=== PATIENT | female | born 1960 | race Caucasian/White ===

== ENCOUNTER → 2019-07-23 09:03 | Outpatient (BNVA) | payer MEDICARE, MEDICAID, SELFPAY | PROVIDERS: Family Provider Nurse Practitioner; PCP Nurse Practitioner; Visit Provider Nurse Practitioner | DX: I10 Essential (primary) hypertension (principal); E11.9 Type 2 diabetes mellitus without complications; J43.9 Emphysema, unspecified; Z86.718 Personal history of other venous thrombosis and embolism | CPT/HCPCS: 80053; 83036 ==

== ENCOUNTER 2019-08-20 07:18 | Observation (INO) | payer MEDICARE, MEDICAID, SELFPAY ==
[2019-08-20] VITALS (9 sets, daily range): BP systolic 83–142; BP diastolic 47–82; PULSE 67–85; RESP 15–22; TEMP 36.5–36.9; O2SAT 71–98; BMI 35.0
--- NOTE | 2019-08-20 07:22 | ED_ITS ---
Entered by Tamia Leon, acting as scribe for Toni Almonte DO HPI - Chest Pain General: Chief Complaint: Chest Pain Stated Complaint: chest pain Time Seen by Provider: 08/20/19 07:21 Source: patient, family and EMS Mode of arrival: EMS Limitations: no limitations History of Present Illness: HPI narrative: 58 yo female presents with chest and abdomen pain. pt states this started yesterday. pt has had shortness of breath. pt got 3 Nitro by EMS that relieved the pain. pt has had high blood pressure. pt denies any other symptoms at this time. MD complaint: other (nausea) Onset (ago): day(s) (yesterday) Timing of current episode: constant and now resolved (after Nitro) Prior episodes: Yes Onset: during rest Pain location: substernal and epigastric Pain radiation: none Severity: moderate Quality: tightness Relieving factors: nitroglycerin (by EMS) Exacerbating factors: nothing Associated symptoms: Reports abdominal pain, dyspnea and other (sweats) Treatment prior to arrival: none Review of Systems General: Reports: 10 or more systems reviewed and unremarkable except in HPI and below Resp: Reports: shortness of breath GI: Reports: abdominal pain PFSH ED PFSH: Statuses (acute, chronic, etc) shown below reflect problem list status as previously entered and may not be historically accurate Medical History (Updated 08/20/19 @ 11:32 by Angelique Smith DO) Diabetes (Acute) Diastolic congestive heart failure (Acute) GERD (gastroesophageal reflux disease) (Acute) History of DVT of lower extremity (Acute) Left leg HTN (hypertension) (Acute) Hx of breast lump (Acute) left 09/2015 negitive Hx of melanoma of skin (Acute) 2003 Insomnia, unspecified (Acute) Tremor, unspecified (Acute) Unspecified urinary incontinence (Acute) Vitamin B12 deficiency (Acute) Surgical History (Updated 08/20/19 @ 11:32 by Angelique Smith DO) H/O left breast biopsy (Acute) History of thoracentesis (Acute) Hx of colonoscopy (Acute) Hx of tubal ligation (Acute) 1980 Social History Smoking and tobacco status: former smoker Quit status (tobacco): has quit using tobacco Alcohol intake: never Marital status: History of recent travel: No Physical Exam Const: COMMON NORMALS: no apparent distress, average body habitus, oriented x3, no limitations, healthy appearing, alert and well nourished HENMT: COMMON NORMALS: normocephalic, head/scalp atraumatic, hearing grossly normal bilaterally, external ears normal, EAC's normal, TM's normal bilaterally, external nose normal, nasal mucous membranes and turbinates normal, moist oral mucous membranes, oropharynx normal, dentition normal and gingiva normal HEAD & SCALP: normocephalic and atraumatic NOSE: external nose normal and nasal mucous membranes and turbinates normal EXTERNAL EAR: Yes external ears normal EXTERNAL AUDITORY CANAL: EAC's normal TYMPANIC MEMBRANE: TM's normal bilaterally Eye: COMMON NORMALS: PERRL, EOMs intact bilaterally, conjunctivae normal, no scleral icterus, no papilledema, normal visual gilman by confrontation and fundi normal bilaterally CONJUNCTIVA: Yes conjunctivae normal PUPIL: Yes PERRL DIRECT OPHTHALMOSCOPY: Yes no papilledema and Yes fundi normal bilaterally Neck/C-Spine: COMMON NORMALS: full ROM, no lymphadenopathy, supple, no meningeal signs, no JVD, thyroid normal and no carotid bruits THYROID: thyroid normal Chest: COMMONS NORMALS: inspection of chest normal and palpation of chest normal Resp: COMMON NORMALS: normal respiratory effort, no retractions, no use of accessory muscles, clear to auscultation bilaterally and percussion normal AUSCULTATION: clear to auscultation bilaterally PERCUSSION: percussion normal Cardio: COMMON NORMALS: no JVD, regular rate, regular rhythm, S1 normal heart sound, S2 normal heart sound, no gallops, no clicks, no murmurs, no rub and peripheral pulses 2+ throughout RATE: regular rate RHYTHM: regular rhythm HEART SOUNDS: S1 normal and S2 normal PERIPHERAL PULSES: pulses 2+ throughout GI: COMMON NORMALS: normal to inspection, nondistended, normoactive bowel sounds, soft to palpation, non-tender, no hepatosplenomegaly, no masses and no bruits PALPATION: Yes soft and Yes no hepatosplenomegaly : COMMON NORMALS: Yes no CVA tenderness and Yes external appearance normal BLADDER/KIDNEY EXAM: Yes no CVA tenderness Back/Pelvis: COMMON NORMALS: no CVA tenderness, thoracic and lumbar spine normal to inspection, no thoracic nor lumbar tenderness, thoraco-lumbar ROM normal and straight leg raise negative bilaterally Extremity: COMMON NORMALS: normal to inspection, full ROM, normal capillary refill, no joint enlargement, no clubbing, cyanosis or edema, no calf tenderness and no pedal edema Neuro: COMMON NORMALS: oriented x3 SENSORIUM/ORIENTATION: Yes alert MENINGEAL SIGNS: Yes no meningeal signs Skin: COMMON NORMALS: no rashes or lesions noted, no wounds, skin turgor normal, no jaundice, no petechiae and no mottling GENERAL SKIN EXAM: no rashes or lesions noted and turgor normal Course Vital Signs: Vital signs: Vital Signs Temperature 97.7 F 08/20/19 07:19 Pulse Rate 85 08/20/19 07:19 Respiratory Rate 20 H 08/20/19 10:20 Blood Pressure 95/56 08/20/19 10:20 Pulse Oximetry 98 08/20/19 10:20 MDM - Chest Pain Lab Data: Labs: Lab Results 08/20/19 08/20/19 08/20/19 Range/Units 07:40 07:40 07:40 WBC 6.7 (4.0-10.0) 10^3/ uL RBC 4.41 (4.1-5.3) 10^6/u L Hgb 13.0 (11.5-15.3) g/dL Hct 40.9 (37.0-47.0) % MCV 92.7 (81-99) fL MCH 29.5 (28.0-34.0) pg MCHC 31.8 (30.0-36.0) g/dL RDW 12.4 (12.1-15.1) % Plt Count 165 (130-400) 10^3/c mm MPV 11.0 H (7.4-10.4) fL Neut % (Auto) 81.2 % Lymph % (Auto) 12.6 % [place] % (Auto) 3.6 % Eos % (Auto) 1.3 % Baso % (Auto) 0.4 % Neut # (Auto) 5.5 (1.8-7.7) 10^3/u L Lymph # (Auto) 0.9 (0.8-4.8) 10^3/u L [place] # (Auto) 0.2 (0.2-0.9) 10^3/u L Eos # (Auto) 0.1 (0.0-0.8) 10^3/u L Baso # (Auto) 0.0 (0.0-0.1) 10^3/u L Nucleated RBC % (a uto) 0 % Nucleated RBCs # 0.0 /100WBC D-Dimer 0.94 H (0-0.59) ug/mIFE U Sodium 135 L (136-145) mmol/L Potassium 5.0 (3.5-5.1) mmol/L Chloride 96 L (98-107) mmol/L Carbon Dioxide 28 (22-29) mmol/L Anion Gap 16.0 (5-19) BUN 17 (8-23) mg/dL Creatinine 0.4 L (0.5-0.9) mg/dL GFR Calculation 162.8 H (90-130) mL/min Glucose 393 H (74-106) mg/dL Calcium 9.2 (8.5-10.5) mg/dL Total Bilirubin 0.7 (0.15-1.2) mg/dL AST 12 (0-32) U/L ALT 12 (0-33) U/L Alkaline Phosphata se 81 (35-105) IU/L Troponin T Baselin e (0-10) ng/mL Troponin T 120 Min [place] (0-10) ng/mL Delta Troponin T (0-10) ABS# NT-Pro-B Natriuret Pep 293 H (0-125) pg/mL Total Protein 7.6 (6.6-8.7) g/dL Albumin 3.5 (3.5-5.2) g/dL Globulin 4.1 (1.3-4.6) g/dL Lipase 7 L (13-60) U/L 08/20/19 08/20/19 Range/Units 07:40 09:40 WBC (4.0-10.0) 10^3/ uL RBC (4.1-5.3) 10^6/u L Hgb (11.5-15.3) g/dL Hct (37.0-47.0) % MCV (81-99) fL MCH (28.0-34.0) pg MCHC (30.0-36.0) g/dL RDW (12.1-15.1) % Plt Count (130-400) 10^3/c mm MPV (7.4-10.4) fL Neut % (Auto) % Lymph % (Auto) % [place] % (Auto) % Eos % (Auto) % Baso % (Auto) % Neut # (Auto) (1.8-7.7) 10^3/u L Lymph # (Auto) (0.8-4.8) 10^3/u L [place] # (Auto) (0.2-0.9) 10^3/u L Eos # (Auto) (0.0-0.8) 10^3/u L Baso # (Auto) (0.0-0.1) 10^3/u L Nucleated RBC % (a uto) % Nucleated RBCs # /100WBC D-Dimer (0-0.59) ug/mIFE U Sodium (136-145) mmol/L Potassium (3.5-5.1) mmol/L Chloride (98-107) mmol/L Carbon Dioxide (22-29) mmol/L Anion Gap (5-19) BUN (8-23) mg/dL Creatinine (0.5-0.9) mg/dL GFR Calculation (90-130) mL/min Glucose (74-106) mg/dL Calcium (8.5-10.5) mg/dL Total Bilirubin (0.15-1.2) mg/dL AST (0-32) U/L ALT (0-33) U/L Alkaline Phosphata se (35-105) IU/L Troponin T Baselin e 13 H (0-10) ng/mL Troponin T 120 Min [place] 16.21 H (0-10) ng/mL Delta Troponin T 3.21 (0-10) ABS# NT-Pro-B Natriuret Pep (0-125) pg/mL Total Protein (6.6-8.7) g/dL Albumin (3.5-5.2) g/dL Globulin (1.3-4.6) g/dL Lipase (13-60) U/L Discharge Plan Discharge Patient Disposition: Admitted As Inpatient Clinical Impression: Non-ST elevation OR (NSTEMI) Chest pain Qualifiers: Chest pain type: chest pain due to myocardial ischemia Ischemic chest pain type: unstable angina pectoris Qualified Code(s): I20.0 - Unstable angina Condition: Fair Referrals: Alondra Ham, [employer] MAKER-C [Primary Care Provider] - Coding Level of Care Code ED Quantitative Developer for Chg Fwd Exam Problem Focused The documentation recorded by the Edward mayer Bridget Annette, accurately reflects the service I personally performed and the decisions made by , Toni Almonte, Aug 20, 2019 07:18
--- NOTE | 2019-08-20 07:30 | XR_ITS ---
WS: [id number] CHEST XRAY TECHNIQUE: Portable chest. CLINICAL INFORMATION: chest pain COMPARISON: April 01, 2019 FINDINGS: Heart: Cardiomegaly. Lungs: Small left pleural effusion with left basilar infiltrate. Pleural effusion has improved from p revious. Right lung is well aerated. Chronic emphysematous changes. Calcified granulomas. Bones: Normal visualized bony structures. XR/XR chest 1V portable [id number] IMPRESSION: Small pleural effusion with left basilar infiltrate. Recommend correlation for pneumonia.
[2019-08-20 07:51] LABS: Basophils % 0.4 %; Eosinophils # 0.1 10^3/uL (0.0-0.8); Eosinophils % 1.3 %; Hematocrit 40.9 % (37.0-47.0); Lymphocytes # 0.9 10^3/uL (0.8-4.8); Lymphocytes % 12.6 %; Mean Corpuscular HGB Conc 31.8 g/dL (30.0-36.0); Mean Corpuscular Hemoglobin 29.5 pg (28.0-34.0); Mean Corpuscular Volume 92.7 fL (81-99); Monocytes # 0.2 10^3/uL (0.2-0.9); Monocytes % 3.6 %; Neutrophils # 5.5 10^3/uL (1.8-7.7); Neutrophils % 81.2 %; Nucleated Red Blood Cells % 0 %; Platelet Count 165 10^3/cmm (130-400); Red Blood Count 4.41 10^6/uL (4.1-5.3); Red Cell Distribution Width 12.4 % (12.1-15.1); White Blood Count 6.7 10^3/uL (4.0-10.0)
[2019-08-20 08:06] LABS: D Dimer 0.94 ug/mIFEU (0-0.59)
[2019-08-20 08:22] LABS: Alanine Aminotransferase 12 U/L (0-33); Albumin Level 3.5 g/dL (3.5-5.2); Alkaline Phosphatase 81 IU/L (35-105); Blood Urea Nitrogen 17 mg/dL (8-23); Calcium 9.2 mg/dL (8.5-10.5); Carbon Dioxide 28 mmol/L (22-29); Chloride 96 mmol/L (98-107); Globulin 4.1 g/dL (1.3-4.6); Glomerular Filtration Rate 162.8 mL/min (90-130); Glucose 393 mg/dL (74-106); Lipase 7 U/L (13-60); NT Pro B Type Natriuretic Pept 293 pg/mL (0-125); Sodium 135 mmol/L (136-145); Total Bilirubin 0.7 mg/dL (0.15-1.2); Total Protein 7.6 g/dL (6.6-8.7)
[2019-08-20 08:26] LABS: Aspartate Amino Transferase 12 U/L (0-32)
[2019-08-20] MEDS: sodium chloride 0.9% 500 ML 999 ML IV (08:31)
[2019-08-20 08:39] LABS: Troponin(5th) Baseline 13 ng/mL (0-10)
--- NOTE | 2019-08-20 09:30 | ECG_ITS ---
Measurements Intervals [place] Rate: 81 P: 41 IA: 161 QRS: 59 QRSD: 94 T: 64 QT: 411 QTc: 477 SINUS RHYTHM LEFT ATRIAL ENLARGEMENT [-0.15mV P WAVE IN V1/V2] Compared to ECG 03/19/2019 23:44:49 Atrial abnormality now present Myocardial infarct finding no longer present Electronically Signed On 08-20-2019 20:17:03 ENTERPRISE MANAGER by Sabra Askew M.D. [email or web address]
[2019-08-20 10:00] LABS: Troponin 5 2HR 16.21 ng/mL (0-10); Troponin 5 2HR Delta 3.21 ABS# (0-10)
--- NOTE | 2019-08-20 11:26 | P.HP_ITS ---
Providers/Chief Complaint Admitting Physician: Angelique Smith DO Primary Care Provider: PATRICIA Myers-C Chief Complaint: chest pain History of Present Illness Shea Simon is a 58 year old female with a past medical history of diabetes and COPD that presented to the emergency department today for chest pain. She stated that she woke up at about 1:00 this morning and was having heaviness in the center of her chest. She stated that she had associated nausea and vomiting as well as dry heaves. She stated that she checked her blood sugar and it was 300, this is around where she typically is. She stated that it felt like she had a weight on her chest. She stated that she was given nitroglycerin by EMS which had no improvement but now her pain has resolved. Patient stated that she has had an increased weight gain since she was discharged from the hospital in [facility], has been diagnosed with congestive heart failure and continues to take Lasix twice daily at home, last dose was last night. She stated that she has not had any change in diet. Patient reports history of left lower extremity DVT and is on Xarelto 2.5 mg twice daily. She reports no recent increase in cough, no sputum production, no fevers or chills. Has a granddaughter that has had upp er respiratory infection. Patient denies any recent surgeries or procedures. She reports that she is on oxygen at home, 4 L by nasal cannula at baseline. She follows with a freezing machine operator in [place]. Patient was seen and evaluated in the emergency department and admitted for further evaluation due to chest pain. Review of Systems Const: Denies: fever or chills Eyes: Denies: change in vision ENMT: Denies: nasal congestion Card: Reports: chest pain and edema; Denies: palpitations Resp: Denies: shortness of breath, productive cough or coughing up blood GI: Reports: nausea; Denies: abdominal pain, vomiting, diarrhea, constipation, blood in stool or black tarry stool : Denies: painful urination or blood in urine Musc: Denies: extremity pain or muscle cramps Skin/Breast: Denies: rash or new lesion Neuro: Denies: headache or dizziness Psych: Denies: anxiety or depression Endo: Denies: excessive urination or hot flashes Bhavin/Lymph: Denies: easy bruising or easy bleeding Medications/Allergies Home Medications Medication Instructions Recorded Confirmed Last Taken Type albuterol sulfate [Ventolin HFA] 2 puff INHALATION Q4H PRN 08/20/19 08/20/19 Unknown History aspirin [Aspir-81] 81 mg PO BID 08/20/19 08/20/19 08/19/19 History atorvastatin 10 mg PO DAILY 08/20/19 08/20/19 08/19/19 History insulin aspart U-100 [Novolog See Rx Instructions .ROUTE .COMPLEX 08/20/19 08/20/19 08/19/19 History Flexpen U-100 Insulin] lisinopril 10 mg PO DAILY 08/20/19 08/20/19 Unknown History metformin 2,000 mg PO DAILY 08/20/19 08/20/19 08/19/19 History semaglutide [Ozempic] 1 mg SUBCUT Q7D 08/20/19 08/20/19 08/19/19 History Allergies Allergy/AdvReac Type Severity Reaction Status Date / Time No Known Allergies Allergy Verified 08/20/19 07:30 PFSH Acute PFSH: Statuses (acute, chronic, etc) shown below reflect problem list status as previously entered and may not be historically accurate Medical History (Updated 08/20/19 @ 11:32 by Angelique Smith DO) Diabetes (Acute) Diastolic congestive heart failure (Acute) GERD (gastroesophageal reflux disease) (Acute) History of DVT of lower extremity (Acute) Left leg HTN (hypertension) (Acute) Hx of breast lump (Acute) left 09/2015 negitive Hx of melanoma of skin (Acute) 2003 Insomnia, unspecified (Acute) Tremor, unspecified (Acute) Unspecified urinary incontinence (Acute) Vitamin B12 deficiency (Acute) Surgical History (Updated 08/20/19 @ 11:32 by Angelique Smith DO) H/O left breast biopsy (Acute) History of thoracentesis (Acute) Hx of colonoscopy (Acute) Hx of tubal ligation (Acute) 1980 Family History (Updated 08/20/19 @ 11:35 by Angelique Smith DO) Mother Cancer Unknown type Father Cancer Lung CA Other Hypertension Denies family history of Clotting disorder Social History (Updated 08/20/19 @ 11:35 by Angelique Smith DO) Smoking and tobacco status: former smoker Quit status (tobacco): has quit using tobacco Alcohol intake: never Substance/Drug Use: never Marital status: History of recent travel: No Vitals/I&O/Wt Last Vital Signs Temp 97.7 F 08/20/19 07:19 Pulse 85 08/20/19 07:19 Resp 20 H 08/20/19 10:20 BP 95/56 08/20/19 10:20 Pulse Ox 98 08/20/19 10:20 Weight last 48 hrs Weight 101.605 kg Physical Exam Const: COMMON NORMALS: oriented x3 and alert GENERAL APPEARANCE: cooperative ORIENTATION/CONSCIOUSNESS: Yes awake, Yes oriented to person, Yes oriented to place and Yes oriented to time HENMT: COMMON NORMALS: normocephalic and head/scalp atraumatic HEAD & SCALP: normocephalic and atraumatic Eye: COMMON NORMALS: PERRL PUPIL: Yes PERRL Neck/C-Spine: COMMON NORMALS: supple GENERAL: Yes normal visual inspection Resp: COMMON NORMALS: normal respiratory effort and clear to auscultation bilaterally EFFORT & INSPECTION: Yes able to speak in complete sentences AUSCULTATION: clear to auscultation bilaterally and crackles (L base, faint) Cardio: COMMON NORMALS: regular rate, regular rhythm and no murmurs RATE: regular rate RHYTHM: regular rhythm GI: COMMON NORMALS: soft to palpation and non-tender INSPECTION: No abdominal distension AUSCULTATION: Yes normoactive bowel sounds PALPATION: Yes soft Extremity: COMMON NORMALS: no calf tenderness NARRATIVE EXTREMITY EXAM: 2+ pitting edema in the LE bilaterally Neuro: COMMON NORMALS: oriented x3, CN's II-XII intact bilaterally, moves all extremities and no focal motor deficits SENSORIUM/ORIENTATION: Yes alert, Yes oriented to person, Yes oriented to place and Yes oriented to time SPEECH: speech normal Psych: COMMON NORMALS: mental status grossly normal and cooperative Skin: COMMON NORMALS: no rashes or lesions noted GENERAL SKIN EXAM: no rashes or lesions noted Data : 08/20/19 07:40 08/20/19 07:40 CXR: My impression: Reviewed, report as read by radiologist Radiologist's impression: IMPRESSION: Small pleural effusion with left basilar infiltrate. Recommend correlation for pneumonia. A&P Assessment and plan (1) Chest pain: Multifactorial Concern for mild CHF exacerbation we will give IV Lasix and continue to monitor closely, checking BNP and CTA Repeat echocardiogram Telemetry Serial EKG and troponin Very minimal increase in troponin from initial, delta not significant at this time Patient does have risk factors for coronary artery disease therefore will further evaluate with stress test Status: Acute Qualifiers: Chest pain type: chest pain due to myocardial ischemia Ischemic chest pain type: unstable angina pectoris Qualified Code(s): I20.0 - Unstable angina Code(s): R07.9 - Chest pain, unspecified (2) Diastolic congestive heart failure: With mild fluid overload, repeat echocardiogram ordered for further evaluation and order for IV Lasix Strict I's and O's and daily weights Respiratory therapy to assess and treat Status: Acute Code(s): I50.30 - Unspecified diastolic (congestive) heart failure Additional A&P Information Patient with left-sided pleural effusion appears to be improved from previous imaging and question of pneumonia based on radiology read: Patient denies any increased cough or sputum production, no fevers or chills, white blood cell count without any elevation, no clinical concern for pneumonia at this time, likely secondary to fluid overload, will diurese and continue to monitor closely Patient with elevated d-dimer and prior history of left lower extremity DVT: She is on low-dose of Xarelto, uncertain why she is on this dosing, due to her chest pain will further evaluate with CT scan of the chest to evaluate for possibility of pulmonary embolism. Diabetes mellitus type 2: Last A1c of 8.9, previously taken off of her Levemir by her primary care provider and is only on NovoLog sliding scale insulin. Would recommend her be on long-acting insulin rather than NovoLog, however will advise primary care provider. Family and patient reports that it caused hypoglycemia. She is on Ozempic as well as metformin. Holding metformin at this time due to her receiving contrast Previously diagnosed hypertension: Blood pressure soft at this time and patient reports that she is no longer taking home lisinopril COPD: Without acute exacerbation: Respiratory therapy to assess and treat, oxygen per protocol, patient is on 4 L of oxygen by nasal cannula at baseline Depression: Continue home Lexapro Hyperlipidemia: Continue home statin DVT prophylaxis: Continue home Xarelto, would recommend increased dosing Diet: Carbohydrate consistent, n.p.o. at midnight CODE STATUS: DNR/DNI, discussed with patient and her at bedside Attestations 2 Medical Necessity Statement*: Observation due to chest pain, expected stay less than 2 midnights Coding Level of Care Code Acute Corporate Planning Manager for Chg Fwd Diagnoses Chest pain I20.0 Chest pain type: chest pain due to myocardial ischemia Ischemic chest pain type: unstable angina pectoris Diastolic congestive heart failure I50.30
--- NOTE | 2019-08-20 11:38 | USCV_ITS ---
Shea Simon Age: 58 Gender: F : 1960 Exam Date: 08/20/2019 12:27 Ordering Phys: Angelique Smith DO Technologist: Radha Ricardo Exam Location: [facility] Indication: CP, CHF BP: 84 / 45 HR: 69 Rhythm: Sinus Technical Quality: Fair MEASUREMENTS (Male / Female) Normal Values 2D ECHO LVOT Diameter 2.0 cm LV Ejection Fraction MOD 2C 74.4 % LV Ejection Fraction 2C AL 76.8 % LA Diameter 4.0 cm LA Width 2.9 cm LA Height 5.7 cm RA Width 5.3 cm RA Height 7.1 cm M-MODE LV Diastolic Diameter MM 6.1 cm 4.2 - 5.9 / 3.9 - 5.3 cm LV Systolic Diameter MM 2.8 cm LV Ejection Fraction MM Teich 83.9 % IVS Diastolic Thickness MM 0.7 cm 0.6 - 1.0 / 0.6 - 0.9 cm IVS Systolic Thickness MM 1.1 cm LVPW Diastolic Thickness MM 0.8 cm 0.6 - 1.0 / 0.6 - 0.9 cm LVPW Systolic Thickness MM 1.7 cm Aortic Annulus Diameter 3.1 cm LA Ao Ratio MM 1.3 MV E Point Septal Separation 0.2 cm DOPPLER AV Peak Velocity 218.0 cm/s LVOT Peak Velocity 125.0 cm/s AV Area Cont Eq vti 2.0 cm squared AV Area Cont Eq pk 1.9 cm squared MV Area PHT 2.8 cm squared Mitral E to A Ratio 0.9 MV E' Velocity 10.0 cm/s Mitral E to MV E' Ratio 9.1 Mitral E to LV E' Lateral Ratio 7.7 Mitral E to LV E' Septal Ratio 11.3 TR Peak Velocity 67.0 cm/s TR Peak Gradient 1.8 mmHg TR Mean Velocity 136.1 cm/s TR Mean Gradient 7.8 mmHg TR Velocity Time Integral 44.8 cm Right Atrial Pressure 3.0 mmHg Pulmonary Artery Systolic Pressu 4.8 mmHg PV Peak Velocity 62.0 cm/s FINDINGS Left Ventricle Normal left ventricular cavity size. Mild left ventricular hypertrophy. Normal left ventricular systolic function. No regional wall motion abnormalities. Grade I/IV diastolic dysfunction (abnormal relaxation filling pattern), normal to mildly elevated filling pressures. Left ventricular ejection fraction is estimated at 65 %. Right Ventricle Normal right ventricular size and systolic function. Normal right ventricular systolic pressure. Right Atrium Mildly increased right atrial size. Left Atrium Mildly increased left atrial size. Mitral Valve Structurally normal mitral valve without significant stenosis or prolapse. There is no mitral regurgitation. Aortic Valve Structurally normal aortic valve without significant sclerosis or stenosis. There is no aortic regurgitation. Tricuspid Valve Structurally normal tricuspid valve. Trace tricuspid valve regurgitation. Pulmonic Valve Pulmonic valve not well visualized. Trace pulmonary valve regurgitation. Pericardium Normal pericardium without effusion. Aorta Normal ascending aorta dimension. CONCLUSIONS Normal left ventricular cavity size. Mild left ventricular hypertrophy. Normal left ventricular systolic function. No regional wall motion abnormalities. Grade I/IV diastolic dysfunction (abnormal relaxation filling pattern), normal to mildly elevated filling pressures. Left ventricular ejection fraction is estimated at 65 %. Mildly increased right atrial size. Mildly increased left atrial size. No change from March of last year aside from the pulmonary pressure now measured normal. Previously it was [address] Roe Sanders MD (Electronically Signed) Final Date: 20 August 2019 16:20 S
--- NOTE | 2019-08-20 11:40 | CT_ITS ---
WS: [id number] CTA OF THE CHEST WITH PULMONARY EMBOLISM PROTOCOL TECHNIQUE: High-resolution contrast enhanced CTA of the chest with coronal and sagittal reformatted i mages with pulmonary embolism protocol. MIP images are also reviewed. CLINICAL INFORMATION: chest pain, elevated d-dimer, recent history of DVT COMPARISON: None. DLP: 519.[address] scans at [facility] use at least one of these dose optimization techniques: automat ed exposure control; mA and/or kV adjustment per patient size (includes targeted exams where dose is matched to clinical indication); or iterative reconstruction. FINDINGS: Proximal main pulmonary arteries are normal. Segmental and subsegmental pulmonary arteries appear nor mal. No evidence of pulmonary embolus. Normal caliber thoracic aorta. Aortic calcification. Small left pleural effusion. Bibasilar atelectasis. Trace right pleural fluid. Mild chronic emphysema tous changes. A few calcified granulomas. No mediastinal or hilar lymphadenopathy. Calcified right hi lar nodes. Normal endobronchial tree. Small esophageal hiatal hernia. Left adrenal adenoma measuring 2.5 Cm. Attempted notification Toni Awad D.O. at 08/20/2019 12:[address] angio chest PE protcl [id number] IMPRESSION: 1. No evidence for pulmonary embolus. 2. Small left pleural effusion with bibasilar atelectasis. Trace right pleural fluid. 3. Chronic emphysematous changes.
[2019-08-20] MEDS: iohexol 350 mg/mL 100 mL Btl IV (12:10)
--- NOTE | 2019-08-20 13:30 | ECG_ITS ---
Measurements Intervals [place] Rate: 79 P: 45 MS: 152 QRS: 58 QRSD: 93 T: 40 QT: 405 QTc: 467 SINUS RHYTHM LEFT ATRIAL ENLARGEMENT [-0.15mV P WAVE IN V1/V2] Compared to ECG 03/19/2019 23:44:49 Atrial abnormality now present Myocardial infarct finding no longer present Electronically Signed On 08-20-2019 20:16:56 CRIMINALIST TECHNICIAN by Sabra Askew M.D. [email or web address]
[2019-08-20 13:58] LABS: Glucose Point of Care 295 mg/dL (70-110)
[2019-08-20 14:16] LABS: Troponin 5 6HR 17.06 ng/L (0-10); Troponin 5 6HR Delta 4.06 ng/L (0-12)
[2019-08-20 15:17] LABS: NT Pro B Type Natriuretic Pept 363 pg/mL (0-125)
[2019-08-20 15:18] LABS: Procalcitonin 0.04 ng/mL (0-0.5)
[2019-08-20 15:19] LABS: Glucose Point of Care 254 mg/dL (70-110)
[2019-08-20] MEDS: FUROsemide 10 mg/mL SDV 4mL 40 MG IVP (15:20)
[2019-08-20] MEDS: escitalopram 10 mg Tablet PO (15:21)
[2019-08-20] MEDS: atorvastatin 40 mg Tablet 20 MG PO (15:21)
[2019-08-20 15:35] LABS: Influenza A by IFA Negative (Negative)
[2019-08-20 15:36] LABS: Influenza B by IFA Negative (Negative)
[2019-08-20 16:52] LABS: Glucose Point of Care 303 mg/dL (70-110)
[2019-08-20] MEDS: aspirin 81 mg EC Tablet PO (18:03)
[2019-08-20 20:10] LABS: Glucose Point of Care 135 mg/dL (70-110)
[2019-08-21 03:55] VITALS: BP 129/75; PULSE 75; RESP 17; TEMP 36.8; O2SAT 96
[2019-08-21 05:01] LABS: Anion Gap 13.3 (5-19); Blood Urea Nitrogen 24 mg/dL (8-23); Calcium 9.1 mg/dL (8.5-10.5); Carbon Dioxide 32 mmol/L (22-29); Chloride 98 mmol/L (98-107); Glomerular Filtration Rate 162.8 mL/min (90-130); Glucose 248 mg/dL (65-115); Osmolality Calculated 293 mOsm/kg (285-295); Potassium 4.3 mmol/L (3.5-5.1); Sodium 139 mmol/L (136-145)
[2019-08-21 06:39] VITALS: BP 129/75; PULSE 75
[2019-08-21 06:41] LABS: Glucose Point of Care 222 mg/dL (70-110)
--- NOTE | 2019-08-21 07:33 | PC.NURSE ---
Patient taken for stress test at this time.
[2019-08-21 08:00] VITALS: BP 140/78; PULSE 69; RESP 18; TEMP 36.7; O2SAT 97
[2019-08-21] MEDS: escitalopram 10 mg Tablet PO (09:17)
[2019-08-21] MEDS: aspirin 81 mg EC Tablet PO (09:17)
[2019-08-21] MEDS: FUROsemide 40 mg Tablet PO (09:17)
[2019-08-21] MEDS: atorvastatin 40 mg Tablet 20 MG PO (09:17)
[2019-08-21 10:49] VITALS: PULSE 78; RESP 18; O2SAT 98
--- NOTE | 2019-08-21 11:06 | PC.CHAP ---
Pastoral Care Encounter/Spiritual Assessment Type of Contact [] Declined green plumber visit [] Patient/Family/Request visit [] Outpatient visit [] Follow-up visit [] Physician referral [] Code/Alert [x] Routine visit [] Staff referral [] Actively dying [] Patient sleeping [] Family support [] [] Out of room [] Palliative care [] [] Receiving care in room [] Pre-surgical visit [] Trauma [] Long length of stay [] ICU visit [] Other: Relational/Emotional Strength [x] Patient feels connected with others/family/visitors/staff [] Distress [] Loneliness/isolation [] Abandonment Spirituality of Patient [x] Person of Anushka [] Attends Congregational of their [place] [x] Believes in Prayer [] Reads Bible or Bahai materials [] There are Spiritual issues to be addressed Compressor Operator Adjuster Interventions [x] Prayer [] Active listening [] Non-anxious presence [] Spiritual/emotional support [] Crisis/trauma care [] Spiritual counseling [] Bereavement support [] Provided bereavement packet [] Provided Bible/devotional materials [] Provided toy/stuffed animal, coloring book to patient or family member [] Provided Communion [] Anointing/Lyle [] Salvation [x] Completed spiritual assessment [] Other: Impact on Illness or Injury [] Angry [] Fearful [] Anxious [] Often cries [] Exhaustion [] Unable to work [] Unable to attend zoroastrianism [] Unable to walk/stand [] Unable to read [] Unable to drive [] Unable to eat/drink [] Unable to sleep [] Unable to be with family [] Patient intubated [] Other: Summary Patient awaiting stress test. Patient spouse present. Patient feel much stronger and ready to go home. Time spent with patient 15 min
[2019-08-21 11:28] LABS: Glucose Point of Care 213 mg/dL (70-110)
--- NOTE | 2019-08-21 13:05 | SUR.PREOP ---
Stress test postponed today due to low b/p by Dr Sanders. Floor notified. Dr Smith notified. Patient updated and okay with postponing today. Pre op b/p is 84/54 with a retake of 81/54.
--- NOTE | 2019-08-21 14:20 | PM.DCS ---
Discharge Providers Date of Admission: 08/20/19 11:26 Date of Discharge: Date of Discharge: August 21, 2019 Attending Provider at Admission: Angelique Smith DO Attending Provider at Discharge: Angelique Smith DO Primary Care Provider: [facility] Diagnoses at Discharge Discharge Diagnosis (1) Chest pain: Status: Acute Problem details: Now resolved Recommend outpatient stress testing for further evaluation, initial portion of stress testing performed, now set up for stress test on 08/23/2019 at 1300 Nitroglycerin prescribed as needed for chest pain. If patient begins having any continued chest pain or shortness of breath she is to return to the ED. Qualifiers: Chest pain type: chest pain due to myocardial ischemia Ischemic chest pain type: unstable angina pectoris Qualified Code(s): I20.0 - Unstable angina (2) Diastolic congestive heart failure: Status: Acute Problem details: With mild fluid overload on initial exam, given IV Lasix and now improved. Will transition back to oral Lasix at this time Reason for Visit Reason for Visit: Reason For Visit: chest pain Hospital Course Hospital Course: Patient was seen and evaluated in the emergency department noted to have concern for chest pain and admitted for further evaluation and treatment. Patient was given IV Lasix due to concern for some mild diastolic congestive heart failure and repeat imaging was performed. Patient had echocardiogram to reevaluate wall motion, echocardiogram showed no new wall motion abnormalities. She had serial EKG and troponin which did not show any significant delta there was negative for any acute changes. Patient was kept n.p.o. for stress test and had initial portion of stress test but then had lower blood pressures and was unable to perform the rest of her stress test. She reported that she was chest pain-free and discussed the possibility of having this followed up as an outpatient setting. On date of discharge patient denied any chest pain, no shortness of breath, she was on her home oxygen by nasal cannula. She denied any abdominal pain or nausea. CT scan of the chest was performed due to her history of DVT to evaluate and it was negative for pulmonary embolism Discharge Summary: Discharge to home Follow-up with primary care provider in 3 to 5 days Return on 08/23/2019 1 PM for the remainder of your stress test Physical Exam Const: COMMON NORMALS: oriented x3 and alert GENERAL APPEARANCE: cooperative ORIENTATION/CONSCIOUSNESS: Yes awake, Yes oriented to person, Yes oriented to place and Yes oriented to time HENMT: COMMON NORMALS: normocephalic and head/scalp atraumatic HEAD & SCALP: normocephalic and atraumatic Eye: COMMON NORMALS: PERRL PUPIL: Yes PERRL Neck/C-Spine: COMMON NORMALS: supple GENERAL: Yes normal visual inspection Resp: COMMON NORMALS: normal respiratory effort and clear to auscultation bilaterally EFFORT & INSPECTION: Yes able to speak in complete sentences AUSCULTATION: clear to auscultation bilaterally Cardio: COMMON NORMALS: regular rate, regular rhythm and no murmurs RATE: regular rate RHYTHM: regular rhythm GI: COMMON NORMALS: soft to palpation and non-tender INSPECTION: No abdominal distension AUSCULTATION: Yes normoactive bowel sounds PALPATION: Yes soft Extremity: COMMON NORMALS: no calf tenderness NARRATIVE EXTREMITY EXAM: Trace edema in the LE bilaterally Neuro: COMMON NORMALS: oriented x3, CN's II-XII intact bilaterally, moves all extremities and no focal motor deficits SENSORIUM/ORIENTATION: Yes alert, Yes oriented to person, Yes oriented to place and Yes oriented to time SPEECH: speech normal Psych: COMMON NORMALS: mental status grossly normal and cooperative Skin: COMMON NORMALS: no rashes or lesions noted GENERAL SKIN EXAM: no rashes or lesions noted Discharge Data Data Completed and Pending: Completed Studies During Hospitalization Category Date Time Status CT angio chest PE protcl [id number] Urge nt Cat Scan 08/20/19 11:40 Completed XR chest 1V marie ble [id number] Stat Exams 08/20/19 07:30 Completed CV echo complete* [id number] Routine Ultrasound 08/20/19 11:38 Completed Pending at discharge Category Date Time Status Sestamibi Stress Test Request Routi ne Exams 08/20/19 14:30 Ordered NM elie perf SPECT r/s* [id number] Routin e Nuc Med 08/21/19 Ordered Labs from last 24 hours 08/21/19 08/21/19 08/21/19 11:25 06:21 03:15 Sodium 139 Potassium 4.3 Chloride 98 Carbon Dioxide 32 H Anion Gap 13.3 BUN 24 H Creatinine 0.4 L GFR Calculation 162.8 H Glucose 248 H POC Glucose 213 222 Calculated Osmolal ity 293 Calcium 9.1 Troponin I Hi Sens Del NT-Pro-B Natriuret Pep Procalcitonin Influenza Type A A g POC Influenza B Ag 08/20/19 08/20/19 08/20/19 20:07 16:36 15:15 Sodium Potassium Chloride Carbon Dioxide Anion Gap BUN Creatinine GFR Calculation Glucose POC Glucose 135 303 254 Calculated Osmolal ity Calcium Troponin I Hi Sens Del NT-Pro-B Natriuret Pep Procalcitonin Influenza Type A A g POC Influenza B Ag 08/20/19 08/20/19 08/20/19 14:50 13:40 13:40 Sodium Potassium Chloride Carbon Dioxide Anion Gap BUN Creatinine GFR Calculation Glucose POC Glucose Calculated Osmolal ity Calcium Troponin I Hi Sens Del NT-Pro-B Natriuret Pep 363 H Procalcitonin 0.04 Influenza Type A A g Negative POC Influenza B Ag Negative 08/20/19 13:40 Sodium Potassium Chloride Carbon Dioxide Anion Gap BUN Creatinine GFR Calculation Glucose POC Glucose Calculated Osmolal ity Calcium Troponin I Hi Sens Del 4.06 NT-Pro-B Natriuret Pep Procalcitonin Influenza Type A A g POC Influenza B Ag Vitals: Last Vital Signs Temp 98.0 F 08/21/19 08:00 Pulse 78 08/21/19 10:49 Resp 18 08/21/19 10:49 BP 140/78 08/21/19 08:00 Pulse Ox 98 08/21/19 10:49 Discharge Plan Discharge Patient Disposition: Home, Self-Care Condition: Stable Prescriptions: New Nitrostat 0.4 mg Tablet, Sublingual 0.4 mg sublingual Q5M PRN (Reason: Chest Pain) 30 Days Qty: 20 RF: 0 Continued escitalopram oxalate 10 mg tablet 10 mg PO DAILY RF: 0 fluticasone propion-salmeterol [Advair Diskus] 500-50 mcg/dose blister with device 1 inh INHALATION BID Qty: 60 RF: 2 furosemide 20 mg tablet 20 mg PO BID Qty: 60 RF: 2 Xarelto 2.5 mg tablet 2.5 mg PO BID Qty: 60 RF: 2 Ventolin HFA 90 mcg/actuation Hfa Aerosol Inhaler 2 puff INHALATION Q4H PRN (Reason: Shortness Of Breath) RF: 0 Novolog Flexpen U-100 Insulin 100 unit/mL (3 mL) insulin pen See Rx Instructions .ROUTE .COMPLEX RF: 0 atorvastatin 10 mg tablet 10 mg PO DAILY RF: 0 metformin 500 mg tablet extended release 24 hr 2,000 mg PO DAILY RF: 0 Ozempic 1 mg/dose (2 mg/1.5 mL) pen injector 1 mg SUBCUT Q7D RF: 0 Aspir-81 81 mg Tablet,Delayed Release (Dr/Ec) 81 mg PO BID RF: 0 Discontinued lisinopril 10 mg tablet 10 mg PO DAILY RF: 0 Discharge Orders: Discharge Order (Routine); Ordered 08/21/19 Ordered By: Angelique Smith Other Ambulatory Orders: Sestamibi Stress Test Request (Routine) Timeframe: 2 Days Facility: [facility] - Location: Card[facility] Diagnostic Laboratory Ordered By: Angelique Smith Referrals: Alondra Ham FNP-C [Primary Care Provider] - 1-3 days Discharge Diet: Advance as tolerated and Diabetic Discharge Activity: Resume usual activity Activity Restrictions/Additional Instructions: Discharge to home Follow-up with primary care provider in 3 to 5 days Return to the hospital on 08/23/2019 at 1300 for the remainder of your stress test. Discharge to home with nitroglycerin, sublingual to use as needed for chest pain. If you continue to have chest pain require more than 2 doses of nitroglycerin please present to the ER Discharge Attestations Time Spent in Discharge Care*: greater than 30 min Quality Metrics Clinical Quality Measures During this hospital stay, did patient experience: None Coding Level of Care Code Acute Administrative Appeals Tribunal Member for Kristian Marquis Diagnoses Chest pain I20.0 Chest pain type: chest pain due to myocardial ischemia Ischemic chest pain type: unstable angina pectoris Diastolic congestive heart failure I50.30
[2019-08-21 15:00] VITALS: BP 111/63; PULSE 76; RESP 18; O2SAT 94
[2019-08-21 15:02] VITALS: BP 111/63; PULSE 78; RESP 18; TEMP 36.7; O2SAT 94
== END 2019-08-21 15:07 | disposition home or self-care (01) ==
LOC: ER 10:21 → CSU 14:04
PROVIDERS: Admitting Provider Family Medicine; Emergency Provider Family Medicine; Family Provider Nurse Practitioner; PCP Nurse Practitioner; Visit Provider Family Medicine
DX: I20.0 Unstable angina (principal); I50.30 Unspecified diastolic (congestive) heart failure; E11.9 Type 2 diabetes mellitus without complications; J44.9 Chronic obstructive pulmonary disease, unspecified; Z86.718 Personal history of other venous thrombosis and embolism; Z79.82 Long term (current) use of aspirin; Z79.4 Long term (current) use of insulin; K21.9 Gastro-esophageal reflux disease without esophagitis; G47.00 Insomnia, unspecified; Z82.49 Family history of ischemic heart disease and other diseases of the circulatory system; Z87.891 Personal history of nicotine dependence; Z79.01 Long term (current) use of anticoagulants
CPT/HCPCS: 12345; 36415; 36416; 71045; 71275; 80048; 80053; 82962; 83690; 83880; 84145; 84484; 85025; 85378; 87804; 93005; 93306; 94640; 96372; 96375; 99283; 99285; G0378; J1815; J1940; J7040; Q9967

== ENCOUNTER 2019-08-23 05:57 | Inpatient (IN) | payer MEDICARE, MEDICAID, SELFPAY ==
[2019-08-23] VITALS (56 sets, daily range): BP systolic 76–228; BP diastolic 49–107; PULSE 63–89; RESP 9–25; TEMP 36.4–36.7; O2SAT 93–100; BMI 31.3
--- NOTE | 2019-08-23 06:00 | ED_ITS ---
HPI - General Adult General: Chief complaint: Chest Pain Stated complaint: Chest pains Time Seen by Provider: 08/23/19 06:00 History of Present Illness: HPI narrative: 58-year-old female presents the emergency room with complaint of chest pain radiating into her back. She was recently hospitalized for an end STEMI per her report. She was supposed to have a stress test today. She tells me that her recent IA was treated conservatively. She has not had any diaphoresis or dyspnea associated with this. Her pain is persistent she is taken some nitro which caused headache but no significant relief of her pain. She was at rest with onset of pain. She has not noticed any exacerbating or relieving factors. Location: chest Radiation: back Severity: moderate Severity scale (1-10): 4 Quality: sharp Pain Consistency: constant Relieving factors: none Exacerbating factors: none Associated symptoms: Deny diaphoresis, dyspnea, fevers/chills, nausea, rash, palpitations, short of breath or vomiting Treatments prior to arrival: other (Nitro no relief) Review of Systems Const: Denies: diaphoresis ENMT: Denies: throat pain, ear pain, nasal discharge or nasal congestion Card: Denies: palpitations Resp: Denies: shortness of breath GI: Denies: nausea or vomiting : Denies: flank pain, difficulty urinating, painful urination, urinary frequency or urinary urgency Skin/Breast: Denies: rash or itching PFSH ED PFSH: Statuses (acute, chronic, etc) shown below reflect problem list status as previously entered and may not be historically accurate Medical History Diabetes (Acute) Diastolic congestive heart failure (Acute) With mild fluid overload on initial exam, given IV Lasix and now improved. Will transition back to oral Lasix at this time GERD (gastroesophageal reflux disease) (Acute) History of DVT of lower extremity (Acute) Left leg HTN (hypertension) (Acute) Hx of breast lump (Acute) left 09/2015 negitive Hx of melanoma of skin (Acute) 2003 Insomnia, unspecified (Acute) Tremor, unspecified (Acute) Unspecified urinary incontinence (Acute) Vitamin B12 deficiency (Acute) Surgical History H/O left breast biopsy (Acute) History of thoracentesis (Acute) Hx of colonoscopy (Acute) Hx of tubal ligation (Acute) 1980 Family History Mother Cancer Unknown type Father Cancer Lung CA Other Hypertension Denies family history of Clotting disorder Social History (Updated 08/23/19 @ 09:57 by Flakito Plata MD) Smoking and tobacco status: former smoker Quit status (tobacco): has quit using tobacco Alcohol intake: never Substance/Drug Use: never Marital status: History of recent travel: No Physical Exam Const: COMMON NORMALS: no apparent distress GENERAL APPEARANCE: cooperative and comfortable ORIENTATION/CONSCIOUSNESS: Yes awake, Yes oriented to person, Yes oriented to place and Yes oriented to time HENMT: COMMON NORMALS: normocephalic, head/scalp atraumatic, hearing grossly normal bilaterally, external ears normal, EAC's normal, TM's normal bilaterally, nasal mucous membranes and turbinates normal, moist oral mucous membranes and oropharynx normal HEAD & SCALP: normocephalic and atraumatic NOSE: nasal mucous membranes and turbinates normal EXTERNAL EAR: Yes external ears normal EXTERNAL AUDITORY CANAL: EAC's normal TYMPANIC MEMBRANE: TM's normal bilaterally Eye: COMMON NORMALS: PERRL, EOMs intact bilaterally, conjunctivae normal and no scleral icterus CONJUNCTIVA: Yes conjunctivae normal PUPIL: Yes PERRL Neck/C-Spine: COMMON NORMALS: full ROM, no lymphadenopathy, supple and no JVD Lymph: LYMPHATIC: no lymphadenopathy noted and no lymphedema noted Resp: COMMON NORMALS: normal respiratory effort, no retractions, no use of accessory muscles and clear to auscultation bilaterally AUSCULTATION: clear to auscultation bilaterally Cardio: COMMON NORMALS: no JVD, regular rate, regular rhythm and no murmurs RATE: regular rate RHYTHM: regular rhythm GI: COMMON NORMALS: soft to palpation and no hepatosplenomegaly AUSCULTATION: Yes normoactive bowel sounds PALPATION: Yes soft, No tender, No guarding and Yes no hepatosplenomegaly Extremity: COMMON NORMALS: normal to inspection, normal capillary refill, no clubbing, cyanosis or edema, no calf tenderness and no pedal edema Neuro: SENSORIUM/ORIENTATION: Yes oriented to person, Yes oriented to place and Yes oriented to time Skin: COMMON NORMALS: no rashes or lesions noted GENERAL SKIN EXAM: no rashes or lesions noted Course ED course: Pain improved with topical nitro. Discussed with cardiology we will go ahead and put her on observation complete rule out and evaluate for stress testing versus cardiac catheterization. Vital Signs: Vital signs: Vital Signs Temperature 98.1 F 08/23/19 16:30 Pulse Rate 73 08/23/19 16:30 Respiratory Rate 14 08/23/19 16:30 Blood Pressure 110/60 08/23/19 16:30 Pulse Oximetry 98 08/23/19 16:30 [facility] - General Adult Lab Data: Labs: Lab Results 08/23/19 08/23/19 08/23/19 Range/Units 06:26 06:26 06:26 WBC 8.4 (4.0-10.0) 10^3/ uL RBC 4.64 (4.1-5.3) 10^6/u L Hgb 13.9 (11.5-15.3) g/dL Hct 41.9 (37.0-47.0) % MCV 90.3 (81-99) fL MCH 30.0 (28.0-34.0) pg MCHC 33.2 (30.0-36.0) g/dL RDW 12.2 (12.1-15.1) % Plt Count 182 (130-400) 10^3/c mm MPV 9.9 (7.4-10.4) fL Neut % (Auto) 75.6 % Lymph % (Auto) 15.0 % Davison % (Auto) 6.0 % Eos % (Auto) 2.8 % Baso % (Auto) 0.4 % Neut # (Auto) 6.3 (1.8-7.7) 10^3/u L Lymph # (Auto) 1.3 (0.8-4.8) 10^3/u L Davison # (Auto) 0.5 (0.2-0.9) 10^3/u L Eos # (Auto) 0.2 (0.0-0.8) 10^3/u L Baso # (Auto) 0.0 (0.0-0.1) 10^3/u L Nucleated RBC % (a uto) 0 % Nucleated RBCs # 0.0 /100WBC Sodium 134 L (136-145) mmol/L Potassium 4.9 (3.5-5.1) mmol/L Chloride 93 L (98-107) mmol/L Carbon Dioxide 29 (22-29) mmol/L Anion Gap 16.9 (5-19) BUN 21 (8-23) mg/dL Creatinine 0.4 L (0.5-0.9) mg/dL GFR Calculation 162.8 H (90-130) mL/min Glucose 254 H (65-115) mg/dL Calcium 9.8 (8.5-10.5) mg/dL Total Bilirubin 0.5 (0.15-1.2) mg/dL AST 12 (0-32) U/L ALT 13 (0-33) U/L Alkaline Phosphata se 80 (35-105) IU/L Creatine Kinase 80 (26-192) U/L Troponin T Baselin e 15 H (0-10) ng/mL NT-Pro-B Natriuret Pep 141 H (0-125) pg/mL Total Protein 7.4 (6.6-8.7) g/dL Albumin 3.8 (3.5-5.2) g/dL Globulin 3.6 (1.3-4.6) g/dL Lipase 9 L (13-60) U/L Discharge Plan Discharge Patient Disposition: Admitted As Inpatient Admit Provider: Flakito Plata Clinical Impression: Unstable angina pectoris, COPD (chronic obstructive pulmonary disease) with emphysema, Diastolic congestive heart failure Condition: Stable Interventions: ED Discharge Assessment Last Done: 08/23/19 16:06 Discharge Date/Time: 08/23/19 16:07 Coding Level of Care Code ED Continuing Education Instructor for Chg Fwd Exam Problem Focused
--- NOTE | 2019-08-23 06:13 | ECG_ITS ---
Measurements Intervals [place] Rate: 77 P: 63 RI: 159 QRS: 66 QRSD: 89 T: 49 QT: 369 QTc: 420 SINUS RHYTHM LEFT ATRIAL ENLARGEMENT [-0.15mV P WAVE IN V1/V2] Compared to ECG 08/20/2019 10:39:26 No significant changes Electronically Signed On 08-23-2019 22:16:01 GUNCOTTON PACKER by Sabra Askew M.D. [id number] f
--- NOTE | 2019-08-23 06:14 | XR_ITS ---
WS: [id number] Portable AP upright chest, 08/23/2019 Clinical Data: chest pain Comparison: Portable chest, 08/20/2019 Findings: No nodules or masses are seen. The heart is normal. The pulmonary vascularity is not incre ased. The left basilar opacity and small left effusion remain unchanged. Monitor leads on the chest w all. XR/XR chest 1V portable [id number] Impression: 1. Small left pleural effusion and minimal basilar opacity which may represent minimal pneumonia. 2. Recommend repeat chest x-ray in 2-3 days.
[2019-08-23] MEDS: nitroglycerin 1 gm/inch oint Pkt 1 INCH TOPICAL (06:32)
[2019-08-23] MEDS: ondansetron 2 mg/ML SDV 2 mL 4 MG IVP (06:32)
[2019-08-23 06:36] LABS: Basophils % 0.4 %; Eosinophils # 0.2 10^3/uL (0.0-0.8); Eosinophils % 2.8 %; Hematocrit 41.9 % (37.0-47.0); Hemoglobin 13.9 g/dL (11.5-15.3); Lymphocytes # 1.3 10^3/uL (0.8-4.8); Mean Corpuscular HGB Conc 33.2 g/dL (30.0-36.0); Mean Corpuscular Volume 90.3 fL (81-99); Mean Platelet Volume 9.9 fL (7.4-10.4); Monocytes # 0.5 10^3/uL (0.2-0.9); Neutrophils # 6.3 10^3/uL (1.8-7.7); Neutrophils % 75.6 %; Nucleated Red Blood Cells % 0 %; Platelet Count 182 10^3/cmm (130-400); Red Blood Count 4.64 10^6/uL (4.1-5.3); Red Cell Distribution Width 12.2 % (12.1-15.1); White Blood Count 8.4 10^3/uL (4.0-10.0)
[2019-08-23] MEDS: morphine 4 mg/mL SDV 1 mL IVP ×3 (06:46→11:15)
[2019-08-23 06:54] LABS: Troponin(5th) Baseline 15 ng/mL (0-10)
[2019-08-23 07:01] LABS: Alanine Aminotransferase 13 U/L (0-33); Albumin Level 3.8 g/dL (3.5-5.2); Alkaline Phosphatase 80 IU/L (35-105); Anion Gap 16.9 (5-19); Aspartate Amino Transferase 12 U/L (0-32); Blood Urea Nitrogen 21 mg/dL (8-23); Calcium 9.8 mg/dL (8.5-10.5); Carbon Dioxide 29 mmol/L (22-29); Chloride 93 mmol/L (98-107); Creatine Phosphokinase 80 U/L (26-192); Creatinine Clr Calc Pharmacy 172.9448; Globulin 3.6 g/dL (1.3-4.6); Glomerular Filtration Rate 162.8 mL/min (90-130); Glucose 254 mg/dL (65-115); Lipase 9 U/L (13-60); NT Pro B Type Natriuretic Pept 141 pg/mL (0-125); Potassium 4.9 mmol/L (3.5-5.1); Sodium 134 mmol/L (136-145); Total Bilirubin 0.5 mg/dL (0.15-1.2); Total Protein 7.4 g/dL (6.6-8.7)
--- NOTE | 2019-08-23 07:42 | PC.NURSE ---
Spouse present at bedside. Patient states she continues to have central and epigastric chest pain that radiates into her back. Patient rates pain an 8/10 at this time. Spouse expresses worry about gall bladder.
[2019-08-23] MEDS: nitroglycerin 1 gm/inch oint Pkt 2 INCH TOPICAL (07:49)
--- NOTE | 2019-08-23 07:50 | PC.NURSE ---
1 inch nitro paste removed and replaced with 2 inch nitro paste that has been ordered.
--- NOTE | 2019-08-23 08:13 | ECG_ITS ---
Measurements Intervals [place] Rate: 77 P: 57 PA: 164 QRS: 64 QRSD: 89 T: 64 QT: 380 QTc: 431 SINUS RHYTHM POSSIBLE LEFT ATRIAL ENLARGEMENT [-0.1mV P WAVE IN V1/V2] Compared to ECG 08/20/2019 10:39:26 No significant changes Electronically Signed On 08-23-2019 22:18:50 TOLL COLLECTOR SUPERVISOR by Sabra Askew M.D. [id number] f
[2019-08-23 09:14] LABS: Troponin 5 2HR 15.62 ng/mL (0-10); Troponin 5 2HR Delta 0.62 ABS# (0-10)
--- NOTE | 2019-08-23 09:30 | XR_ITS ---
WS: [id number] Thoracic spine, 2 views, 08/23/2019 Clinical Data: upper back pain Comparison: None. Findings: No compression fractures are seen. The disc heights are normal. The paravertebral areas are unremarkable. There is a patchy opacity in the left lower lobe. Monitor l kyler are on the chest wall. XR/XR thoracic spine 2V [id number] Impression: Negative thoracic spine.
--- NOTE | 2019-08-23 09:48 | P.HP_ITS ---
Providers/Chief Complaint Primary Care Provider: Alondra Ham, POWDER CARRIER-C Chief Complaint: Chest pains History of Present Illness Shea Simon is a 58 year old female with past medical history of oxygen dependent COPD, on 4 L of oxygen at home, diabetes, congestive heart failure, chronic diastolic, GERD, history of DVT, on chronic anticoagulation, HTN, although states blood pressure at home usually running within recommended goals, history of melanoma in remission returns to the hospital after recent stay for evaluation due to chest pain at which time was assessed by CTA with incidental finding of emphysema, no finding of PE, assessed by TTE without finding of regional wall motion normality, with attempted assessment by stress test, although could not tolerate the second portion due to hypotension. At the time her chest pain had improved, and she was discharged to follow-up on outpatient side. She returns today due to again recurrence of chest pain around 4 AM this morning after waking up, chest pain is in the middle, constant, currently 8/10, dull ache, radiating to her back. She denies symptoms related to heartburn. She is having some dry heaving. She denies vomiting. Denies cough or shortness of breath. She denies any change in her symptoms with moving or taking deep breaths. Symptoms are not reproduced on palpation of chest wall. In ER blood pressure initially noted elevated 194/92, with improvement to 158/87. Troponin is minimally elevated at 15 initial, without significant delta, 15.62 at 2 hours. EKG with T wave inversions in V2. Chest x-ray with small left pleural effusion, unchanged from recent CTA. Minimal basilar opacity, possibly minimal pneumonia. She is afebrile, without leukocytosis, without tachycardia and denies any respiratory symptoms. Lipase is low. Review of Systems General: Reports: other (In discomfort to chest pain.) Const: Denies: fever, chills, body aches or malaise Eyes: Denies: change in vision or eye redness ENMT: Denies: throat pain, oral sores/lesions or ear pain Card: Denies: chest pain, edema, pre-syncope or shortness of breath on exertion Resp: Denies: shortness of breath, productive cough, change in phlegm color or coughing up blood GI: Reports: nausea and other (Dry heaving.); Denies: abdominal pain, vomiting, diarrhea, constipation, blood in stool or black tarry stool : Denies: flank pain, urinary frequency or blood in urine Musc: Denies: back pain, joint swelling or redness Skin/Breast: Denies: rash, sores or new lesion Neuro: Denies: headache, numbness in extremities, weakness in extremities, dizziness, confusion or seizure-like activity Endo: Denies: excessive urination or excessive thirst Bhavin/Lymph: Denies: easy bleeding or purpura All/Imm: Denies: hives, throat swelling or tongue swelling Medications/Allergies Allergies Allergy/AdvReac Type Severity Reaction Status Date / Time No Known Allergies Allergy Verified 08/20/19 07:30 PFSH Acute PFSH: Statuses (acute, chronic, etc) shown below reflect problem list status as previously entered and may not be historically accurate Medical History Diabetes (Acute) Diastolic congestive heart failure (Acute) With mild fluid overload on initial exam, given IV Lasix and now improved. Will transition back to oral Lasix at this time GERD (gastroesophageal reflux disease) (Acute) History of DVT of lower extremity (Acute) Left leg HTN (hypertension) (Acute) Hx of breast lump (Acute) left 09/2015 negitive Hx of melanoma of skin (Acute) 2003 Insomnia, unspecified (Acute) Tremor, unspecified (Acute) Unspecified urinary incontinence (Acute) Vitamin B12 deficiency (Acute) Surgical History H/O left breast biopsy (Acute) History of thoracentesis (Acute) Hx of colonoscopy (Acute) Hx of tubal ligation (Acute) 1980 Family History Mother Cancer Unknown type Father Cancer Lung CA Other Hypertension Denies family history of Clotting disorder Social History (Updated 08/23/19 @ 09:57 by Flakito Plata MD) Smoking and tobacco status: former smoker Quit status (tobacco): has quit using tobacco Alcohol intake: never Substance/Drug Use: never Marital status: History of recent travel: No Vitals/I&O/Wt Last Vital Signs Temp 97.6 F 08/23/19 06:08 Pulse 78 08/23/19 06:45 Resp 19 H 08/23/19 07:22 BP 194/92 08/23/19 06:45 Pulse Ox 100 08/23/19 06:45 Weight last 48 hrs Weight 90.718 kg Physical Exam Const: COMMON NORMALS: oriented x3 GENERAL APPEARANCE: cooperative NUTRITIONAL APPEARANCE: overweight ORIENTATION/CONSCIOUSNESS: Yes other OTHER: In moderate discomfort secondary to chest pain. is at bedside. HENMT: COMMON NORMALS: oropharynx normal Neck/C-Spine: COMMON NORMALS: no JVD Resp: COMMON NORMALS: normal respiratory effort and clear to auscultation bilaterally AUSCULTATION: clear to auscultation bilaterally Cardio: COMMON NORMALS: no JVD, regular rhythm, S1 normal heart sound, S2 normal heart sound and no murmurs RHYTHM: regular rhythm HEART SOUNDS: S1 normal and S2 normal GI: COMMON NORMALS: normal to inspection, nondistended, normoactive bowel s ounds, soft to palpation and non-tender (2 deep palpation including epigastrium and right upper quadrant.) PALPATION: Yes soft Extremity: COMMON NORMALS: no joint enlargement and no pedal edema Neuro: COMMON NORMALS: oriented x3 and moves all extremities Skin: COMMON NORMALS: no rashes or lesions noted GENERAL SKIN EXAM: no rashes or lesions noted Data : 08/23/19 06:26 08/23/19 06:26 A&P Assessment and plan (1) Chest pain: Recurrent chest pain, currently persistent, substernal, dull ache, which she describes as severe, currently 8/10. Some response to nitroglycerin. Has had extensive work-up recently, although was unable to complete stress testing due to drop in blood pressure. Discussed with her and her concern for possible cardiac etiology, although troponin so far only minimally elevated, with T wave emergency in V2, but otherwise unremarkable EKG. Risk factors for coronary disease include diabetes, hypertension, history of smoking, although she says she has stopped smoking in March 2019. No PE was noted on recent CTA. Her is concerned regarding possible gallbladder disease as the cause, although she has no symptoms on the palpation right upper quadrant, liver parameters are normal. CT abdomen pelvis back in March showed decompressed gallbladder without any stones. Lipase is low, although pancreas noted atrophic on the same CT. She denies drinking any alcohol. She is only on 10 mg of atorvastatin. CK is not elevated. For now we will increase her dose of aspirin. Start beta-julian. Continue statin. Continue Xarelto. Appreciate cardiology input regarding her persistent and severe symptoms. We will start on PPI. We will assess with right upper quadrant ultrasound. Status: Resolved Qualifiers: Chest pain type: chest pain due to myocardial ischemia Ischemic chest pain type: unstable angina pectoris Qualified Code(s): I20.0 - Unstable angina Code(s): R07.9 - Chest pain, unspecified Additional A&P Information Poorly controlled hypertension: Monitor blood pressures. Blood pressures improved after initial high value, possibly related to her pain. reports at home blood pressure runs soft. Adrenal adenoma: Incidentally noted on CT back in March 2019. Monitor for episodic hypertension. Attestations Medical Necessity Statement*: Place in observation. Coding Level of Care Code Acute Package Delivery Room Service Runner for Kristian Marquis Diagnoses Chest pain I20.0 Chest pain type: chest pain due to myocardial ischemia Ischemic chest pain type: unstable angina pectoris
--- NOTE | 2019-08-23 11:27 | PC.NURSE ---
Patient states that she continues to have the same intensity of pain. She states nothing is helping much at this time.
[2019-08-23] MEDS: sodium chlor 0.9% + KCl 20 mEq 20 MEQ/1,000 ML BAG 125 MEQ IV ×2 (15:42→23:32)
[2019-08-23 17:45] LABS: Glucose Point of Care 232 mg/dL (70-110)
--- NOTE | 2019-08-23 18:09 | US_ITS ---
WS: [id number] ABDOMINAL ULTRASOUND LIMITED HISTORY: 58 years old Female with Hepatobiliary COMPARISON: CT abdomen 03/20/2019 TECHNIQUE: Grayscale and Doppler ultrasound examination of the abdomen. FINDINGS: Pancreas: Head and body unremarkable, and tail not seen. No main ductal dilatation identified. Abdominal aorta and IVC: Included portions not dilated. Liver: Liver measures 19.7 cm in length. Hepatomegaly. Liver parenchyma echogenicity unremarkable. Po rtal venous flow antegrade. Gallbladder: Gallbladder wall thickness measures 4.6 mm. Apparent gallbladder adherent stone or polyp measuring 1.2 cm. Gallbladder wall thickening. No hydrops or mobile gallstone. No pericholecystic fl uid or extra hepatic bile duct dilatation. Right kidney: Right kidney measures 13.6 cm x 5.7 cm x 5.6 cm. No solid or cystic mass, shadowing heather culus, or hydronephrosis. No right upper quadrant free fluid or fluid collection seen. US/US abdomen limited [id number] IMPRESSION: 1. Hepatomegaly. 2. Apparent gallbladder polyp or adherent stone. Suggest surgical consultation. 3. Gallbladder wall thickening without pericholecystic; may be due to thickenin g versus chronic or acute cholecystitis.
[2019-08-23] MEDS: aspirin 325 mg Tablet PO (18:40)
[2019-08-23] MEDS: FUROsemide 20 mg Tablet PO (18:40)
[2019-08-23] MEDS: metoprolol tartrate 25 mg Tablet 12.5 MG PO (18:40)
[2019-08-23] MEDS: escitalopram 10 mg Tablet PO (18:41)
[2019-08-23] MEDS: pantoprazole DR 40 mg Tablet PO (18:41)
[2019-08-23] MEDS: atorvastatin 40 mg Tablet 20 MG PO (18:52)
--- NOTE | 2019-08-23 18:57 | P.CONIM_ITS ---
Providers/Reason For Consult Attending Physician: Flakito Plata Primary Care Provider: [facility] History of Present Illness History of Present Illness Shea Simon is a 58 year old female Review of Systems General: Reports: other (In discomfort to chest pain.) Const: Denies: fever, chills, body aches, malaise or diaphoresis Eyes: Denies: change in vision or eye redness ENMT: Denies: throat pain, oral sores/lesions, ear pain, nasal discharge or nasal congestion Card: Denies: chest pain, palpitations, edema, pre-syncope or shortness of breath on exertion Resp: Denies: shortness of breath, productive cough, change in phlegm color or coughing up blood GI: Reports: nausea and other (Dry heaving.); Denies: abdominal pain, vomiting, diarrhea, constipation, blood in stool or black tarry stool : Denies: flank pain, difficulty urinating, painful urination, urinary frequency, urinary urgency or blood in urine Musc: Denies: back pain, joint swelling or redness Skin/Breast: Denies: rash, itching, sores or new lesion Neuro: Denies: headache, numbness in extremities, weakness in extremities, dizziness, confusion or seizure-like activity Endo: Denies: excessive urination or excessive thirst Bhavin/Lymph: Denies: easy bleeding or purpura All/Imm: Denies: hives, throat swelling or tongue swelling Meds/Allergies Home Medications and Allergies Home Medications Medication Instructions Recorded Confirmed Type escitalopram oxalate 10 mg tablet 10 mg PO DAILY 07/18/19 08/20/19 History Aspir-81 81 mg PO BID 08/20/19 08/20/19 History Novolog Flexpen U-100 Insulin See Rx Instructions .ROUTE .COMPLEX 08/20/19 08/20/19 History Ozempic 1 mg SUBCUT Q7D 08/20/19 08/20/19 History Ventolin HFA 2 puff INHALATION Q4H PRN 08/20/19 08/20/19 History atorvastatin 10 mg PO DAILY 08/20/19 08/20/19 History metformin 2,000 mg PO DAILY 08/20/19 08/20/19 History Allergies Allergy/AdvReac Type Severity Reaction Status Date / Time No Known Allergies Allergy Verified 08/20/19 07:30 Current Medications Current Medications Generic Name Dose Route Start Last Admin Trade Name Marino PRN Reason Stop Dose Admin Aspirin 325 mg 08/23/19 18:09 08/23/19 18:40 Aspirin PO 325 mg DAILY MACARENA Administration Atorvastatin Calcium 20 mg 08/23/19 18:09 08/23/19 18:52 Lipitor PO 20 mg DAILY MACARENA Administration Escitalopram Oxalate 10 mg 08/23/19 18:09 08/23/19 18:41 Lexapro PO 10 mg DAILY MACARENA Administration Furosemide 20 mg 08/23/19 18:09 08/23/19 18:40 Lasix PO 20 mg BID MACARENA Administration Potassium Chloride/Sodium Chloride 20 meq in 1,000 mls @ 125 mls/hr 08/23/19 15:15 08/23/19 15:42 Sodium Chlor 0.9% + Kcl 20 Meq IV 125 mls/hr .Q8H MACARENA Administration Insulin Aspart 0 unit 08/23/19 18:09 08/23/19 18:44 Novolog SUBCUT 6 unit WM&BEDTIME MACARENA Administration Protocol Metoprolol Tartrate 12.5 mg 08/23/19 18:09 08/23/19 18:40 Lopressor PO 12.5 mg BID MACARENA Administration Pantoprazole Sodium 40 mg 08/23/19 18:09 08/23/19 18:41 Protonix PO 40 mg DAILY MACARENA Administration PFSH Acute PFSH: Statuses (acute, chronic, etc) shown below reflect problem list status as previously entered and may not be historically accurate Medical History Diabetes (Acute) Diastolic congestive heart failure (Acute) With mild fluid overload on initial exam, given IV Lasix and now improved. Will transition back to oral Lasix at this time GERD (gastroesophageal reflux disease) (Acute) History of DVT of lower extremity (Acute) Left leg HTN (hypertension) (Acute) Hx of breast lump (Acute) left 09/2015 negitive Hx of melanoma of skin (Acute) 2003 Insomnia, unspecified (Acute) Tremor, unspecified (Acute) Unspecified urinary incontinence (Acute) Vitamin B12 deficiency (Acute) Surgical History H/O left breast biopsy (Acute) History of thoracentesis (Acute) Hx of colonoscopy (Acute) Hx of tubal ligation (Acute) 1980 Family History Mother Cancer Unknown type Father Cancer Lung CA Other Hypertension Denies family history of Clotting disorder Social History Smoking and tobacco status: former smoker Quit status (tobacco): has quit using tobacco Alcohol intake: never Substance/Drug Use: never Marital status: History of recent travel: No Dietary Habits: Current diet type/program: regular Vitals/I&O/Wt Last Vital Signs Temp 98.1 F 08/23/19 16:30 Pulse 82 08/23/19 18:30 Resp 24 H 08/23/19 18:30 BP 204/107 08/23/19 18:30 Pulse Ox 97 08/23/19 18:30 Weight last 48 hrs Weight 200 lb A&P Assessment and plan (1) Unstable angina pectoris: Status: Acute Code(s): I20.0 - Unstable angina (2) Diastolic congestive heart failure: Status: Acute Code(s): I50.30 - Unspecified diastolic (congestive) heart failure (3) COPD (chronic obstructive pulmonary disease) with emphysema: Status: Acute Code(s): J43.9 - Emphysema, unspecified Coding Level of Care Code Acute Medical Insurance Verifier for [facility] Fwd Diagnoses Unstable angina pectoris I20.0 Diastolic congestive heart failure I50.30 COPD (chronic obstructive pulmonary disease) with emphysema J43.9
--- NOTE | 2019-08-23 19:18 | PC.NURSE ---
Dr. Askew gave verbal order to not give Xarelto tonight due to pending angiogram and he will order lovenox.
--- NOTE | 2019-08-23 20:12 | PM.CONSULT ---
Providers/Reason For Consult Consulting Physican/Specialty*: Cardiology Reason for Consult*: Chest pain Attending Physician: Flakito Plata Primary Care Provider: [facility] History of Present Illness History of Present Illness Shea Simon is a 58 year old female Admitted today with worsening of chest pain. She was scheduled to undergo stress test for possible angina suggested by her primary care physician. Yesterday during the stress test she became hypotensive and did not feel valve therefore did not complete the stress test and went home. Last night patient was awakened from sleep with some chest pressure like symptoms. According to patient this is going on for the last couple of weeks this is her third episode of chest pain however her chest pain only happens at rest she denies any exertional component to it. She also admits to feeling of relief when she sits up. She has history of 100 pack year smoking quit few months ago. She has advanced COPD and on oxygen at home. She has history of DVT on Xarelto. Review of Systems General: Reports: other (In discomfort to chest pain.) Const: Denies: fever, chills, body aches, malaise or diaphoresis Eyes: Denies: change in vision or eye redness ENMT: Denies: throat pain, oral sores/lesions, ear pain, nasal discharge or nasal congestion Card: Denies: chest pain, palpitations, edema, pre-syncope or shortness of breath on exertion Resp: Denies: shortness of breath, productive cough, change in phlegm color or coughing up blood GI: Reports: nausea and other (Dry heaving.); Denies: abdominal pain, vomiting, diarrhea, constipation, blood in stool or black tarry stool : Denies: flank pain, difficulty urinating, painful urination, urinary frequency, urinary urgency or blood in urine Musc: Denies: back pain, joint swelling or redness Skin/Breast: Denies: rash, itching, sores or new lesion Neuro: Denies: headache, numbness in extremities, weakness in extremities, dizziness, confusion or seizure-like activity Endo: Denies: excessive urination or excessive thirst Bhavin/Lymph: Denies: easy bleeding or purpura All/Imm: Denies: hives, throat swelling or tongue swelling Meds/Allergies Home Medications and Allergies Home Medications Medication Instructions Recorded Confirmed Type escitalopram oxalate 10 mg tablet 10 mg PO DAILY 07/18/19 09/02/19 History Aspir-81 81 mg PO BID 08/20/19 09/02/19 History Novolog Flexpen U-100 Insulin See Rx Instructions .ROUTE .COMPLEX 08/20/19 09/02/19 History Ozempic 1 mg SUBCUT Q7D 08/20/19 09/02/19 History Ventolin HFA 2 puff INHALATION Q4H PRN 08/20/19 09/02/19 History atorvastatin 10 mg PO DAILY 08/20/19 09/02/19 History metformin 2,000 mg PO DAILY 08/20/19 09/02/19 History Allergies Allergy/AdvReac Type Severity Reaction Status Date / Time No Known Allergies Allergy Verified 08/20/19 07:30 Current Medications Current Medications Generic Name Dose Route Start Last Admin Trade Name Freq PRN Reason Stop Dose Admin Aspirin 325 mg 08/23/19 18:09 08/23/19 18:40 Aspirin PO 325 mg DAILY MACARENA Administration Atorvastatin Calcium 20 mg 08/23/19 18:09 08/23/19 18:52 Lipitor PO 20 mg DAILY MACARENA Administration Escitalopram Oxalate 10 mg 08/23/19 18:09 08/23/19 18:41 Lexapro PO 10 mg DAILY MACARENA Administration Furosemide 20 mg 08/23/19 18:08/23/19 18:40 Lasix PO 20 mg BID MACARENA Administration Potassium Chloride/Sodium Chloride 20 meq in 1,000 mls @ 125 mls/hr 08/23/19 15:15 08/23/19 15:42 Sodium Chlor 0.9% + Kcl 20 Meq IV 125 mls/hr .Q8H MACARENA Administration Insulin Aspart 0 unit 08/23/19 18:08/23/19 18:44 Novolog SUBCUT 6 unit WM&BEDTIME MACARENA Administration Protocol Metoprolol Tartrate 12.5 mg 08/23/19 18:08/23/19 18:40 Lopressor PO 12.5 mg BID MACARENA Administration Non-Formulary Medication 2.5 mg 08/23/19 18:08/23/19 19:18 Rivaroxaban [Xarelto] PO Not Given BID MACARENA Pantoprazole Sodium 40 mg 08/23/19 18:09 08/23/19 18:41 Protonix PO 40 mg DAILY MACARENA Administration PFSH Acute PFSH: Statuses (acute, chronic, etc) shown below reflect problem list status as previously entered and may not be historically accurate Medical History (Updated 09/08/19 @ 13:43 by [facility]) Chest pain Diabetes Diastolic congestive heart failure Gallbladder anomaly GERD (gastroesophageal reflux disease) History of DVT of lower extremity Left leg 06/2019 History of skin cancer Basal cell carcinoma on back 2007 HTN (hypertension) Insomnia, unspecified Tremor, unspecified Unspecified urinary incontinence Vitamin B12 deficiency Surgical History H/O left breast biopsy Benign 2016 History of thoracentesis X 2 for traumatic effusion History of tonsillectomy Hx of colonoscopy Hx of tubal ligation / incidental appendectomy 1981 Status post surgical removal of malignant neoplasm of skin Basal cell carcinoma on back 2007 Social History Smoking and tobacco status: former smoker Quit status (tobacco): has quit using tobacco Former quit date comment: Patient smoked 2 packs of cigarettes a day for 25 years Alcohol intake: never Desire information about alcohol rehabilitation?: No Counseling given: No Substance/Drug Use: never Desire information about substance/drug rehabilitation?: No Counseling given: No Adopted: No Caregiver/support person: No Lives independently: Yes Household members: spouse and children Marital status: Current occupational status: unemployed History of recent travel: No Current gender identity: Female Dietary Habits: Current diet type/program: regular Vitals/I&O/Wt Last Vital Signs Temp 98.1 F 08/23/19 16:30 Pulse 82 08/23/19 18:30 Resp 24 H 08/23/19 18:30 BP 204/107 08/23/19 18:30 Pulse Ox 97 08/23/19 18:30 Weight last 48 hrs Weight 200 lb Physical Exam Narrative: EXAM NARRATIVE: GENERAL: Patient is alert, awake and oriented x3. NECK: No jugular vein distension. HEENT: No cyanosis. No icterus. No pallor. HEART: Regular S1 and S2. No murmur, rub or gallop. LUNGS: Clear to auscultate bilaterally. ABDOMEN: Soft, nontender and nondistended. Positive bowel sounds. No guarding, rebound or tenderness. CENTRAL NERVOUS SYSTEM: Grossly nonfocal. EXTREMITIES: Lower extremities without edema bilaterally. A&P Assessment and plan (1) Diastolic congestive heart failure: Well compensated. Continue medicine Status: Resolved Code(s): I50.30 - Unspecified diastolic (congestive) heart failure (2) COPD (chronic obstructive pulmonary disease) with emphysema: As per medicine Status: Chronic Code(s): J43.9 - Emphysema, unspecified (3) Chest pain: Patient is Moderate to high risk for Coronary artery disease, however chest pain is not very typical . We will rule her out for acute coronary syndrome. If ruled Output and she does not have any more chest pain we will proceed with stress test. Now I will hold Xarelto. Continue aspirin statin beta julian and nitroglycerin. we will substitute anticoagulation with Lovenox. Status: Inactive Code(s): R07.9 - Chest pain, unspecified Consult Attestations Medical Necessity Statement: Requires continuation of hospitalization for above defined care. Coding Level of Care Code New Pt Acute Aircraft Electronics Technical Officer for g Fwd Patient Type New History Expanded Problem Focused Exam Expanded Problem Focused Medical Decision Making Moderate Complexity Diagnoses Diastolic congestive heart failure I50.30 COPD (chronic obstructive pulmonary disease) with emphysema J43.9 Chest pain R07.9
[2019-08-23 21:27] LABS: Glucose Point of Care 164 mg/dL (70-110)
[2019-08-24] VITALS (8 sets, daily range): BP systolic 108–150; BP diastolic 53–81; PULSE 62–74; RESP 13–23; TEMP 36.6–36.9; O2SAT 90–99
[2019-08-24 05:18] LABS: Basophils % 0.7 %; Eosinophils # 0.2 10^3/uL (0.0-0.8); Eosinophils % 3.7 %; Hematocrit 41.1 % (37.0-47.0); Hemoglobin 13.2 g/dL (11.5-15.3); Lymphocytes # 1.6 10^3/uL (0.8-4.8); Lymphocytes % 27.5 %; Mean Corpuscular HGB Conc 32.1 g/dL (30.0-36.0); Mean Corpuscular Hemoglobin 30.5 pg (28.0-34.0); Mean Corpuscular Volume 94.9 fL (81-99); Mean Platelet Volume 9.9 fL (7.4-10.4); Monocytes # 0.5 10^3/uL (0.2-0.9); Monocytes % 8.5 %; Neutrophils # 3.4 10^3/uL (1.8-7.7); Neutrophils % 59.4 %; Nucleated Red Blood Cells % 0 %; Platelet Count 176 10^3/cmm (130-400); Red Blood Count 4.33 10^6/uL (4.1-5.3); Red Cell Distribution Width 12.3 % (12.1-15.1); White Blood Count 5.7 10^3/uL (4.0-10.0)
[2019-08-24 05:35] LABS: Alanine Aminotransferase 11 U/L (0-33); Albumin Level 3.7 g/dL (3.5-5.2); Alkaline Phosphatase 74 IU/L (35-105); Anion Gap 11.7 (5-19); Aspartate Amino Transferase 14 U/L (0-32); Blood Urea Nitrogen 18 mg/dL (8-23); Carbon Dioxide 33 mmol/L (22-29); Chloride 99 mmol/L (98-107); Globulin 3.3 g/dL (1.3-4.6); Glomerular Filtration Rate 125.9 mL/min (90-130); Glucose 233 mg/dL (65-115); Potassium 4.7 mmol/L (3.5-5.1); Sodium 139 mmol/L (136-145); Total Bilirubin 0.5 mg/dL (0.15-1.2)
[2019-08-24 07:13] LABS: Glucose Point of Care 251 mg/dL (70-110)
[2019-08-24] MEDS: sodium chlor 0.9% + KCl 20 mEq 20 MEQ/1,000 ML BAG 125 MEQ IV ×3 (08:18→22:40)
[2019-08-24] MEDS: enoxaparin 100 mg/mL Syringe 90 MG SUBCUT (08:22)
[2019-08-24] MEDS: FUROsemide 20 mg Tablet PO ×2 (09:08→17:51)
[2019-08-24] MEDS: escitalopram 10 mg Tablet PO (09:08)
[2019-08-24] MEDS: pantoprazole DR 40 mg Tablet PO (09:08)
[2019-08-24] MEDS: aspirin 325 mg Tablet PO (09:09)
[2019-08-24] MEDS: metoprolol tartrate 25 mg Tablet 12.5 MG PO ×2 (09:09→17:51)
[2019-08-24] MEDS: atorvastatin 40 mg Tablet 20 MG PO (09:09)
--- NOTE | 2019-08-24 09:20 | P.PN_ITS ---
Subjective Subjective: Interval history: She is feeling much better this morning. No further chest pain. No abdominal pain. Vitals/I&O/Wt Last Vital Signs Temp 98.4 F 08/24/19 04:00 Pulse 71 08/24/19 08:56 Resp 16 08/24/19 08:52 BP 124/64 08/24/19 07:13 Pulse Ox 93 08/24/19 08:52 08/23/19 08/24/19 08/24/19 22:59 06:59 14:59 Intake Total 240 / 240 1179.167 / 0050.732 6770 / 1040 Balance 240 / 240 1179.167 / 4497.810 7585 / 1040 Weight last 48 hrs Weight 90.718 kg Physical Exam Const: COMMON NORMALS: oriented x3 GENERAL APPEARANCE: cooperative NUTRITIONAL APPEARANCE: overweight ORIENTATION/CONSCIOUSNESS: Yes other OTHER: In moderate discomfort secondary to chest pain. is at bedside. HENMT: COMMON NORMALS: oropharynx normal Neck/C-Spine: COMMON NORMALS: no JVD Resp: COMMON NORMALS: normal respiratory effort and clear to auscultation bilaterally AUSCULTATION: clear to auscultation bilaterally Cardio: COMMON NORMALS: no JVD, regular rhythm, S1 normal heart sound, S2 normal heart sound and no murmurs RHYTHM: regular rhythm HEART SOUNDS: S1 normal and S2 normal GI: COMMON NORMALS: normal to inspection, nondistended, normoactive bowel sounds, soft to palpation and non-tender (2 deep palpation including epigastrium and right upper quadrant.) PALPATION: Yes soft Extremity: COMMON NORMALS: no joint enlargement and no pedal edema Neuro: COMMON NORMALS: oriented x3 and moves all extremities Skin: COMMON NORMALS: no rashes or lesions noted GENERAL SKIN EXAM: no rashes or lesions noted Data : 08/24/19 04:05 08/24/19 04:05 A&P Assessment and plan (1) Chest pain: Resolved. Difficult to say what helped her symptoms. Her blood pressure did improve. She also was started on PPI. Troponin is minimally elevated. EKG unremarkable. Appreciate cardiology recommendations regarding additional steps in diagnosis of this atypical chest pain, as well as hypotension during prior stress test. Recurrent chest pain, currently persistent, substernal, dull ache, which she describes as severe, currently 8/10. Some response to nitroglycerin. Has had extensive work-up recently, although was unable to complete stress testing due to drop in blood pressure. CT abdomen pelvis back in March showed decompressed gallbladder without any stones. Lipase is low, although pancreas noted atrophic on the same CT. She denies drinking any alcohol. She is only on 10 mg of atorvastatin. CK is not elevated. At this time continue aspirin, beta-julian, statin. Continue Xarelto. Continue PPI. 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 Gallbladder wall thickening without pericholecystic fluid, cannot exclude chronic or acute cholecystitis based on imaging. Recurrent episodes of chest pain radiating to the back without finding of PE, large vessel dissection or abnormality, with atypical pain without suggestion acute CT. Her liver parameters are normal. She has no abdominal tenderness. Appreciate surgical evaluation regarding gallbladder findings, recurrent episode s of her chest discomfort. 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 Blood pressures improved after initial high value, possibly related to her pain. reports at home blood pressure runs soft. Adrenal adenoma: Incidentally noted on CT back in March 2019. Monitor for episodic hypertension. Attestations Medical Necessity Statement*: For now she is under observation, however, admission of over 2 midnights may be necessary depending on recommendations from cardiology and surgery regarding further assessment and management. 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
--- NOTE | 2019-08-24 09:45 | PC.CHAP ---
Pastoral Care Encounter/Spiritual Assessment Type of Contact [] Declined hair mixer visit [] Patient/Family/Request visit [] Outpatient visit [] Follow-up visit [] Physician referral [] Code/Alert [X] Routine visit [] Staff referral [] Actively dying [] Patient sleeping [] Family support [] [] Out of room [] Palliative care [] [] Receiving care in room [] Pre-surgical visit [] Trauma [] Long length of stay [] ICU visit [] Other: Relational/Emotional Strength [X] Patient feels connected with others/family/visitors/staff [] Distress [] Loneliness/isolation [] Abandonment Spirituality of Patient [X] Person of Anushka [X] Attends Orthodox of their [place] [X] Believes in Prayer [] Reads Bible or Evangelical materials [] There are Spiritual issues to be addressed Corporate Securities Research Analyst Interventions [X] Prayer [X] Active listening [X] Non-anxious presence [] Spiritual/emotional support [] Crisis/trauma care [] Spiritual counseling [] Bereavement support [] Provided bereavement packet [] Provided Bible/devotional materials [] Provided toy/stuffed animal, coloring book to patient or family member [] Provided Communion [] Anointing/[place] [] Salvation [] Completed spiritual assessment [] Other: Impact on Illness or Injury [] Angry [] Fearful [] Anxious [] Often cries [] Exhaustion [] Unable to work [] Unable to attend christianity [] Unable to walk/stand [] Unable to read [] Unable to drive [] Unable to eat/drink [] Unable to sleep [] Unable to be with family [] Patient intubated [] Other: Summary Had prayer with PT, requested Time spent with patient
--- NOTE | 2019-08-24 09:50 | PC.CHAP ---
Pastoral Care Encounter/Spiritual Assessment Type of Contact [] Declined lab support service tech visit [] Patient/Family/Request visit [] Outpatient visit [] Follow-up visit [] Physician referral [] Code/Alert [X] Routine visit [] Staff referral [] Actively dying [] Patient sleeping [] Family support [] [] Out of room [] Palliative care [] [] Receiving care in room [] Pre-surgical visit [] Trauma [] Long length of stay [] ICU visit [] Other: Relational/Emotional Strength [] Patient feels connected with others/family/visitors/staff [] Distress [] Loneliness/isolation [] Abandonment Spirituality of Patient [X] Person of Anushka [X] Attends Evangelical of their Anushka [X] Believes in Prayer [] Reads Bible or Sabianist materials [] There are Spiritual issues to be addressed Billposter Interventions [] Prayer [] Active listening [] Non-anxious presence [] Spiritual/emotional support [] Crisis/trauma care [] Spiritual counseling [] Bereavement support [] Provided bereavement packet [] Provided Bible/devotional materials [] Provided toy/stuffed animal, coloring book to patient or family member [] Provided Communion [] Anointing/[place] [] Salvation [] Completed spiritual assessment [] Other: Impact on Illness or Injury [] Angry [] Fearful [] Anxious [] Often cries [] Exhaustion [] Unable to work [] Unable to attend uatsdin [] Unable to walk/stand [] Unable to read [] Unable to drive [] Unable to eat/drink [] Unable to sleep [] Unable to be with family [] Patient intubated [] Other: Summary Patient in good spirits Time spent with patient
--- NOTE | 2019-08-24 10:14 | PM.CONSULT ---
Providers/Reason For Consult Consulting Physican/Specialty*: General Surgery José Antonio Pfeiffer MD Reason for Consult*: Chest pain with abnormal gallbladder ultrasound. Attending Physician: Flakito Plata Primary Care Provider: [facility] History of Present Illness History of Present Illness Shea Simon is a 58 year old female who says this past Monday (4 days ago) she awoke around 3:30 AM with pain in the mid aspect of her upper chest. She said she felt some dull pain on the right mid aspect of her abdomen at that time, as well. She sat up and the pain went away for a while but then ended up coming back. She got up and checked her blood sugar to make sure it was okay and it was around 200 which is normal for me. She went back to bed but was having some nausea and retching in association with this. She denies feeling gassy or bloated or belchy. She did not have any changes in bowel habits and denies melena, hematochezia, diarrhea, etc. After the pain persisted into the morning hours she came to the emergency room. She said she was given morphine and nitroglycerin and it did not result in any immediate relief but eventually while she was in the emergency room her pain got better. She was scheduled for an outpatient stress test and was apparently coming in yesterday for that, but then developed recurrence of her pain. She came to the emergency go room again and was admitted. She says the pain is gone again this morning. She did have an ultrasound which revealed a 1.2 cm gallbladder wall polyp versus stone, with some gallbladder wall thickening at 4.6 mm. The patient says she has never had this pain before this last week. She denies any history of or current food intolerances. She does have a son who had to have his gallbladder removed. Review of Systems General: Reports: 10 or more systems reviewed and unremarkable except in HPI and below Const: Denies: fever or chills Card: Reports: chest pain and swelling of feet/ankles ( Occasionally ); Denies: shortness of breath on exertion or shortness of breath when lying down Resp: Denies: shortness of breath GI: Reports: abdominal pain (Now resolved), nausea and vomiting (Retching); Denies: diarrhea, bloating, change in bowel habits, change in stool character, blood in stool, black tarry stool or white/light colored stool Meds/Allergies Home Medications and Allergies Home Medications Medication Instructions Recorded Confirmed Type escitalopram oxalate 10 mg tablet 10 mg PO DAILY 07/18/19 08/20/19 History Aspir-81 81 mg PO BID 08/20/19 08/20/19 History Novolog Flexpen U-100 Insulin See Rx Instructions .ROUTE .COMPLEX 08/20/19 08/20/19 History Ozempic 1 mg SUBCUT Q7D 08/20/19 08/20/19 History Ventolin HFA 2 puff INHALATION Q4H PRN 08/20/19 08/20/19 History atorvastatin 10 mg PO DAILY 08/20/19 08/20/19 History metformin 2,000 mg PO DAILY 08/20/19 08/20/19 History Allergies Allergy/AdvReac Type Severity Reaction Status Date / Time No Known Allergies Allergy Verified 08/20/19 07:30 Current Medications Current Medications Generic Name Dose Route Start Last Admin Trade Name Freq PRN Reason Stop Dose Admin Aspirin 325 mg 08/23/19 18:09 08/24/19 09:09 Aspirin PO 325 mg DAILY MACARENA Administration Atorvastatin Calcium 20 mg 08/23/19 18:09 08/24/19 09:09 Lipitor PO 20 mg DAILY MACARENA Administration Enoxaparin Sodium 90 mg 08/24/19 08:30 08/24/19 08:22 Lovenox 1 mg/kg (90 mg) 90 mg SUBCUT Administration Q12H [facility] Escitalopram Oxalate 10 mg 08/23/19 18:09 08/24/19 09:08 Lexapro PO 10 mg DAILY MACARENA Administration Furosemide 20 mg 08/23/19 18:09 08/24/19 09:08 Lasix PO 20 mg BID MACARENA Administration Potassium Chloride/Sodium Chloride 20 meq in 1,000 mls @ 125 mls/hr 08/23/19 15:15 08/24/19 08:18 Sodium Chlor 0.9% + Kcl 20 Meq IV 125 mls/hr .Q8H MACARENA Administration Insulin Aspart 0 unit 08/23/19 18:09 08/24/19 08:23 Novolog SUBCUT 6 unit WM&BEDTIME MACARENA Administration Protocol Metoprolol Tartrate 12.5 mg 08/23/19 18:09 08/24/19 09:09 Lopressor PO 12.5 mg BID MACARENA Administration Pantoprazole Sodium 40 mg 08/23/19 18:09 08/24/19 09:08 Protonix PO 40 mg DAILY MACARENA Administration Fluticasone/Salmeterol 1 puff 08/23/19 18:09 08/24/19 08:51 Advair Diskus 500-50 INHALATION 1 puff BID MACARENA Administration PFSH Acute PFSH: Statuses (acute, chronic, etc) shown below reflect problem list status as previously entered and may not be historically accurate Medical History (Updated 08/24/19 @ 10:30 by José Antonio Pfeiffer MD) Diabetes (Acute) Diastolic congestive heart failure (Acute) With mild fluid overload on initial exam, given IV Lasix and now improved. Will transition back to oral Lasix at this time GERD (gastroesophageal reflux disease) (Acute) History of DVT of lower extremity (Acute) Left leg 06/2019 History of skin cancer (Acute) Basal cell carcinoma on 2007 HTN (hypertension) (Acute) Insomnia, unspecified (Acute) Tremor, unspecified (Acute) Unspecified urinary incontinence (Acute) Vitamin B12 deficiency (Acute) Surgical History (Updated 08/24/19 @ 10:24 by José Antonio Pfeiffer MD) H/O left breast biopsy (Acute) Benign 2016 History of thoracentesis (Acute) X 2 for traumatic effusion History of tonsillectomy (Acute) Hx of colonoscopy (Acute) Hx of tubal ligation (Acute) / incidental appendectomy 1981 Status post surgical removal of malignant neoplasm of skin (Acute) Basal cell carcinoma on 2007 Family History (Updated 08/24/19 @ 10:26 by José Antonio Pfeiffer MD) Mother Cancer Unknown type Father Cancer Lung CA Son Gallbladder disease Other Hypertension Denies family history of Clotting disorder Social History (Updated 08/24/19 @ 10:37 by José Antonio Pfeiffer MD) Smoking and tobacco status: former smoker Quit status (tobacco): has quit using tobacco Former quit date comment: Patient smoked 2 packs of cigarettes a day for 25 years Alcohol intake: never Substance/Drug Use: never Marital status: History of recent travel: No Vitals/I&O/Wt Last Vital Signs Temp 98.4 F 08/24/19 04:00 Pulse 71 08/24/19 08:56 Resp 16 08/24/19 08:52 BP 124/64 08/24/19 07:13 Pulse Ox 93 02/08/20 08:52 08/23/19 08/24/19 08/24/19 22:59 06:59 14:59 Intake Total 240 / 240 1179.167 / 9157.418 0839 / 1040 Balance 240 / 240 1179.167 / 3912.836 5998 / 1040 Weight last 48 hrs Weight 200 lb Physical Exam Narrative: EXAM NARRATIVE: The patient was encountered in her hospital room. She does not appear to be in any distress. The pupils are equal. No carotid bruits are heard. The lungs are clear anteriorly. The heart seems regular. The abdomen is moderately obese but is soft. Bowel sounds are somewhat hypoactive. The patient does not have any tenderness to my exam. Orellana's sign is clearly negative. No obvious masses are palpated. The extremities reveal no edema. Neurologically the patient appears to be grossly intact. Data Labs: Other Labs: Laboratory Tests 08/24/19 04:05 Total Bilirubin 0.5 AST 14 ALT 11 Alkaline Phosphata se 74 Imaging^: US: Radiologist's impression: Limited abdominal ultrasound 08/23/2019 iMPRESSION: 1. Hepatomegaly. 2. Apparent gallbladder polyp or adherent stone. Suggest surgical consultation. 3. Gallbladder wall thickening without pericholecystic; may be due to thickening versus chronic or acute cholecystitis. A&P Assessment and plan (1) Abnormal gallbladder ultrasound: I had a long discussion with the patient today regarding gallbladder disease and symptoms, the findings on her ultrasound, labs, etc. In short, I do not think the patient is having any symptoms of biliary colic and I have a hard time believing her current symptoms have anything to do with gallbladder disease, but it is very early in her symptomatology and remains possible. The patient's gallbladder wall thickening does not appear to be the result of inflammation, and could be easily explained by the history of congestive heart failure. The bigger issue is the differential of the gallbladder stone versus gallbladder polyp. If I knew the patient had a stone I would not recommend doing anything. If I knew it was some type of a tissue mass, it is over a centimeter which leads to a recommendation of a cholecystectomy given its size alone. I will be happy to follow the patient while she is hospitalized. If she gets cardiac clearance then a cholecystectomy is an option based on the possible finding of a gallbladder polyp, but I doubt it is going to improve her current symptomatology. Status: Acute Code(s): R93.2 - Abnormal findings on diagnostic imaging of liver and biliary tract Consult Attestations Medical Necessity Statement: See admitting service's notation. Coding Level of Care Code Acute Clinical Biostatistician for Chg Fwd Diagnoses Abnormal gallbladder ultrasound R93.2
[2019-08-24 11:34] LABS: Glucose Point of Care 330 mg/dL (70-110)
[2019-08-24 16:00] LABS: Glucose Point of Care 198 mg/dL (70-110)
--- NOTE | 2019-08-24 20:28 | P.PN_ITS ---
Subjective Subjective: Interval history: Denies any more chest pain or pressure. Vitals/I&O/Wt Last Vital Signs Temp 98 F 08/24/19 20:00 Pulse 62 08/24/19 20:00 Resp 15 08/24/19 20:00 BP 150/81 08/24/19 20:00 Pulse Ox 99 08/24/19 20:00 08/24/19 08/24/19 08/24/19 06:59 14:59 22:59 Intake Total 1179.167 / 5454.335 9735 / 1520 2500 / 4020 Balance 1179.167 / 1014.826 5421 / 1520 2500 / 4020 Weight last 48 hrs Weight 200 lb Physical Exam Narrative: EXAM NARRATIVE: GENERAL: Patient is alert, awake and oriented x3. NECK: No jugular vein distension. HEENT: No cyanosis. No icterus. No pallor. HEART: Regular S1 and S2. No murmur, rub or gallop. LUNGS: Clear to auscultate bilaterally. ABDOMEN: Soft, nontender and nondistended. Positive bowel sounds. No guarding, rebound or tenderness. CENTRAL NERVOUS SYSTEM: Grossly nonfocal. EXTREMITIES: Lower extremities without edema bilaterally. Data : 08/24/19 04:05 08/24/19 04:05 A&P Assessment and plan (1) Diastolic congestive heart failure: Well compensated. Continue medicine Status: Acute Code(s): I50.30 - Unspecified diastolic (congestive) heart failure (2) COPD (chronic obstructive pulmonary disease) with emphysema: As per medicine Status: Acute Code(s): J43.9 - Emphysema, unspecified (3) Chest pain: Denies any more chest pressure. We will proceed with stress test on Monday. Continue medical management. Continue Lovenox and holding Xarelto. Patient had abnormal abdominal ultrasound of the gallbladder requiring surgical consultation. Surgery would like us to evaluate from cardiac vascular perspective and clear her. After stress test we will further advise. Status: Acute Code(s): R07.9 - Chest pain, unspecified Attestations Medical Necessity Statement*: Required continuation of hospitalization for above defined care Coding Level of Care Code Acute White Sugar Syrup Operator for Chg Fwd History Expanded Problem Focused Exam Expanded Problem Focused Medical Decision Making Moderate Complexity Diagnoses Diastolic congestive heart failure I50.30 COPD (chronic obstructive pulmonary disease) with emphysema J43.9 Chest pain R07.9
[2019-08-24 21:30] LABS: Glucose Point of Care 313 mg/dL (70-110)
--- NOTE | 2019-08-24 22:43 | PC.NURSE ---
Patient refused lovenox injection even after was patient educated on benefits of medication and reason behind the medication. Patient is aware that her xarelto is on hold and the lovenox is being given in place of it. Patient stated she would discuss the lovenox with the doctor and if it really is necessary she will take it then.
[2019-08-25] VITALS (100 sets, daily range): BP systolic 79–189; BP diastolic 48–142; PULSE 56–83; RESP 9–27; TEMP 36.6–36.7; O2SAT 85–97
[2019-08-25] MEDS: ondansetron 2 mg/ML SDV 2 mL 4 MG IVP (04:46)
--- NOTE | 2019-08-25 04:52 | PC.NURSE ---
Patient complaint of Abdomen pain and Nausea. Patient was given zofran 4mg IVP. Patient stated her abdominal pain was a 3/10 and denied the need for Morphine at this time. I told the patient to let me know if her pain increases. Will continue to monitor.
[2019-08-25 05:11] LABS: Basophils % 0.4 %; Eosinophils # 0.2 10^3/uL (0.0-0.8); Eosinophils % 4.1 %; Hematocrit 42.4 % (37.0-47.0); Hemoglobin 13.9 g/dL (11.5-15.3); Lymphocytes # 1.3 10^3/uL (0.8-4.8); Lymphocytes % 23.4 %; Mean Corpuscular HGB Conc 32.8 g/dL (30.0-36.0); Mean Corpuscular Volume 91.4 fL (81-99); Mean Platelet Volume 10.1 fL (7.4-10.4); Monocytes # 0.5 10^3/uL (0.2-0.9); Monocytes % 8.5 %; Neutrophils # 3.5 10^3/uL (1.8-7.7); Neutrophils % 63.2 %; Nucleated Red Blood Cells % 0 %; Platelet Count 188 10^3/cmm (130-400); Red Blood Count 4.64 10^6/uL (4.1-5.3); Red Cell Distribution Width 12.1 % (12.1-15.1); White Blood Count 5.6 10^3/uL (4.0-10.0)
[2019-08-25] MEDS: morphine 4 mg/mL SDV 1 mL IVP ×2 (05:16→07:47)
--- NOTE | 2019-08-25 05:30 | PC.NURSE ---
Called to patient room requesting her pain medication. Patient complaint of abdominal pain rated an 8/10 after using the bathroom. patient was given morphine as requested and education was provided on side effects. patient verbalized understanding.
[2019-08-25 05:43] LABS: Alanine Aminotransferase 12 U/L (0-33); Albumin Level 3.6 g/dL (3.5-5.2); Alkaline Phosphatase 73 IU/L (35-105); Anion Gap 16.6 (5-19); Aspartate Amino Transferase 11 U/L (0-32); Blood Urea Nitrogen 10 mg/dL (8-23); Calcium 9.1 mg/dL (8.5-10.5); Carbon Dioxide 29 mmol/L (22-29); Chloride 96 mmol/L (98-107); Globulin 3.3 g/dL (1.3-4.6); Glomerular Filtration Rate 226.9 mL/min (90-130); Glucose 262 mg/dL (65-115); Potassium 4.6 mmol/L (3.5-5.1); Sodium 137 mmol/L (136-145); Total Bilirubin 0.5 mg/dL (0.15-1.2); Total Protein 6.9 g/dL (6.6-8.7)
[2019-08-25] MEDS: labetalol 5 mg/mL SDV 20mL 20 MG IVP (06:02)
[2019-08-25] MEDS: metoclopramide 5 mg/mL SDV 2 mL IVP (06:03)
[2019-08-25] MEDS: sodium chlor 0.9% + KCl 20 mEq 20 MEQ/1,000 ML BAG 125 MEQ IV (06:03)
--- NOTE | 2019-08-25 06:23 | PC.NURSE ---
Administered Labetalol 20mg IVP over 6 minutes for patients blood pressure. Blood pressure before administration was 151/82 and after it was 106/64. Patient educated on side effects and to call staff before getting out of bed. Reglan 5mg was administered IVP and patient was educated as well over side effects. Will continue to monitor blood pressure.
[2019-08-25 06:25] LABS: Glucose Point of Care 266 mg/dL (70-110)
--- NOTE | 2019-08-25 07:30 | PC.NURSE ---
called to patient room due to chest pain that radiated from the abd rated 9/10 patient was given all PRN medications available to by cnc machinist 2nd shift nurse at [address] braga new orders obtained to get stat EKG 1 time troponin give morning protonix PO now Give MOrohine IVP 4 MG now Give sublingal nitro now rocky NPO
--- NOTE | 2019-08-25 07:39 | ECG_ITS ---
Measurements Intervals Blanket Rate: 69 P: 47 PA: 163 QRS: 50 QRSD: 87 T: 43 QT: 393 QTc: 424 SINUS RHYTHM LEFT ATRIAL ENLARGEMENT [-0.15mV P WAVE IN V1/V2] Compared to ECG 08/23/2019 09:15:02 No significant changes Electronically Signed On 08-25-2019 22:23:07 AUTO WHEEL ALIGNMENT SPECIALIST by Sabra Askew M.D. [email or web address]
[2019-08-25] MEDS: nitroglycerin 0.4 mg sublingual Tablet SUBLINGUAL (07:47)
[2019-08-25] MEDS: pantoprazole DR 40 mg Tablet PO (07:54)
--- NOTE | 2019-08-25 08:20 | PC.NURSE ---
patient continues have chest pain with no relief DR garcia notified no new orders obtained he is to come see her
[2019-08-25] MEDS: metoprolol tartrate 25 mg Tablet 12.5 MG PO (08:21)
[2019-08-25] MEDS: FUROsemide 20 mg Tablet PO ×2 (08:21→17:21)
[2019-08-25] MEDS: atorvastatin 40 mg Tablet 20 MG PO (08:21)
[2019-08-25] MEDS: aspirin 325 mg Tablet PO (08:22)
[2019-08-25] MEDS: escitalopram 10 mg Tablet PO (08:22)
--- NOTE | 2019-08-25 09:30 | PC.NURSE ---
DR garcia at bedside POC discussed with patient will perform cardiac cath today plan for 1100 AM New orders given at bedside give 25MCG of fentenyl now IVP x1
--- NOTE | 2019-08-25 09:44 | PC.NURSE ---
patient contniues to complain of pain 8/10 in chest and upper abd . DR braga notified he will order some thing for pain awaiting orders
[2019-08-25 10:00] LABS: Lactic Acid level (Lactate) 1.5 mmol/L (0.5-2.2)
[2019-08-25 10:06] LABS: Troponin T (5th) Once 13 ng/mL (0-10)
--- NOTE | 2019-08-25 10:24 | P.PN_ITS ---
Subjective Subjective: Interval history: This morning again having chest pain, rates it as 8-10/10. Mid chest, substernal, continuous ache, radiating to the back. Not changing with breathing or position. Not reproducible on palpation. Vitals/I&O/Wt Last Vital Signs Temp 98.1 F 08/25/19 04:00 Pulse 75 08/25/19 07:53 Resp 16 08/25/19 07:47 BP 144/82 08/25/19 04:00 Pulse Ox 97 08/25/19 07:45 08/24/19 08/25/19 08/25/19 22:59 06:59 14:59 Intake Total 2500 / 4020 1042.917 / 5062.917 Balance 2500 / 4020 1042.917 / 5062.917 Weight last 48 hrs Weight 93.803 kg Physical Exam Const: COMMON NORMALS: oriented x3 GENERAL APPEARANCE: cooperative NUTRITIONAL APPEARANCE: overweight ORIENTATION/CONSCIOUSNESS: Yes other OTHER: In moderate discomfort secondary to chest pain. HENMT: COMMON NORMALS: oropharynx normal Neck/C-Spine: COMMON NORMALS: no JVD Resp: COMMON NORMALS: normal respiratory effort and clear to auscultation bilaterally AUSCULTATION: clear to auscultation bilaterally Cardio: COMMON NORMALS: no JVD, regular rhythm, S1 normal heart sound, S2 normal heart sound and no murmurs RHYTHM: regular rhythm HEART SOUNDS: S1 normal and S2 normal GI: COMMON NORMALS: normal to inspection, nondistended, normoactive bowel sounds, soft to palpation and non-tender (2 deep palpation including epigastrium and right upper quadrant.) PALPATION: Yes soft Extremity: COMMON NORMALS: no joint enlargement and no pedal edema Neuro: COMMON NORMALS: oriented x3 and moves all extremities Skin: COMMON NORMALS: no rashes or lesions noted GENERAL SKIN EXAM: no rashes or lesions noted Data : 08/25/19 04:51 08/25/19 04:51 A&P Assessment and plan (1) Chest pain: Chest pain returned this morning. Despite receiving morphine, Zofran, nitroglycerin. Suspected unstable angina. Repeat EKG and troponin. Started on nitroglycerin drip. Started on sucralfate. She does not have pain on epigastric palpation. Reports some mild ache on palpation of right upper quadrant. Pain does not change with inspiration, movement. Not triggered by pushing on the chest. Recurrent chest pain, currently persistent, substernal, dull ache, which she describes as severe. Has had extensive work-up recently, although was unable to complete stress testing due to drop in blood pressure. CTA on 08/20 without PE, dissection or other large vessel abnormality. With emphysema. Small hiatal hernia. CT abdomen pelvis back in March showed decompressed gallbladder without any stones. Lipase is low, although pancreas noted atrophic on the same CT. She denies drinking any alcohol. She is only on 10 mg of atorvastatin. CK is not elevated. At this time continue aspirin, beta-julian, statin. Anticoagulation. 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 Gallbladder wall thickening without pericholecystic fluid, cannot exclude chronic or acute cholecystitis based on imaging. Appreciate surgical assessment. 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 Blood pressures improved after initial high value, possibly related to her pain. reports at home blood pressure runs soft. Adrenal adenoma: Incidentally noted on CT back in March 2019. Monitor for episodic hypertension. Attestations 2 Medical Necessity Statement*: Continue admission for assessment of management of unstable angina. Coding Level of Care Code Acute Helper Steel Fabrication for [facility] Diagnoses Chest pain I20.0 Chest pain type: chest pain due to myocardial ischemia Ischemic chest pain type: unstable angina pectoris Gallbladder anomaly Q44.1
--- NOTE | 2019-08-25 10:29 | XR_ITS ---
WS: [id number] ONE VIEW CHEST HISTORY: 58 years old Female with chest pain AP upright chest comparison at August 23, 2019 FINDINGS: Continued small left pleural effusion. Interval mild right lower lung zone airspace opacity. Unimprov ed left lower lung zone parenchymal opacity. No pneumothorax or right pleural effusion. Heart size an d pulmonary vascular markings are unremarkable. No subdiaphragmatic free air. XR/XR chest 1V portable [id number] IMPRESSION: 1. Suspicious for developing right basilar subsegmental pneumonia or atelectasi s. 2. Unimproved small left pleural effusion and left lower lung zone atelectasis, pneumonia, and/or edema.
[2019-08-25] MEDS: fentaNYL 50 mcg/mL INJ 2mL 25 MCG IVP (10:35)
--- NOTE | 2019-08-25 11:12 | XACV_ITS ---
Exam Room: [facility] Ht: 170 cm Wt: 93 kg BSA: 2.13 m2 Gender: Female : 1960 Exam Priority: Routine Procedure(s): Procedure Description: Diagnostic procedure Procedure Description: Left Heart Catheterization Diagnostic Cath Status: Elective Diagnostic Findings LM has 0% stenosis. CX has 0% stenosis. RCA has 0% stenosis. pLAD to mLAD: Mild 20% stenosis, FREDERICK: 3 flow. Coronary angiography shows right dominance. Conclusions There is mild coronary artery disease with one vessel disease. Past medical history significant for tobacco abuse was admitted with worsening of chest pain or shortness of breath. In the near past patient was not able to complete the stress test due to hypotension during the stress test, she was also found to have questionable gallbladder however surgery would like to clear her from a cardiovascular perspective first to decide regarding it or not. She was scheduled to undergo stress test on Monday again however this morning started complaining of worsening of chest pain tightness and shortness of breath along with some diaphoresis. It is the reason she was taken to the Sharples Machine Operator. Recommendations Continue current medical management and risk factor modification. Clinical Evaluation EBL: 5mL-10mL Procedural Details Procedure Consent Obtained. Admit Source: In Patient. Pre-Procedure Time Out. Identified patient by full name and date of as verbalized by the patient/guarantor. Does the consent match the physician's order: Yes. Accurate & Complete Informed Consent: Yes. Inpatient/Outpatient History & Physical on Chart: N/A. If H&P is completed, is and addenduem needed: N/A; If yes, is the addendum complete: N/A. Visualize and Verify Site with Patient/Guarantor: N/A. Relevant Radiology Images available: N/A. Pre-op teaching completed and patient verbalized understanding. The risks, benefits, and alternatives of sedation and/or procedure were discussed by physician. The patient agrees to continue. Procedure started. Correct patient, site and procedure confirmed by cath team. PERRLA. Strong, equal hand pump erector helper bilaterally. Lungs clear x 5 lobes. IV Site on Arrival: 18 gauge in the left anticubital. Pre Procedural Pulses: bilateral dorsalis pedis was 1+. Pre Procedural Pulses: bilateral posterior tibial was 1+. Pre Procedural Pulses: bilateral radial was 2+. Oxygen started at 2liters/min via nasal canula. bilateral groins was prepped with chloroprep then draped in the usual sterile fashion. right radial was prepped with chloroprep then draped in the usual sterile fashion. Baseline sample Acquired. HR: 71 BPM. Physician notified. Physician arrived. Physician scrubbed in. Immediate Pre-Procedure Time Out. Correct Patient: Yes; Correct Procedure: Yes; Correct Site: Yes; Correct Patient Position: Yes; Correct Supplies: Yes; Dried Flammable Prep: Yes; Blood Products Available: N/A;. Lidocaine 1% infiltrated to the right radial. Arterial access obtained. A 5 hungarian TIG catheter in over wire. wire out. Multiple views taken of left coronary artery. Catheter redirected to the RCA. Catheter removed over the exchange wire. A 5 hungarian JR4 catheter in over wire. Multiple views taken of right coronary artery. Catheter out. TR band placed. Hemostasis obtained. Post Procedure: Pulses reassessed and unchanged. PERRLA. Strong, equal hand pump erector helper bilaterally. No VTE prophylaxis required. Contrast type used: Omnipaque 300 mgI/mL, 500 mL bottle. Contrast Material : Omnipaque 90 ml. Medication's Wasted: Lidocaine 1% = 15 mL. Medication's Wasted: Nitro = 49.8 mg. Medication's Wasted: Heparin = 1000 units. Total IV fluids: 100 mL. [facility] Clinical Fraility Score: 4: Vulnerable. Sharples Machine Operator Indications: New Onset Angina. Chest Pain Symptom Assessment: Atypical Angina. Cardiovascular Instability: No. Post-op diagnosis: Normal. Complications: none. Estimated blood loss: 5mL-10mL. Procedure completed. Patient transferred by bed to 1st floor. A TR Band was successful obtaining hemostatsis at the Right Radial artery insertion site. Vital chart was stopped. Site: Right Radial artery Sheath Size: 6 Fr Hemostasis Method: TR Band Hemostasis Success: Successful Procedure Medications Start: 11:33 AM Stop: 11:33 AM Medication: Zofran (ondansetron) Amount: 4 mg Route: I.V. Start: 11:34 AM Stop: :34 AM Medication: Benadryl Amount: 50 mg Route: I.V. Start: 11:49 AM Stop: :49 AM Medication: Nitrogylcerin Amount: 200 mcg Route: I.A. Start: 11:51 AM Stop: 11:51 AM Medication: Heparin Amount: 5000 units Route: I.V. I, the attending physician, have reviewed and verified all procedure medications. Yes, all medications given per verbal order History/Risk Factors Hypertension: No Dyslipidemia: No Peripheral Arterial Disease (PAD): No Myocardial Infarction (TN): No Obesity: Yes Renal Disease: No Tobacco Use: Former Prior Interventions PCI: No CABG: No Valve Surgery: No Report Signatures Finalized by:Sabra Askew MD on 08/25/2019 12:27:34 PM
[2019-08-25 11:14] LABS: Glucose Point of Care 218 mg/dL (70-110)
--- NOTE | 2019-08-25 12:28 | PM.PN ---
Subjective Subjective: Interval history: Patient was complaining of chest pain since this morning. She had EKG performed which did not show any significant ST changes. Since she continues to clench her chest her stress test was canceled for tomorrow and she was taken to the Hazardous Materials Waste Technician. Coronary angiogram showed no significant coronary artery disease. Vitals/I&O/Wt Last Vital Signs Temp 98.1 F 08/25/19 04:00 Pulse 75 08/25/19 07:53 Resp 20 H 08/25/19 10:35 BP 144/82 08/25/19 04:00 Pulse Ox 97 08/25/19 07:45 08/24/19 08/25/19 08/25/19 22:59 06:59 14:59 Intake Total 2500 / 4020 1042.917 / 5062.917 Balance 2500 / 4020 1042.917 / 5062.917 Weight last 48 hrs Weight 206 lb 12.8 oz Physical Exam Narrative: EXAM NARRATIVE: GENERAL: Patient is alert, awake and oriented x3. NECK: No jugular vein distension. HEENT: No cyanosis. No icterus. No pallor. HEART: Regular S1 and S2. No murmur, rub or gallop. LUNGS: Clear to auscultate bilaterally. ABDOMEN: Soft, nontender and nondistended. Positive bowel sounds. No guarding, rebound or tenderness. CENTRAL NERVOUS SYSTEM: Grossly nonfocal. EXTREMITIES: Lower extremities without edema bilaterally. Data : 08/25/19 04:51 08/25/19 04:51 A&P Assessment and plan (1) Diastolic congestive heart failure: Well compensated. Continue medicine Status: Acute Code(s): I50.30 - Unspecified diastolic (congestive) heart failure (2) COPD (chronic obstructive pulmonary disease) with emphysema: As per medicine Status: Acute Code(s): J43.9 - Emphysema, unspecified (3) Chest pain: Patient had coronary angiogram this morning. It only showed mild nonobstructive coronary artery disease expected at this age otherwise no significant lesion. She has normal left main circumflex and RCA. Proximal LAD has only 20% mild stenosis. Risk factor modification advised. She already had quit smoking. If needed she can proceed with surgery under acceptable risk for anesthesia and surgery from a cardiovascular perspective. She can resume her Xarlto once wrist band will be off today if OK with Dr Pfeiffer. Status: Acute Code(s): R07.9 - Chest pain, unspecified Attestations Medical Necessity Statement*: As per medicine and surgery Coding Level of Care Code Acute Concessionist for Chg Fwd History Expanded Problem Focused Exam Expanded Problem Focused Medical Decision Making Moderate Complexity Diagnoses Diastolic congestive heart failure I50.30 COPD (chronic obstructive pulmonary disease) with emphysema J43.9 Chest pain R07.9
--- NOTE | 2019-08-25 14:15 | PC.CHAP ---
Pastoral Care Encounter/Spiritual Assessment Type of Contact [] Declined testing engineer visit [] Patient/Family/Request visit [] Outpatient visit [] Follow-up visit [] Physician referral [] Code/Alert [x] Routine visit [] Staff referral [] Actively dying [] Patient sleeping [] Family support [] [] Out of room [] Palliative care [] [] Receiving care in room [] Pre-surgical visit [] Trauma [] Long length of stay [] ICU visit [] Other: Relational/Emotional Strength [] Patient feels connected with others/family/visitors/staff [] Distress [] Loneliness/isolation [] Abandonment Spirituality of Patient [x] Person of Anushka [] Attends Buddhism of their Anushka [x] Believes in Prayer [] Reads Bible or Buddhism materials [] There are Spiritual issues to be addressed Car Dryer Interventions [] Prayer [] Active listening [] Non-anxious presence [] Spiritual/emotional support [] Crisis/trauma care [] Spiritual counseling [] Bereavement support [] Provided bereavement packet [] Provided Bible/devotional materials [] Provided toy/stuffed animal, coloring book to patient or family member [] Provided Communion [] Anointing/Wendel [] Salvation [] Completed spiritual assessment [] Other: Impact on Illness or Injury [] Angry [] Fearful [] Anxious [] Often cries [] Exhaustion [] Unable to work [] Unable to attend bahai [] Unable to walk/stand [] Unable to read [] Unable to drive [] Unable to eat/drink [] Unable to sleep [] Unable to be with family [] Patient intubated [] Other: Summary Patient just completed testing and trying to get comfortable. Time spent with patient 5min
[2019-08-25] MEDS: HYDROmorphone 1 mg/mL INJ 1 mL 0.5 MG IVP (14:40)
--- NOTE | 2019-08-25 16:40 | PC.NURSE ---
EKG obtained Morphine 4 MG IVP given 0745 B/P 143/84 Nitro given 0749 b/p 163/97 patient reports pain has eased to 7/10
--- NOTE | 2019-08-25 16:45 | PC.NURSE ---
patient blood pressure now 80/74 then with reposition of cuff remains to read low 99/62 DR braga notified and albumin 12.5G 25% in 50 ml IV x1 now
[2019-08-25 16:51] LABS: Glucose Point of Care 275 mg/dL (70-110)
[2019-08-25] MEDS: albumin 12.5 GM/50 ML VIAL IV (17:22)
[2019-08-25] MEDS: sucralfate 1 gm/10 mL Oral Liq UDC PO ×2 (18:16→21:22)
[2019-08-25 20:31] LABS: Glucose Point of Care 258 mg/dL (70-110)
[2019-08-25] MEDS: enoxaparin 100 mg/mL Syringe 90 MG SUBCUT (21:22)
--- NOTE | 2019-08-25 21:32 | PC.NURSE ---
Patient stated she had not been taking lovenox. I explained to the patient I had spoken to Dr. Askew about the Lovenox and the xarelto. The reason she isn't on the xarelto is because of the potential for surgery and xarelto stays in your system for 48 hrs verses lovenox stays in for 12 hours. Patient verbalized understanding and agreed.
[2019-08-26 03:07] VITALS: BP 115/57; PULSE 69; RESP 16; TEMP 36.6; O2SAT 94
[2019-08-26 05:19] LABS: Basophils % 0.5 %; Eosinophils # 0.2 10^3/uL (0.0-0.8); Eosinophils % 3.3 %; Hemoglobin 13.8 g/dL (11.5-15.3); Lymphocytes # 1.3 10^3/uL (0.8-4.8); Lymphocytes % 20.7 %; Mean Corpuscular HGB Conc 32.9 g/dL (30.0-36.0); Mean Corpuscular Hemoglobin 30.6 pg (28.0-34.0); Mean Corpuscular Volume 93.1 fL (81-99); Mean Platelet Volume 10.2 fL (7.4-10.4); Monocytes # 0.6 10^3/uL (0.2-0.9); Monocytes % 9.1 %; Neutrophils # 4.2 10^3/uL (1.8-7.7); Neutrophils % 66.1 %; Nucleated Red Blood Cells % 0 %; Platelet Count 177 10^3/cmm (130-400); Red Blood Count 4.51 10^6/uL (4.1-5.3); Red Cell Distribution Width 12.1 % (12.1-15.1); White Blood Count 6.4 10^3/uL (4.0-10.0)
[2019-08-26 05:43] LABS: Alanine Aminotransferase 10 U/L (0-33); Albumin Level 3.6 g/dL (3.5-5.2); Alkaline Phosphatase 66 IU/L (35-105); Anion Gap 15.1 (5-19); Aspartate Amino Transferase 11 U/L (0-32); Blood Urea Nitrogen 15 mg/dL (8-23); Carbon Dioxide 31 mmol/L (22-29); Chloride 93 mmol/L (98-107); Globulin 3.2 g/dL (1.3-4.6); Glomerular Filtration Rate 125.9 mL/min (90-130); Glucose 225 mg/dL (65-115); Potassium 4.1 mmol/L (3.5-5.1); Sodium 135 mmol/L (136-145); Total Bilirubin 0.7 mg/dL (0.15-1.2); Total Protein 6.8 g/dL (6.6-8.7)
[2019-08-26] MEDS: sucralfate 1 gm/10 mL Oral Liq UDC PO ×2 (06:09→11:43)
[2019-08-26 06:20] LABS: Glucose Point of Care 216 mg/dL (70-110)
[2019-08-26 07:19] VITALS: BP 136/77; PULSE 72; RESP 12; TEMP 36.7; O2SAT 93
--- NOTE | 2019-08-26 08:00 | FL_ITS ---
WS: [id number] ESOPHAGRAM TECHNIQUE: Double contrast examination was performed with thin and thick barium. Upright and DUTTA imag es were obtained. CLINICAL INFORMATION: chest pain, suspected esophageal spasm, poss PUD COMPARISON: None. FINDINGS: Swallowing: Spasticity noted in the soft palate. This can be further evaluated with modified barium s wallow and speech therapy. No evidence of aspiration penetration. Esophagus: Moderate esophageal dysmotility with tertiary contractions in the mid and distal esophagus . This results in delayed emptying in the upright and supine position. Gastroesophageal reflux: Mild reflux with a small hiatal hernia. Fluoroscopy time: 3.4 minutes. FL/FL barium swallow [id number] IMPRESSION: 1. Moderate central dysmotility with tertiary contractions and delayed emptyin g in the upright and supine position. Retained contrast in the midesophagus in the supine position. 2. Soft palate spasticity noted. This can be further evaluated with modified b arium swallow with speech therapy. 3. No aspiration or penetration. 4. Very small hiatal hernia with mild reflux of barium only in the supine posi tion.
[2019-08-26] MEDS: aspirin 325 mg Tablet PO (08:56)
[2019-08-26] MEDS: pantoprazole DR 40 mg Tablet PO (08:56)
[2019-08-26] MEDS: metoprolol tartrate 25 mg Tablet 12.5 MG PO (08:56)
[2019-08-26] MEDS: escitalopram 10 mg Tablet PO (08:56)
[2019-08-26] MEDS: atorvastatin 40 mg Tablet 20 MG PO (08:56)
[2019-08-26] MEDS: enoxaparin 100 mg/mL Syringe 90 MG SUBCUT (08:56)
[2019-08-26] MEDS: FUROsemide 20 mg Tablet PO (08:56)
[2019-08-26 10:44] VITALS: BP 133/75; PULSE 59; RESP 19; TEMP 36.6; O2SAT 94
--- NOTE | 2019-08-26 10:54 | P.DS_ITS ---
Discharge Providers Date of Admission: 08/25/19 08:30 Date of Discharge: August 26, 2019 Attending Provider at Admission: Flakito Plata Attending Provider at Discharge: Flakito Plata Primary Care Provider: [facility] Diagnoses at Discharge Discharge Diagnosis (1) Esophageal dysmotility: Status: Acute (2) Diastolic congestive heart failure: Status: Acute (3) COPD (chronic obstructive pulmonary disease) with emphysema: Status: Acute (4) Chest pain: Status: Acute Reason for Visit Reason for Visit: Reason For Visit: Chest pains Hospital Course Hospital Course: She was subsequently assessed by barium swallow evaluationA pleasant 58 year old lady with history of O2 dependent COPD, normally on 4 L by nasal cannula, DM 2, chronic diastolic CHF, GERD, history of DVT on chronic anticoagulation, HTN was admitted due to severe persistent central chest pain with concern for unstable angina. She was recently hospitalized, and at that time had an extensive work-up including CTA which was negative for PE. The pain was not reproducible on palpation, her CK was normal, and lipase was not elevated. With concern for possible gallbladder disease expressed by patient family she was assessed by color ultrasound with incidental finding of adherent stone or polyp with mild thickening of gallbladder wall. Her liver parameters remained normal, and she has had no right upper quadrant pain on palpation patient was assessed by surgery and her gallbladder findings were not thought to be contributing to her presentation. She was unable to complete stress testing during a prior hospitalization due to low blood pressure. She was assessed by cardiology this hospitalization and due to recurrence of severe persistent chest pain was taken for coronary angiogram without finding of acute obstruction and mild coronary artery disease. She was subsequently assessed by barium swallow evaluation, with finding of moderate central esophageal dysmotility with tertiary contractions and delayed emptying in upright and supine position, with retained contrast in mid esophagus in supine position. Also noted soft palate spasticity with recommendation for further evaluation by modified barium swallow with speech therapy. Incidentally noted very small hiatal hernia. Findings were discussed with patient and surgery. She is instructed to follow-up with surgery in office regarding additional decision on possible endoscopic evaluation, as well as discussion regarding anomalous findings in gallbladder. Please refer her for additional assessment with modified barium swallow study. Consider referral for esophageal manometry. Consider referral to gastroenterology. Continue to optimize risk factors for coronary disease. Physical Exam Const: COMMON NORMALS: oriented x3 GENERAL APPEARANCE: cooperative NUTRITIONAL APPEARANCE: overweight ORIENTATION/CONSCIOUSNESS: Yes other OTHER: In moderate discomfort secondary to chest pain. HENMT: COMMON NORMALS: oropharynx normal Neck/C-Spine: COMMON NORMALS: no JVD Resp: COMMON NORMALS: normal respiratory effort and clear to auscultation bilaterally AUSCULTATION: clear to auscultation bilaterally Cardio: COMMON NORMALS: no JVD, regular rhythm, S1 normal heart sound, S2 normal heart sound and no murmurs RHYTHM: regular rhythm HEART SOUNDS: S1 normal and S2 normal GI: COMMON NORMALS: normal to inspection, nondistended, normoactive bowel sounds, soft to palpation and non-tender (2 deep palpation including epigastrium and right upper quadrant.) PALPATION: Yes soft Extremity: COMMON NORMALS: no joint enlargement and no pedal edema Neuro: COMMON NORMALS: oriented x3 and moves all extremities Skin: COMMON NORMALS: no rashes or lesions noted GENERAL SKIN EXAM: no rashes or lesions noted Discharge Data Data Completed and Pending: Completed Studies During Hospitalization Category Date Time Status TENT FINISHER request for service Routin e Exams 08/25/19 11:12 Completed [place] barium swallow [id number] Routine Exams 08/26/19 08:00 Completed XR chest 1V marie ble [id number] Routine Exams 08/25/19 10:29 Completed XR chest 1V marie ble [id number] Stat Exams 08/23/19 06:14 Completed XR thoracic spine 2V [id number] Stat Exams 08/23/19 09:30 Completed US abdomen limite d [id number] Urgent Ultrasound 08/23/19 18:09 Completed Labs from last 24 hours 08/26/19 08/26/19 08/26/19 06:01 04:15 04:15 WBC 6.4 RBC 4.51 Hgb 13.8 Hct 42.0 MCV 93.1 MCH 30.6 MCHC 32.9 RDW 12.1 Plt Count 177 MPV 10.2 Neut % (Auto) 66.1 Lymph % (Auto) 20.7 [place] % (Auto) 9.1 Eos % (Auto) 3.3 Baso % (Auto) 0.5 Neut # (Auto) 4.2 Lymph # (Auto) 1.3 [place] # (Auto) 0.6 Eos # (Auto) 0.2 Baso # (Auto) 0.0 Nucleated RBC % (a uto) 0 Nucleated RBCs # 0.0 Sodium 135 L Potassium 4.1 Chloride 93 L Carbon Dioxide 31 H Anion Gap 15.1 BUN 15 Creatinine 0.5 GFR Calculation 125.9 Glucose 225 H POC Glucose 216 Calcium 9.0 Total Bilirubin 0.7 AST 11 ALT 10 Alkaline Phosphata se 66 Total Protein 6.8 Albumin 3.6 Globulin 3.2 08/25/19 08/25/19 08/25/19 20:21 16:46 11:01 WBC RBC Hgb Hct MCV MCH MCHC RDW Plt Count MPV Neut % (Auto) Lymph % (Auto) [place] % (Auto) Eos % (Auto) Baso % (Auto) Neut # (Auto) Lymph # (Auto) [place] # (Auto) Eos # (Auto) Baso # (Auto) Nucleated RBC % (a uto) Nucleated RBCs # Sodium Potassium Chloride Carbon Dioxide Anion Gap BUN Creatinine GFR Calculation Glucose POC Glucose 258 275 218 Calcium Total Bilirubin AST ALT Alkaline Phosphata se Total Protein Albumin Globulin Vitals: Last Vital Signs Temp 97.9 F 08/26/19 10:44 Pulse 59 L 08/26/19 10:44 Resp 19 H 08/26/19 10:44 BP 133/75 08/26/19 10:44 Pulse Ox 94 08/26/19 10:44 Discharge Plan Discharge Patient Disposition: Home, Self-Care Condition: Stable Prescriptions: New metoprolol tartrate 25 mg Tablet 12.5 mg PO BID Qty: 30 RF: 0 pantoprazole 40 mg Tablet,Delayed Release (Dr/Ec) 40 mg PO BID Qty: 60 RF: 0 Continued escitalopram oxalate 10 mg tablet 10 mg PO DAILY RF: 0 fluticasone propion-salmeterol [Advair Diskus] 500-50 mcg/dose blister with device 1 inh INHALATION BID Qty: 60 RF: 2 furosemide 20 mg tablet 20 mg PO BID Qty: 60 RF: 2 Xarelto 2.5 mg tablet 2.5 mg PO BID Qty: 60 RF: 2 Ventolin HFA 90 mcg/actuation Hfa Aerosol Inhaler 2 puff INHALATION Q4H PRN (Reason: Shortness Of Breath) RF: 0 Novolog Flexpen U-100 Insulin 100 unit/mL (3 mL) insulin pen See Rx Instructions .ROUTE .COMPLEX RF: 0 atorvastatin 10 mg tablet 10 mg PO DAILY RF: 0 metformin 500 mg tablet extended release 24 hr 2,000 mg PO DAILY RF: 0 Ozempic 1 mg/dose (2 mg/1.5 mL) pen injector 1 mg SUBCUT Q7D RF: 0 Aspir-81 81 mg Tablet,Delayed Release (Dr/Ec) 81 mg PO BID RF: 0 Nitrostat 0.4 mg Tablet, Sublingual 0.4 mg sublingual Q5M PRN (Reason: Chest Pain) 30 Days Qty: 20 RF: 0 Discharge Orders: Discharge Order (Routine); Ordered 08/26/19 Ordered By: Flakito Plata Referrals: José Antonio Pfeiffer MD [Physician] - 2 weeks (Consideration of upper endoscopy. Follow up on gall bladder findings.) Alondra Ham, TOOL MACHINIST-C [Primary Care Provider] - 4-7 days (Consider referral to GI) Discharge Diet: Cardiac and GI Soft Discharge Activity: Increase activity as tolerated Activity Restrictions/Additional Instructions: Maintain soft diet. Take Altoid mints under your tongue before each meal. Monitor blood pressure 3 times daily and record values to bring to your appointment. Discuss with your doctor regarding additional assessment by modified barium swallow study. Discuss possible referral to gastroenterology. Discharge Attestations Time Spent in Discharge Care*: greater than 30 min Quality Metrics Clinical Quality Measures During this hospital stay, did patient experience: None Coding Level of Care Code Acute Patcher Helper for [facility] Diagnoses Esophageal dysmotility K22.4 Diastolic congestive heart failure I50.30 COPD (chronic obstructive pulmonary disease) with emphysema J43.9 Chest pain R07.9
[2019-08-26 11:32] LABS: Glucose Point of Care 226 mg/dL (70-110)
[2019-08-26 12:37] VITALS: BP 103/75; PULSE 71; RESP 18; TEMP 36.6; O2SAT 92
== END 2019-08-26 13:38 | disposition home or self-care (01) | DRG 287 ==
LOC: ER 06:16 → CSU 15:15
PROVIDERS: Internal Medicine Cardiovascular Disease; Admitting Provider Internal Medicine; Emergency Provider Family Medicine; Family Provider Nurse Practitioner; PCP Nurse Practitioner; Visit Provider Internal Medicine
PROC: 4A023N7 Measurement of Cardiac Sampling and Pressure, Left Heart, Percutaneous Approach (ICD-10-PCS; principal; 2019-08-25 11:00)
DX: R07.9 Chest pain, unspecified (principal); I50.32 Chronic diastolic (congestive) heart failure; Q44.1 Other congenital malformations of gallbladder; Z99.81 Dependence on supplemental oxygen; E11.9 Type 2 diabetes mellitus without complications; I11.0 Hypertensive heart disease with heart failure; K21.9 Gastro-esophageal reflux disease without esophagitis; Z86.718 Personal history of other venous thrombosis and embolism; Z79.01 Long term (current) use of anticoagulants; Z85.820 Personal history of malignant melanoma of skin; J43.9 Emphysema, unspecified; G47.00 Insomnia, unspecified; R25.1 Tremor, unspecified; R32 Unspecified urinary incontinence; E53.8 Deficiency of other specified B group vitamins; Z87.891 Personal history of nicotine dependence; D35.00 Benign neoplasm of unspecified adrenal gland; R93.2 Abnormal findings on diagnostic imaging of liver and biliary tract; Z79.84 Long term (current) use of oral hypoglycemic drugs; K44.9 Diaphragmatic hernia without obstruction or gangrene; K22.4 Dyskinesia of esophagus; I25.10 Atherosclerotic heart disease of native coronary artery without angina pectoris
CPT/HCPCS: 12345; 36415; 36416; 71045; 72070; 74220; 76705; 80053; 82550; 82962; 83605; 83690; 83880; 84484; 85025; 93005; 93454; 94640; 96360; 96361; 96365; 96366; 96372; 96375; 99284; C1769; C1887; C1894; G0378; J1170; J1200; J1644; J1650; J1815; J2001; J2250; J2270; J2405; J2765; J3010; J3490; J7030; P9047; Q9967

== ENCOUNTER 2019-09-25 10:08 | Emergency (ER) | payer MEDICARE, MEDICAID, SELFPAY ==
[2019-09-25 10:10] VITALS: BP 170/88; PULSE 74; RESP 18; TEMP 36.7; O2SAT 96; BMI 31.3
--- NOTE | 2019-09-25 10:32 | ED_ITS ---
Entered by Tamia Leon, acting as scribe for Romel Glynn DO Sep 25, 2019 10:08 HPI - Chest Pain General: Chief Complaint: Chest Pain Stated Complaint: CHEST PAIN AND SOB Time Seen by Provider: 09/25/19 10:37 Source: patient, family and EMS Mode of arrival: EMS Limitations: no limitations History of Present Illness: HPI narrative: 58 yo female presents with chest pain and upper abdomen pain. pt states this started several weeks ago but worsened this morning. pt has had nausea. pt had a recent angiogram. pt denies any other symptoms at this time. Patient was recently hospitalized with similar symptoms had a thorough work-up was thought to be related to esophageal dysmotility there is also some question about gallbladder she has been was re ferred to Dr. Pfeiffer. She had some slight elevation of liver enzymes but no convincing imaging findings. She denies any medication ounces hematemesis or coffee-ground emesis. MD complaint: chest pain and other (nausea,abdomen pain) Onset (ago): day(s) (today) Timing of current episode: constant and still present Prior episodes: Yes Onset: during rest Pain location: substernal and epigastric Pain radiation: none Severity: similar to previous episodes Quality: sharp Relieving factors: nothing Exacerbating factors: nothing Context: other (recent angiogram 3 weeks ago) Associated symptoms: Reports abdominal pain and nausea; Deny dyspnea or fever(s) Treatment prior to arrival: none Review of Systems Const: Denies: fever, chills, body aches, change in appetite, fatigue or malaise ENMT: Denies: throat pain, ear pain, nasal discharge or nasal congestion Card: Denies: edema, shortness of breath on exertion or shortness of breath when lying down Resp: Denies: shortness of breath, productive cough or non-productive cough GI: Reports: abdominal pain and nausea Skin/Breast: Denies: rash or itching PFSH ED PFSH: Medical History (Updated 09/25/19 @ 13:49 by Romel Glynn DO) Chest pain Diabetes Diastolic congestive heart failure Gallbladder anomaly GERD (gastroesophageal reflux disease) History of DVT of lower extremity Left leg 06/2019 History of skin cancer Basal cell carcinoma on back 2007 HTN (hypertension) Insomnia, unspecified Tremor, unspecified Unspecified urinary incontinence Vitamin B12 deficiency Surgical History H/O left breast biopsy Benign 2016 History of thoracentesis X 2 for traumatic effusion History of tonsillectomy Hx of colonoscopy Hx of tubal ligation / incidental appendectomy 1981 Status post surgical removal of malignant neoplasm of skin Basal cell carcinoma on back 2007 Social History Smoking and tobacco status: former smoker Quit status (tobacco): has quit using tobacco Former quit date comment: Patient smoked 2 packs of cigarettes a day for 25 years Alcohol intake: never Desire information about alcohol rehabilitation?: No Counseling given: No Desire information about substance/drug rehabilitation?: No Counseling given: No Adopted: No Caregiver/support person: No Lives independently: Yes Household members: spouse and children Marital status: Current occupational status: unemployed History of recent travel: No Current gender identity: Female Physical Exam Const: COMMON NORMALS: no apparent distress GENERAL APPEARANCE: cooperative and comfortable ORIENTATION/CONSCIOUSNESS: Yes awake, Yes oriented to person, Yes oriented to place and Yes oriented to time HENMT: COMMON NORMALS: normocephalic, head/scalp atraumatic, hearing grossly normal bilaterally, external ears normal, EAC's normal, TM's normal bilaterally, nasal mucous membranes and turbinates normal, moist oral mucous membranes and oropharynx normal HEAD & SCALP: normocephalic and atraumatic NOSE: nasal mucous membranes and turbinates normal EXTERNAL EAR: Yes external ears normal EXTERNAL AUDITORY CANAL: EAC's normal TYMPANIC MEMBRANE: TM's normal bilaterally Eye: COMMON NORMALS: PERRL, EOMs intact bilaterally, conjunctivae normal and no scleral icterus CONJUNCTIVA: Yes conjunctivae normal PUPIL: Yes PERRL Neck/C-Spine: COMMON NORMALS: full ROM, no lymphadenopathy, supple and no JVD Lymph: LYMPHATIC: no lymphadenopathy noted and no lymphedema noted Resp: COMMON NORMALS: normal respiratory effort, no retractions, no use of accessory muscles and clear to auscultation bilaterally AUSCULTATION: clear to auscultation bilaterally Cardio: COMMON NORMALS: no JVD GI: COMMON NORMALS: no hepatosplenomegaly AUSCULTATION: Yes normoactive bowel sounds PALPATION: Yes tender (Mild epigastric discomfort), No guarding and Yes no hepatosplenomegaly Extremity: COMMON NORMALS: normal to inspection, normal capillary refill, no clubbing, cyanosis or edema, no calf tenderness and no pedal edema Neuro: SENSORIUM/ORIENTATION: Yes oriented to person, Yes oriented to place and Yes oriented to time Skin: COMMON NORMALS: no rashes or lesions noted GENERAL SKIN EXAM: no rashes or lesions noted Course ED course: Reviewed previous hospitalization. Suspect patient does have some does esophageal dysmotility. Her blood pressure elevated as well and started on Cardizem 30 mg 4 times daily to see if that can help with the dysmotility symptoms she also is having stable hypertension tension that should lower blood pressure bit as well. Encouraged her to follow-up with Dr. Pfeiffer as planned. During her last hospitalization she had an angiogram which is essentially normal troponins are negative x2 here as well. Liver enzymes and bilirubin today are normal Vital Signs: Vital signs: Vital Signs Temperature 98.1 F 09/25/19 10:10 Pulse Rate 84 09/25/19 14:24 Respiratory Rate 20 H 09/25/19 14:24 Blood Pressure 169/85 09/25/19 14:24 Pulse Oximetry 98 09/25/19 14:24 MDM - Chest Pain Lab Data: Attestation: I reviewed the patient's lab results. Labs: Lab Results 09/25/19 09/25/19 09/25/19 Range/Units 10:57 10:57 10:57 WBC 8.0 (4.0-10.0) 10^3/ uL RBC 4.67 (4.1-5.3) 10^6/u L Hgb 13.7 (11.5-15.3) g/dL Hct 42.4 (37.0-47.0) % MCV 90.8 (81-99) fL MCH 29.3 (28.0-34.0) pg MCHC 32.3 (30.0-36.0) g/dL RDW 12.4 (12.1-15.1) % Plt Count 191 (130-400) 10^3/c mm MPV 9.8 (7.4-10.4) fL Neut % (Auto) 80.4 % Lymph % (Auto) 12.3 % [place] % (Auto) 4.9 % Eos % (Auto) 1.6 % Baso % (Auto) 0.4 % Neut # (Auto) 6.5 (1.8-7.7) 10^3/u L Lymph # (Auto) 1.0 (0.8-4.8) 10^3/u L [place] # (Auto) 0.4 (0.2-0.9) 10^3/u L Eos # (Auto) 0.1 (0.0-0.8) 10^3/u L Baso # (Auto) 0.0 (0.0-0.1) 10^3/u L Nucleated RBC % (a uto) 0 % Nucleated RBCs # 0.0 /100WBC Sodium 138 (136-145) mmol/L Potassium 4.4 (3.5-5.1) mmol/L Chloride 95 L (98-107) mmol/L Carbon Dioxide 32 H (22-29) mmol/L Anion Gap 15.4 (5-19) BUN 20 (8-23) mg/dL Creatinine 0.5 (0.5-0.9) mg/dL GFR Calculation 125.9 (90-130) mL/min Glucose 169 H (65-115) mg/dL Calculated Osmolal ity 286 (285-295) mOsm/k g Calcium 9.4 (8.5-10.5) mg/dL Total Bilirubin 0.6 (0.15-1.2) mg/dL AST 21 (0-32) U/L ALT 29 (0-33) U/L Alkaline Phosphata se 91 (35-105) IU/L Troponin T Baselin e 15 H (0-10) ng/mL Troponin T 120 Min [place] (0-10) ng/mL Delta Troponin T (0-10) ABS# NT-Pro-B Natriuret Pep (0-125) pg/mL Total Protein 8.2 (6.6-8.7) g/dL Albumin 3.8 (3.5-5.2) g/dL Globulin 4.4 (1.3-4.6) g/dL 09/25/19 09/25/19 Range/Units 10:57 13:10 WBC (4.0-10.0) 10^3/ uL RBC (4.1-5.3) 10^6/u L Hgb (11.5-15.3) g/dL Hct (37.0-47.0) % MCV (81-99) fL MCH (28.0-34.0) pg MCHC (30.0-36.0) g/dL RDW (12.1-15.1) % Plt Count (130-400) 10^3/c mm MPV (7.4-10.4) fL Neut % (Auto) % Lymph % (Auto) % [place] % (Auto) % Eos % (Auto) % Baso % (Auto) % Neut # (Auto) (1.8-7.7) 10^3/u L Lymph # (Auto) (0.8-4.8) 10^3/u L [place] # (Auto) (0.2-0.9) 10^3/u L Eos # (Auto) (0.0-0.8) 10^3/u L Baso # (Auto) (0.0-0.1) 10^3/u L Nucleated RBC % (a uto) % Nucleated RBCs # /100WBC Sodium (136-145) mmol/L Potassium (3.5-5.1) mmol/L Chloride (98-107) mmol/L Carbon Dioxide (22-29) mmol/L Anion Gap (5-19) BUN (8-23) mg/dL Creatinine (0.5-0.9) mg/dL GFR Calculation (90-130) mL/min Glucose (65-115) mg/dL Calculated Osmolal ity (285-295) mOsm/k g Calcium (8.5-10.5) mg/dL Total Bilirubin (0.15-1.2) mg/dL AST (0-32) U/L ALT (0-33) U/L Alkaline Phosphata se (35-105) IU/L Troponin T Baselin e (0-10) ng/mL Troponin T 120 Min [place] 11.85 H (0-10) ng/mL Delta Troponin T -3.15 L (0-10) ABS# NT-Pro-B Natriuret Pep 223 H (0-125) pg/mL Total Protein (6.6-8.7) g/dL Albumin (3.5-5.2) g/dL Globulin (1.3-4.6) g/dL Discharge Plan Discharge Patient Disposition: Home, Self-Care Clinical Impression: Esophageal dysmotility, COPD (chronic obstructive pulmonary disease) with emphysema, HTN (hypertension), Diabetes Condition: Stable Prescriptions: New diltiazem HCl 30 mg tablet 30 mg PO QID Qty: 60 RF: 0 No Action escitalopram oxalate 10 mg tablet 10 mg PO DAILY RF: 0 fluticasone propion-salmeterol [Advair Diskus] 500-50 mcg/dose blister with device 1 inh INHALATION BID Qty: 60 RF: 2 furosemide 20 mg tablet 20 mg PO BID Qty: 60 RF: 2 Xarelto 2.5 mg tablet 2.5 mg PO BID Qty: 60 RF: 2 albuterol sulfate [Ventolin HFA] 90 mcg/actuation Hfa Aerosol Inhaler 2 puff INHALATION Q4H PRN (Reason: Shortness Of Breath) RF: 0 insulin aspart U-100 [Novolog Flexpen U-100 Insulin] 100 unit/mL (3 mL) insulin pen See Rx Instructions .ROUTE .COMPLEX RF: 0 atorvastatin 10 mg tablet 10 mg PO DAILY RF: 0 metformin 500 mg tablet extended release 24 hr 1,000 mg PO BID RF: 0 Ozempic 1 mg/dose (2 mg/1.5 mL) pen injector 1 mg SUBCUT Q7D RF: 0 aspirin [Aspir-81] 81 mg Tablet,Delayed Release (Dr/Ec) 81 mg PO BID RF: 0 pantoprazole 40 mg Tablet,Delayed Release (Dr/Ec) 40 mg PO BID Qty: 60 RF: 0 metoprolol tartrate 25 mg Tablet 12.5 mg PO BID Qty: 30 RF: 0 lisinopril 10 mg Tablet 10 mg PO DAILY RF: 0 nitroglycerin 0.4 mg Tablet, Sublingual 0.4 mg SUBLINGUAL Q5M PRN (Reason: Chest Pain) RF: 0 Discharge Orders: Discharge Order (Routine); Ordered 09/25/19 Ordered By: Romel Glynn Referrals: Alondra Ham, DISPATCHER CLERK-C [Primary Care Provider] - Discharge Diet: Advance as tolerated Discharge Activity: Resume usual activity Activity Restrictions/Additional Instructions: Follow-up with Dr. Pfeiffer as scheduled Discharge Date/Time: 09/25/19 14:25 Coding Level of Care Code ED [employer] Professional for Chg Fwd Exam Comprehensive The documentation recorded by the scribEdward valencia Bridget Annette, accurately reflects the service I personally performed and the decisions made by , Romel Glynn, Sep 25, 2019 10:08
--- NOTE | 2019-09-25 10:37 | XRR_ITS ---
PROCEDURE INFORMATION: Exam: XR Chest, 1 View Exam date and time: 09/25/2019 10:49 AM Age: 58 years old Clinical indication: Cough and dyspnea; Additional info: Dyspnea/cough TECHNIQUE: Imaging protocol: XR of the chest Views: Frontal portable upright view of the chest. COMPARISON: CR XR chest 1V portable [id number] 08/25/2019 10:41 AM FINDINGS: Tubes, catheters and devices: EKG leads are present overlying the chest. Lungs: Right mid lung zone calcified pulmonary parenchymal granuloma. The pulmonary vasculature remains congested. Mild left lateral basilar subsegmental atelectasis. The lungs are otherwise peripherally clear bilaterally. Pleural space: No pleural effusion. No pneumothorax. Heart/Mediastinum: Stable mild cardiomegaly. Mediastinum: Stable. Diaphragm: The right hemidiaphragm remains moderately elevated. Bones/joints: Stable. XR/XR chest 1V portable [id number] IMPRESSION: 1. Persistent pulmonary vascular congestion. 2. Mild left lateral basilar subsegmental atelectasis.
--- NOTE | 2019-09-25 10:37 | ECG_ITS ---
Measurements Intervals [place] Rate: 71 P: 50 [place]: 164 QRS: 60 QRSD: 87 T: 52 QT: 378 QTc: 412 SINUS RHYTHM POSSIBLE LEFT ATRIAL ENLARGEMENT [-0.1mV P WAVE IN V1/V2] Compared to ECG 08/25/2019 07:45:44 No significant changes Electronically Signed On 09-25-2019 19:33:37 CDT by Roe Sanders M.D. [id number]
[2019-09-25 11:04] LABS: Basophils % 0.4 %; Eosinophils # 0.1 10^3/uL (0.0-0.8); Eosinophils % 1.6 %; Hematocrit 42.4 % (37.0-47.0); Hemoglobin 13.7 g/dL (11.5-15.3); Lymphocytes % 12.3 %; Mean Corpuscular HGB Conc 32.3 g/dL (30.0-36.0); Mean Corpuscular Hemoglobin 29.3 pg (28.0-34.0); Mean Corpuscular Volume 90.8 fL (81-99); Mean Platelet Volume 9.8 fL (7.4-10.4); Monocytes # 0.4 10^3/uL (0.2-0.9); Monocytes % 4.9 %; Neutrophils # 6.5 10^3/uL (1.8-7.7); Neutrophils % 80.4 %; Nucleated Red Blood Cells % 0 %; Platelet Count 191 10^3/cmm (130-400); Red Blood Count 4.67 10^6/uL (4.1-5.3); Red Cell Distribution Width 12.4 % (12.1-15.1)
[2019-09-25] MEDS: sodium chloride 0.9% 1,000 ML 999 ML IV (11:07)
[2019-09-25] MEDS: ondansetron 2 mg/ML SDV 2 mL 4 MG IVP (11:07)
[2019-09-25 11:22] LABS: Alanine Aminotransferase 29 U/L (0-33); Albumin Level 3.8 g/dL (3.5-5.2); Alkaline Phosphatase 91 IU/L (35-105); Anion Gap 15.4 (5-19); Aspartate Amino Transferase 21 U/L (0-32); Blood Urea Nitrogen 20 mg/dL (8-23); Calcium 9.4 mg/dL (8.5-10.5); Carbon Dioxide 32 mmol/L (22-29); Chloride 95 mmol/L (98-107); Globulin 4.4 g/dL (1.3-4.6); Glomerular Filtration Rate 125.9 mL/min (90-130); Glucose 169 mg/dL (65-115); Osmolality Calculated 286 mOsm/kg (285-295); Potassium 4.4 mmol/L (3.5-5.1); Sodium 138 mmol/L (136-145); Total Bilirubin 0.6 mg/dL (0.15-1.2); Total Protein 8.2 g/dL (6.6-8.7)
[2019-09-25 11:24] LABS: Troponin(5th) Baseline 15 ng/mL (0-10)
[2019-09-25 11:46] LABS: NT Pro B Type Natriuretic Pept 223 pg/mL (0-125)
[2019-09-25 13:32] LABS: Troponin 5 2HR 11.85 ng/mL (0-10)
[2019-09-25 14:13] LABS: Troponin 5 2HR Delta -3.15 ABS# (0-10)
[2019-09-25 14:24] VITALS: BP 169/85; PULSE 84; RESP 20; O2SAT 98
--- NOTE | 2019-09-25 16:37 | ECG_ITS ---
Measurements Intervals [place] Rate: 77 P: 47 [place]: 167 QRS: 53 QRSD: 85 T: 51 QT: 379 QTc: 430 SINUS RHYTHM POSSIBLE LEFT ATRIAL ENLARGEMENT [-0.1mV P WAVE IN V1/V2] Compared to ECG 08/25/2019 07:45:44 No significant changes Electronically Signed On 09-25-2019 19:36:19 CDT by Roe Sanders M.D. [email or web address]
== END 2019-09-25 14:25 | disposition home or self-care (01) ==
PROVIDERS: Emergency Provider Family Medicine; Family Provider Nurse Practitioner; PCP Nurse Practitioner
DX: K22.4 Dyskinesia of esophagus (principal); J43.9 Emphysema, unspecified; I11.0 Hypertensive heart disease with heart failure; I50.9 Heart failure, unspecified; E11.9 Type 2 diabetes mellitus without complications; Z87.891 Personal history of nicotine dependence; Z79.51 Long term (current) use of inhaled steroids; Z79.4 Long term (current) use of insulin; Z79.01 Long term (current) use of anticoagulants
CPT/HCPCS: 12345; 36415; 71045; 80053; 83880; 84484; 85025; 93005; 96361; 96374; 96375; 99282; 99284; J2405; J7030

== ENCOUNTER → 2019-10-15 09:52 | Outpatient (BNVA) | payer MEDICARE, MEDICAID, SELFPAY | PROVIDERS: Family Provider Nurse Practitioner; PCP Nurse Practitioner; Visit Provider Nurse Practitioner | DX: E11.9 Type 2 diabetes mellitus without complications (principal); I10 Essential (primary) hypertension; J43.9 Emphysema, unspecified | CPT/HCPCS: 80053; 80061; 81000; 83036 ==

== ENCOUNTER → 2019-12-30 15:02 | Outpatient (BNVA) | payer MEDICARE, MEDICAID, SELFPAY | PROVIDERS: Family Provider Nurse Practitioner; PCP Nurse Practitioner; Visit Provider Nurse Practitioner | DX: E11.9 Type 2 diabetes mellitus without complications (principal); I10 Essential (primary) hypertension | CPT/HCPCS: 80053; 80061; 83036 ==

== ENCOUNTER 2020-01-23 09:51 | Outpatient (CLI) | payer MEDICARE, MEDICAID, SELFPAY ==
--- NOTE | 2020-01-23 10:15 | US_ITS ---
WS: [id number] RIGHT UPPER QUADRANT ULTRASOUND HISTORY: Gallbladder polyp. COMPARISON: 08/23/2019 Liver: 17.1 cm in length. Normal size and echogenicity with no intrahepatic dilatation. No mass. Gallbladder: Gallbladder is slightly contracted. There is a lobulated soft tissue mass projecting int o the gallbladder lumen. Mass measures 12 x 10 mm. Slightly broad based attachment to the wall of the gallbladder. No increased vascularity is identified. No stone. CBD: 0.6 cm Pancreas: Normal size and echogenicity. Right kidney: 11.3 cm in length. Normal echogenicity with no mass or hydronephrosis. Aorta and IVC: Unremarkable. No ascites. US/US gall bladder [id number] IMPRESSION: 1. Lobulated gallbladder mass without increased vascularity. Mass measures 12 x 11 mm and not significantly changed in size. Strongly recommend surgical chana martina. 2. No cholelithiasis evident. 3. No bile duct dilatation.
== END 2020-01-23 09:52 | disposition home or self-care (01) ==
LOC: RAD 09:56
PROVIDERS: PCP Nurse Practitioner; Visit Provider Surgery
DX: K82.4 Cholesterolosis of gallbladder (principal); K82.9 Disease of gallbladder, unspecified
CPT/HCPCS: 76705

== ENCOUNTER → 2020-04-07 09:29 | Outpatient (BNVA) | payer MEDICARE, MEDICAID, SELFPAY | PROVIDERS: PCP Nurse Practitioner; Visit Provider Nurse Practitioner | DX: E11.65 Type 2 diabetes mellitus with hyperglycemia (principal); Z79.4 Long term (current) use of insulin | CPT/HCPCS: 80053; 80061; 83036; 85025 ==

== ENCOUNTER → 2020-07-22 08:25 | Outpatient (BNVA) | payer MEDICARE, MEDICAID, SELFPAY | PROVIDERS: PCP Nurse Practitioner; Visit Provider Nurse Practitioner | DX: J43.9 Emphysema, unspecified (principal); I10 Essential (primary) hypertension; E11.65 Type 2 diabetes mellitus with hyperglycemia; Z79.4 Long term (current) use of insulin | CPT/HCPCS: 80053; 80061; 83036; 85025 ==

== ENCOUNTER 2020-07-27 21:08 | Emergency (ER) | payer MEDICARE, MEDICAID, SELFPAY ==
[2020-07-27 21:09] VITALS: BP 170/91; PULSE 86; RESP 22; TEMP 36.7; O2SAT 98; BMI 31.3
--- NOTE | 2020-07-27 21:13 | XRR_ITS ---
PROCEDURE INFORMATION: Exam: XR Chest, 1 View Exam date and time: 07/27/2020 9:22 PM Age: 59 years old Clinical indication: Other: N/v; Chest pain; Type not specified; Prior surgery; Surgery type: Biopsy; Patient HX: HX of breast cancer; Additional info: Cp TECHNIQUE: Imaging protocol: XR of the chest Views: Frontal portable upright view of the chest. COMPARISON: CR XR chest 1V portable [id number] 09/25/2019 10:39 AM FINDINGS: Tubes, catheters and devices: EKG leads are present overlying the chest. Lungs: Right mid lung zone calcified pulmonary parenchymal granuloma. The lungs are otherwise clear bilaterally. The pulmonary vasculature is normal. Pleural space: No pleural effusion. No pneumothorax. Heart/Mediastinum: The heart is normal in size and contour. Mediastinum: Stable. Vasculature: Moderate aortic arch atherosclerotic calcification without ectasia. Bones/joints: Stable. XR/XR chest 1V portable [id number] IMPRESSION: No acute cardiopulmonary abnormality identified.
--- NOTE | 2020-07-27 21:13 | ECG_ITS ---
[facility] Test Date: 2020-07-27 Pat Name: Shea Simon Department: Room: Gender: Female Machine Bobbin Winder: : 1960 Requested By: Mirian Kumar Order Number: [id number] Susan MD: Rashad Hobbs M.D. Measurements Intervals [place] Rate: 83 P: 48 CT: 157 QRS: 55 QRSD: 87 T: 50 QT: 374 QTc: 442 Interpretive Statements SINUS RHYTHM LEFT ATRIAL ENLARGEMENT [-0.15mV P WAVE IN V1/V2] Compared to ECG 09/25/2019 12:37:38 No significant changes Electronically Signed On 07-28-2020 21:31:49 RADIO ENGINEER by Rashad Hobbs M.D. [id number]
--- NOTE | 2020-07-27 21:15 | ED_ITS ---
HPI - Chest Pain General: Chief Complaint: Chest Pain Stated Complaint: CP/N/V Time Seen by Provider: 07/27/20 21:09 Source: patient Mode of arrival: ambulatory Limitations: no limitations History of Present Illness: HPI narrative: 59-year-old female called EMS tonight she is having chest pain that started this afternoon along with epigastric abdominal pain and nausea and vomiting. States she had multiple episodes of vomiting. Patient was given Zofran and Phenergan in route and has had some slight improvement. States her pain is a sharp pain and rates it a 4 out of 10. She denies any shortness of breath. Denies any worsening improving factors. Associated symptoms: Reports abdominal pain, nausea and vomiting; Deny dyspnea or fever(s) Review of Systems Const: Denies: fever(s), chills, body aches or change in appetite Eyes: Denies: blurry vision or eye discomfort ENMT: Denies: throat pain or dental pain Card: Reports: chest pain Resp: Denies: dyspnea GI: Reports: abdominal pain, nausea and vomiting : Denies: dysuria Musc: Denies: neck pain or back pain Skin/Breast: Denies: rash Neuro: Denies: headache(s) Psych: Denies: depression Bhavin/Lymph: Denies: easy bruising All/Imm: Denies: urticaria PFSH ED PFSH: Medical History Chest pain Diabetes Diastolic congestive heart failure Gallbladder anomaly Generalized anxiety disorder GERD (gastroesophageal reflux disease) H/O deep venous thrombosis History of DVT of lower extremity Left leg 06/2019 History of skin cancer Basal cell carcinoma on back 2007 HTN (hypertension) Insomnia, unspecified Noncompliance with dietary restriction Noncompliance with medication regimen Tremor, unspecified Unspecified urinary incontinence Vitamin B12 deficiency Surgical History H/O left breast biopsy Benign 2016 History of thoracentesis X 2 for traumatic effusion History of tonsillectomy Hx of colonoscopy Hx of tubal ligation / incidental appendectomy 1981 Status post surgical removal of malignant neoplasm of skin Basal cell carcinoma on back 2007 Family History Mother Cancer Unknown type Father Cancer Lung CA Son Gallbladder disease Other Hypertension Denies family history of Clotting disorder Social History Smoking and tobacco status: former smoker Quit status (tobacco): has quit using tobacco Former quit date comment: Patient smoked 2 packs of cigarettes a day for 25 years Second hand smoke exposure: No Smoking risk assessment/counseling performed?: No Alcohol intake: never Desire information about alcohol rehabilitation?: No Counseling given: No Desire information about substance/drug rehabilitation?: No Counseling given: No Adopted: No Caregiver/support person: No Lives independently: Yes Household members: spouse and children Marital status: service: No Current occupational status: unemployed History of recent travel: No Current gender identity: Female Physical Exam Const: COMMON NORMALS: no acute distress, patient oriented x3 and healthy appearing HENMT: COMMON NORMALS: normocephalic and atraumatic HEAD & SCALP: normocephalic and atraumatic Eye: COMMON NORMALS: Equal, round and reactive pupils present and EOMs intact bilaterally PUPIL: Yes Equal, round and reactive pupils present Neck/C-Spine: COMMON NORMALS: full ROM and supple Chest: COMMONS NORMALS: normal inspection of the chest and normal palpation of entire chest wall Resp: COMMON NORMALS: normal respiratory effort, No retractions, No use of accessory muscles and clear to auscultation bilaterally AUSCULTATION: clear to auscultation bilaterally Cardio: COMMON NORMALS: regular rate, regular rhythm and No murmurs present (Cardio) RATE: regular rate RHYTHM: regular rhythm GI: COMMON NORMALS: Normal to inspection, nondistended, normoactive bowel sounds present, Soft to palpation, non-tender and no masses PALPATION: Yes Soft to palpation Extremity: COMMON NORMALS: normal to inspection and full ROM Neuro: COMMON NORMALS: patient oriented x3, moves all extremities and no focal motor deficits Psych: COMMON NORMALS: mental status grossly normal, Normal thought process present and cooperative THOUGHT PROCESS: Normal thought process present Skin: COMMON NORMALS: no rashes or lesions noted and no wounds GENERAL SKIN EXAM: no rashes or lesions noted Course Vital Signs: Vital signs: Vital Signs Temperature 98.1 F 07/27/20 21:09 Pulse Rate 91 07/27/20 22:21 Respiratory Rate 16 07/27/20 22:21 Blood Pressure 147/86 07/27/20 22:21 Pulse Oximetry 99 07/27/20 22:21 MDM - Chest Pain MDM Narrative: Medical decision making narrative: Shea presents here with epigastric bowel pain along chest pain. I believe her pain is mainly abdominal. CT does show gastritis and her symptoms are consistent with a gastritis. Her initial repeat troponins and EKG here are normal. She has no signs of acute coronary syndrome or pulmonary embolism. Patient feels improved I will place her on Protonix along with Zofran. She is to follow-up with her PCP in 2 to 4 days return to the ER if worsening. She understands and agrees to plan. Lab Data: Labs: Lab Results 07/27/20 07/27/20 07/27/20 Range/Units 21:21 21:21 21:21 WBC 8.4 (4.0-10.0) 10^3/ uL RBC 4.78 (4.1-5.3) 10^6/u L Hgb 13.7 (11.5-15.3) g/dL Hct 42.4 (37.0-47.0) % MCV 88.7 (81-99) fL MCH 28.7 (28.0-34.0) pg MCHC 32.3 (30.0-36.0) g/dL RDW 12.8 (12.1-15.1) % Plt Count 179 (130-400) 10^3/c mm MPV 11.4 H (7.4-10.4) fL Neut % (Auto) 80.3 % Lymph % (Auto) 13.0 % Pine % (Auto) 4.7 % Eos % (Auto) 1.3 % Baso % (Auto) 0.5 % Neut # (Auto) 6.77 (1.8-7.7) 10^3/u L Lymph # (Auto) 1.1 (0.8-4.8) 10^3/u L Pine # (Auto) 0.4 (0.2-0.9) 10^3/u L Eos # (Auto) 0.1 (0.0-0.8) 10^3/u L Baso # (Auto) 0.0 (0.0-0.1) 10^3/u L Nucleated RBC % (a uto) 0 % Nucleated RBCs # 0.0 /100WBC Sodium 135 L (136-145) mmol/L Potassium 5.0 (3.5-5.1) mmol/L Chloride 95 L (98-107) mmol/L Carbon Dioxide 27 (22-29) mmol/L Anion Gap 18.0 (5-19) BUN 20 (8-23) mg/dL Creatinine 0.6 (0.5-0.9) mg/dL GFR Calculation 101.6 (90-130) mL/min Glucose 436 H (65-115) mg/dL Calculated Osmolal ity 301 H (285-295) mOsm/k g Calcium 9.1 (8.5-10.5) mg/dL Total Bilirubin 0.6 (0.15-1.2) mg/dL AST 17 (0-32) U/L ALT 15 (0-33) U/L Alkaline Phosphata se 101 (35-105) IU/L Troponin T Baselin e 13 H (0-10) ng/L Troponin T 120 Min samish (0-10) ng/L Delta Troponin T (0-10) ABS# Total Protein 7.2 (6.6-8.7) g/dL Albumin 3.9 (3.5-5.2) g/dL Globulin 3.3 (1.3-4.6) g/dL Lipase 13 (13-60) U/L 07/27/20 Range/Units 23:13 WBC (4.0-10.0) 10^3/ uL RBC (4.1-5.3) 10^6/u L Hgb (11.5-15.3) g/dL Hct (37.0-47.0) % MCV (81-99) fL MCH (28.0-34.0) pg MCHC (30.0-36.0) g/dL RDW (12.1-15.1) % Plt Count (130-400) 10^3/c mm MPV (7.4-10.4) fL Neut % (Auto) % Lymph % (Auto) % Pine % (Auto) % Eos % (Auto) % Baso % (Auto) % Neut # (Auto) (1.8-7.7) 10^3/u L Lymph # (Auto) (0.8-4.8) 10^3/u L Pine # (Auto) (0.2-0.9) 10^3/u L Eos # (Auto) (0.0-0.8) 10^3/u L Baso # (Auto) (0.0-0.1) 10^3/u L Nucleated RBC % (a uto) % Nucleated RBCs # /100WBC Sodium (136-145) mmol/L Potassium (3.5-5.1) mmol/L Chloride (98-107) mmol/L Carbon Dioxide (22-29) mmol/L Anion Gap (5-19) BUN (8-23) mg/dL Creatinine (0.5-0.9) mg/dL GFR Calculation (90-130) mL/min Glucose (65-115) mg/dL Calculated Osmolal ity (285-295) mOsm/k g Calcium (8.5-10.5) mg/dL Total Bilirubin (0.15-1.2) mg/dL AST (0-32) U/L ALT (0-33) U/L Alkaline Phosphata se (35-105) IU/L Troponin T Baselin e (0-10) ng/L Troponin T 120 Min samish 12.47 H (0-10) ng/L Delta Troponin T -0.53 L (0-10) ABS# Total Protein (6.6-8.7) g/dL Albumin (3.5-5.2) g/dL Globulin (1.3-4.6) g/dL Lipase (13-60) U/L Imaging Data^: CXR: Attestation: I personally reviewed and interpreted this imaging study as follows: My impression: no acute abnormality CT Abd/Pel: Radiologist's impression: [address] [address] [address] Scan Report Signed Patient: Shea Simon Unit #: [id number] : 1960 Age/Sex: 59 / F ADM Date: 07/27/20 Loc: ER Room/Bed: Attending Dr: Ordering Provider/Ordering MD: Mirian Kumar MD Date of Service: 07/27/20 Procedure(s): CT abdomen pelvis w con* [id number] Accession Number(s): [id number] Report Number: [id number] PROCEDURE INFORMATION: Exam: CT Abdomen And Pelvis With Contrast Exam date and time: 07/27/2020 10:06 PM Age: 59 years old Clinical indication: Nausea and vomiting; Abdominal pain; Localized; Other: Epigastric; Additional info: Abd pain TECHNIQUE: Imaging protocol: Computed tomography of the abdomen and pelvis with intravenous contrast. Radiation optimization: All CT scans at this facility use at least one of these dose optimization techniques: automated exposure control; mA and/or kV adjustment per patient size (includes targeted exams where dose is matched to clinical indication); or iterative reconstruction. Contrast material: OMNI 300; Contrast volume: 95 ml; Contrast route: INTRAVENOUS (IV); COMPARISON: CT abdomen pelvis wo con [id number] 03/20/2019 2:10 PM RADIATION DOSE METRICS: Total DLP (mGy-cm): 1485.76 FINDINGS: Lungs: There is subsegmental atelectasis in the lung bases. Liver: The liver is normal. Gallbladder and bile ducts: The gallbladder is normal. There is no biliary dilation. Pancreas: The pancreas is unremarkable. Spleen: Splenic size is normal. There are scattered calcifications consistent with healed granulomas. A previously visible splenic cyst on 03/20/2019 is nearly completely decompressed on the current exam. Adrenal glands: There is a 2.7 cm left adrenal nodule, stable since 03/20/2019. On the prior noncontrast exam, the lesion was of low attenuation consistent with a benign lipid rich adenoma. No follow-up is necessary. The right adrenal gland is unremarkable. Kidneys and ureters: The kidneys are unremarkable. No hydronephrosis or stones. No ureteral dilation. Stomach and bowel: There is mild diffuse gastric wall thickening. The small bowel is nondilated. The colon is unremarkable. Appendix: The appendix is not definitively identified, although there are no secondary signs of appendicitis. Intraperitoneal space: There is no free air or significant intraperitoneal free fluid. Vasculature: The portal, splenic and superior mesenteric veins are patent. There is moderate aortic atherosclerotic disease. Lymph nodes: There is no lymphadenopathy in the retroperitoneum, mesentery, pelvis or inguinal regions. Urinary bladder: The urinary bladder is unremarkable. Reproductive: The uterus is unremarkable. There is no adnexal mass or large cyst. Bones/joints: There is moderate degenerative disease in the lumbar spine. The pelvis and hips are intact. Soft tissues: The abdominal wall is intact. CT/CT abdomen pelvis w con* [id number] IMPRESSION: 1. Suggestive findings of gastritis. No visible ulcer. 2. Incidental findings above. EKG Data^: EKG 1: Attestation: I personally reviewed and interpreted this EKG as follows: EKG interpretation date: 07/27/20 EKG interpretation time: 21:20 Interpretation: nsr hr [address] or t wave abnormalities qrs 87 qtc 414 Discharge Plan Discharge Patient Disposition: Home Clinical Impression: Atypical chest pain, Abdominal pain, Vomiting Condition: Stable Prescriptions: New ondansetron 4 mg tablet,disintegrating 4 mg PO Q6H PRN (Reason: nausea and vomiting) Qty: 14 RF: 0 Protonix 40 mg tablet,delayed release (DR/EC) 40 mg PO DAILY Qty: 60 RF: 0 No Action spinosad [Natroba] 0.9 % suspension 30 ml TOPICAL Q7D Qty: 120 RF: 0 Ciprodex 0.3-0.1 % drops,suspension 4 drop EAR-BOTH Q12H 7 Days Qty: 7.5 RF: 0 Levemir FlexTouch U-100 Insuln 100 unit/mL (3 mL) insulin pen 30 unit SUBCUT DAILY Qty: 15 RF: 2 Ozempic 1 mg/dose (2 mg/1.5 mL) pen injector 1 mg SUBCUT .weekly Qty: 3 RF: 2 albuterol sulfate [Ventolin HFA] 90 mcg/actuation HFA aerosol inhaler 2 puff INHALATION Q4H PRN (Reason: Shortness Of Breath) Qty: 18 RF: 2 atorvastatin 10 mg tablet 10 mg PO DAILY Qty: 30 RF: 2 escitalopram oxalate 20 mg tablet 20 mg PO DAILY Qty: 30 RF: 2 fluticasone propion-salmeterol [Advair Diskus] 500-50 mcg/dose blister with device 1 inh INHALATION BID Qty: 60 RF: 2 furosemide 20 mg tablet 20 mg PO BID Qty: 60 RF: 2 insulin aspart U-100 [Novolog Flexpen U-100 Insulin] 100 unit/mL (3 mL) insulin pen 6 - 30 unit SUBCUT TID Qty: 15 RF: 1 metformin 500 mg tablet extended release 24 hr 1,000 mg PO BID Qty: 120 RF: 2 pantoprazole 40 mg tablet,delayed release (DR/EC) 40 mg PO DAILY Qty: 30 RF: 2 Xarelto 2.5 mg tablet 2.5 mg PO BID Qty: 60 RF: 2 aspirin 81 mg tablet,delayed release (DR/EC) 81 mg PO BID Qty: 60 RF: 2 diltiazem HCl 30 mg tablet 30 mg PO .two times day Qty: 60 RF: 2 (DME) lancets [OneTouch Delica Lancets] 33 gauge misc See Rx Instructions .ROUTE .MEDSUPPLY Qty: 100 RF: 0 (DME) pen needle, diabetic 33 gauge x 5/32 needle See Rx Instructions .ROUTE .MEDSUPPLY Qty: 100 RF: 5 (DME) lancing device with lancets [[employer] Lanc Device] Kit See Rx Instructions .ROUTE .MEDSUPPLY Qty: 1 RF: 1 acetaminophen [Tylenol Arthritis Pain] 650 mg tablet extended release 650 mg PO Q12H Qty: 60 RF: 1 (DME) blood-glucose meter Kit See Rx Instructions .ROUTE .MEDSUPPLY Qty: 1 RF: 0 (DME) OneTouch Ultra Blue Test Strip Strip See Rx Instructions .ROUTE .MEDSUPPLY Qty: 100 RF: 5 nitroglycerin 0.4 mg Tablet, Sublingual 0.4 mg SUBLINGUAL Q5M PRN (Reason: Chest Pain) RF: 0 Discharge Orders: Discharge ED (Routine); Ordered 07/28/20 Ordered By: Mirian Kumar Referrals: Alondra Ham, [facility] [Primary Care Provider] - 1-3 days Discharge Diet: Advance as tolerated Discharge Activity: Resume usual activity Patient Instructions: Abdominal Pain (ED) Coding Level of Care Code 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
[2020-07-27 21:26] LABS: Basophils % 0.5 %; Eosinophils # 0.1 10^3/uL (0.0-0.8); Eosinophils % 1.3 %; Hematocrit 42.4 % (37.0-47.0); Hemoglobin 13.7 g/dL (11.5-15.3); Lymphocytes # 1.1 10^3/uL (0.8-4.8); Mean Corpuscular HGB Conc 32.3 g/dL (30.0-36.0); Mean Corpuscular Hemoglobin 28.7 pg (28.0-34.0); Mean Corpuscular Volume 88.7 fL (81-99); Mean Platelet Volume 11.4 fL (7.4-10.4); Monocytes # 0.4 10^3/uL (0.2-0.9); Monocytes % 4.7 %; Neutrophils # 6.77 10^3/uL (1.8-7.7); Neutrophils % 80.3 %; Nucleated Red Blood Cells % 0 %; Platelet Count 179 10^3/cmm (130-400); Red Blood Count 4.78 10^6/uL (4.1-5.3); Red Cell Distribution Width 12.8 % (12.1-15.1); White Blood Count 8.4 10^3/uL (4.0-10.0)
[2020-07-27] MEDS: HYDROmorphone 1 mg/mL INJ 1 mL IVP (21:30)
[2020-07-27] MEDS: sodium chloride 0.9% 1,000 ML 999 ML IV (21:30)
[2020-07-27] MEDS: ondansetron 2 mg/ML SDV 2 mL 4 MG IVP (21:30)
[2020-07-27 21:54] LABS: Troponin(5th) Baseline 13 ng/L (0-10)
[2020-07-27 21:55] LABS: Albumin Level 3.9 g/dL (3.5-5.2); Alkaline Phosphatase 101 IU/L (35-105); Blood Urea Nitrogen 20 mg/dL (8-23); Calcium 9.1 mg/dL (8.5-10.5); Carbon Dioxide 27 mmol/L (22-29); Chloride 95 mmol/L (98-107); Globulin 3.3 g/dL (1.3-4.6); Glomerular Filtration Rate 101.6 mL/min (90-130); Glucose 436 mg/dL (65-115); Lipase 13 U/L (13-60); Osmolality Calculated 301 mOsm/kg (285-295); Sodium 135 mmol/L (136-145); Total Bilirubin 0.6 mg/dL (0.15-1.2); Total Protein 7.2 g/dL (6.6-8.7)
[2020-07-27 21:58] LABS: Alanine Aminotransferase 15 U/L (0-33); Aspartate Amino Transferase 17 U/L (0-32)
[2020-07-27] MEDS: iohexol 300 mg/mL 100 mL Btl IV (22:09)
[2020-07-27 22:21] VITALS: BP 147/86; PULSE 91; RESP 16; O2SAT 99
[2020-07-27] MEDS: lidocaine 2% viscous 15 ML, aluminum-mag hydrox-simethicon 30 ML, sucralfate oral liq 1 GM PO (22:44)
--- NOTE | 2020-07-27 23:13 | ECG_ITS ---
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 Measurements Intervals [place] Rate: 89 P: 42 SD: 159 QRS: 42 QRSD: 92 T: 50 QT: 355 QTc: 432 Interpretive Statements SINUS RHYTHM LEFT ATRIAL ENLARGEMENT [-0.15mV P WAVE IN V1/V2] Compared to ECG 07/27/2020 21:20:48 No significant changes Electronically Signed On 07-28-2020 21:42:19 LIBRARY CIRCULATION CLERK by Rashad Hobbs M.D. [id number]
[2020-07-27 23:47] LABS: Troponin 5 2HR 12.47 ng/L (0-10)
[2020-07-28 00:05] LABS: Troponin 5 2HR Delta -0.53 ABS# (0-10)
[2020-07-28] MEDS: morphine 4 mg/mL SDV 1 mL IVP (00:23)
[2020-07-28 01:08] VITALS: BP 165/91; PULSE 87; RESP 16; O2SAT 98
== END 2020-07-28 06:19 | disposition home or self-care (01) ==
PROVIDERS: Emergency Provider Emergency Medicine; PCP Nurse Practitioner
DX: R07.89 Other chest pain (principal); R10.9 Unspecified abdominal pain; R11.10 Vomiting, unspecified; Z79.82 Long term (current) use of aspirin; Z79.4 Long term (current) use of insulin; I11.0 Hypertensive heart disease with heart failure; I50.30 Unspecified diastolic (congestive) heart failure; E11.9 Type 2 diabetes mellitus without complications; Z87.891 Personal history of nicotine dependence
CPT/HCPCS: 12345; 36415; 71045; 74177; 80053; 83690; 84484; 85025; 93005; 96361; 96374; 96375; 99282; 99284; J1170; J2270; J2405; J7030; Q9967

== ENCOUNTER 2020-09-07 11:16 | Emergency (ER) | payer MEDICARE, MEDICAID, SELFPAY ==
[2020-09-07] VITALS (9 sets, daily range): BP systolic 153–181; BP diastolic 87–126; PULSE 67–97; RESP 16–18; TEMP 36.7; O2SAT 98–100; BMI 40.7
--- NOTE | 2020-09-07 11:29 | XR_ITS ---
WS: [id number] Exam: XR chest 1V portable [id number] Date/Time of Exam: 09/07/2020 11:29 AM Reason For Exam: dyspnea/cough Comparison 07/27/2020. Findings: The lungs are clear and fully expanded. Costophrenic angles are sharp. No infiltrates. Bronchovascula r relief appears normal. Cardiac silhouette is unremarkable. Bony elements are intact. XR/XR chest 1V portable [id number] IMPRESSION: Unremarkable chest radiograph.
--- NOTE | 2020-09-07 11:29 | US_ITS ---
WS: [id number] ULTRASOUND ABDOMEN LIMITED CLINICAL INFORMATION: RUQ abd pain COMPARISON: None. FINDINGS: Liver Size: Normal. Craniocaudal length: 15.8 cm. Echogenicity: Normal. Surface nodularity: None. Mass (size and location): None. Bile ducts Intrahepatic ducts: Normal. Common bile duct diameter: 0.4 cm. Gallbladder Cholelithiasis Gallstones: Present Gallbladder sludge: None. Gallbladder wall thickening: None. Pericholecystic fluid: None. Sonographic [place]rell[place] sign: Absent. Pancreas Normal as visualized. Right kidney: Normal. Hydronephrosis: None. Size: 10.7 cm x 6.2 cm x 4.9 cm. Abdominal aorta and IVC Visualized portions are normal. Ascites: None. US/US gall bladder [id number] IMPRESSION: 1. Liver is normal in appearance. 2. Shadowing calculus in the gallbladder measuring 1.0 CM. No significant gall bladder wall thickening or pericholecystic fluid. Normal common bile duct. 3. No hydronephrosis in right kidney.
[2020-09-07 11:37] LABS: Basophils % 0.6 %; Eosinophils # 0.1 10^3/uL (0.0-0.8); Eosinophils % 1.8 %; Hematocrit 43.6 % (37.0-47.0); Hemoglobin 13.9 g/dL (11.5-15.3); Lymphocytes # 1.3 10^3/uL (0.8-4.8); Mean Corpuscular HGB Conc 31.9 g/dL (30.0-36.0); Mean Corpuscular Hemoglobin 28.7 pg (28.0-34.0); Mean Corpuscular Volume 89.9 fL (81-99); Mean Platelet Volume 10.6 fL (7.4-10.4); Monocytes # 0.5 10^3/uL (0.2-0.9); Monocytes % 6.5 %; Neutrophils # 5.27 10^3/uL (1.8-7.7); Neutrophils % 72.8 %; Nucleated Red Blood Cells % 0 %; Platelet Count 194 10^3/cmm (130-400); Red Blood Count 4.85 10^6/uL (4.1-5.3); White Blood Count 7.2 10^3/uL (4.0-10.0)
[2020-09-07] MEDS: ondansetron 2 mg/ML SDV 2 mL 4 MG IVP (11:45)
[2020-09-07] MEDS: sodium chloride 0.9% 1,000 ML 999 ML IV (11:46)
[2020-09-07] MEDS: morphine 4 mg/mL SDV 1 mL IVP ×2 (11:47→13:24)
[2020-09-07 11:56] LABS: Alanine Aminotransferase 10 U/L (0-33); Albumin Level 3.9 g/dL (3.5-5.2); Alkaline Phosphatase 87 IU/L (35-105); Aspartate Amino Transferase 9 U/L (0-32); Blood Urea Nitrogen 33 mg/dL (8-23); Calcium 9.5 mg/dL (8.5-10.5); Carbon Dioxide 28 mmol/L (22-29); Chloride 99 mmol/L (98-107); Globulin 3.5 g/dL (1.3-4.6); Glomerular Filtration Rate 85.1 mL/min (90-130); Glucose 364 mg/dL (65-115); Lipase 16 U/L (13-60); Osmolality Calculated 304 mOsm/kg (285-295); Sodium 136 mmol/L (136-145); Total Bilirubin 0.6 mg/dL (0.15-1.2); Total Protein 7.4 g/dL (6.6-8.7)
--- NOTE | 2020-09-07 11:56 | W.ED.ABDPA2 ---
HPI - Abdominal Pain General: Chief Complaint: Abdominal Pain Stated Complaint: RUQ ABD PAIN Time Seen by Provider: 09/07/20 11:19 History of Present Illness: HPI narrative: 59-year-old female comes to clinic right upper quadrant abdominal pain she has had this in the past and actually relates she has had previous work-up for gallbladder although she does not recall all the details. It was a year or so back. She has had recurrence just lately has had increasing intensity and frequency of episodes. She ate last night and it began this morning. She cannot recall any particular trigger foods that seem to set it off. She denies any hematochezia melena hematemesis or coffee-ground emesis tried various [id number] medications with no relief. No acholic stools. MD elicited complaint: abdominal pain Pertinent past history: other (Previous work-up for gallbladder disease.) Onset (ago): hour(s) Pain Consistency: constant Location: RUQ Severity: moderate Quality: cramping Radiation: back Exacerbating factors: nothing Relieving factors: nothing Associated Symptoms: Reports anorexia, bloating, GI cramping, nausea, poor appetite and vomiting; Denies belching, change in bowel habits, change in stool character, chills, coffee ground emesis, constipation, diarrhea, dyspepsia, dysuria, excessive flatus, fever(s), heartburn, hematochezia, hematuria, hematemesis, fecal incontinence, loose stools, melena and syncope Review of Systems Const: Denies: fever(s) or chills ENMT: Denies: throat pain, ear or mastoid pain, nasal discharge or nasal congestion Card: Denies: syncope Resp: Denies: dyspnea, productive cough or non-productive cough GI: Reports: nausea, vomiting, bloating and GI cramping; Denies: hematemesis, coffee ground emesis, heartburn, diarrhea, constipation, belching, excessive flatus, fecal incontinence, change in bowel habits, change in stool character, hematochezia or melena : Denies: dysuria or hematuria Skin/Breast: Denies: rash or pruritus PFS ED PFSH: Medical History Chest pain Diabetes Diastolic congestive heart failure Gallbladder anomaly Generalized anxiety disorder GERD (gastroesophageal reflux disease) H/O deep venous thrombosis History of DVT of lower extremity Left leg 06/2019 History of skin cancer Basal cell carcinoma on back 2007 HTN (hypertension) Insomnia, unspecified Noncompliance with dietary restriction Noncompliance with medication regimen Tremor, unspecified Unspecified urinary incontinence Vitamin B12 deficiency Surgical History H/O left breast biopsy Benign 2016 History of thoracentesis X 2 for traumatic effusion History of tonsillectomy Hx of colonoscopy Hx of tubal ligation / incidental appendectomy 1981 Status post surgical removal of malignant neoplasm of skin Basal cell carcinoma on back 2007 Family History Mother Cancer Unknown type Father Cancer Lung CA Son Gallbladder disease Other Hypertension Denies family history of Clotting disorder Social History Smoking and tobacco status: former smoker Quit status (tobacco): has quit using tobacco Former quit date comment: Patient smoked 2 packs of cigarettes a day for 25 years Second hand smoke exposure: No Smoking risk assessment/counseling performed?: No Alcohol intake: never Desire information about alcohol rehabilitation?: No Counseling given: No Desire information about substance/drug rehabilitation?: No Counseling given: No Adopted: No Caregiver/support person: No Lives independently: Yes Household members: spouse and children Marital status: service: No Current occupational status: unemployed History of recent travel: No Current gender identity: Female Physical Exam Const: COMMON NORMALS: no acute distress GENERAL APPEARANCE: cooperative and comfortable ORIENTATION/CONSCIOUSNESS: Yes awake, Yes oriented to person, Yes oriented to place and Yes oriented to time HENMT: COMMON NORMALS: normocephalic, atraumatic and hearing grossly normal bilaterally HEAD & SCALP: normocephalic and atraumatic Neck/C-Spine: COMMON NORMALS: no JVD Resp: COMMON NORMALS: normal respiratory effort, No retractions, No use of accessory muscles and clear to auscultation bilaterally AUSCULTATION: clear to auscultation bilaterally Cardio: COMMON NORMALS: no JVD, regular rate, regular rhythm and No murmurs present (Cardio) RATE: regular rate RHYTHM: regular rhythm GI: COMMON NORMALS: Soft to palpation and No hepatosplenomegaly present AUSCULTATION: Yes normoactive bowel sounds PALPATION: Yes Soft to palpation, No Tenderness to palpation present (GI), No Guarding due to palpation present (GI) and Yes No hepatosplenomegaly present Extremity: COMMON NORMALS: normal to inspection, capillary refill normal, no clubbing, cyanosis or edema, no calf tenderness and no pedal edema Neuro: SENSORIUM/ORIENTATION: Yes oriented to person, Yes oriented to place and Yes oriented to time Skin: COMMON NORMALS: no rashes or lesions noted GENERAL SKIN EXAM: no rashes or lesions noted Course Vital Signs: Vital signs: Vital Signs Temperature 98.0 F 09/07/20 11:19 Pulse Rate 90 09/07/20 15:03 Respiratory Rate 16 09/07/20 15:03 Blood Pressure 153/99 09/07/20 15:03 Pulse Oximetry 98 09/07/20 15:03 MDM - Abdominal Pain MDM Narrative: Medical decision making narrative: Patient improved after pain and nausea medications with fluids. She does have a significant cholelithiasis but there is no evidence of acute cholecystitis white count normal liver functions and T bili normal no thickening of the gallbladder wall no gallbladder hydrops. We will discharge her home with bland diet reviewed this with her additionally gave her pain medications and nausea to use at home have her follow-up with surgery for definitive treatment. Advised to return if is worsening or changes symptoms. Lab Data: Labs: Lab Results 09/07/20 09/07/20 09/07/20 Range/Units 11:30 11:30 12:34 WBC 7.2 (4.0-10.0) 10^3/ uL RBC 4.85 (4.1-5.3) 10^6/u L Hgb 13.9 (11.5-15.3) g/dL Hct 43.6 (37.0-47.0) % MCV 89.9 (81-99) fL MCH 28.7 (28.0-34.0) pg MCHC 31.9 (30.0-36.0) g/dL RDW 13.0 (12.1-15.1) % Plt Count 194 (130-400) 10^3/c mm MPV 10.6 H (7.4-10.4) fL Neut % (Auto) 72.8 % Lymph % (Auto) 18.0 % Campbell % (Auto) 6.5 % Eos % (Auto) 1.8 % Baso % (Auto) 0.6 % Neut # (Auto) 5.27 (1.8-7.7) 10^3/u L Lymph # (Auto) 1.3 (0.8-4.8) 10^3/u L Campbell # (Auto) 0.5 (0.2-0.9) 10^3/u L Eos # (Auto) 0.1 (0.0-0.8) 10^3/u L Baso # (Auto) 0.0 (0.0-0.1) 10^3/u L Nucleated RBC % (a uto) 0 % Nucleated RBCs # 0.0 /100WBC Sodium 136 (136-145) mmol/L Potassium 5.0 (3.5-5.1) mmol/L Chloride 99 (98-107) mmol/L Carbon Dioxide 28 (22-29) mmol/L Anion Gap 14.0 (5-19) BUN 33 H (8-23) mg/dL Creatinine 0.7 (0.5-0.9) mg/dL GFR Calculation 85.1 L (90-130) mL/min Glucose 364 H (65-115) mg/dL Calculated Osmolal ity 304 H (285-295) mOsm/k g Calcium 9.5 (8.5-10.5) mg/dL Total Bilirubin 0.6 (0.15-1.2) mg/dL AST 9 (0-32) U/L ALT 10 (0-33) U/L Alkaline Phosphata se 87 (35-105) IU/L Total Protein 7.4 (6.6-8.7) g/dL Albumin 3.9 (3.5-5.2) g/dL Globulin 3.5 (1.3-4.6) g/dL Lipase 16 (13-60) U/L Urine Color Straw (Yellow) Urine Appearance Clear (CLEAR) Urine pH 5 (5-7) Ur Specific Gravit y 1.015 (1.005-1.030) Urine Protein Neg (Negative) Urine Glucose (UA) 4+ H (Normal) Urine Ketones Negative (Negative) Urine Blood Neg (Negative) Urine Nitrate Negative (Negative) Urine Bilirubin Neg (Negative) Urine Urobilinogen Norm (Negative) mg/dL Ur Leukocyte Colleen ase Negative (Negative) Discharge Plan Discharge Patient Disposition: Home Clinical Impression: Biliary colic, Diabetes, HTN (hypertension), GERD (gastroesophageal reflux disease), COPD (chronic obstructive pulmonary disease) with emphysema Condition: Stable Prescriptions: New hydrocodone-acetaminophen 5-325 mg tablet 1 tab PO Q6H PRN (Reason: pain) Qty: 25 RF: 0 Zofran 4 mg tablet 4 mg PO Q6H PRN (Reason: nausea and vomiting) Qty: 25 RF: 0 No Action spinosad [Natroba] 0.9 % suspension 30 ml TOPICAL Q7D Qty: 120 RF: 0 Ciprodex 0.3-0.1 % drops,suspension 4 drop EAR-BOTH Q12H 7 Days Qty: 7.5 RF: 0 Levemir FlexTouch U-100 Insuln 100 unit/mL (3 mL) insulin pen 30 unit SUBCUT DAILY Qty: 15 RF: 2 Ozempic 1 mg/dose (2 mg/1.5 mL) pen injector 1 mg SUBCUT .weekly Qty: 3 RF: 2 albuterol sulfate [Ventolin HFA] 90 mcg/actuation HFA aerosol inhaler 2 puff INHALATION Q4H PRN (Reason: Shortness Of Breath) Qty: 18 RF: 2 atorvastatin 10 mg tablet 10 mg PO DAILY Qty: 30 RF: 2 escitalopram oxalate 20 mg tablet 20 mg PO DAILY Qty: 30 RF: 2 fluticasone propion-salmeterol [Advair Diskus] 500-50 mcg/dose blister with device 1 inh INHALATION BID Qty: 60 RF: 2 furosemide 20 mg tablet 20 mg PO BID Qty: 60 RF: 2 insulin aspart U-100 [Novolog Flexpen U-100 Insulin] 100 unit/mL (3 mL) insulin pen 6 - 30 unit SUBCUT TID Qty: 15 RF: 1 metformin 500 mg tablet extended release 24 hr 1,000 mg PO BID Qty: 120 RF: 2 pantoprazole 40 mg tablet,delayed release (DR/EC) 40 mg PO DAILY Qty: 30 RF: 2 Xarelto 2.5 mg tablet 2.5 mg PO BID Qty: 60 RF: 2 (DME) lancets [OneTouch [employer] Lancets] 33 gauge misc See Rx Instructions .ROUTE .MEDSUPPLY Qty: 100 RF: 0 (DME) pen needle, diabetic 33 gauge x 5/32 needle See Rx Instructions .ROUTE .MEDSUPPLY Qty: 100 RF: 5 (DME) lancing device with lancets [OneTouch [employer]ica Lanc Device] Kit See Rx Instructions .ROUTE .MEDSUPPLY Qty: 1 RF: 1 acetaminophen [Tylenol Arthritis Pain] 650 mg tablet extended release 650 mg PO Q12H Qty: 60 RF: 1 (DME) blood-glucose meter Kit See Rx Instructions .ROUTE .MEDSUPPLY Qty: 1 RF: 0 (DME) OneTouch Ultra Blue Test Strip Strip See Rx Instructions .ROUTE .MEDSUPPLY Qty: 100 RF: 5 aspirin 81 mg tablet,delayed release (DR/EC) 81 mg PO BID Qty: 60 RF: 2 diltiazem HCl 30 mg tablet 30 mg PO .two times day Qty: 60 RF: 2 nitroglycerin 0.4 mg Tablet, Sublingual 0.4 mg SUBLINGUAL Q5M PRN (Reason: Chest Pain) RF: 0 ondansetron 4 mg tablet,disintegrating 4 mg PO Q6H PRN (Reason: nausea and vomiting) Qty: 14 RF: 0 Protonix 40 mg tablet,delayed release (DR/EC) 40 mg PO DAILY Qty: 60 RF: 0 Discharge Orders: Discharge ED (Routine); Ordered 09/07/20 Ordered By: Romel Glynn Referrals: Alondra Ham, LIAISON PLANNER-C [Primary Care Provider] - Patient Instructions: Abdominal Pain (ED), Opioid Safety Activity Restrictions/Additional Instructions: Case management will make an appointment with general surgery for you. [place] diet until you see the general surgeon return to the ER if pain symptoms worsen Coding Level of Care Code ED Mail Sorting Supervisor for Kristian Marquis
[2020-09-07 12:44] LABS: Add Urine Microscopic? NO
[2020-09-07 13:04] LABS: Bilirubin Urine Neg (Negative); Blood Urine Neg (Negative); Glucose Urine UA 4+ (Normal); Ketones Urine Negative (Negative); Leukocyte Esterase Urine Negative (Negative); Nitrate Urine Negative (Negative); Protein Urine Neg (Negative); Specific Gravity, Urine 1.015 (1.005-1.030); Urine Appearance Clear (CLEAR); Urine Color Straw (Yellow); Urobilinogen Urine Norm (Negative); pH Urine 5 (5-7)
--- NOTE | 2020-09-07 14:37 | PC.NURSE ---
patient resting comfortably. no acute distress noted at this time.
--- NOTE | 2020-09-08 13:55 | DCPLANNER ---
assurance manager insurance had message to schedule a follow up appointment for patient with general surgery. assurance manager insurance emailed patients information to both Margie and Yaima at [facility] General Surgery. Patients information will be printed and reviewed. Clinic will call patient with appointment information.
--- NOTE | 2020-09-11 15:27 | DCPLANNER ---
Patient had a follow up appointment scheduled for 09.09.20 with general surgery with - patient did attend appointment.
== END 2020-09-07 15:08 | disposition home or self-care (01) ==
PROVIDERS: Emergency Provider Family Medicine; PCP Nurse Practitioner
DX: K21.9 Gastro-esophageal reflux disease without esophagitis (principal); K80.50 Calculus of bile duct without cholangitis or cholecystitis without obstruction; J43.9 Emphysema, unspecified; E11.9 Type 2 diabetes mellitus without complications; Z79.4 Long term (current) use of insulin; Z79.82 Long term (current) use of aspirin; I11.0 Hypertensive heart disease with heart failure; I50.30 Unspecified diastolic (congestive) heart failure; Z87.891 Personal history of nicotine dependence
CPT/HCPCS: 71045; 76705; 80053; 81003; 83690; 85025; 96361; 96374; 96375; 96376; 99284; J2270; J2405; J7030

== ENCOUNTER 2020-09-08 12:36 | Emergency (ER) | payer MEDICARE, MEDICAID, SELFPAY ==
[2020-09-08] VITALS (7 sets, daily range): BP systolic 105–162; BP diastolic 55–94; PULSE 73–88; RESP 16–23; TEMP 36.6; O2SAT 94–100; BMI 39.1
--- NOTE | 2020-09-08 13:05 | ED_ITS ---
HPI - Abdominal Pain General: Chief Complaint: Abdominal Pain Stated Complaint: seen last night, gallbladder issues, on Time Seen by Provider: 09/08/20 12:46 History of Present Illness: HPI narrative: 59-year-old female returns emergency room today. She was seen yesterday had cholelithiasis without evidence of acute cholecystitis he did have some biliary colic she was discharged home with hydrocodone and antiemetics bland diet with plan to follow- up with general surgery sutures today with continued complaint of right upper quadrant abdominal pain nausea. She has not had any vomiting no fever. MD elicited complaint: abdominal pain Pertinent past history: other (cholelithiasis) Onset (ago): day(s) Pain Consistency: intermittent Location: RUQ Severity: moderate Quality: cramping Radiation: back Exacerbating factors: eating Relieving factors: nothing Associated Symptoms: Reports anorexia, bloating, GI cramping, dyspepsia, nausea and poor appetite; Denies belching, change in bowel habits, change in stool character, chills, coffee ground emesis, constipation, diarrhea, dysuria, excessive flatus, fever(s), heartburn, hematochezia, hematuria, hematemesis, fecal incontinence, loose stools, melena, syncope and vomiting Review of Systems 2 Const: Denies: fever(s) ENMT: Denies: throat pain, ear or mastoid pain, nasal discharge or nasal congestion Card: Denies: syncope Resp: Denies: dyspnea, productive cough or non-productive cough GI: Reports: nausea, bloating and GI cramping; Denies: vomiting, hematemesis, coffee ground emesis, heartburn, diarrhea, constipation, belching, excessive flatus, fecal incontinence, change in bowel habits, change in stool character, hematochezia or melena : Denies: dysuria or hematuria Skin/Breast: Denies: rash or pruritus PFSH ED PFSH: Medical History Chest pain Diabetes Diastolic congestive heart failure Gallbladder anomaly Generalized anxiety disorder GERD (gastroesophageal reflux disease) H/O deep venous thrombosis History of DVT of lower extremity Left leg 06/2019 History of skin cancer Basal cell carcinoma on back 2007 HTN (hypertension) Insomnia, unspecified Noncompliance with dietary restriction Noncompliance with medication regimen Tremor, unspecified Unspecified urinary incontinence Vitamin B12 deficiency Surgical History H/O left breast biopsy Benign 2016 History of thoracentesis X 2 for traumatic effusion History of tonsillectomy Hx of colonoscopy Hx of tubal ligation / incidental appendectomy 1981 Status post surgical removal of malignant neoplasm of skin Basal cell carcinoma on back 2007 Family History Mother Cancer Unknown type Father Cancer Lung CA Son Gallbladder disease Other Hypertension Denies family history of Clotting disorder Social History Smoking and tobacco status: former smoker Quit status (tobacco): has quit using tobacco Former quit date comment: Patient smoked 2 packs of cigarettes a day for 25 years Second hand smoke exposure: No Smoking risk assessment/counseling performed?: No Alcohol intake: never Desire information about alcohol rehabilitation?: No Counseling given: No Desire information about substance/drug rehabilitation?: No Counseling given: No Adopted: No Caregiver/support person: No Lives independently: Yes Household members: spouse and children Marital status: service: No Current occupational status: unemployed History of recent travel: No Current gender identity: Female Physical Exam Const: COMMON NORMALS: no acute distress GENERAL APPEARANCE: cooperative and comfortable ORIENTATION/CONSCIOUSNESS: Yes awake, Yes oriented to person, Yes oriented to place and Yes oriented to time HENMT: COMMON NORMALS: normocephalic, atraumatic and hearing grossly normal bilaterally HEAD & SCALP: normocephalic and atraumatic Neck/C-Spine: COMMON NORMALS: no JVD Resp: COMMON NORMALS: normal respiratory effort, No retractions, No use of accessory muscles and clear to auscultation bilaterally AUSCULTATION: clear to auscultation bilaterally Cardio: COMMON NORMALS: no JVD, regular rate, regular rhythm and No murmurs present (Cardio) RATE: regular rate RHYTHM: regular rhythm GI: COMMON NORMALS: Soft to palpation and No hepatosplenomegaly present AUSCULTATION: Yes normoactive bowel sounds PALPATION: Yes Soft to palpation, Yes Tenderness to palpation present (GI) (Equivocal Orellana sign) Details: RUQ, No Guarding due to palpation present (GI) and Yes No hepatosplenomegaly present Extremity: COMMON NORMALS: normal to inspection, capillary refill normal, no clubbing, cyanosis or edema, no calf tenderness and no pedal edema Neuro: SENSORIUM/ORIENTATION: Yes oriented to person, Yes oriented to place and Yes oriented to time Skin: COMMON NORMALS: no rashes or lesions noted GENERAL SKIN EXAM: no rashes or lesions noted Course Vital Signs: Vital signs: Vital Signs Temperature 97.9 F 09/08/20 12:49 Pulse Rate 73 09/08/20 17:02 Respiratory Rate 18 09/08/20 17:02 Blood Pressure 105/55 09/08/20 17:02 Pulse Oximetry 95 09/08/20 17:02 MDM - Abdominal Pain MDM Narrative: Medical decision making narrative: Discussed with Dr. Julia Dumont also came down and formally seen the patient. At this point she does not show any signs of acute cholecystitis. Other previous ultrasound there is a question of a vascular stalk tissue mass in the gallbladder and they recommended excision it did not show up on the other ultrasounds discussed Dr. Doe is working to go ahead and get a MRCP to further evaluate prior to surgical intervention. He will see the patient tomorrow in his office. Lab Data: Labs: Lab Results 09/08/20 09/08/20 09/08/20 Range/Units 13:45 13:45 14:08 WBC 8.0 (4.0-10.0) 10^3/ uL RBC 4.92 (4.1-5.3) 10^6/u L Hgb 14.0 (11.5-15.3) g/dL Hct 44.2 (37.0-47.0) % MCV 89.8 (81-99) fL MCH 28.5 (28.0-34.0) pg MCHC 31.7 (30.0-36.0) g/dL RDW 12.9 (12.1-15.1) % Plt Count 208 (130-400) 10^3/c mm MPV 10.5 H (7.4-10.4) fL Neut % (Auto) 82.2 % Lymph % (Auto) 11.4 % Bullitt % (Auto) 5.0 % Eos % (Auto) 0.6 % Baso % (Auto) 0.4 % Neut # (Auto) 6.58 (1.8-7.7) 10^3/u L Lymph # (Auto) 0.9 (0.8-4.8) 10^3/u L Bullitt # (Auto) 0.4 (0.2-0.9) 10^3/u L Eos # (Auto) 0.1 (0.0-0.8) 10^3/u L Baso # (Auto) 0.0 (0.0-0.1) 10^3/u L Nucleated RBC % (a uto) 0 % Nucleated RBCs # 0.0 /100WBC Sodium 136 (136-145) mmol/L Potassium 4.9 (3.5-5.1) mmol/L Chloride 96 L (98-107) mmol/L Carbon Dioxide 26 (22-29) mmol/L Anion Gap 18.9 (5-19) BUN 27 H (8-23) mg/dL Creatinine 0.7 (0.5-0.9) mg/dL GFR Calculation 85.1 L (90-130) mL/min Glucose 300 H (65-115) mg/dL Calculated Osmolal ity 298 H (285-295) mOsm/k g Calcium 9.0 (8.5-10.5) mg/dL Total Bilirubin 0.7 (0.15-1.2) mg/dL AST 11 (0-32) U/L ALT 11 (0-33) U/L Alkaline Phosphata se 87 (35-105) IU/L Total Protein 7.9 (6.6-8.7) g/dL Albumin 4.0 (3.5-5.2) g/dL Globulin 3.9 (1.3-4.6) g/dL Lipase 13 (13-60) U/L Urine Color Yellow (Yellow) Urine Appearance Hazy A (CLEAR) Urine pH 5 (5-7) Ur Specific Gravit y 1.015 (1.005-1.030) Urine Protein Neg (Negative) Urine Glucose (UA) 4+ H (Normal) Urine Ketones 1+ H (Negative) Urine Blood Neg (Negative) Urine Nitrate Positive H (Negative) Urine Bilirubin Neg (Negative) Urine Urobilinogen Norm (Negative) mg/dL Ur Leukocyte Colleen ase Negative (Negative) Urine RBC 0-4 H (0-2) /hpf Urine WBC 15-25 H (0-5) /hpf Ur Squamous Epith Cells 0-4 H (0-5) /hpf Amorphous Sediment Not Reportable Urine Bacteria 4+ H (NONE) /hpf Discharge Plan Discharge Patient Disposition: Home Clinical Impression: Biliary colic, Abnormal gallbladder ultrasound, Cholelithiasis Condition: Stable Prescriptions: New hydrocodone-acetaminophen 5-325 mg tablet 1 tab PO Q6H PRN (Reason: pain) Qty: 10 RF: 0 No Action Ozempic 1 mg/dose (2 mg/1.5 mL) pen injector 1 mg SUBCUT .weekly Qty: 3 RF: 2 insulin aspart U-100 [Novolog Flexpen U-100 Insulin] 100 unit/mL (3 mL) insulin pen 6 - 30 unit SUBCUT TID Qty: 15 RF: 1 (DME) lancets [[employer] Lancets] 33 gauge misc See Rx Instructions .ROUTE .MEDSUPPLY Qty: 100 RF: 0 (DME) pen needle, diabetic 33 gauge x 5/32 needle See Rx Instructions .ROUTE .MEDSUPPLY Qty: 100 RF: 5 (DME) lancing device with lancets [[employer] Lanc Device] Kit See Rx Instructions .ROUTE .MEDSUPPLY Qty: 1 RF: 1 (DME) blood-glucose meter Kit See Rx Instructions .ROUTE .MEDSUPPLY Qty: 1 RF: 0 (DME) OneTouch Ultra Blue Test Strip Strip See Rx Instructions .ROUTE .MEDSUPPLY Qty: 100 RF: 5 hydrocodone-acetaminophen 5-325 mg tablet 1 tab PO Q6H PRN (Reason: pain) Qty: 25 RF: 0 atorvastatin 10 mg tablet 10 mg PO DAILY@0800 RF: 0 aspirin 81 mg tablet,delayed release (DR/EC) 81 mg PO BID@ RF: 0 pantoprazole 40 mg tablet,delayed release (DR/EC) 40 mg PO DAILY@0800 RF: 0 Advair Diskus 500-50 mcg/dose blister with device 1 inh INHALATION BID@ RF: 0 furosemide 20 mg tablet 20 mg PO BID@ RF: 0 diltiazem HCl 30 mg tablet 30 mg PO BID@ RF: 0 metformin 500 mg tablet extended release 24 hr 1,000 mg PO BID@ RF: 0 escitalopram oxalate 20 mg tablet 20 mg PO DAILY@0800 RF: 0 Levemir FlexTouch U-100 Insuln 100 unit/mL (3 mL) insulin pen 30 unit SUBCUT DAILY@0800 RF: 0 Xarelto 2.5 mg tablet 2.5 mg PO BID@0800,2000 RF: 0 nitroglycerin 0.4 mg Tablet, Sublingual 0.4 mg SUBLINGUAL Q5M PRN (Reason: Chest Pain) RF: 0 ondansetron 4 mg tablet,disintegrating 4 mg PO Q6H PRN (Reason: nausea and vomiting) Qty: 14 RF: 0 Discharge Orders: Discharge ED (Routine); Ordered 09/08/20 Ordered By: Romel Glynn Referrals: Alondra Ham, COMMUNICATIONS PLANNER-C [Primary Care Provider] - Patient Instructions: Cholelithiasis, Biliary Colic (ED), Opioid Safety Activity Restrictions/Additional Instructions: Follow-up with Dr. Dumont and general surgery tomorrow. Clear liquid diet overnight. Case management will arrange for a MRCP to further evaluate your gallbladder based on the previous soft tissue mass seen in the gallbladder. Coding Level of Care Code ED Analytical Lead for Chg Fwd Exam Comprehensive
[2020-09-08 14:12] LABS: Basophils % 0.4 %; Eosinophils # 0.1 10^3/uL (0.0-0.8); Eosinophils % 0.6 %; Hematocrit 44.2 % (37.0-47.0); Lymphocytes # 0.9 10^3/uL (0.8-4.8); Lymphocytes % 11.4 %; Mean Corpuscular HGB Conc 31.7 g/dL (30.0-36.0); Mean Corpuscular Hemoglobin 28.5 pg (28.0-34.0); Mean Corpuscular Volume 89.8 fL (81-99); Mean Platelet Volume 10.5 fL (7.4-10.4); Monocytes # 0.4 10^3/uL (0.2-0.9); Neutrophils # 6.58 10^3/uL (1.8-7.7); Neutrophils % 82.2 %; Nucleated Red Blood Cells % 0 %; Platelet Count 208 10^3/cmm (130-400); Red Blood Count 4.92 10^6/uL (4.1-5.3); Red Cell Distribution Width 12.9 % (12.1-15.1)
[2020-09-08 14:28] LABS: Alanine Aminotransferase 11 U/L (0-33); Alkaline Phosphatase 87 IU/L (35-105); Anion Gap 18.9 (5-19); Aspartate Amino Transferase 11 U/L (0-32); Blood Urea Nitrogen 27 mg/dL (8-23); Carbon Dioxide 26 mmol/L (22-29); Chloride 96 mmol/L (98-107); Globulin 3.9 g/dL (1.3-4.6); Glomerular Filtration Rate 85.1 mL/min (90-130); Glucose 300 mg/dL (65-115); Lipase 13 U/L (13-60); Osmolality Calculated 298 mOsm/kg (285-295); Potassium 4.9 mmol/L (3.5-5.1); Sodium 136 mmol/L (136-145); Total Bilirubin 0.7 mg/dL (0.15-1.2); Total Protein 7.9 g/dL (6.6-8.7)
[2020-09-08] MEDS: sodium chloride 0.9% 1,000 ML 999 ML IV (14:50)
[2020-09-08] MEDS: morphine 4 mg/mL SDV 1 mL 6 MG IVP (14:52)
[2020-09-08] MEDS: ondansetron 2 mg/ML SDV 2 mL 4 MG IVP (14:52)
[2020-09-08 14:59] LABS: Add Urine Microscopic? YES; Bilirubin Urine Neg (Negative); Blood Urine Neg (Negative); Glucose Urine UA 4+ (Normal); Ketones Urine 1+ (Negative); Leukocyte Esterase Urine Negative (Negative); Nitrate Urine Positive (Negative); Protein Urine Neg (Negative); Specific Gravity, Urine 1.015 (1.005-1.030); Urine Appearance Hazy (CLEAR); Urine Color Yellow (Yellow); Urobilinogen Urine Norm (Negative); pH Urine 5 (5-7)
[2020-09-08 15:09] LABS: Add Urine Culture? Yes; Bacteria Urine 4+ /hpf; RBC Urine 0-4 /hpf (0-2); Squamous Epithelial Cell Urine 0-4 /hpf (0-5); WBC Urine 15-25 /hpf (0-5)
[2020-09-08] MEDS: cefTRIAXone 1,000 MG in lidocaine 1% 2.1 ML 2.1 MG IM (15:22)
[2020-09-08] MEDS: morphine 4 mg/mL SDV 1 mL IVP (16:01)
--- NOTE | 2020-09-09 13:16 | DCPLANNER ---
diabetes clinical manager had message to schedule an outpatient test for an MRCP. diabetes clinical manager faxed signed order to centralized scheduling. diabetes clinical manager will call for appointment information.
--- NOTE | 2020-09-15 08:26 | DCPLANNER ---
Patient has an out patient MRCP scheduled for Tuesday, September 22, 2020 at 4:00. Centralized scheduling will call patient with appointment information.
--- NOTE | 2020-10-07 07:59 | DCPLANNER ---
Patient had an MRCP scheduled for 09.22.20 - patient did not attend appointment.
== END 2020-09-08 17:13 | disposition home or self-care (01) ==
PROVIDERS: Physician Assistant; Emergency Provider Family Medicine; PCP Nurse Practitioner
DX: K80.20 Calculus of gallbladder without cholecystitis without obstruction (principal); Z79.4 Long term (current) use of insulin; Z79.82 Long term (current) use of aspirin; E11.9 Type 2 diabetes mellitus without complications; I11.0 Hypertensive heart disease with heart failure; I50.30 Unspecified diastolic (congestive) heart failure; Z87.891 Personal history of nicotine dependence
CPT/HCPCS: 80053; 81001; 83690; 85025; 87077; 87086; 87186; 96361; 96372; 96374; 96375; 96376; 99284; J0696; J2270; J2405; J7030

== ENCOUNTER 2020-09-24 19:17 | Emergency (ER) | payer MEDICARE, MEDICAID, SELFPAY ==
[2020-09-24] VITALS (7 sets, daily range): BP systolic 98–175; BP diastolic 60–104; PULSE 68–87; RESP 13–24; TEMP 36.7; O2SAT 93–100; BMI 28.8
--- NOTE | 2020-09-24 19:25 | XR_ITS ---
WS: [id number] Portable AP upright chest, 09/24/2020 Clinical Data: cp Comparison: Portable chest, 09/07/2020. Findings: No nodules, masses or effusions are seen. The heart is normal. The pulmonary vascularity is not increased. No pneumonia or pneumothorax is seen. Monitor leads are on the chest wall. XR/XR chest 1V portable [id number] Impression: Negative chest.
--- NOTE | 2020-09-24 19:25 | ECG_ITS ---
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
--- NOTE | 2020-09-24 19:26 | ED_ITS ---
HPI - Abdominal Pain General: Chief Complaint: Abdominal Pain Stated Complaint: abd pain and chest pain Time Seen by Provider: 09/24/20 19:18 Source: patient and EMS Mode of arrival: EMS Limitations: no limitations History of Present Illness: HPI narrative: 59-year-old female has a history of gallstones and was scheduled to have her gallbladder taken out last week. She states that she canceled surgery due to her grandchildren being sick and she had to take care of them. She states that tonight she started having abdominal pain again that radiated up her chest and is a burning sensation. She states it felt like her gallbladder has in the past. She denies any fever. She did have one episode of vomiting. Denies any worsening improving factors. Associated Symptoms: Denies chills, dysuria and fever(s) Review of Systems Const: Denies: fever(s), chills, body aches or change in appetite Eyes: Denies: blurry vision or eye discomfort ENMT: Denies: throat pain or dental pain Card: Reports: chest pain Resp: Denies: dyspnea GI: Reports: abdominal pain : Denies: dysuria Musc: Denies: neck pain or back pain Skin/Breast: Denies: rash Neuro: Denies: headache(s) Psych: Denies: depression Bhavin/Lymph: Denies: easy bruising All/Imm: Denies: urticaria PFSH ED PFSH: Medical History Chest pain Diabetes Diastolic congestive heart failure Gallbladder anomaly Generalized anxiety disorder GERD (gastroesophageal reflux disease) H/O deep venous thrombosis History of DVT of lower extremity Left leg 06/2019 History of skin cancer Basal cell carcinoma on back 2007 HTN (hypertension) Insomnia, unspecified Noncompliance with dietary restriction Noncompliance with medication regimen Tremor, unspecified Unspecified urinary incontinence Vitamin B12 deficiency Surgical History H/O left breast biopsy Benign 2016 History of thoracentesis X 2 for traumatic effusion History of tonsillectomy Hx of colonoscopy Hx of tubal ligation / incidental appendectomy 1981 Status post surgical removal of malignant neoplasm of skin Basal cell carcinoma on back 2007 Family History Mother Cancer Unknown type Father Cancer Lung CA Son Gallbladder disease Other Hypertension Denies family history of Clotting disorder Social History Smoking and tobacco status: former smoker Quit status (tobacco): has quit using tobacco Former quit date comment: Patient smoked 2 packs of cigarettes a day for 25 years Second hand smoke exposure: No Smoking risk assessment/counseling performed?: No Alcohol intake: never Desire information about alcohol rehabilitation?: No Counseling given: No Desire information about substance/drug rehabilitation?: No Counseling given: No Adopted: No Caregiver/support person: No Lives independently: Yes Household members: spouse and children Marital status: service: No Current occupational status: unemployed History of recent travel: No Current gender identity: Female Physical Exam Const: COMMON NORMALS: no acute distress, patient oriented x3 and healthy appearing HENMT: COMMON NORMALS: normocephalic and atraumatic HEAD & SCALP: normocephalic and atraumatic Eye: COMMON NORMALS: Equal, round and reactive pupils present and EOMs intact bilaterally PUPIL: Yes Equal, round and reactive pupils present Neck/C-Spine: COMMON NORMALS: full ROM and supple Chest: COMMONS NORMALS: normal inspection of the chest and normal palpation of entire chest wall Resp: COMMON NORMALS: normal respiratory effort, No retractions, No use of accessory muscles and clear to auscultation bilaterally AUSCULTATION: clear to auscultation bilaterally Cardio: COMMON NORMALS: regular rate, regular rhythm and No murmurs present (Cardio) RATE: regular rate RHYTHM: regular rhythm GI: COMMON NORMALS: Normal to inspection, nondistended, normoactive bowel sounds present, Soft to palpation, non-tender and no masses PALPATION: Yes Soft to palpation Extremity: COMMON NORMALS: normal to inspection and full ROM Neuro: COMMON NORMALS: patient oriented x3, moves all extremities and no focal motor deficits Psych: COMMON NORMALS: mental status grossly normal, Normal thought process pr esent and cooperative THOUGHT PROCESS: Normal thought process present Skin: COMMON NORMALS: no rashes or lesions noted and no wounds GENERAL SKIN EXAM: no rashes or lesions noted Course Vital Signs: Vital signs: Vital Signs Temperature 98.0 F 09/24/20 20:00 Pulse Rate 82 09/24/20 20:00 Respiratory Rate 14 09/24/20 20:19 Blood Pressure 175/104 09/24/20 20:00 Pulse Oximetry 96 09/24/20 20:19 MDM - Abdominal Pain MDM Narrative: Medical decision making narrative: Shea presents here with abdominal pain likely from her gallbladder and gastritis. She is to continue her medicines at home and is to follow-up with Dr. Daugherty. I believe patient's chest pain is from her reflux as her repeat troponin is normal. She is stable for discharge and return if worsening. Lab Data: Labs: Lab Results 09/24/20 09/24/20 09/24/20 Range/Units 19:56 19:56 19:56 WBC 7.6 (4.0-10.0) 10^3/ uL RBC 4.60 (4.1-5.3) 10^6/u L Hgb 13.2 (11.5-15.3) g/dL Hct 40.7 (37.0-47.0) % MCV 88.5 (81-99) fL MCH 28.7 (28.0-34.0) pg MCHC 32.4 (30.0-36.0) g/dL RDW 13.1 (12.1-15.1) % Plt Count 199 (130-400) 10^3/c mm MPV 10.5 H (7.4-10.4) fL Neut % (Auto) 78.2 % Lymph % (Auto) 13.8 % Rawlins % (Auto) 5.6 % Eos % (Auto) 1.6 % Baso % (Auto) 0.4 % Neut # (Auto) 5.97 (1.8-7.7) 10^3/u L Lymph # (Auto) 1.1 (0.8-4.8) 10^3/u L [place] # (Auto) 0.4 (0.2-0.9) 10^3/u L Eos # (Auto) 0.1 (0.0-0.8) 10^3/u L Baso # (Auto) 0.0 (0.0-0.1) 10^3/u L Nucleated RBC % (a uto) 0 % Nucleated RBCs # 0.0 /100WBC Sodium 135 L (136-145) mmol/L Potassium 4.8 (3.5-5.1) mmol/L Chloride 97 L (98-107) mmol/L Carbon Dioxide 27 (22-29) mmol/L Anion Gap 15.8 (5-19) BUN 27 H (8-23) mg/dL Creatinine 0.9 (0.5-0.9) mg/dL GFR Calculation 63.7 L (90-130) mL/min Glucose 350 H (65-115) mg/dL Calculated Osmolal ity 299 H (285-295) mOsm/k g Calcium 8.5 (8.5-10.5) mg/dL Total Bilirubin 0.6 (0.15-1.2) mg/dL AST 9 (0-32) U/L ALT 10 (0-33) U/L Alkaline Phosphata se 86 (35-105) IU/L Troponin T Baselin e 19 H (0-10) ng/L Troponin T 120 Min ang (0-10) ng/L Delta Troponin T (0-10) ABS# Total Protein 6.8 (6.6-8.7) g/dL Albumin 3.9 (3.5-5.2) g/dL Globulin 2.9 (1.3-4.6) g/dL Lipase 13 (13-60) U/L 09/24/20 Range/Units 21:56 WBC (4.0-10.0) 10^3/ uL RBC (4.1-5.3) 10^6/u L Hgb (11.5-15.3) g/dL Hct (37.0-47.0) % MCV (81-99) fL MCH (28.0-34.0) pg MCHC (30.0-36.0) g/dL RDW (12.1-15.1) % Plt Count (130-400) 10^3/c mm MPV (7.4-10.4) fL Neut % (Auto) % Lymph % (Auto) % [place] % (Auto) % Eos % (Auto) % Baso % (Auto) % Neut # (Auto) (1.8-7.7) 10^3/u L Lymph # (Auto) (0.8-4.8) 10^3/u L [place]ins # (Auto) (0.2-0.9) 10^3/u L Eos # (Auto) (0.0-0.8) 10^3/u L Baso # (Auto) (0.0-0.1) 10^3/u L Nucleated RBC % (a uto) % Nucleated RBCs # /100WBC Sodium (136-145) mmol/L Potassium (3.5-5.1) mmol/L Chloride (98-107) mmol/L Carbon Dioxide (22-29) mmol/L Anion Gap (5-19) BUN (8-23) mg/dL Creatinine (0.5-0.9) mg/dL GFR Calculation (90-130) mL/min Glucose (65-115) mg/dL Calculated Osmolal ity (285-295) mOsm/k g Calcium (8.5-10.5) mg/dL Total Bilirubin (0.15-1.2) mg/dL AST (0-32) U/L ALT (0-33) U/L Alkaline Phosphata se (35-105) IU/L Troponin T Baselin e (0-10) ng/L Troponin T 120 Min ang 19.84 H (0-10) ng/L Delta Troponin T 0.84 (0-10) ABS# Total Protein (6.6-8.7) g/dL Albumin (3.5-5.2) g/dL Globulin (1.3-4.6) g/dL Lipase (13-60) U/L Imaging Data ^: CXR: Attestation: I personally reviewed and interpreted this imaging study as follows: Radiologist's impression: no acute abnormality CT Abd/Pel: Radiologist's impression: [address] [address] [address] Scan Report Signed Patient: Shea Simon Unit #: [id number] : 1960 Age/Sex: 59 / F ADM Date: 09/24/20 Loc: ER Room/Bed: Attending Dr: Ordering Provider/Ordering MD: Mirian Kumar MD Date of Service: 09/24/20 Procedure(s): CT abdomen pelvis w con* [id number] Accession Number(s): [id number] Report Number: [id number] PROCEDURE INFORMATION: Exam: CT Abdomen And Pelvis With Contrast Exam date and time: 09/24/2020 8:24 PM Age: 59 years old Clinical indication: Nausea and vomiting; Abdominal pain; Localized; Right upper quadrant (ruq); Prior surgery; Surgery type: Appy; Patient HX: Ruq pain with n/v; Additional info: Abd pain TECHNIQUE: Imaging protocol: Computed tomography of the abdomen and pelvis with contrast. Radiation optimization: All CT scans at this facility use at least one of these dose optimization techniques: automated exposure control; mA and/or kV adjustment per patient size (includes targeted exams where dose is matched to clinical indication); or iterative reconstruction. Contrast material: OMNI 300; Contrast volume: 95 ml; Contrast route: INTRAVENOUS (IV); COMPARISON: CT abdomen pelvis w con* [id number] 07/27/2020 9:58 PM RADIATION DOSE METRICS: Total DLP (mGy-cm): 1865.51 FINDINGS: Lungs: Bibasilar atelectasis. Liver: Mild hepatic steatosis. Gallbladder and bile ducts: Normal. No calcified stones. No ductal dilation. Pancreas: Normal. No ductal dilation. Spleen: Calcified splenic granulomas with a chronic appearing nonenhancing region along the lateral aspect of the spleen of uncertain etiology. Adrenal glands: Left adrenal 2.8 cm nodule, dedicated nonemergent adrenal imaging advised. Kidneys and ureters: Normal. No hydronephrosis. Stomach and bowel: Gastric wall thickening may be due to nondistention or a gastritis, please correlate clinically Appendix: No evidence of appendicitis. Intraperitoneal space: Unremarkable. No free air. No significant fluid collection. Vasculature: Unremarkable. No abdominal aortic aneurysm. Lymph nodes: Unremarkable. No enlarged lymph nodes. Urinary bladder: Unremarkable as visualized. Reproductive: Unremarkable as visualized. Bones/joints: Unremarkable. No acute fracture. Soft tissues: Unremarkable. CT/CT abdomen pelvis w con* [id number] IMPRESSION: 1. Gastric wall thickening may be due to nondistention or a gastritis, please correlate clinically 2. Bibasilar atelectasis. 3. Mild hepatic steatosis. 4. Calcified splenic granulomas with a chronic appearing nonenhancing region along the lateral aspect of the spleen of uncertain etiology. 5. Left adrenal 2.8 cm nodule, dedicated nonemergent adrenal imaging advised. EKG Data ^: EKG 1: Attestation: I personally reviewed and interpreted this EKG as follows: EKG interpretation date: 09/24/20 EKG interpretation time: 19:32 Interpretation: nsr hr [address] or t wave abnormalities qrs 82 qtc 405 Discharge Plan Discharge Patient Disposition: Home Clinical Impression: Abdominal pain Qualifiers: Abdominal location: epigastric Qualified Code(s): R10.13 - Epigastric pain Condition: Stable Prescriptions: No Action Ozempic 1 mg/dose (2 mg/1.5 mL) pen injector 1 mg SUBCUT .weekly Qty: 3 RF: 2 insulin aspart U-100 [Novolog Flexpen U-100 Insulin] 100 unit/mL (3 mL) insulin pen 6 - 30 unit SUBCUT TID Qty: 15 RF: 1 (DME) lancets [[employer]a [employer] Lancets] 33 gauge misc See Rx Instructions .ROUTE .MEDSUPPLY Qty: 100 RF: 0 (DME) pen needle, diabetic 33 gauge x 5/32 needle See Rx Instructions .ROUTE .MEDSUPPLY Qty: 100 RF: 5 (DME) lancing device with lancets [[employer] Lanc Device] Kit See Rx Instructions .ROUTE .MEDSUPPLY Qty: 1 RF: 1 (DME) blood-glucose meter Kit See Rx Instructions .ROUTE .MEDSUPPLY Qty: 1 RF: 0 (DME) OneTouch Ultra Blue Test Strip Strip See Rx Instructions .ROUTE .MEDSUPPLY Qty: 100 RF: 5 atorvastatin 10 mg tablet 10 mg PO QAM RF: 0 aspirin 81 mg tablet,delayed release (DR/EC) 81 mg PO BID@08,20 RF: 0 pantoprazole 40 mg tablet,delayed release (DR/EC) 40 mg PO DAILY@08 RF: 0 fluticasone propion-salmeterol [Advair Diskus] 500-50 mcg/dose blister with device 1 inh INHALATION BID@08,20 RF: 0 furosemide 20 mg tablet 20 mg PO BID RF: 0 diltiazem HCl 30 mg tablet 30 mg PO BID@08,20 RF: 0 metformin 500 mg tablet extended release 24 hr 1,000 mg PO BID RF: 0 escitalopram oxalate 20 mg tablet 20 mg PO DAILY@08 RF: 0 Levemir FlexTouch U-100 Insuln 100 unit/mL (3 mL) insulin pen 30 unit SUBCUT QAM RF: 0 Xarelto 2.5 mg tablet 2.5 mg PO BID@08,20 RF: 0 hydrocodone-acetaminophen 5-325 mg tablet 1 tab PO Q6H PRN (Reason: pain) Qty: 10 RF: 0 ProAir HFA 90 mcg/actuation Hfa Aerosol Inhaler 2 puff INHALATION Q4H PRN (Reason: Shortness Of Breath) RF: 0 nitroglycerin 0.4 mg Tablet, Sublingual 0.4 mg SUBLINGUAL Q5M PRN (Reason: Chest Pain) RF: 0 ondansetron 4 mg tablet,disintegrating 4 mg PO Q6H PRN (Reason: nausea and vomiting) Qty: 14 RF: 0 Discharge Orders: Discharge ED (Routine); Ordered 09/24/20 Ordered By: Mirian Kumar Referrals: Alondra Ham, [facility] [Primary Care Provider] - 1-3 days Discharge Diet: Advance as tolerated Discharge Activity: Resume usual activity Patient Instructions: Abdominal Pain (ED) Coding Level of Care Code ED Tape Coater for Kristian Fwd Exam Comprehensive
[2020-09-24] MEDS: sodium chloride 0.9% 1,000 ML 999 ML IV (19:37)
--- NOTE | 2020-09-24 19:37 | PC.NURSE ---
Nurse and radiology at bedside.
[2020-09-24] MEDS: ondansetron 2 mg/ML SDV 2 mL 4 MG IVP (19:38)
[2020-09-24] MEDS: morphine 4 mg/mL SDV 1 mL IVP (19:40)
[2020-09-24] MEDS: lidocaine 2% viscous 15 ML, aluminum-mag hydrox-simethicon 30 ML, sucralfate oral liq 1 GM PO (19:44)
[2020-09-24 20:09] LABS: Basophils % 0.4 %; Eosinophils # 0.1 10^3/uL (0.0-0.8); Eosinophils % 1.6 %; Hematocrit 40.7 % (37.0-47.0); Hemoglobin 13.2 g/dL (11.5-15.3); Lymphocytes # 1.1 10^3/uL (0.8-4.8); Lymphocytes % 13.8 %; Mean Corpuscular HGB Conc 32.4 g/dL (30.0-36.0); Mean Corpuscular Hemoglobin 28.7 pg (28.0-34.0); Mean Corpuscular Volume 88.5 fL (81-99); Mean Platelet Volume 10.5 fL (7.4-10.4); Monocytes # 0.4 10^3/uL (0.2-0.9); Monocytes % 5.6 %; Neutrophils # 5.97 10^3/uL (1.8-7.7); Neutrophils % 78.2 %; Nucleated Red Blood Cells % 0 %; Platelet Count 199 10^3/cmm (130-400); Red Cell Distribution Width 13.1 % (12.1-15.1); White Blood Count 7.6 10^3/uL (4.0-10.0)
--- NOTE | 2020-09-24 20:12 | CTR_ITS ---
PROCEDURE INFORMATION: Exam: CT Abdomen And Pelvis With Contrast Exam date and time: 09/24/2020 8:24 PM Age: 59 years old Clinical indication: Nausea and vomiting; Abdominal pain; Localized; Right upper quadrant (ruq); Prior surgery; Surgery type: Appy; Patient HX: Ruq pain with n/v; Additional info: Abd pain TECHNIQUE: Imaging protocol: Computed tomography of the abdomen and pelvis with contrast. Radiation optimization: All CT scans at this facility use at least one of these dose optimization techniques: automated exposure control; mA and/or kV adjustment per patient size (includes targeted exams where dose is matched to clinical indication); or iterative reconstruction. Contrast material: OMNI 300; Contrast volume: 95 ml; Contrast route: INTRAVENOUS (IV); COMPARISON: CT abdomen pelvis w con* [id number] 07/27/2020 9:58 PM RADIATION DOSE METRICS: Total DLP (mGy-cm): 1865.51 FINDINGS: Lungs: Bibasilar atelectasis. Liver: Mild hepatic steatosis. Gallbladder and bile ducts: Normal. No calcified stones. No ductal dilation. Pancreas: Normal. No ductal dilation. Spleen: Calcified splenic granulomas with a chronic appearing nonenhancing region along the lateral aspect of the spleen of uncertain etiology. Adrenal glands: Left adrenal 2.8 cm nodule, dedicated nonemergent adrenal imaging advised. Kidneys and ureters: Normal. No hydronephrosis. Stomach and bowel: Gastric wall thickening may be due to nondistention or a gastritis, please correlate clinically Appendix: No evidence of appendicitis. Intraperitoneal space: Unremarkable. No free air. No significant fluid collection. Vasculature: Unremarkable. No abdominal aortic aneurysm. Lymph nodes: Unremarkable. No enlarged lymph nodes. Urinary bladder: Unremarkable as visualized. Reproductive: Unremarkable as visualized. Bones/joints: Unremarkable. No acute fracture. Soft tissues: Unremarkable. CT/CT abdomen pelvis w con* [id number] IMPRESSION: 1. Gastric wall thickening may be due to nondistention or a gastritis, please correlate clinically 2. Bibasilar atelectasis. 3. Mild hepatic steatosis. 4. Calcified splenic granulomas with a chronic appearing nonenhancing region along the lateral aspect of the spleen of uncertain etiology. 5. Left adrenal 2.8 cm nodule, dedicated nonemergent adrenal imaging advised. Radiation Dose CTDIVOL = (mGy): DLP = 1865.51 (mGy-cm)
[2020-09-24] MEDS: HYDROmorphone 1 mg/mL INJ 1 mL IVP (20:19)
[2020-09-24 20:26] LABS: Alanine Aminotransferase 10 U/L (0-33); Albumin Level 3.9 g/dL (3.5-5.2); Alkaline Phosphatase 86 IU/L (35-105); Anion Gap 15.8 (5-19); Aspartate Amino Transferase 9 U/L (0-32); Blood Urea Nitrogen 27 mg/dL (8-23); Calcium 8.5 mg/dL (8.5-10.5); Carbon Dioxide 27 mmol/L (22-29); Chloride 97 mmol/L (98-107); Globulin 2.9 g/dL (1.3-4.6); Glomerular Filtration Rate 63.7 mL/min (90-130); Glucose 350 mg/dL (65-115); Lipase 13 U/L (13-60); Osmolality Calculated 299 mOsm/kg (285-295); Potassium 4.8 mmol/L (3.5-5.1); Sodium 135 mmol/L (136-145); Total Bilirubin 0.6 mg/dL (0.15-1.2); Total Protein 6.8 g/dL (6.6-8.7)
[2020-09-24 20:29] LABS: Troponin(5th) Baseline 19 ng/L (0-10)
--- NOTE | 2020-09-24 21:25 | ECG_ITS ---
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
[2020-09-24] MEDS: iohexol 300 mg/mL 100 mL Btl IV (21:37)
[2020-09-24 22:19] LABS: Troponin 5 2HR 19.84 ng/L (0-10); Troponin 5 2HR Delta 0.84 ABS# (0-10)
== END 2020-09-24 23:04 | disposition home or self-care (01) ==
PROVIDERS: Emergency Provider Emergency Medicine; PCP Nurse Practitioner
DX: R10.13 Epigastric pain (principal); Z79.82 Long term (current) use of aspirin; Z79.4 Long term (current) use of insulin; E11.9 Type 2 diabetes mellitus without complications; I11.0 Hypertensive heart disease with heart failure; I50.30 Unspecified diastolic (congestive) heart failure; Z87.891 Personal history of nicotine dependence
CPT/HCPCS: 71045; 74177; 80053; 83690; 84484; 85025; 93005; 96361; 96374; 96375; 99284; J1170; J2270; J2405; J7030; Q9967

== ENCOUNTER → 2020-10-19 08:39 | Outpatient (BNVA) | payer MEDICARE, MEDICAID, SELFPAY | PROVIDERS: PCP Nurse Practitioner; Visit Provider Nurse Practitioner | DX: I10 Essential (primary) hypertension (principal); E11.65 Type 2 diabetes mellitus with hyperglycemia; Z79.4 Long term (current) use of insulin; J43.9 Emphysema, unspecified | CPT/HCPCS: 80053; 80061; 83036; 85025 ==

== ENCOUNTER 2020-10-31 15:51 | Emergency (ER) | payer MEDICARE, MEDICAID, SELFPAY ==
[2020-10-31 15:51] VITALS: BP 148/80; PULSE 75; RESP 16; TEMP 36.6; O2SAT 94; BMI 29.3
--- NOTE | 2020-10-31 15:56 | CTR_ITS ---
PROCEDURE INFORMATION: Exam: CT Head Without Contrast Exam date and time: 10/31/2020 4:06 PM Age: 59 years old Clinical indication: Injury or trauma; Fall; Blunt trauma (contusions or hematomas); Without loss of consciousness; Patient HX: Tripped on a rug and fell backwards denies loc C/O CLEMENTE, dizziness and neck pain - PT is on blood thinners TECHNIQUE: Imaging protocol: Computed tomography of the head without contrast. Radiation optimization: All CT scans at this facility use at least one of these dose optimization techniques: automated exposure control; mA and/or kV adjustment per patient size (includes targeted exams where dose is matched to clinical indication); or iterative reconstruction. COMPARISON: MR head wo con* [id number] 10/13/2015 6:38 AM RADIATION DOSE METRICS: Total DLP (mGy-cm): 762.78 FINDINGS: Brain: Normal. No hemorrhage. Unremarkable white matter. No mass effect. Cerebral ventricles: No ventriculomegaly. Bones/joints: Unremarkable. No acute fracture. Paranasal sinuses: Visualized sinuses are unremarkable. No fluid levels. Mastoid air cells: Visualized mastoid air cells are well aerated. Soft tissues: Unremarkable. CT/CT head wo con* [id number] IMPRESSION: No acute intracranial abnormality. Radiation Dose CTDIVOL = (mGy): DLP = 762.78 (mGy-cm)
--- NOTE | 2020-10-31 15:57 | CTR_ITS ---
PROCEDURE INFORMATION: Exam: CT Cervical Spine Without Contrast Exam date and time: 10/31/2020 4:06 PM Age: 59 years old Clinical indication: Injury or trauma; Fall; Blunt trauma; Patient HX: Tripped on a rug and fell backwards denies loc C/O CLEMENTE, dizziness and neck pain - PT is on blood thinners; Additional info: Fall. Neck pain on eliquis. TECHNIQUE: Imaging protocol: Computed tomography images of the cervical spine without contrast. Radiation optimization: All CT scans at this facility use at least one of these dose optimization techniques: automated exposure control; mA and/or kV adjustment per patient size (includes targeted exams where dose is matched to clinical indication); or iterative reconstruction. COMPARISON: XA FL barium swallow [id number] 08/26/2019 8:45 AM RADIATION DOSE METRICS: Total DLP (mGy-cm): 487.11 FINDINGS: Bones/joints: No acute fracture. Normal alignment. Discs/Spinal canal/Neural foramina: No significant disc protrusion. No severe spinal canal stenosis. No significant neural foraminal narrowing. Lungs: Lung apices are normal. Soft tissues: Unremarkable. CT/CT cervical spin wo con* [id number] IMPRESSION: No acute findings. Radiation Dose CTDIVOL = (mGy): DLP = 487.11 (mGy-cm)
--- NOTE | 2020-10-31 15:58 | XRR_ITS ---
PROCEDURE INFORMATION: Exam: XR Sacrum and Coccyx, 2 or More Views Exam date and time: 10/31/2020 4:06 PM Age: 59 years old Clinical indication: Injury or trauma; Fall; Blunt trauma (contusions or hematomas) TECHNIQUE: Imaging protocol: XR of the sacrum and coccyx, 2 or more views. COMPARISON: CT abdomen pelvis w con* [id number] 09/24/2020 9:53 PM FINDINGS: Bones/joints: Normal. No acute fracture. Soft tissues: Morbid obesity which reduces sensitivity of the plain films. XR/XR sacrum coccyx min 2V [id number] IMPRESSION: 1. No acute findings. 2. If pain persists, CT or MRI may be helpful to rule out occult pathology if clinically indicated. 3. Examination is limited secondary to body habitus.
--- NOTE | 2020-10-31 16:00 | XRR_ITS ---
PROCEDURE INFORMATION: Exam: XR Pelvis Exam date and time: 10/31/2020 4:06 PM Age: 59 years old Clinical indication: Injury or trauma; Fall; Blunt trauma (contusions or hematomas); Bilateral; Hip TECHNIQUE: Imaging protocol: XR pelvis. Views: 1 or 2 view. COMPARISON: CT abdomen pelvis w con* [id number] 09/24/2020 9:53 PM FINDINGS: Bones/joints: Unremarkable. No acute fracture. Soft tissues: Unremarkable. XR/XR pelvis 1-2V* [id number] IMPRESSION: 1. No acute findings. 2. If pain persists, CT may be helpful to rule out occult pathology if clinically indicated.
--- NOTE | 2020-10-31 16:01 | W.ED.FALL ---
HPI - Fall General: Chief Complaint: Fall Stated Complaint: HEAD AND NECK PAIN S/P FALL Time Seen by Provider: 10/31/20 15:52 History of Present Illness: HPI Narrative: The patient is a 59-year-old female who comes to the ER complaining of a headache and neck pain after a trip and fall. She also complains of pain to her tailbone. She says she was walking backwards and tripped over a small carpet landing on her behind and hitting the back of her head on the ground. Denies loss of consciousness. She says she went home but started to feel dizzy at home and complain of pain to her head and tailbone. She is a diabetic and did not take her insulin this morning. Glucose over 300 on arrival. She denies chest pain, shortness of breath, back pain, abdominal pain. She does take aspirin and Xarelto for atrial fibrillation chronically. MD complaint: fall Fall from: standing Loss of consciousness: None Prolonged down time: no Symptoms prior to fall: none Context: tripped/slipped Location of injury: head, neck and buttocks Severity: moderate Quality: sharp Associated symptoms-after fall: Reports no associated symptoms and headache(s); Denies abdominal pain, chest pain, confusion, difficulty walking or neck pain Review of Systems General: Reports: 10 or more systems reviewed and unremarkable except in HPI and below Const: Denies: fatigue Eyes: Denies: change in vision, blurry vision or eye redness ENMT: Denies: throat pain, swelling of lips/tongue, ear or mastoid pain or nasal congestion Card: Denies: chest pain, palpitations, irregular heart rhythm, edema, dyspnea on exertion or orthopnea Resp: Denies: dyspnea, productive cough or non-productive cough GI: Denies: abdominal pain, diarrhea or GI cramping : Denies: flank pain, difficulty voiding, urinary frequency or urinary urgency Musc: Denies: neck pain, back pain, extremity pain, joint pain, joint redness, limited range of motion or muscle weakness Skin/Breast: Denies: rash, pruritus, erythema, skin pain or skin tenderness Neuro: Reports: headache(s); Denies: numbness in extremities, weakness in extremities, sensory changes, difficulty walking, dizziness, confusion or Slurred speech present Psych: Denies: anxiety or depression Endo: Denies: polyuria All/Imm: Denies: urticaria, throat swelling or tongue swelling PFSH ED PFSH: Medical History Chest pain Diabetes Diastolic congestive heart failure Gallbladder anomaly Generalized anxiety disorder GERD (gastroesophageal reflux disease) H/O deep venous thrombosis History of DVT of lower extremity Left leg 06/2019 History of skin cancer Basal cell carcinoma on back 2007 HTN (hypertension) Insomnia, unspecified Noncompliance with dietary restriction Noncompliance with medication regimen Tremor, unspecified Unspecified urinary incontinence Vitamin B12 deficiency Surgical History H/O left breast biopsy Benign 2016 History of thoracentesis X 2 for traumatic effusion History of tonsillectomy Hx of colonoscopy Hx of tubal ligation / incidental appendectomy 1981 Status post surgical removal of malignant neoplasm of skin Basal cell carcinoma on back 2007 Family History Mother Cancer Unknown type Father Cancer Lung CA Son Gallbladder disease Other Hypertension Denies family history of Clotting disorder Social History Smoking and tobacco status: former smoker Quit status (tobacco): has quit using tobacco Former quit date comment: Patient smoked 2 packs of cigarettes a day for 25 years Second hand smoke exposure: No Smoking risk assessment/counseling performed?: No Alcohol intake: never Desire information about alcohol rehabilitation?: No Counseling given: No Desire information about substance/drug rehabilitation?: No Counseling given: No Adopted: No Caregiver/support person: No Lives independently: Yes Household members: spouse and children Marital status: service: No Current occupational status: unemployed History of recent travel: No Current gender identity: Female Physical Exam Const: COMMON NORMALS: no acute distress, average body habitus, patient oriented x3, no limitations, healthy appearing, alert and well nourished GENERAL APPEARANCE: cooperative, comfortable, well kempt and well developed ORIENTATION/CONSCIOUSNESS: Yes awake, Yes oriented to person, Yes oriented to place and Yes oriented to time HENMT: COMMON NORMALS: normocephalic, external ears normal and Normal external nose present HEAD & SCALP: normal to inspection and normocephalic NOSE: Normal external nose present EXTERNAL EAR: Yes external ears normal MOUTH: Normal oral and palatal mucosa present THROAT: posterior oropharynx normal Eye: COMMON NORMALS: Equal, round and reactive pupils present and EOMs intact bilaterally GENERAL EYE: appearance normal, both eyes and all related structures PUPIL: Yes Equal, round and reactive pupils present Neck/C-Spine: COMMON NORMALS: full ROM, no lymphadenopathy, no meningeal signs and no JVD GENERAL: Yes normal visual inspection OTHER: Paracervical muscular tenderness. No bony tenderness. She is in a c-collar on arrival. Mild tenderness to posterior scalp as well no bleeding. Lymph: LYMPHATIC: no lymphadenopathy noted Chest: COMMONS NORMALS: normal inspection of the chest and normal palpation of entire chest wall Resp: COMMON NORMALS: normal respiratory effort, No retractions, No use of accessory muscles, clear to auscultation bilaterally and percussion normal EFFORT & INSPECTION: Yes able to speak in complete sentences AUSCULTATION: clear to auscultation bilaterally PERCUSSION: percussion normal Cardio: COMMON NORMALS: no JVD, regular rate, regular rhythm, S1 normal heart sound present, S2 normal heart sound present and Peripheral pulses 2+ throughout RATE: regular rate RHYTHM: regular rhythm HEART SOUNDS: S1 normal heart sound present and S2 normal heart sound present PERIPHERAL PULSES: Peripheral pulses 2+ throughout GI: COMMON NORMALS: Normal to inspection, nondistended, normoactive bowel sounds present, Soft to palpation, non-tender and no masses INSPECTION: Yes normal to inspection PALPATION: Yes Soft to palpation : COMMON NORMALS: Yes no CVA tenderness BLADDER/KIDNEY EXAM: Yes no CVA tenderness Back/Pelvis: COMMON NORMALS: no CVA tenderness, thoracic and lumbar spine normal to inspection, no thoracic nor lumbar tenderness and thoraco-lumbar ROM normal Extremity: COMMON NORMALS: normal to inspection, full ROM, capillary refill normal, no joint enlargement and no pedal edema GENERAL: Yes normal exam except as noted Neuro: COMMON NORMALS: patient oriented x3, CN's II-XII intact bilaterally, moves all extremities, no focal motor deficits, no sensory deficits noted and gait normal SENSORIUM/ORIENTATION: Yes alert, Yes oriented to person, Yes oriented to place and Yes oriented to time MENINGEAL SIGNS: Yes no meningeal signs Psych: COMMON NORMALS: mental status grossly normal, Normal thought process present, cooperative, normal affect and speech normal APPEARANCE: Yes well kempt ATTITUDE: Yes calm SPEECH: Yes normal speech THOUGHT PROCESS: Normal thought process present Skin: COMMON NORMALS: no rashes or lesions noted NARRATIVE SKIN EXAM: Tenderness over region of coccyx. No significant bruising seen. GENERAL SKIN EXAM: no rashes or lesions noted Course Vital Signs: Vital signs: Vital Signs Temperature 97.8 F 10/31/20 15:51 Pulse Rate 71 10/31/20 18:23 Respiratory Rate 18 10/31/20 18:23 Blood Pressure 138/80 10/31/20 18:23 Pulse Oximetry 96 10/31/20 18:23 MDM - Fall MDM Narrative: Medical decision making narrative: The patient is a 59-year-old female who comes to the ER after a trip and fall backwards where she landed on her behind and hit the back of her head on the ground. She came in complaining of headache and neck pain. As well as coccyx pain. X-rays are negative as well as the CT of head and neck. She is stable for discharge. She has had elevated glucose here as she forgot to take her morning dose of insulin. Gave her 2 doses of sliding scale and she is in the low 300s. Recommended she check it again at home. Offered to let her stay here to recheck it however she requested to be discharged as it is getting dark. She has been a diabetic for a long time and is familiar with how insulin and glucose work. She was discharged in stable condition. Follow-up with primary care in 2 to 3 days to monitor improvement of your symptoms and ER with worsening symptoms Lab Data: Labs: Lab Results 10/31/20 10/31/20 Range/Units 16:07 17:20 POC Glucose 303 H 328 H (70-110) mg/dL Discharge Plan Discharge Patient Disposition: Home Clinical Impression: Contusion of head, Fall Condition: Stable Prescriptions: No Action (DME) lancets [OneTouch Delica Lancets] 33 gauge misc See Rx Instructions .ROUTE .MEDSUPPLY Qty: 100 RF: 0 insulin aspart U-100 [Novolog Flexpen U-100 Insulin] 100 unit/mL (3 mL) insulin pen 6 - 30 unit SUBCUT TID Qty: 15 RF: 1 Ozempic 1 mg/dose (2 mg/1.5 mL) pen injector 1 mg SUBCUT .weekly Qty: 3 RF: 1 (DME) pen needle, diabetic 33 gauge x 5/32 needle See Rx Instructions .ROUTE .MEDSUPPLY Qty: 100 RF: 5 (DME) lancing device with lancets [Techstars Lanc Device] Kit See Rx Instructions .ROUTE .MEDSUPPLY Qty: 1 RF: 1 (DME) blood-glucose meter Kit See Rx Instructions .ROUTE .MEDSUPPLY Qty: 1 RF: 0 (DME) [employer] Healthcare SolutionsTouch Ultra Blue Test Strip Strip See Rx Instructions .ROUTE .MEDSUPPLY Qty: 100 RF: 5 atorvastatin 10 mg tablet 10 mg PO QAM RF: 0 aspirin 81 mg tablet,delayed release (DR/EC) 81 mg PO BID@08,20 RF: 0 pantoprazole 40 mg tablet,delayed release (DR/EC) 40 mg PO DAILY@08 RF: 0 fluticasone propion-salmeterol [Advair Diskus] 500-50 mcg/dose blister with device 1 inh INHALATION BID@08,20 RF: 0 furosemide 20 mg tablet 20 mg PO BID RF: 0 diltiazem HCl 30 mg tablet 30 mg PO BID@08,20 RF: 0 metformin 500 mg tablet extended release 24 hr 1,000 mg PO BID RF: 0 escitalopram oxalate 20 mg tablet 20 mg PO DAILY@08 RF: 0 Levemir FlexTouch U-100 Insuln 100 unit/mL (3 mL) insulin pen 30 unit SUBCUT QAM RF: 0 Xarelto 2.5 mg tablet 2.5 mg PO BID@08,20 RF: 0 hydrocodone-acetaminophen 5-325 mg tablet 1 tab PO Q6H PRN (Reason: pain) Qty: 10 RF: 0 ProAir HFA 90 mcg/actuation Hfa Aerosol Inhaler 2 puff INHALATION Q4H PRN (Reason: Shortness Of Breath) RF: 0 nitroglycerin 0.4 mg Tablet, Sublingual 0.4 mg SUBLINGUAL Q5M PRN (Reason: Chest Pain) RF: 0 ondansetron 4 mg tablet,disintegrating 4 mg PO Q6H PRN (Reason: nausea and vomiting) Qty: 14 RF: 0 Discharge Orders: Discharge ED (Routine); Ordered 10/31/20 Ordered By: Grabiel Willis Referrals: Alondra Ham, ASSOCIATE PROFESS[employer] [Primary Care Provider] - Discharge Diet: Advance as tolerated Discharge Activity: Resume usual activity Patient Instructions: Contusion, Hyperglycemia, Fall Prevention (ED), Opioid Safety Activity Restrictions/Additional Instructions: You have fallen. There are no significant injuries from this fall seen on the x-rays and head CT. Please go home and check your blood sugar as it has also been high here and I know you have missed your dose of insulin today. Return to the ER with worsening symptoms at any time otherwise follow-up with your physician in a couple days to monitor improvement of your symptoms Coding Level of Care Code ED Cloth Burler for Kristian Fwd Exam Comprehensive
--- NOTE | 2020-10-31 16:05 | XRR_ITS ---
PROCEDURE INFORMATION: Exam: XR Chest Exam date and time: 10/31/2020 4:06 PM Age: 59 years old Clinical indication: Shortness of breath; Additional info: Reduced breath sounds TECHNIQUE: Imaging protocol: XR of the chest. Views: 1 view. COMPARISON: CR XR chest 1V portable [id number] 09/24/2020 7:39 PM FINDINGS: Lungs: Stable right calcified hilar nodes and/or mediastinal nodes and/or lung nodules consistent with old granulomatous disease. Pleural spaces: Unremarkable. No pleural effusion. No pneumothorax. Heart/Mediastinum: Unremarkable. No cardiomegaly. Bones/joints: Unremarkable. XR/XR chest 1V portable [id number] IMPRESSION: No acute findings.
[2020-10-31 16:12] LABS: Glucose Point of Care 303 mg/dL (70-110)
[2020-10-31 16:27] VITALS: BP 139/86; PULSE 72; RESP 18; O2SAT 98
--- NOTE | 2020-10-31 17:03 | PC.NURSE ---
c-collar removed, awared.
[2020-10-31 17:24] VITALS: BP 124/94; PULSE 73; RESP 16; O2SAT 97
[2020-10-31 17:24] LABS: Glucose Point of Care 328 mg/dL (70-110)
[2020-10-31 18:23] VITALS: BP 138/80; PULSE 71; RESP 18; O2SAT 96
[2020-10-31 18:38] VITALS: BP 138/80; PULSE 86; RESP 17; O2SAT 93
== END 2020-10-31 18:38 | disposition home or self-care (01) ==
PROVIDERS: Emergency Provider Family Medicine; PCP Nurse Practitioner
DX: S00.93XA Contusion of unspecified part of head, initial encounter (principal); W01.0XXA Fall on same level from slipping, tripping and stumbling without subsequent striking against object, initial encounter; E11.9 Type 2 diabetes mellitus without complications; I11.0 Hypertensive heart disease with heart failure; I50.30 Unspecified diastolic (congestive) heart failure; Z87.891 Personal history of nicotine dependence
CPT/HCPCS: 36416; 70450; 71045; 72125; 72170; 72220; 82962; 96372; 99283; J1815

== ENCOUNTER 2020-11-10 14:28 | Outpatient (CLI) | payer MEDICARE, MEDICAID, SELFPAY ==
--- NOTE | 2020-11-10 15:30 | CT_ITS ---
WS: [id number] Exam: CT pelvis wo con [id number] Date/Time of Exam: 11/10/2020 2:41 PM Reason For Exam: M25.552 - Pain in left hip DLP: 937.[address] scans at [facility] use at least one of these dose optimization techniques: automat ed exposure control; mA and/or kV adjustment per patient size (includes targeted exams where dose is matched to clinical indication); or iterative reconstruction. The pelvis is evaluated in the axial plane with coronal and sagittal reformatted images. No sign of pelvic mass or lymphadenopathy. Probable small posterior uterine fundal fibroid measuring about 2.1 cm at greatest diameter. Unremarkable urinary bladder. Visualized large and small bowel lo ops are unremarkable. Signs of tubal ligation. Mild bilateral nonspecific inguinal lymphadenopathy. T he largest node measures 1.6 cm at greatest short axis dimension. No sign of destructive bone lesion. There is moderate osteoarthritis of both hips. No sign of avascular necrosis. Adjacent myofascial st ructures are unremarkable. CT/CT pelvis wo con [id number] IMPRESSION: 1. Moderate osteoarthritis of both hips. No evidence of fracture or osseous devon truction. 2. Small posterior uterine fibroid. Mild bilateral nonspecific inguinal lymphad enopathy.
== END 2020-11-10 14:29 | disposition home or self-care (01) ==
PROVIDERS: PCP Nurse Practitioner; Visit Provider Nurse Practitioner Family
DX: M16.0 Bilateral primary osteoarthritis of hip (principal); D25.9 Leiomyoma of uterus, unspecified
CPT/HCPCS: 72192

== ENCOUNTER → 2020-12-08 13:29 | Outpatient (BNVA) | payer MEDICARE, MEDICAID, SELFPAY | PROVIDERS: PCP Nurse Practitioner; Visit Provider Nurse Practitioner | DX: E11.65 Type 2 diabetes mellitus with hyperglycemia (principal); Z79.4 Long term (current) use of insulin; Z86.718 Personal history of other venous thrombosis and embolism; I10 Essential (primary) hypertension; F41.1 Generalized anxiety disorder; J43.9 Emphysema, unspecified | CPT/HCPCS: 80048; 81000 ==

== ENCOUNTER 2021-02-02 07:12 | Outpatient (CLI) | payer MEDICARE, MEDICAID, SELFPAY ==
--- NOTE | 2021-02-02 07:15 | MR_ITS ---
WS: [id number] MRI CERVICAL SPINE NONCONTRAST HISTORY: M54.2 - Cervicalgia COMPARISON: Cervical spine 10/31/2020 Technique: Multiplanar, multisequence noncontrast imaging of the cervical spine. Normal posterior alignment. Very mild disc space narrowing and desiccation at C6-7. Very small amount of marrow edema along the adjacent endplates of C6 and C7. Signal within the cervical cord is normal. Visualized posterior fossa is unremarkable. Craniocervical junction, C1 and C2 relationship, odontoid process and soft tissues are normal. C2-C3: Normal. C3-C4: Small hypertrophic osteophytes in the foramen. No stenosis. C4-C5: Mild annular disc bulging and osteophytic ridging. Very mild narrowing of the LEFT foramen due to osteophyte. C5-C6: Diffuse annular disc bulging and osteophytic ridging. Very mild narrowing of the proximal fora men and mild facet arthritis. C6-C7: Central disc protrusion with mild deformity the ventral thecal sac. Bilateral disc osteophyte complexes and the foramen causing only mild narrowing, greater on the LEFT. C7-T1: Normal. Paraspinal soft tissue are normal. MR/MR cervical spin wo con* [id number] IMPRESSION: 1. No high-grade central or foraminal stenosis. 2. Multilevel small disc osteophyte complexes. Mild foraminal narrowing, most significant on the LEFT at C6-7. 3. Small central disc protrusion at C6-7.
== END 2021-02-02 07:13 | disposition home or self-care (01) ==
LOC: RADSHAW 07:15
PROVIDERS: PCP Nurse Practitioner; Visit Provider Nurse Practitioner Family
DX: G89.29 Other chronic pain (principal); M54.2 Cervicalgia; Z79.891 Long term (current) use of opiate analgesic; Z87.891 Personal history of nicotine dependence
CPT/HCPCS: 72141; 99205

== ENCOUNTER → 2021-02-11 14:45 | Outpatient (BNVA) | payer MEDICARE, MEDICAID, SELFPAY | PROVIDERS: PCP Nurse Practitioner; Visit Provider Orthopaedic Surgery | DX: M54.2 Cervicalgia (principal); M47.892 Other spondylosis, cervical region | CPT/HCPCS: 72050 ==

== ENCOUNTER 2021-03-09 06:00 | Outpatient (RCR) | payer MEDICARE, MEDICAID, SELFPAY | END 2021-03-16 23:59 | disposition home or self-care (01) | LOC: TPT 06:00 | PROVIDERS: PCP Nurse Practitioner; Referring Provider Nurse Practitioner Family; Visit Provider Nurse Practitioner Family | DX: M54.2 Cervicalgia (principal); Z91.81 History of falling | CPT/HCPCS: 97110; 97140; 97162 ==

== ENCOUNTER 2021-03-17 06:00 | Outpatient (RCR) | payer MEDICARE, MEDICAID, SELFPAY | END 2021-04-15 23:59 | disposition home or self-care (01) | LOC: TPT 06:00 | PROVIDERS: PCP Nurse Practitioner; Referring Provider Nurse Practitioner Family; Visit Provider Nurse Practitioner Family | DX: M54.2 Cervicalgia (principal); W19.XXXD Unspecified fall, subsequent encounter | CPT/HCPCS: 97110 ==

== ENCOUNTER → 2021-03-18 10:59 | Outpatient (BNVA) | payer MEDICARE, MEDICAID, SELFPAY | PROVIDERS: PCP Nurse Practitioner; Visit Provider Nurse Practitioner | DX: E11.65 Type 2 diabetes mellitus with hyperglycemia (principal); I10 Essential (primary) hypertension; F41.1 Generalized anxiety disorder; J43.9 Emphysema, unspecified; K21.9 Gastro-esophageal reflux disease without esophagitis; E55.9 Vitamin D deficiency, unspecified; Z79.4 Long term (current) use of insulin; Z86.718 Personal history of other venous thrombosis and embolism | CPT/HCPCS: 80053; 80061; 81000; 82306; 82607; 83036; 84443 ==

== ENCOUNTER 2021-04-16 06:00 | Outpatient (RCR) | payer MEDICARE, MEDICAID, SELFPAY | END 2021-05-16 23:59 | disposition home or self-care (01) | LOC: TPT 06:00 | PROVIDERS: PCP Nurse Practitioner; Visit Provider Nurse Practitioner Family | DX: M54.2 Cervicalgia (principal); W19.XXXD Unspecified fall, subsequent encounter | CPT/HCPCS: 97110; 97164 ==

== ENCOUNTER 2021-05-17 06:00 | Outpatient (RCR) | payer MEDICARE, MEDICAID, SELFPAY | END 2021-06-15 23:59 | disposition home or self-care (01) | LOC: TPT 06:00 | PROVIDERS: PCP Nurse Practitioner; Visit Provider Nurse Practitioner Family | DX: M54.2 Cervicalgia (principal); W19.XXXA Unspecified fall, initial encounter | CPT/HCPCS: 97110; 97140 ==

== ENCOUNTER → 2021-06-01 09:30 | Outpatient (BNVA) | payer MEDICARE, MEDICAID, SELFPAY | PROVIDERS: PCP Nurse Practitioner; Visit Provider Anesthesiology Pain Medicine | DX: G89.29 Other chronic pain (principal); M50.90 Cervical disc disorder, unspecified, unspecified cervical region; W19.XXXD Unspecified fall, subsequent encounter; Z79.891 Long term (current) use of opiate analgesic; Z87.891 Personal history of nicotine dependence | CPT/HCPCS: 99214 ==

== ENCOUNTER 2021-06-16 06:00 | Outpatient (RCR) | payer MEDICARE, MEDICAID, SELFPAY | END 2021-07-13 23:59 | disposition home or self-care (01) | LOC: TPT 06:00 | PROVIDERS: PCP Nurse Practitioner; Visit Provider Nurse Practitioner Family | DX: M54.2 Cervicalgia (principal); W19.XXXD Unspecified fall, subsequent encounter | CPT/HCPCS: 97110; 97140; 97164 ==

== ENCOUNTER → 2021-06-22 09:24 | Outpatient (BNVA) | payer MEDICARE, MEDICAID, SELFPAY | PROVIDERS: PCP Nurse Practitioner; Visit Provider Anesthesiology Pain Medicine | DX: G89.29 Other chronic pain (principal); M50.90 Cervical disc disorder, unspecified, unspecified cervical region; M79.18 Myalgia, other site; Z79.891 Long term (current) use of opiate analgesic; Z87.891 Personal history of nicotine dependence | CPT/HCPCS: 20553; 99213; J1030; J3490 ==

== ENCOUNTER 2021-07-15 20:48 | Emergency (ER) | payer MEDICARE, MEDICAID, SELFPAY ==
--- NOTE | 2021-07-15 20:52 | XRR_ITS ---
PROCEDURE INFORMATION: Exam: XR Chest Exam date and time: 07/15/2021 8:52 PM Age: 60 years old Clinical indication: Other: N/v; Additional info: Cp TECHNIQUE: Imaging protocol: XR of the chest. Views: 1 view. COMPARISON: CR (CHEST, ) 10/31/2020 4:46 PM FINDINGS: Lungs: Mild scarring in the peripheral left lung base. Calcified granuloma in the right lung. The lungs are otherwise clear. Pleural spaces: Unremarkable. No pleural effusion. No pneumothorax. Heart/Mediastinum: Unremarkable. No cardiomegaly. Bones/joints: Unremarkable. XR/XR chest 1V portable [id number] IMPRESSION: No acute finding.
--- NOTE | 2021-07-15 20:53 | ECG_ITS ---
[facility] Test Date: 2021-07-15 Pat Name: Shea Simon Department: Room: Gender: Female Collections Professional: : 1960 Requested By: Mirian Kumar Order Number: [id number] Reading MD: Avery Peace M.D. Measurements Intervals [place] Rate: 84 P: 244 NH: 353 QRS: 55 QRSD: 98 T: 56 QT: 367 QTc: 435 Interpretive Statements SINUS RHYTHM Compared to ECG 09/24/2020 21:12:46 NO SIGNIFICANT CHANGES Electronically Signed On 07-16-2021 10:53:14 [employer] ENGINEER by Avery Peace M.D. [id number]
[2021-07-15 21:00] VITALS: BP 159/89; PULSE 98; RESP 20; TEMP 37; O2SAT 95; BMI 28.0
--- NOTE | 2021-07-15 23:07 | W.ED.NAVMDI ---
HPI - Nausea/Vomiting/Diarrhea General: Chief complaint: Nausea/Vomiting/Diarrhea Stated complaint: Chest pain, possible gallbladder prob Time Seen by Provider: 07/15/21 23:27 History of Present Illness: HPI Narrative: Patient has had vomiting and diarrhea the last 2 days. Patient requesting Phenergan. Patient says she not been around anybody's been sick. Patient denies any fever does have some urinary type symptoms and has a history of UTIs. Patient also has history of CHF and she says when she throws up her chest hurts at times. Denies any shortness of breath. MD elicited complaint: vomiting and diarrhea Pertinent past history: other (CHF chronic UTIs) Onset (ago): day(s) Description of vomiting: food contents Description of diarrhea: semi-solid Associated nausea: Yes Associated abdominal pain: No Severity: mild Associated symtoms: Reports nausea Review of Systems GI: Reports: nausea PFS ED PFSH: Medical History Chest pain Diabetes mellitus with hyperglycemia Diastolic congestive heart failure Gallbladder anomaly Generalized anxiety disorder GERD (gastroesophageal reflux disease) H/O deep venous thrombosis History of DVT of lower extremity Left leg 06/2019 History of skin cancer Basal cell carcinoma on back 2007 HTN (hypertension) Insomnia, unspecified Noncompliance with dietary restriction Noncompliance with medication regimen Tremor, unspecified Unspecified urinary incontinence Vitamin B12 deficiency Surgical History H/O left breast biopsy Benign 2016 History of thoracentesis X 2 for traumatic effusion History of tonsillectomy Hx of colonoscopy Hx of tubal ligation / incidental appendectomy 1981 Status post surgical removal of malignant neoplasm of skin Basal cell carcinoma on back 2007 Family History Mother Cancer Unknown type Father Cancer Lung CA Son Gallbladder disease Other Hypertension Denies family history of Clotting disorder Social History Quit status (tobacco): has quit using tobacco Former quit date comment: Patient smoked 2 packs of cigarettes a day for 25 years Second hand smoke exposure: No Smoking risk assessment/counseling performed?: No Alcohol intake: never Desire information about alcohol rehabilitation?: No Counseling given: No Desire information about substance/drug rehabilitation?: No Counseling given: No Adopted: No Caregiver/support person: No Lives independently: Yes Household members: spouse and children Marital status: service: No Current occupational status: unemployed History of recent travel: No Current gender identity: Female Course Vital Signs: Vital signs: Vital Signs Temperature 98.6 F 07/15/21 21:00 Pulse Rate 100 07/16/21 02:24 Respiratory Rate 18 07/16/21 02:24 Blood Pressure 144/87 07/16/21 02:24 Pulse Oximetry 92 07/16/21 02:24 MDM - Nausea/Vomiting/Diarrhea MDM Narrative: Medical decision making narrative: Patient presents with nausea and vomiting diarrhea. More nausea and diarrhea than vomiting. Patient is a diabetic sugars run high most time and it was 498 here today. Anion gap was 24 patient given 2 L of fluid ABG was done which showed low O2 further discussion with patient she says she is normally on 4 L O2 full-time and she is not been on O2 since her son dropped her off here at the ER and she waited and then was seen. Once oxygen placed back in sats maintained 98-99%. Radiology studies negative EKG look fine. Discussed case with Dr. Kumar, plan is to discharge patient home after fluids, patient to monitor her sugars readings regularly drink plenty of fluids follow-up primary care provider Lab Data: Labs: Lab Results 07/16/21 07/16/21 07/16/21 00:04 00:18 00:18 WBC 6.8 10^3/uL 10^3/ uL (4.0-10.0) RBC 4.58 10^6/uL 10^6 /uL (4.1-5.3) Hgb 13.3 g/dL g/dL (11.5-15.3) Hct 40.5 % % (37.0-47.0) MCV 88.4 fl fl (81-99) MCH 29.0 pg pg (28.0-34.0) MCHC 32.8 g/dL g/dL (30.0-36.0) RDW 12.7 % % (12.1-15.1) Plt Count 206 10^3/cmm 10^3 /cmm (130-400) MPV 10.1 fL fL (7.4-10.4) Neut % (Auto) 88.8 % % Lymph % (Auto) 8.5 % % [place] % (Auto) 1.6 % % Eos % (Auto) 0.4 % % Baso % (Auto) 0.4 % % Neut # (Auto) 6.07 10^3/uL 10^3 /uL (1.8-7.7) Lymph # (Auto) 0.6 10^3/uL L 10^ 3/uL (0.8-4.8) [place] # (Auto) 0.1 10^3/uL L 10^ 3/uL (0.2-0.9) Eos # (Auto) 0.0 10^3/uL 10^3/ uL (0.0-0.8) Baso # (Auto) 0.0 10^3/uL 10^3/ uL (0.0-0.1) Nucleated RBC % (a uto) 0 % % Nucleated RBCs # 0.0 /100WBC /100W BC Specimen Type Sample Site ABG pH ABG pCO2 ABG pO2 ABG HCO3 ABG Base Excess Dilshad Test Hematocrit O2 Delivery Device FiO2 Presser Cotton [place] ID Sodium 136 mmol/L mmol/L (136-145) Potassium 4.4 mmol/L mmol/L (3.5-5.1) Chloride 93 mmol/L L mmol/ L (98-107) Carbon Dioxide 23 mmol/L mmol/L (22-29) Anion Gap 24.4 H (5-19) BUN 24 mg/dL H mg/dL (8-23) Creatinine 0.7 mg/dL mg/dL (0.5-0.9) GFR Calculation 84.8 mL/min L mL/ min (90-130) Glucose 498 mg/dL H mg/dL (65-115) POC Glucose Calculated Osmolal ity 308 mOsm/kg H mOs m/kg (285-295) Calcium 8.9 mg/dL mg/dL (8.5-10.5) Total Bilirubin 0.7 mg/dL mg/dL (0.15-1.2) AST 8 U/L U/L (0-32) ALT 8 U/L U/L (0-33) Alkaline Phosphata se 117 IU/L H IU/L (35-105) Troponin T Baselin e 13 ng/L H ng/L (0-10) Troponin T 120 Min [place] Troponin T Total Protein 8.1 g/dL g/dL (6.6-8.7) Albumin 4.0 g/dL g/dL (3.5-5.2) Globulin 4.1 g/dL g/dL (1.3-4.6) Lipase 12 U/L L U/L (13-60) 07/16/21 07/16/21 07/16/21 01:29 01:51 02:10 WBC RBC Hgb Hct MCV MCH MCHC RDW Plt Count MPV Neut % (Auto) Lymph % (Auto) [place] % (Auto) Eos % (Auto) Baso % (Auto) Neut # (Auto) Lymph # (Auto) [place] # (Auto) Eos # (Auto) Baso # (Auto) Nucleated RBC % (a uto) Nucleated RBCs # Specimen Type Arterial Sample Site Radial, right ABG pH 7.35 (7.35-7.45) ABG pCO2 42.1 mmHg mmHg (35-45) ABG pO2 58.9 mmHg L mmHg (80.0-100.0) ABG HCO3 23.4 mmol/L mmol/ L (22-26) ABG Base Excess -2.1 mmol/L L mmo l/L (-2.0-2.0) Dilshad Test Pos Hematocrit 38.6 % % (37-47) O2 Delivery Device Room air FiO2 21.0 % % Presser Cotton [place] ID Subhash Sodium Potassium Chloride Carbon Dioxide Anion Gap BUN Creatinine GFR Calculation Glucose POC Glucose 398 mg/dL H mg/dL (70-110) Calculated Osmolal ity Calcium Total Bilirubin AST ALT Alkaline Phosphata se Troponin T Baselin e Troponin T 120 Min [place] 13.91 ng/L H ng/L (0-10) Delta Troponin T 0.91 ABS# ABS# (0-10) Total Protein Albumin Globulin Lipase Discharge Plan Discharge Patient Disposition: Home Clinical Impression: Gastroenteritis COPD (chronic obstructive pulmonary disease) with emphysema Qualifiers: Emphysema type: unspecified Qualified Code(s): J43.9 - Emphysema, unspecified Diabetes mellitus with hyperglycemia Qualifiers: Diabetes mellitus type: type 2 Diabetes mellitus prison insulin use: with prison use Qualified Code(s): E11.65 - Type 2 diabetes mellitus with hyperglycemia Condition: Stable Prescriptions: New promethazine 25 mg tablet 25 mg PO TID PRN (Reason: nausea and vomiting) Qty: 14 RF: 0 No Action atorvastatin 10 mg tablet 10 mg PO DAILY Qty: 30 RF: 2 (DME) [employer] Ultra Blue Test Strip Strip See Rx Instructions .ROUTE .MEDSUPPLY Qty: 100 RF: 5 diltiazem HCl 30 mg tablet 30 mg PO BID@08,20 Qty: 60 RF: 2 escitalopram oxalate 20 mg tablet 20 mg PO DAILY@08 Qty: 30 RF: 2 fluticasone propion-salmeterol [Advair Diskus] 500-50 mcg/dose blister with device 1 inh INHALATION BID@08,20 Qty: 60 RF: 2 furosemide 20 mg tablet 20 mg PO BID Qty: 60 RF: 2 metformin 500 mg tablet extended release 24 hr 1,000 mg PO BID Qty: 120 RF: 2 Ozempic 0.25 mg or 0.5 mg(2 mg/1.5 mL) pen injector 0.5 mg SUBCUT .weekly Qty: 1.5 RF: 2 pantoprazole 40 mg tablet,delayed release (DR/EC) 40 mg PO DAILY@08 Qty: 30 RF: 2 Xarelto 2.5 mg tablet 2.5 mg PO BID@08,20 Qty: 60 RF: 2 celecoxib [Celebrex] 200 mg capsule 200 mg PO DAILY Qty: 30 RF: 0 cyclobenzaprine 10 mg tablet 10 mg PO TID PRN (Reason: muscle spasm) Qty: 60 RF: 0 (DME) lancets [[employer] Delica Lancets] 33 gauge misc See Rx Instructions .ROUTE .MEDSUPPLY Qty: 100 RF: 0 insulin aspart U-100 [Novolog Flexpen U-100 Insulin] 100 unit/mL (3 mL) insulin pen 6 - 30 unit SUBCUT TID Qty: 15 RF: 1 Levemir FlexTouch U-100 Insuln 100 unit/mL (3 mL) insulin pen 40 unit SUBCUT QAM Qty: 15 RF: 2 (DME) pen needle, diabetic 33 gauge x 5/32 needle See Rx Instructions .ROUTE .MEDSUPPLY Qty: 100 RF: 5 (DME) lancing device with lancets [[employer] ([employer] DelShowMe Lanc Device] Kit See Rx Instructions .ROUTE .MEDSUPPLY Qty: 1 RF: 1 (DME) blood-glucose meter Kit See Rx Instructions .ROUTE .MEDSUPPLY Qty: 1 RF: 0 aspirin 81 mg tablet,delayed release (DR/EC) 81 mg PO BID@08,20 Qty: 60 RF: 0 hydrocodone-acetaminophen 5-325 mg tablet 1 tab PO Q6H PRN (Reason: pain) Qty: 10 RF: 0 ProAir HFA 90 mcg/actuation Hfa Aerosol Inhaler 2 puff INHALATION Q4H PRN (Reason: Shortness Of Breath) RF: 0 nitroglycerin 0.4 mg Tablet, Sublingual 0.4 mg SUBLINGUAL Q5M PRN (Reason: Chest Pain) RF: 0 ondansetron 4 mg tablet,disintegrating 4 mg PO Q6H PRN (Reason: nausea and vomiting) Qty: 14 RF: 0 Discharge Orders: Discharge ED (Routine); Ordered 07/16/21 Ordered By: Eulogio Lemos Referrals: Alondra Ham, OPERATIONS ANALYST-C [Primary Care Provider] - Discharge Diet: As Directed Discharge Activity: Increase activity as tolerated Patient Instructions: Gastroenteritis (ED), Diabetic Hyperglycemia (ED) Activity Restrictions/Additional Instructions: Follow-up with medical provider as directed. Take medications as prescribed. Return to the ER or your medical provider if condition worsens. Please read and understand discharge instructions. If any questions ask please. Coding Level of Care Code ED Home Care Consultant for Kristian Marquis
[2021-07-15] MEDS: promethazine 25 mg/mL SDV 1 mL IM (23:59)
[2021-07-15] MEDS: sodium chloride 0.9% 1,000 ML 999 ML IV (23:59)
[2021-07-16 00:31] LABS: Basophils % 0.4 %; Eosinophils % 0.4 %; Hematocrit 40.5 % (37.0-47.0); Hemoglobin 13.3 g/dL (11.5-15.3); Lymphocytes # 0.6 10^3/uL (0.8-4.8); Lymphocytes % 8.5 %; Mean Corpuscular HGB Conc 32.8 g/dL (30.0-36.0); Mean Corpuscular Volume 88.4 fl (81-99); Mean Platelet Volume 10.1 fL (7.4-10.4); Monocytes # 0.1 10^3/uL (0.2-0.9); Monocytes % 1.6 %; Neutrophils # 6.07 10^3/uL (1.8-7.7); Neutrophils % 88.8 %; Nucleated Red Blood Cells % 0 %; Platelet Count 206 10^3/cmm (130-400); Red Blood Count 4.58 10^6/uL (4.1-5.3); Red Cell Distribution Width 12.7 % (12.1-15.1); White Blood Count 6.8 10^3/uL (4.0-10.0)
[2021-07-16 00:44] LABS: Troponin(5th) Baseline 13 ng/L (0-10)
[2021-07-16 00:46] LABS: Alanine Aminotransferase 8 U/L (0-33); Alkaline Phosphatase 117 IU/L (35-105); Aspartate Amino Transferase 8 U/L (0-32); Chloride 93 mmol/L (98-107); Potassium 4.4 mmol/L (3.5-5.1); Sodium 136 mmol/L (136-145)
[2021-07-16 01:12] LABS: Anion Gap 24.4 (5-19); Blood Urea Nitrogen 24 mg/dL (8-23); Calcium 8.9 mg/dL (8.5-10.5); Carbon Dioxide 23 mmol/L (22-29); Globulin 4.1 g/dL (1.3-4.6); Glomerular Filtration Rate 84.8 mL/min (90-130); Glucose 498 mg/dL (65-115); Lipase 12 U/L (13-60); Osmolality Calculated 308 mOsm/kg (285-295); Total Bilirubin 0.7 mg/dL (0.15-1.2); Total Protein 8.1 g/dL (6.6-8.7)
[2021-07-16] MEDS: ondansetron 2 mg/ML SDV 2 mL 4 MG IVP (01:37)
[2021-07-16] MEDS: insulin regular-human 100 units/1 mL 10 UNIT IVP (01:37)
[2021-07-16] MEDS: sodium chloride 0.9% 1,000 ML 999 ML IV (01:37)
[2021-07-16 02:04] VITALS: BP 155/92; PULSE 105; RESP 18; O2SAT 92
[2021-07-16 02:05] LABS: ABG PCO2 42.1 mmHg (35-45); ABG PH Result 7.35 (7.35-7.45); Arterial Blood Gas Hematocrit 38.6 % (37-47); Base Excess ABG -2.1 mmol/L (-2.0-2.0); Blood Gas Allen Test Pos; Blood Gas Operator Identificat JB; Blood Gas Sample Site Radial, right; Blood Gas Sample Type Arterial; HCO3 ABG 23.4 mmol/L (22-26); Oxygen Device ROOM AIR; PO2 ABG 58.9 mmHg (80.0-100.0)
[2021-07-16 02:12] LABS: Troponin 5 2HR 13.91 ng/L (0-10); Troponin 5 2HR Delta 0.91 ABS# (0-10)
[2021-07-16 02:23] LABS: Glucose Point of Care 398 mg/dL (70-110)
[2021-07-16 02:24] VITALS: BP 144/87; PULSE 100; RESP 18; O2SAT 92
[2021-07-18 22:51] LABS: Glucose Point of Care 189 mg/dL (70-110)
[2021-07-19 21:26] LABS: Glucose Point of Care 212 mg/dL (70-110)
== END 2021-07-16 03:12 | disposition home or self-care (01) ==
PROVIDERS: Emergency Medicine; Emergency Provider Nurse Practitioner Family; PCP Nurse Practitioner
DX: K52.9 Noninfective gastroenteritis and colitis, unspecified (principal); J43.9 Emphysema, unspecified; E11.65 Type 2 diabetes mellitus with hyperglycemia; Z79.84 Long term (current) use of oral hypoglycemic drugs; Z79.82 Long term (current) use of aspirin; Z79.4 Long term (current) use of insulin; I11.0 Hypertensive heart disease with heart failure; I50.30 Unspecified diastolic (congestive) heart failure; Z87.891 Personal history of nicotine dependence
CPT/HCPCS: 36415; 36416; 71045; 80053; 82803; 82962; 83690; 84484; 85025; 93005; 96361; 96372; 96374; 96375; 99284; J1815; J2405; J2550; J7030

== ENCOUNTER 2021-07-18 13:21 | Inpatient (IN) | payer MEDICARE, MEDICAID, SELFPAY ==
[2021-07-18 13:27] VITALS: BP 137/90; PULSE 93; RESP 16; TEMP 36.8; O2SAT 90; BMI 28.8
--- NOTE | 2021-07-18 13:56 | ECG_ITS ---
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 Measurements Intervals [place] Rate: 93 P: 43 NE: 145 QRS: 42 QRSD: 92 T: 34 QT: 354 QTc: 442 Interpretive Statements SINUS RHYTHM LEFT ATRIAL ENLARGEMENT [-0.15mV P-WAVE IN V1/V2] Compared to ECG 07/15/2021 20:59:53 Atrial abnormality now present Electronically Signed On 07-18-2021 20:21:37 YIELD CLERK by Rashad Hobbs M.D. [email or web address]
[2021-07-18 14:21] VITALS: BP 129/85; PULSE 65; PULSE 94; RESP 21; TEMP 36.6; O2SAT 95
[2021-07-18 14:21] LABS: Basophils % 0.5 %; Eosinophils # 0.1 10^3/uL (0.0-0.8); Eosinophils % 0.8 %; Hematocrit 44.5 % (37.0-47.0); Hemoglobin 14.5 g/dL (11.5-15.3); Lymphocytes # 1.4 10^3/uL (0.8-4.8); Lymphocytes % 18.4 %; Mean Corpuscular HGB Conc 32.6 g/dL (30.0-36.0); Mean Corpuscular Hemoglobin 29.4 pg (28.0-34.0); Mean Corpuscular Volume 90.1 fl (81-99); Mean Platelet Volume 9.8 fL (7.4-10.4); Monocytes # 0.6 10^3/uL (0.2-0.9); Neutrophils # 5.47 10^3/uL (1.8-7.7); Neutrophils % 71.9 %; Nucleated Red Blood Cells % 0 %; Platelet Count 265 10^3/cmm (130-400); Red Blood Count 4.94 10^6/uL (4.1-5.3); Red Cell Distribution Width 12.9 % (12.1-15.1); White Blood Count 7.6 10^3/uL (4.0-10.0)
[2021-07-18] MEDS: sodium chloride 0.9% 1,000 ML 999 ML IV ×2 (14:30→15:41)
--- NOTE | 2021-07-18 14:33 | ED_ITS ---
HPI - General Adult General: Chief complaint: General Medical Stated complaint: N/V Time Seen by Provider: 07/18/21 13:23 Source: patient Mode of arrival: EMS Limitations: no limitations History of Present Illness: HPI narrative: 60-year-old female feeling generally ill, lack of appetite, just sick all over for the last 4 days. She has been able to tolerate small amount of fluids, but has not had any solid food since the last time she vomited after eating which is about 3 days ago. No fever. Occasional cough. Foul-smelling urine, no dysuria. No focal abdominal pain. Says that she has been diagnosed with gallbladder disease, but has had surgery delayed for various reasons. She has a history of insulin-dependent diabetes, blood sugars have been running high. Associated symptoms: Reports malaise and nausea; Deny chest pain, dyspnea, headache(s), rash, palpitations or vomiting Review of Systems General: Reports: 10 or more systems reviewed and unremarkable except in HPI and below Const: Reports: body aches, change in appetite, fatigue and malaise; Denies: fever(s) or chills Eyes: Denies: change in vision or blurry vision ENMT: Reports: dry mouth; Denies: throat pain or hoarseness Card: Denies: chest pain, palpitations or irregular heart rhythm Resp: Denies: dyspnea GI: Reports: nausea; Denies: abdominal pain, vomiting, dysphagia or heartburn : Denies: difficulty voiding or dysuria Skin/Breast: Denies: rash, pruritus or erythema Neuro: Denies: headache(s) or numbness in extremities Endo: Reports: polyuria, polydipsia and tired all the time [facility] ED PFSH: Medical History Chest pain Diabetes mellitus with hyperglycemia Diastolic congestive heart failure Gallbladder anomaly Generalized anxiety disorder GERD (gastroesophageal reflux disease) H/O deep venous thrombosis History of DVT of lower extremity Left leg 06/2019 History of skin cancer Basal cell carcinoma on back 2007 HTN (hypertension) Insomnia, unspecified Noncompliance with dietary restriction Noncompliance with medication regimen Tremor, unspecified Unspecified urinary incontinence Vitamin B12 deficiency Surgical History H/O left breast biopsy Benign 2016 History of thoracentesis X 2 for traumatic effusion History of tonsillectomy Hx of colonoscopy Hx of tubal ligation / incidental appendectomy 1981 Status post surgical removal of malignant neoplasm of skin Basal cell carcinoma on back 2007 Family History Mother Cancer Unknown type Father Cancer Lung CA Son Gallbladder disease Other Hypertension Denies family history of Clotting disorder Social History Quit status (tobacco): has quit using tobacco Former quit date comment: Patient smoked 2 packs of cigarettes a day for 25 years Second hand smoke exposure: No Smoking risk assessment/counseling performed?: No Alcohol intake: never Desire information about alcohol rehabilitation?: No Counseling given: No Desire information about substance/drug rehabilitation?: No Counseling given: No Adopted: No Caregiver/support person: No Lives independently: Yes Household members: spouse and children Marital status: service: No Current occupational status: unemployed History of recent travel: No Current gender identity: Female Physical Exam Const: COMMON NORMALS: no acute distress GENERAL APPEARANCE: cooperative, disheveled, lethargic, ill appearing and frail appearing ORIENTATION/CONSCIOUSNESS: Yes lethargic HENMT: COMMON NORMALS: normocephalic and atraumatic HEAD & SCALP: normocephalic and atraumatic FACE & SINUS: normal facial exam and face symmetric MOUTH: moist mucous membranes abnormal Details: cracked Eye: COMMON NORMALS: Equal, round and reactive pupils present, EOMs intact bilaterally, conjunctivae normal and no scleral icterus CONJUNCTIVA: Yes conjunctivae normal PUPIL: Yes Equal, round and reactive pupils present Neck/C-Spine: COMMON NORMALS: full ROM and no lymphadenopathy Chest: COMMONS NORMALS: normal inspection of the chest Resp: COMMON NORMALS: normal respiratory effort and No retractions EFFORT & INSPECTION: Yes able to speak in complete sentences GI: COMMON NORMALS: Normal to inspection, nondistended, normoactive bowel sounds present, Soft to palpation and non-tender PALPATION: Yes Soft to palpation Extremity: COMMON NORMALS: normal to inspection, full ROM, capillary refill normal and no clubbing, cyanosis or edema Neuro: SENSORIUM/ORIENTATION: Yes lethargic Skin: COMMON NORMALS: no rashes or lesions noted and no wounds GENERAL SKIN EXAM: no rashes or lesions noted and turgor decreased Course Vital Signs: Vital signs: Vital Signs Temperature 97.8 F 07/18/21 14:21 Pulse Rate 90 07/18/21 15:59 Respiratory Rate 16 07/18/21 15:59 Blood Pressure 161/85 07/18/21 15:59 Pulse Oximetry 92 07/18/21 15:59 MDM - General Adult MDM Narrative: Medical decision making narrative: 60-year-old female with decreased appetite, malaise, and generally ill feeling. On review of her records, her gallbladder sono was done in August 2020, showed a 1 cm gallstone with no other acute findings. She has no right upper quadrant tenderness on exam today. CBC normal, CMP demonstrates dehydration, Elevated anion gap and ketosis; likely from dehydration and poor oral intake. Glucose in the mid- 200s. She is not on an SGLT-2 inhibitors: So normoglycemic HHS or DKA is less likely. Given Fluid bolus, Antibiotics, On reassessment she still says she is feeling very sick and weak. I have concerns that she will not be able to maintain sufficient p.o. intake if she is discharged home at this time. Discussed the case with Dr. Mota, hospitalist on-call, he accepts admission to [facility] Lab Data: Labs: Lab Results 07/18/21 07/18/21 07/18/21 14:00 14:05 14:05 WBC 7.6 10^3/uL 10^3/ uL (4.0-10.0) RBC 4.94 10^6/uL 10^6 /uL (4.1-5.3) Hgb 14.5 g/dL g/dL (11.5-15.3) Hct 44.5 % % (37.0-47.0) MCV 90.1 fl fl (81-99) MCH 29.4 pg pg (28.0-34.0) MCHC 32.6 g/dL g/dL (30.0-36.0) RDW 12.9 % % (12.1-15.1) Plt Count 265 10^3/cmm 10^3 /cmm (130-400) MPV 9.8 fL fL (7.4-10.4) Neut % (Auto) 71.9 % % Lymph % (Auto) 18.4 % % [place] % (Auto) 8.0 % % Eos % (Auto) 0.8 % % Baso % (Auto) 0.5 % % Neut # (Auto) 5.47 10^3/uL 10^3 /uL (1.8-7.7) Lymph # (Auto) 1.4 10^3/uL 10^3/ uL (0.8-4.8) [place] # (Auto) 0.6 10^3/uL 10^3/ uL (0.2-0.9) Eos # (Auto) 0.1 10^3/uL 10^3/ uL (0.0-0.8) Baso # (Auto) 0.0 10^3/uL 10^3/ uL (0.0-0.1) Nucleated RBC % (a uto) 0 % % Nucleated RBCs # 0.0 /100WBC /100W BC Sodium 137 mmol/L mmol/L (136-145) Potassium 4.8 mmol/L mmol/L (3.5-5.1) Chloride 92 mmol/L L mmol/ L (98-107) Carbon Dioxide 21 mmol/L L mmol/ L (22-29) Anion Gap 28.8 H (5-19) BUN 24 mg/dL H mg/dL (8-23) Creatinine 0.8 mg/dL mg/dL (0.5-0.9) GFR Calculation 72.7 mL/min L mL/ min (90-130) Glucose 279 mg/dL H mg/dL (65-115) Calculated Osmolal ity 298 mOsm/kg H mOs m/kg (285-295) Calcium 9.1 mg/dL mg/dL (8.5-10.5) Magnesium 1.9 mg/dL mg/dL (1.7-2.3) Total Bilirubin 0.7 mg/dL mg/dL (0.15-1.2) AST 8 U/L U/L (0-32) ALT 6 U/L U/L (0-33) Alkaline Phosphata se 104 IU/L IU/L (35-105) Total Protein 7.7 g/dL g/dL (6.6-8.7) Albumin 3.9 g/dL g/dL (3.5-5.2) Globulin 3.8 g/dL g/dL (1.3-4.6) Lipase 14 U/L U/L (13-60) Urine Color Yellow (Yellow) Urine Appearance Hazy A (CLEAR) Urine pH 5 (5-7) Ur Specific Gravit y 1.020 (1.005-1.030) Urine Protein 1+ H (Negative) Urine Glucose (UA) 4+ H (Normal) Urine Ketones 3+ H (Negative) Urine Blood 2+ H (Negative) Urine Nitrate Negative (Negative) Urine Bilirubin Neg (Negative) Urine Urobilinogen Norm mg/dL mg/dL (Negative) Ur Leukocyte Colleen ase Trace H (Negative) Urine RBC 5-10 /hpf H /hpf (0-2) Urine WBC 15-25 /hpf H /hpf (0-5) Ur Squamous Epith Cells 0-4 /hpf H /hpf (0-5) Amorphous Sediment Not Reportable Urine Bacteria 2+ /hpf H /hpf (NONE) Discharge Plan Discharge Patient Disposition: Admitted As Inpatient Clinical Impression: UTI (urinary tract infection), Dehydration, At risk for dehydration due to poor fluid intake, Hx of insulin dependent diabetes mellitus Condition: Stable Prescriptions: No Action atorvastatin 10 mg tablet 10 mg PO DAILY Qty: 30 RF: 2 (DME) [employer] Ultra Blue Test Strip Strip See Rx Instructions .ROUTE .MEDSUPPLY Qty: 100 RF: 5 diltiazem HCl 30 mg tablet 30 mg PO BID@08,20 Qty: 60 RF: 2 escitalopram oxalate 20 mg tablet 20 mg PO DAILY@08 Qty: 30 RF: 2 fluticasone propion-salmeterol [Advair Diskus] 500-50 mcg/dose blister with device 1 inh INHALATION BID@08,20 Qty: 60 RF: 2 furosemide 20 mg tablet 20 mg PO BID Qty: 60 RF: 2 metformin 500 mg tablet extended release 24 hr 1,000 mg PO BID Qty: 120 RF: 2 Ozempic 0.25 mg or 0.5 mg(2 mg/1.5 mL) pen injector 0.5 mg SUBCUT .weekly Qty: 1.5 RF: 2 pantoprazole 40 mg tablet,delayed release (DR/EC) 40 mg PO DAILY@08 Qty: 30 RF: 2 Xarelto 2.5 mg tablet 2.5 mg PO BID@08,20 Qty: 60 RF: 2 celecoxib [Celebrex] 200 mg capsule 200 mg PO DAILY Qty: 30 RF: 0 cyclobenzaprine 10 mg tablet 10 mg PO TID PRN (Reason: muscle spasm) Qty: 60 RF: 0 (DME) lancets [OneTouch Delica Lancets] 33 gauge misc See Rx Instructions .ROUTE .MEDSUPPLY Qty: 100 RF: 0 insulin aspart U-100 [Novolog Flexpen U-100 Insulin] 100 unit/mL (3 mL) insulin pen 6 - 30 unit SUBCUT TID Qty: 15 RF: 1 Levemir FlexTouch U-100 Insuln 100 unit/mL (3 mL) insulin pen 40 unit SUBCUT QAM Qty: 15 RF: 2 (DME) pen needle, diabetic 33 gauge x 5/32 needle See Rx Instructions .ROUTE .MEDSUPPLY Qty: 100 RF: 5 (DME) lancing device with lancets [OneTouch Delica Lanc Device] Kit See Rx Instructions .ROUTE .MEDSUPPLY Qty: 1 RF: 1 (DME) blood-glucose meter Kit See Rx Instructions .ROUTE .MEDSUPPLY Qty: 1 RF: 0 aspirin 81 mg tablet,delayed release (DR/EC) 81 mg PO BID@08,20 Qty: 60 RF: 0 hydrocodone-acetaminophen 5-325 mg tablet 1 tab PO Q6H PRN (Reason: pain) Qty: 10 RF: 0 ProAir HFA 90 mcg/actuation Hfa Aerosol Inhaler 2 puff INHALATION Q4H PRN (Reason: Shortness Of Breath) RF: 0 promethazine 25 mg tablet 25 mg PO TID PRN (Reason: nausea and vomiting) Qty: 14 RF: 0 nitroglycerin 0.4 mg Tablet, Sublingual 0.4 mg SUBLINGUAL Q5M PRN (Reason: Chest Pain) RF: 0 ondansetron 4 mg tablet,disintegrating 4 mg PO Q6H PRN (Reason: nausea and vomiting) Qty: 14 RF: 0 Referrals: Alondra Ham, VICE PRESIDENT OF SOFTWARE ENGINEERING-C [Primary Care Provider] - Patient Instructions: Opioid Safety Coding Level of Care Code ED Production Sound Mixer for Chg Fwd Exam Comprehensive
[2021-07-18 14:52] LABS: Alanine Aminotransferase 6 U/L (0-33); Albumin Level 3.9 g/dL (3.5-5.2); Alkaline Phosphatase 104 IU/L (35-105); Anion Gap 28.8 (5-19); Aspartate Amino Transferase 8 U/L (0-32); Blood Urea Nitrogen 24 mg/dL (8-23); Calcium 9.1 mg/dL (8.5-10.5); Carbon Dioxide 21 mmol/L (22-29); Chloride 92 mmol/L (98-107); Globulin 3.8 g/dL (1.3-4.6); Glomerular Filtration Rate 72.7 mL/min (90-130); Glucose 279 mg/dL (65-115); Lipase 14 U/L (13-60); Magnesium 1.9 mg/dL (1.7-2.3); Osmolality Calculated 298 mOsm/kg (285-295); Potassium 4.8 mmol/L (3.5-5.1); Sodium 137 mmol/L (136-145); Total Bilirubin 0.7 mg/dL (0.15-1.2); Total Protein 7.7 g/dL (6.6-8.7)
[2021-07-18 14:54] LABS: Glucose Urine UA 4+ (Normal); Protein Urine 1+ (Negative); Urine Appearance Hazy (CLEAR); Urine Color Yellow (Yellow); pH Urine 5 (5-7)
[2021-07-18 14:55] LABS: Add Urine Microscopic? YES; Bilirubin Urine Neg (Negative); Blood Urine 2+ (Negative); Ketones Urine 3+ (Negative); Leukocyte Esterase Urine Trace (Negative); Nitrate Urine Negative (Negative); Urobilinogen Urine Norm (Negative)
[2021-07-18 14:56] LABS: Squamous Epithelial Cell Urine 0-4 /hpf (0-5); WBC Urine 15-25 /hpf (0-5)
[2021-07-18 14:57] LABS: Add Urine Culture? Yes; Bacteria Urine 2+ /hpf
[2021-07-18] MEDS: cefTRIAXone 1,000 MG in sodium chloride 0.9% (plus) 50 ML 100 MG IV (15:32)
[2021-07-18] MEDS: ondansetron 2 mg/ML SDV 2 mL 4 MG IVP (15:33)
[2021-07-18 15:59] VITALS: BP 161/85; PULSE 90; RESP 16; O2SAT 92
[2021-07-18] MEDS: acetaminophen 500 mg Tablet 1000 MG PO (18:16)
[2021-07-18 19:32] VITALS: BP 150/87; PULSE 85; RESP 19
--- NOTE | 2021-07-18 19:45 | CTR_ITS ---
PROCEDURE INFORMATION: Exam: CT Head Without Contrast Exam date and time: 07/18/2021 7:45 PM Age: 60 years old Clinical indication: Injury or trauma; Fall; Blunt trauma (contusions or hematomas); Patient HX: Patient fell four days ago sustaining blow to occiput. C/O headache with n/v. ; Additional info: Fell/ headache TECHNIQUE: Imaging protocol: Computed tomography of the head without contrast. Radiation optimization: All CT scans at this facility use at least one of these dose optimization techniques: automated exposure control; mA and/or kV adjustment per patient size (includes targeted exams where dose is matched to clinical indication); or iterative reconstruction. COMPARISON: CT head wo con* [id number] 10/31/2020 4:27 PM RADIATION DOSE METRICS: Total DLP (mGy-cm): 784.15 FINDINGS: Brain: There is mild cerebral atrophy. No hemorrhage. Unremarkable white matter. No mass effect. Cerebral ventricles: No ventriculomegaly. Paranasal sinuses: Visualized sinuses are unremarkable. No fluid levels. Mastoid air cells: Visualized mastoid air cells are well aerated. Bones/joints: Unremarkable. No acute fracture. Soft tissues: Unremarkable. CT/CT head wo con* [id number] IMPRESSION: No acute intracranial abnormality.
[2021-07-18 20:00] VITALS: BP 135/55; PULSE 83; RESP 19; TEMP 37.1; O2SAT 95
[2021-07-18 20:20] VITALS: BMI 26.8
[2021-07-18 21:16] LABS: Glucose Point of Care 201 mg/dL (70-110)
--- NOTE | 2021-07-18 22:39 | PM.HP ---
Providers/Chief Complaint Admitting Physician: Jorge Neal MD Primary Care Provider: [facility] Chief Complaint: N/V History of Present Illness Shea Simon is a 60 year old female with PMH DM, non compliant with insulin treatment, remote h/o DVT, COPD p/w 2-3 days of nausea, vomiting and upper abdomial pain mainly located in the epigastric region. No c/o diarrhea.Passing flatus. No hematemesis. Reports she has been unable to keep down po intake since last ER visit on 07/15 for the same reason. No past h/o pancreatitis. No sick contacts. Reports dysuria and subjective chills, currently afebrile since admission. Review of Systems General: Reports: 10 or more systems reviewed and unremarkable except in HPI and below Const: Denies: fever(s), chills or body aches Eyes: Denies: change in vision, blurry vision or photophobia ENMT: Reports: hoarseness; Denies: throat pain, enlarged tonsils, odynophagia or nasal congestion Card: Denies: chest pain, palpitations, irregular heart rhythm, edema, swelling of feet/ankles, lightheadedness, pre-syncope, dyspnea on exertion or orthopnea Resp: Denies: dyspnea, productive cough, non-productive cough, wheezing, stridor, pain on inspiration, change in phlegm color, hemoptysis or chest congestion GI: Denies: abdominal pain, nausea, vomiting, hematemesis, coffee ground emesis, dysphagia, heartburn, diarrhea, constipation, GI cramping, change in stool character, hematochezia or melena : Denies: flank pain, difficulty voiding, dysuria, urinary frequency, urinary urgency, urinary hesitancy or hematuria Musc: Denies: neck pain, back pain, extremity pain, joint swelling, joint warmth or deformity Neuro: Denies: headache(s), numbness in extremities, weakness in extremities, sensory changes, difficulty walking, frequent falls, dizziness, vertigo, behavioral changes, Slurred speech present or seizure-like activity Psych: Denies: anxiety, depression, suicidal ideation or homicidal ideation Endo: Denies: polyuria, polydipsia, tired all the time, cold intolerance or hot flashes Bhavin/Lymph: Denies: easy bruising or easy bleeding Medications/Allergies Home Medications Medication Instructions Recorded Confirmed Last Taken Type nitroglycerin 0.4 mg SUBLINGUAL Q5M PRN 09/25/19 07/18/21 09/25/19 History lancets 33 gauge #100 each 02/18/20 07/18/21 Unknown Rx lancing device with lancets kit #1 each 02/21/20 07/18/21 Unknown Rx pen needle, diabetic 33 gauge x #100 each 02/21/20 07/18/21 Unknown Rx /32 blood-glucose meter #1 each 02/24/20 07/18/21 Unknown Rx ondansetron 4 mg PO Q6H PRN #14 tab 07/28/20 07/18/21 09/08/20 Rx hydrocodone-acetaminophen 1 tab PO Q6H PRN #10 tab 09/08/20 07/18/21 09/22/20 Rx albuterol sulfate [ProAir HFA] 2 puff INHALATION Q4H PRN 09/24/20 07/18/21 Unknown History insulin aspart U-100 100 unit/mL 6 - 30 unit SUBCUT TID #15 ml 12/08/20 07/18/21 07/17/21 Rx (3 mL) subcutaneous pen insulin detemir U-100 100 unit/mL 40 unit SUBCUT QAM #15 ml 12/08/20 07/18/21 07/17/21 Rx (3 mL) subcutaneous pen atorvastatin 10 mg tablet 10 mg PO DAILY #30 tab 03/18/21 07/18/21 07/16/21 Rx blood sugar diagnostic #100 each 03/18/21 07/18/21 Unknown Rx diltiazem HCl 30 mg tablet 30 mg PO BID@ #60 tab 03/18/21 07/18/21 07/16/21 Rx escitalopram oxalate 20 mg tablet 20 mg PO DAILY@08 #30 tab 03/18/21 07/18/21 07/16/21 Rx fluticasone 500 mcg-salmeterol 50 1 inh INHALATION BID@ #60 ea 03/18/21 07/18/21 07/17/21 Rx mcg/dose blistr powdr for inhalation furosemide 20 mg tablet 20 mg PO BID #60 tab 03/18/21 07/18/21 07/16/21 Rx metformin 500 mg tablet,extended 1,000 mg PO BID #120 tab 03/18/21 07/18/21 07/17/21 Rx release 24 hr pantoprazole 40 mg tablet,delayed 40 mg PO DAILY@08 #30 tab 03/18/21 07/18/21 07/17/21 Rx release rivaroxaban 2.5 mg tablet 2.5 mg PO BID@08,20 #60 tab 03/18/21 07/18/21 07/17/21 Rx aspirin 81 mg tablet,delayed 81 mg PO BID@08,20 #60 tab 05/15/21 07/18/21 07/16/21 Rx release cyclobenzaprine 10 mg tablet 10 mg PO TID PRN #60 tab 06/22/21 07/18/21 Unknown Rx promethazine 25 mg PO TID PRN #14 tab 07/16/21 07/18/21 Unknown Rx semaglutide [Ozempic] 0.5 mg SUBCUT Q7D 07/18/21 07/18/21 07/12/21 History tizanidine 2 mg PO BID PRN 07/18/21 07/18/21 Unknown History Allergies Allergy/AdvReac Type Severity Reaction Status Date / Time No Known Allergies Allergy Verified 06/22/21 09:29 PFSH Acute PFSH: Medical History Chest pain Diabetes mellitus with hyperglycemia Diastolic congestive heart failure Gallbladder anomaly Generalized anxiety disorder GERD (gastroesophageal reflux disease) H/O deep venous thrombosis History of DVT of lower extremity Left leg 06/2019 History of skin cancer Basal cell carcinoma on back 2007 HTN (hypertension) Insomnia, unspecified Noncompliance with dietary restriction Noncompliance with medication regimen Tremor, unspecified Unspecified urinary incontinence Vitamin B12 deficiency Surgical History H/O left breast biopsy Benign 2016 History of thoracentesis X 2 for traumatic effusion History of tonsillectomy Hx of colonoscopy Hx of tubal ligation / incidental appendectomy 1981 Status post surgical removal of malignant neoplasm of skin Basal cell carcinoma on back 2007 Family History Mother Cancer Unknown type Father Cancer Lung CA Son Gallbladder disease Other Hypertension Denies family history of Clotting disorder Social History Quit status (tobacco): has quit using tobacco Former quit date comment: Patient smoked 2 packs of cigarettes a day for 25 years Second hand smoke exposure: No Smoking risk assessment/counseling performed?: No Alcohol intake: never Desire information about alcohol rehabilitation?: No Counseling given: No Desire information about substance/drug rehabilitation?: No Counseling given: No Adopted: No Caregiver/support person: No Lives independently: Yes Household members: spouse and children Marital status: service: No Current occupational status: unemployed History of recent travel: No Current gender identity: Female Vitals/I&O/Wt Last Vital Signs Temp 98.8 F 07/18/21 20:00 Pulse 83 07/18/21 20:00 Resp 19 H 07/18/21 20:00 BP 135/55 07/18/21 20:00 Pulse Ox 95 07/18/21 20:00 07/18/21 07/18/21 07/18/21 06:59 14:59 22:59 Intake Total 2049 Balance 2049 Weight last 48 hrs Weight 82.327 kg Weight 86.183 kg Physical Exam Narrative: EXAM NARRATIVE: General: No acute distress, mild dehydration HEENT: PERRLA, pupils bilaterally equal and reactive, pallors not present Chest: Normal vesicular breath sounds, no added sounds, equal good air entry bilaterally CVS: S1-S2 regular, no murmurs, no tachycardia, no gallops, no rubs Abdomen: Soft, non distended, mildy tender to palpation Neuro: No focal deficits, no facial deformity, AO x3, power 5/5 in all limbs Data : 07/18/21 14:05 07/18/21 14:05 A&P Assessment and plan (1) Gastroenteritis: Status: Acute (2) UTI (urinary tract infection): Status: Acute Qualifiers: Hematuria presence: with hematuria Urinary tract infection type: site unspecified Qualified Code(s): N39.0 - Urinary tract infection, site not specified; R31.9 - Hematuria, unspecified (3) Dehydration: Status: Acute (4) Hx of insulin dependent diabetes mellitus: Status: Acute Additional A&P Information Patient p/w 2-3 days of intractable nausea, vomiting and mild dehydration with poor po intake Symptoms may be 2/2 viral gatsroenteritis No reported diarrhea check COVID PCR IVF NS @ 75 cc/hr, gentle iv hydration given past h/o reported CHF, echo from 2020 with 69% EF, gr 1 diastolic dysfunction. Prn zofran for nausea control Blood sugar at 289, + anion gap, ? findings related to mild DKA vs dehydration, started on high dose insulin sliding scale, given first dose now. Repeat fingerstick in one hour, CMP at 4AM. Check Hba1c Abdominal imaging given persistent symptoms Lipase negative Past h/o GB polyps vs stone-LFTs currently normal iv ceftraixone 1g q24h for UTI, pending urine cx DVT ppx: On Xarelto for DVT ppx per patient and home medication list however dosing appears to be odd at 2.5mg po BID. WIll need to confirm with pharmacy prior to resuming Full code Attestations Medical Necessity Statement*: Admit in observation, anticipate less than 2 midnight admission for management of dehydration, intractable nausea with poor po intake , abx for UTI Coding Level of Care Code Acute [facility] for [facility] Fwd Diagnoses Gastroenteritis K52.9 UTI (urinary tract infection) N39.0; R31.9 Hematuria presence: with hematuria Urinary tract infection type: site unspecified Dehydration E86.0 Hx of insulin dependent diabetes mellitus Z86.39
[2021-07-18] MEDS: sodium chloride 0.9% 1,000 ML 75 ML IV (23:16)
[2021-07-18 23:41] LABS: Troponin T (5th) Once 13 ng/L (0-10)
[2021-07-18] MEDS: insulin lispro 100 unit/1 mL SUBCUT (23:44)
[2021-07-18 23:51] LABS: T3 Free 1.2 PG/ML (2.0-4.4)
[2021-07-19] VITALS (9 sets, daily range): BP systolic 97–159; BP diastolic 60–98; PULSE 71–90; RESP 16–18; TEMP 36.4–37.1; O2SAT 90–100
[2021-07-19 00:16] LABS: Adenovirus Not Detected (NOT DETECT); Chlamydia Pneumoniae Not Detected (NOT DETECT); Coronavirus 229E,HKU1,NL63,OC4 Not Detected (NOT DETECT); Human Metapneumovirus Not Detected (NOT DETECT); Human Rhinovirus/Enterovirus Not Detected (NOT DETECT); Influenza A Not Detected (NOT DETECT); Influenza A H1 Not Detected (NOT DETECT); Influenza A H1-2009 Not Detected (NOT DETECT); Influenza A H3 Not Detected (NOT DETECT); Influenza B Not Detected (NOT DETECT); Mycoplasma Pneumoniae Not Detected (NOT DETECT); Parainfluenza Virus Type 1 Not Detected (NOT DETECT); Parainfluenza Virus Type 2 Not Detected (NOT DETECT); Parainfluenza Virus Type 3 Not Detected (NOT DETECT); Parainfluenza Virus Type 4 Not Detected (NOT DETECT); Respiratory Syncytial Virus A Not Detected (NOT DETECT); Respiratory Syncytial Virus B Not Detected (NOT DETECT); SARS-COV-2 Not Detected (NOT DETECT)
--- NOTE | 2021-07-19 06:13 | CTR_ITS ---
PROCEDURE INFORMATION: Exam: CT Abdomen Without Contrast Exam date and time: 07/19/2021 6:13 AM Age: 60 years old Clinical indication: Abdominal pain; Additional info: Intractable nausea, vomiting TECHNIQUE: Imaging protocol: Computed tomography images of the abdomen without contrast. Radiation optimization: All CT scans at this facility use at least one of these dose optimization techniques: automated exposure control; mA and/or kV adjustment per patient size (includes targeted exams where dose is matched to clinical indication); or iterative reconstruction. COMPARISON: CT abdomen pelvis w con* [id number] 09/24/2020 9:53 PM RADIATION DOSE METRICS: Total DLP (mGy-cm): 1180.41 FINDINGS: Liver: Unremarkable. Gallbladder and bile ducts: Unremarkable. Pancreas: Unremarkable. Spleen: Many calcified granulomata scattered in the spleen. Adrenals: The right adrenal gland is unremarkable. There is a 2.7 cm x 2.1 cm nodule in the left adrenal gland on series 2, image 23 with density 14 Hounsfield units. This is consistent with an adenoma. No follow-up imaging suggested. Kidneys and ureters: Unremarkable. No renal stones identified. No hydronephrosis identified. Stomach and bowel: Visualized stomach and bowel are unremarkable. No obstruction. No mucosal thickening. Intraperitoneal space: Unremarkable. No free air. No significant fluid collection. Lymph nodes: Unremarkable. No enlarged lymph nodes. Vasculature: No abdominal aortic aneurysm. Bones/joints: Mild degenerative changes of the lumbar spine. Soft tissues: Unremarkable. CT/CT abdomen wo con [id number] IMPRESSION: 1. Left adrenal adenoma.
[2021-07-19 06:47] LABS: Glucose Point of Care 184 mg/dL (70-110)
[2021-07-19] MEDS: atorvastatin 40 mg Tablet 10 MG PO (07:47)
[2021-07-19] MEDS: dilTIAZem 30 mg Tablet PO ×2 (07:47→22:17)
[2021-07-19] MEDS: aspirin 81 mg EC Tablet PO ×2 (07:47→22:11)
[2021-07-19] MEDS: escitalopram 10 mg Tablet 20 MG PO (07:47)
[2021-07-19] MEDS: pantoprazole DR 40 mg Tablet PO ×2 (07:47→17:18)
[2021-07-19] MEDS: insulin lispro 100 unit/1 mL SUBCUT ×3 (07:48→22:12)
[2021-07-19 07:49] LABS: Estmated Average Glucose 427; Hemoglobin A1C 16.5 % (4.0-6.0)
[2021-07-19] MEDS: promethazine 25 mg Tablet PO ×2 (07:52→22:45)
[2021-07-19 07:55] LABS: Alanine Aminotransferase < 5 U/L (0-33); Albumin Level 3.3 g/dL (3.5-5.2); Alkaline Phosphatase 86 IU/L (35-105); Aspartate Amino Transferase 9 U/L (0-32); Blood Urea Nitrogen 16 mg/dL (8-23); Calcium 8.1 mg/dL (8.5-10.5); Carbon Dioxide 19 mmol/L (22-29); Chloride 99 mmol/L (98-107); Globulin 3.2 g/dL (1.3-4.6); Glomerular Filtration Rate 101.3 mL/min (90-130); Glucose 169 mg/dL (65-115); Osmolality Calculated 287 mOsm/kg (285-295); Sodium 136 mmol/L (136-145); Total Bilirubin 0.6 mg/dL (0.15-1.2); Total Protein 6.5 g/dL (6.6-8.7)
[2021-07-19 08:01] LABS: Free T4 Free Thyroxine 1.13 ng/dL (0.82-1.77); Thyroid Stimulating Hormone 1.86 uIU/mL (0.27-4.20)
[2021-07-19 08:05] LABS: Basophils % 0.5 %; Eosinophils # 0.1 10^3/uL (0.0-0.8); Hematocrit 42.8 % (37.0-47.0); Hemoglobin 14.1 g/dL (11.5-15.3); Lymphocytes # 1.3 10^3/uL (0.8-4.8); Lymphocytes % 21.5 %; Mean Corpuscular HGB Conc 32.9 g/dL (30.0-36.0); Mean Corpuscular Hemoglobin 29.1 pg (28.0-34.0); Mean Corpuscular Volume 88.4 fl (81-99); Mean Platelet Volume 10.2 fL (7.4-10.4); Monocytes # 0.6 10^3/uL (0.2-0.9); Monocytes % 9.4 %; Neutrophils # 4.02 10^3/uL (1.8-7.7); Neutrophils % 66.4 %; Nucleated Red Blood Cells % 0 %; Platelet Count 229 10^3/cmm (130-400); Red Blood Count 4.84 10^6/uL (4.1-5.3); Red Cell Distribution Width 12.7 % (12.1-15.1); White Blood Count 6.1 10^3/uL (4.0-10.0)
[2021-07-19] MEDS: metformin XR 500 MG Tablet 1000 MG PO ×2 (09:36→17:18)
--- NOTE | 2021-07-19 10:37 | PC.CHAP ---
Pastoral Care Encounter/Spiritual Assessment Type of Contact [] Declined cabin service agent visit [] Patient/Family/Request visit [] Outpatient visit [] Follow-up visit [] Physician referral [] Code/Alert [x] Routine visit [] Staff referral [] Actively dying [x] Patient sleeping [] Family support [] [] Out of room [] Palliative care [] [] Receiving care in room [] Pre-surgical visit [] Trauma [] Long length of stay [] ICU visit [] Other: Relational/Emotional Strength [] Patient feels connected with others/family/visitors/staff [] Distress [] Loneliness/isolation [] Abandonment Spirituality of Patient [] Person of [place] [] Attends Faith of their [place] [] Believes in Prayer [] Reads Bible or Episcopalian materials [] There are Spiritual issues to be addressed Pie Icer Machine Interventions [] Prayer [] Active listening [] Non-anxious presence [] Spiritual/emotional support [] Crisis/trauma care [] Spiritual counseling [] Bereavement support [] Provided bereavement packet [] Provided Bible/devotional materials [] Provided toy/stuffed animal, coloring book to patient or family member [] Provided Communion [] Anointing/[place] [] Salvation [] Completed spiritual assessment [] Other: Impact on Illness or Injury [] Angry [] Fearful [] Anxious [] Often cries [] Exhaustion [] Unable to work [] Unable to attend anabaptist [] Unable to walk/stand [] Unable to read [] Unable to drive [] Unable to eat/drink [] Unable to sleep [] Unable to be with family [] Patient intubated [] Other: Summary Time spent with patient
[2021-07-19 11:40] LABS: Glucose Point of Care 157 mg/dL (70-110)
[2021-07-19] MEDS: ondansetron 2 mg/ML SDV 2 mL 4 MG IVP (12:30)
[2021-07-19] MEDS: sodium chloride 0.9% 1,000 ML 75 ML IV (12:33)
[2021-07-19] MEDS: HYDROcodone-acetaminophen 5-325 mg Tablet 1 TAB PO (14:10)
[2021-07-19] MEDS: cefTRIAXone 1,000 MG in sodium chloride 0.9% (plus) 50 ML 100 MG IV (15:02)
[2021-07-19 17:06] LABS: Glucose Point of Care 132 mg/dL (70-110)
--- NOTE | 2021-07-19 19:38 | PM.PN ---
Subjective Subjective: Interval history: Complains of persistent nausea. Reports not tolerating oral intake. Upper abdominal discomfort. Vitals/I&O/Wt Last Vital Signs Temp 98.1 F 07/19/21 16:00 Pulse 86 07/19/21 16:00 Resp 16 07/19/21 16:00 BP 149/98 07/19/21 16:00 Pulse Ox 90 07/19/21 16:00 07/19/21 07/19/21 07/19/21 06:59 14:59 22:59 Intake Total 900 / 2950 1396.25 / 1396.25 770 / 2166.25 Output Total 300 / 300 Balance 600 / 2650 1396.25 / 1396.25 770 / 2166.25 Weight last 48 hrs Weight 82.599 kg Weight 82.327 kg Weight 86.183 kg Physical Exam Const: COMMON NORMALS: no acute distress, patient oriented x3 and alert GENERAL APPEARANCE: not comfortable ORIENTATION/CONSCIOUSNESS: Yes awake HENMT: COMMON NORMALS: oropharynx normal Neck/C-Spine: COMMON NORMALS: no JVD Resp: COMMON NORMALS: normal respiratory effort and clear to auscultation bilaterally AUSCULTATION: clear to auscultation bilaterally Cardio: COMMON NORMALS: no JVD, regular rhythm, S1 normal heart sound present, S2 normal heart sound present and No murmurs present (Cardio) RHYTHM: regular rhythm HEART SOUNDS: S1 normal heart sound present and S2 normal heart sound present GI: COMMON NORMALS: Normal to inspection, nondistended, normoactive bowel sounds present and Soft to palpation PALPATION: Yes Soft to palpation OTHER: Upper abdominal tenderness Extremity: COMMON NORMALS: no joint enlargement and no pedal edema Neuro: COMMON NORMALS: patient oriented x3 and moves all extremities SENSORIUM/ORIENTATION: Yes alert Skin: COMMON NORMALS: no rashes or lesions noted GENERAL SKIN EXAM: no rashes or lesions noted Data : 07/19/21 07:00 07/19/21 07:00 Micro: Microbiology 07/18/21 14:00 Urine Culture - Preliminary Urine,Clean Catch A&P Assessment and plan (1) Gastroenteritis: Persistent nausea, reports very minimal if any oral intake. Increase PPI dose to twice daily 40 mg Protonix. Negative COVID-19 PCR. Zofran for nausea. Status: Acute (2) UTI (urinary tract infection): Continue take antibiotic. Urine culture unrevealing. So far 50-60,000 of more than 3 types of gram-negative rods. Probable contaminants. Status: Acute Qualifiers: Hematuria presence: with hematuria Urinary tract infection type: site unspecified Qualified Code(s): N39.0 - Urinary tract infection, site not specified; R31.9 - Hematuria, unspecified (3) Dehydration: Continue gentle IV hydration. Status: Acute (4) Hx of insulin dependent diabetes mellitus: Status: Acute Additional A&P Information Urine ketones, possibly secondary to starvation. Check VBG. Anion gap is elevated, however. May have mixed picture also with metabolic alkalosis secondary to dehydration, poor oral intake. Continue insulin. DVT ppx: On Xarelto for DVT ppx per patient and home medication list however dosing appears to be odd at 2.5mg po BID. WIll need to confirm with pharmacy prior to resuming. Lovenox for now. Full code Attestations Medical Necessity Statement*: Continue admission for assessment persistent nausea, poor oral intake, dehydration, UTI, additional assessment of possible mixed acid-base disorder with positive urine ketones. Coding Level of Care Code Acute Block Cutter for g Fwd Diagnoses Gastroenteritis K52.9 UTI (urinary tract infection) N39.0; R31.9 Hematuria presence: with hematuria Urinary tract infection type: site unspecified Dehydration E86.0 Hx of insulin dependent diabetes mellitus Z86.39
--- NOTE | 2021-07-19 20:14 | PC.NURSE ---
i reported low temp 97.5 to nurse
[2021-07-19 21:21] LABS: Base Excess VBG 2.8 mmol/L (-3.0-3.0); Blood Gas Sample Site Not specified; Blood Gas Sample Type Venous; Oxygen Device ROOM AIR; PCO2 VBG 43.8 mmHg (41-51); PO2 VBG 29.3 mmHg (25-40); Venous Blood Gas Hematocrit 43.9 % (37-47); pH VBG 7.41 (7.32-7.42)
[2021-07-19 21:36] LABS: Lactate (Lactic Acid level) 0.9 mmol/L (0.5-2.2)
[2021-07-19] MEDS: enoxaparin 40 mg/0.4 mL Syringe SUBCUT (22:11)
[2021-07-20] VITALS (9 sets, daily range): BP systolic 93–108; BP diastolic 58–74; PULSE 67–87; RESP 16–18; TEMP 36.5–36.8; O2SAT 88–95
[2021-07-20] MEDS: ondansetron 2 mg/ML SDV 2 mL 4 MG IVP ×3 (05:15→22:23)
[2021-07-20] MEDS: sodium chloride 0.9% 1,000 ML 75 ML IV ×2 (05:15→17:45)
[2021-07-20] MEDS: HYDROcodone-acetaminophen 5-325 mg Tablet 1 TAB PO ×2 (05:25→12:06)
[2021-07-20 06:05] LABS: Basophils % 0.4 %; Eosinophils # 0.1 10^3/uL (0.0-0.8); Hematocrit 42.7 % (37.0-47.0); Hemoglobin 13.8 g/dL (11.5-15.3); Lymphocytes # 1.2 10^3/uL (0.8-4.8); Mean Corpuscular HGB Conc 32.3 g/dL (30.0-36.0); Mean Corpuscular Hemoglobin 28.5 pg (28.0-34.0); Mean Platelet Volume 11.5 fL (7.4-10.4); Monocytes # 0.5 10^3/uL (0.2-0.9); Monocytes % 10.4 %; Neutrophils # 2.87 10^3/uL (1.8-7.7); Neutrophils % 60.8 %; Nucleated Red Blood Cells % 0 %; Platelet Count 232 10^3/cmm (130-400); Red Blood Count 4.85 10^6/uL (4.1-5.3); Red Cell Distribution Width 12.6 % (12.1-15.1); White Blood Count 4.7 10^3/uL (4.0-10.0)
[2021-07-20 06:45] LABS: Glucose Point of Care 188 mg/dL (70-110)
[2021-07-20] MEDS: atorvastatin 40 mg Tablet 10 MG PO (08:45)
[2021-07-20] MEDS: insulin lispro 100 unit/1 mL SUBCUT ×3 (08:46→20:32)
[2021-07-20] MEDS: pantoprazole DR 40 mg Tablet PO ×2 (08:46→17:45)
[2021-07-20] MEDS: dilTIAZem 30 mg Tablet PO ×2 (08:46→20:32)
[2021-07-20] MEDS: aspirin 81 mg EC Tablet PO ×2 (08:46→20:32)
[2021-07-20] MEDS: escitalopram 10 mg Tablet 20 MG PO (08:46)
[2021-07-20 08:49] LABS: Anion Gap 18.5 (5-19); Blood Urea Nitrogen 13 mg/dL (8-23); Calcium 8.1 mg/dL (8.5-10.5); Carbon Dioxide 25 mmol/L (22-29); Chloride 97 mmol/L (98-107); Glomerular Filtration Rate 101.3 mL/min (90-130); Glucose 189 mg/dL (65-115); Osmolality Calculated 289 mOsm/kg (285-295); Potassium 3.5 mmol/L (3.5-5.1); Sodium 137 mmol/L (136-145)
[2021-07-20] MEDS: metformin XR 500 MG Tablet 1000 MG PO ×2 (08:49→17:44)
[2021-07-20 11:00] LABS: Glucose Point of Care 264 mg/dL (70-110)
[2021-07-20] MEDS: cefTRIAXone 1,000 MG in sodium chloride 0.9% (plus) 50 ML 100 MG IV (14:39)
[2021-07-20 14:52] LABS: Creatine Phosphokinase 28 U/L (26-192)
[2021-07-20 17:16] LABS: Glucose Point of Care 124 mg/dL (70-110)
--- NOTE | 2021-07-20 19:35 | PM.PN ---
Subjective Subjective: Interval history: Says that she continues to feel unwell with upper abdominal discomfort, cannot tolerate any oral intake, ate only a few bites of her meals today. Denies diarrhea. Vitals/I&O/Wt Last Vital Signs Temp 98.0 F 07/20/21 15:48 Pulse 67 07/20/21 15:48 Resp 16 07/20/21 15:48 BP 104/71 07/20/21 15:48 Pulse Ox 94 07/20/21 15:48 07/20/21 07/20/21 07/20/21 06:59 14:59 22:59 Intake Total 1480 / 3886.25 360 / 360 1347.5 / 1707.5 Balance 1480 / 3886.25 360 / 360 1347.5 / 1707.5 Weight last 48 hrs Weight 82.599 kg Weight 82.327 kg Physical Exam Const: COMMON NORMALS: no acute distress, patient oriented x3 and alert GENERAL APPEARANCE: not comfortable ORIENTATION/CONSCIOUSNESS: Yes awake HENMT: COMMON NORMALS: oropharynx normal Neck/C-Spine: COMMON NORMALS: no JVD Resp: COMMON NORMALS: normal respiratory effort and clear to auscultation bilaterally AUSCULTATION: clear to auscultation bilaterally Cardio: COMMON NORMALS: no JVD, regular rhythm, S1 normal heart sound present, S2 normal heart sound present and No murmurs present (Cardio) RHYTHM: regular rhythm HEART SOUNDS: S1 normal heart sound present and S2 normal heart sound present GI: COMMON NORMALS: Normal to inspection, nondistended, normoactive bowel sounds present and Soft to palpation PALPATION: Yes Soft to palpation OTHER: LLQ tender on palpation Extremity: COMMON NORMALS: no joint enlargement and no pedal edema Neuro: COMMON NORMALS: patient oriented x3 and moves all extremities SENSORIUM/ORIENTATION: Yes alert Skin: COMMON NORMALS: no rashes or lesions noted GENERAL SKIN EXAM: no rashes or lesions noted Data : 07/20/21 05:06 07/20/21 08:07 Micro: Microbiology 07/18/21 14:00 Urine Culture - Final Urine,Clean Catch A&P Assessment and plan (1) Gastroenteritis: Again cannot eat, persistent abdominal discomfort. Points to the upper abdomen. On palpation tender left lower quadrant. Discussed with her results of CT scan. On review of recent admission in August 2019, discussed with her at that time had hypertensive work-up with finding of esophageal dysmotility as well as biliary polyp noted on imaging, although during evaluation this was not thought to be contributing to the way of her discomfort, for which she was referred for follow-up with surgery for reevaluation and to set up endoscopic evaluation patient states she did not follow-up. She states she still would be willing to undergo the evaluation. At this time continue increased dose of Protonix. We will also add sucralfate given likely gastritis, esophagitis as this is a common issue with esophageal dysmotility. She is already on calcium channel julian. Continue. Will reevaluate abdomen again in the morning. Has just had an unremarkable CT, but in case of persistent pain/discomfort discussed with her consideration repeat study with contrast. Lactic acid was normal. Lipase was normal. No diarrhea. Negative COVID-19 PCR. Zofran for nausea. Status: Acute (2) UTI (urinary tract infection): Continue empiric Rocephin. Discussed with her urine culture unrevealing. So far 50-60,000 of more than 3 types of gram-negative rods. Probable contaminants. Status: Acute Qualifiers: Hematuria presence: with hematuria Urinary tract infection type: site unspecified Qualified Code(s): N39.0 - Urinary tract infection, site not specified; R31.9 - Hematuria, unspecified (3) Dehydration: Continue gentle IV hydration. Status: Acute (4) Hx of insulin dependent diabetes mellitus: Status: Acute Additional A&P Information Urine ketones, possibly secondary to starvation. Unremarkable VBG. Anion gap is elevated, however improved. May have mixed picture also with metabolic alkalosis secondary to dehydration, poor oral intake. Lactic acid normal. Continue insulin. DVT ppx: On Xarelto for DVT ppx per patient and home medication list however dosing appears to be odd at 2.5mg po BID. WIll need to confirm with pharmacy prior to resuming. Lovenox for now. Full code Attestations Medical Necessity Statement*: Continue admission for assessment management of persistent abdominal discomfort, with poor oral intake, dehydration, and optimization of control of gastritis/esophagitis. Coding Level of Care Code Acute [employer] for g Fwd Diagnoses Gastroenteritis K52.9 UTI (urinary tract infection) N39.0; R31.9 Hematuria presence: with hematuria Urinary tract infection type: site unspecified Dehydration E86.0 Hx of insulin dependent diabetes mellitus Z86.39
--- NOTE | 2021-07-20 20:23 | PC.NURSE ---
i reported low o2 88 to nurse
[2021-07-20 20:27] LABS: Glucose Point of Care 238 mg/dL (70-110)
[2021-07-20] MEDS: enoxaparin 40 mg/0.4 mL Syringe SUBCUT (20:32)
[2021-07-20] MEDS: sucralfate 1 gm/10 mL Oral Liq UDC PO (20:33)
[2021-07-21] MEDS: HYDROcodone-acetaminophen 5-325 mg Tablet 1 TAB PO (00:08)
[2021-07-21] MEDS: promethazine 25 mg Tablet PO (00:08)
[2021-07-21 04:00] VITALS: BP 112/73; PULSE 79; RESP 17; TEMP 36.9; O2SAT 95
[2021-07-21 06:09] LABS: Basophils % 0.6 %; Eosinophils # 0.2 10^3/uL (0.0-0.8); Eosinophils % 3.8 %; Hematocrit 40.3 % (37.0-47.0); Lymphocytes % 19.6 %; Mean Corpuscular HGB Conc 32.3 g/dL (30.0-36.0); Mean Corpuscular Hemoglobin 29.1 pg (28.0-34.0); Mean Corpuscular Volume 90.2 fl (81-99); Mean Platelet Volume 9.9 fL (7.4-10.4); Monocytes # 0.5 10^3/uL (0.2-0.9); Monocytes % 10.6 %; Neutrophils # 3.24 10^3/uL (1.8-7.7); Neutrophils % 64.8 %; Nucleated Red Blood Cells % 0 %; Platelet Count 209 10^3/cmm (130-400); Red Blood Count 4.47 10^6/uL (4.1-5.3); Red Cell Distribution Width 12.8 % (12.1-15.1)
[2021-07-21] MEDS: sucralfate 1 gm/10 mL Oral Liq UDC PO ×2 (06:20→10:05)
[2021-07-21] MEDS: sodium chloride 0.9% 1,000 ML 75 ML IV (06:21)
[2021-07-21 06:36] LABS: Alanine Aminotransferase < 5 U/L (0-33); Albumin Level 3.2 g/dL (3.5-5.2); Alkaline Phosphatase 77 IU/L (35-105); Anion Gap 19.5 (5-19); Aspartate Amino Transferase 8 U/L (0-32); Blood Urea Nitrogen 11 mg/dL (8-23); Calcium 8.1 mg/dL (8.5-10.5); Carbon Dioxide 24 mmol/L (22-29); Chloride 96 mmol/L (98-107); Globulin 2.9 g/dL (1.3-4.6); Glucose 229 mg/dL (65-115); Osmolality Calculated 289 mOsm/kg (285-295); Potassium 3.5 mmol/L (3.5-5.1); Sodium 136 mmol/L (136-145); Total Bilirubin 0.3 mg/dL (0.15-1.2); Total Protein 6.1 g/dL (6.6-8.7)
[2021-07-21 06:43] LABS: Glucose Point of Care 225 mg/dL (70-110)
[2021-07-21 07:20] VITALS: BP 152/85; PULSE 89; RESP 16; TEMP 36.9; O2SAT 90
[2021-07-21] MEDS: insulin lispro 100 unit/1 mL SUBCUT ×2 (08:12→12:27)
[2021-07-21] MEDS: pantoprazole DR 40 mg Tablet PO (08:13)
[2021-07-21] MEDS: dilTIAZem 30 mg Tablet PO (08:13)
[2021-07-21] MEDS: escitalopram 10 mg Tablet 20 MG PO (08:13)
[2021-07-21] MEDS: metformin XR 500 MG Tablet 1000 MG PO (08:13)
[2021-07-21] MEDS: atorvastatin 40 mg Tablet 10 MG PO (08:13)
[2021-07-21] MEDS: aspirin 81 mg EC Tablet PO (08:14)
--- NOTE | 2021-07-21 08:43 | XRR_ITS ---
PROCEDURE INFORMATION: Exam: XR Chest Exam date and time: 07/21/2021 8:43 AM Age: 60 years old Clinical indication: Other: Hypoxia; Patient HX: History of skin and breast cancer TECHNIQUE: Imaging protocol: XR of the chest. Views: 1 view. Total images: 1 COMPARISON: CR (CHEST, ) 07/15/2021 10:13 PM FINDINGS: Lungs: Benign granulomatous disease of the lung is noted. Nonspecific bibasilar opacities, favoring atelectasis or pneumonia. Pleural spaces: Unremarkable. No pleural effusion. No pneumothorax. Heart/Mediastinum: Low lung volumes are present, accentuating cardiac size and pulmonary markings. Bones/joints: Osseous structures are unchanged from the prior exam. XR/XR chest 1V portable [id number] IMPRESSION: 1. Nonspecific bibasilar opacities, favoring atelectasis or pneumonia. 2. Low lung volumes are present, accentuating cardiac size and pulmonary markings.
[2021-07-21 09:12] VITALS: PULSE 78; RESP 16; O2SAT 91
[2021-07-21] MEDS: azithromycin 500 MG in sodium chloride 0.9% 250 ML 250 MG IV (11:37)
[2021-07-21 11:39] LABS: Glucose Point of Care 149 mg/dL (70-110)
[2021-07-21 12:00] VITALS: BP 121/67; PULSE 85; RESP 16; TEMP 36.5; O2SAT 95
[2021-07-21 12:32] LABS: Adenovirus Not Detected (NOT DETECT); Chlamydia Pneumoniae Not Detected (NOT DETECT); Coronavirus 229E,HKU1,NL63,OC4 Not Detected (NOT DETECT); Human Metapneumovirus Not Detected (NOT DETECT); Human Rhinovirus/Enterovirus Not Detected (NOT DETECT); Influenza A Not Detected (NOT DETECT); Influenza A H1 Not Detected (NOT DETECT); Influenza A H1-2009 Not Detected (NOT DETECT); Influenza A H3 Not Detected (NOT DETECT); Influenza B Not Detected (NOT DETECT); Mycoplasma Pneumoniae Not Detected (NOT DETECT); Parainfluenza Virus Type 1 Not Detected (NOT DETECT); Parainfluenza Virus Type 2 Not Detected (NOT DETECT); Parainfluenza Virus Type 3 Not Detected (NOT DETECT); Parainfluenza Virus Type 4 Not Detected (NOT DETECT); Respiratory Syncytial Virus A Not Detected (NOT DETECT); Respiratory Syncytial Virus B Not Detected (NOT DETECT); SARS-COV-2 Not Detected (NOT DETECT)
[2021-07-21 15:14] VITALS: O2SAT 97
[2021-07-21 15:53] VITALS: BP 121/67; PULSE 85; RESP 16; TEMP 36.5; O2SAT 95
--- NOTE | 2021-07-21 18:23 | P.DS_ITS ---
Discharge Providers Date of Admission: 07/19/21 16:12 Date of Discharge: July 21, 2021 Attending Provider at Admission: Jorge Neal MD Attending Provider at Discharge: Flakito Plata Primary Care Provider: [facility] Diagnoses at Discharge Discharge Diagnosis (1) Gastroenteritis: Status: Acute (2) UTI (urinary tract infection): Status: Acute Qualifiers: Hematuria presence: with hematuria Urinary tract infection type: site unspecified Qualified Code(s): N39.0 - Urinary tract infection, site not specified; R31.9 - Hematuria, unspecified (3) Dehydration: Status: Acute (4) Hx of insulin dependent diabetes mellitus: Status: Acute Reason for Visit Reason for Visit: N/V Hospital Course Hospital Course Pleasant 60-year-old lady with history of diabetes, noncompliant with home treatment at home, history of DVT, COPD, diastolic CHF, HTN and other comorbidities was admitted for assessment management after presenting with recurrent episodes of nausea, vomiting, inability to tolerate oral intake, with persistent upper abdominal discomfort, with possible gastritis, duodenitis, with lipase not elevated, normal lactic acid, without diarrhea. CT abdomen pelvis on presentation with left renal trauma on noncontrast study. She reported continued malaise during the hospital stay. CK and TSH were both checked as well, and both normal. She remained afebrile, without leukocytosis. Her PPI was escalated to twice daily, subsequently sucralfate added as well. Due to dehydration on presentation with a mixed acid-base picture was treated with IV fluids. Continued on insulin. Ketones positive in urine on presentation, but possibly possibly starvation ketosis due to poor oral intake. VBG otherwise not suggestive of ketoacidosis. COVID-19 PCR was assessed and was negative. Possible UTI on presentation for which was treated empirically with ceftriaxone, although urine culture did not end up growing any organism. On review of records back in August 2019 she was found to have significant respiratory of dysmotility. She continues on calcium channel julian, and PPI was escalated. At that time was also noted to have biliary polyp. Due to this was referred for follow-up with surgery after extensive assessment in the hospital at that time. Did not follow-up with surgery, but states will do so currently, so was given additional referral again to reassess and set up endoscopic evaluation. In the hospital was up and resume normal and had no verbal quadrant discomfort. Due to soft oxygen saturation, down to low 90s was assessed additional by chest x-ray with finding of bibasilar nonspecific opacities, atelectasis versus pneumonia. Discussed results with her, possible aspiration pneumonia pneumonitis after vomiting, but will complete antibiotic course in case of pneumonia. She was doing somewhat better today, feeling Queasy, but overall better, with some tenderness in the abdomen, possibly soreness following vomiting. Remains afebrile, without leukocytosis or signs of sepsis. As she felt little better she felt comfortable continuing her recovery at home. In addition she follow-up with surgery as above she is asked to follow-up with primary provider for reassessment. She knows to seek medical attention immediately in case of worsening of condition or concerning symptoms. Physical Exam Const: COMMON NORMALS: no acute distress and patient oriented x3 HENMT: COMMON NORMALS: oropharynx normal Neck/C-Spine: COMMON NORMALS: no JVD Resp: COMMON NORMALS: normal respiratory effort and clear to auscultation bilaterally AUSCULTATION: clear to auscultation bilaterally Cardio: COMMON NORMALS: no JVD, regular rhythm, S1 normal heart sound present, S2 normal heart sound present and No murmurs present (Cardio) RHYTHM: regular rhythm HEART SOUNDS: S1 normal heart sound present and S2 normal heart sound present GI: COMMON NORMALS: Normal to inspection, nondistended, normoactive bowel sounds present and Soft to palpation PALPATION: Yes Soft to palpation and Yes Tenderness to palpation present (GI) (Mild epigastric tenderness, mildly tender left side) Extremity: COMMON NORMALS: no joint enlargement and no pedal edema Neuro: COMMON NORMALS: patient oriented x3 and moves all extremities Skin: COMMON NORMALS: no rashes or lesions noted GENERAL SKIN EXAM: no rashes or lesions noted Discharge Data Data Completed and Pending: Completed Studies During Hospitalization Category Date Time Status CT abdomen wo con [id number] Routine Cat Scan 07/19/21 06:[address] head wo con* 7 [id number] Routine Cat Scan 07/18/21 19:45 Completed XR chest 1V marie ble [id number] Routine Exams 07/21/21 08:43 Completed Labs from last 24 hours 07/21/21 07/21/21 07/21/21 11:14 10:28 06:30 WBC RBC Hgb Hct MCV MCH MCHC RDW Plt Count MPV Neut % (Auto) Lymph % (Auto) [place] % (Auto) Eos % (Auto) Baso % (Auto) Neut # (Auto) Lymph # (Auto) [place] # (Auto) Eos # (Auto) Baso # (Auto) Nucleated RBC % (a uto) Nucleated RBCs # Sodium Potassium Chloride Carbon Dioxide Anion Gap BUN Creatinine GFR Calculation Glucose POC Glucose 149 H 225 H Calculated Osmolal ity Calcium Total Bilirubin AST ALT Alkaline Phosphata se Total Protein Albumin Globulin Coronavirus 229E ( PCR) Not detected SARS-CoV-2 (PCR) Not detected 07/21/21 07/21/21 07/20/21 05:47 05:47 20:23 WBC 5.0 RBC 4.47 Hgb 13.0 Hct 40.3 MCV 90.2 MCH 29.1 MCHC 32.3 RDW 12.8 Plt Count 209 MPV 9.9 Neut % (Auto) 64.8 Lymph % (Auto) 19.6 [place] % (Auto) 10.6 Eos % (Auto) 3.8 Baso % (Auto) 0.6 Neut # (Auto) 3.24 Lymph # (Auto) 1.0 [place] # (Auto) 0.5 Eos # (Auto) 0.2 Baso # (Auto) 0.0 Nucleated RBC % (a uto) 0 Nucleated RBCs # 0.0 Sodium 136 Potassium 3.5 Chloride 96 L Carbon Dioxide 24 Anion Gap 19.5 H BUN 11 Creatinine 0.5 GFR Calculation 125.0 Glucose 229 H POC Glucose 238 H Calculated Osmolal ity 289 Calcium 8.1 L Total Bilirubin 0.3 AST 8 ALT < 5 Alkaline Phosphata se 77 Total Protein 6.1 L Albumin 3.2 L Globulin 2.9 Coronavirus 229E ( PCR) SARS-CoV-2 (PCR) Vitals: Last Vital Signs Temp 97.7 F 07/21/21 15:53 Pulse 85 07/21/21 15:53 Resp 16 07/21/21 15:53 BP 121/67 07/21/21 15:53 Pulse Ox 95 07/21/21 15:53 Discharge Plan Discharge Patient Disposition: Home Condition: Stable Prescriptions: New levofloxacin 500 mg tablet 500 mg PO DAILY 7 Days Qty: 7 RF: 0 Continued atorvastatin 10 mg tablet 10 mg PO DAILY Qty: 30 RF: 2 (DME) blood sugar diagnostic Strip See Rx Instructions .ROUTE .MEDSUPPLY Qty: 100 RF: 5 diltiazem HCl 30 mg tablet 30 mg PO BID@,20 Qty: 60 RF: 2 escitalopram oxalate 20 mg tablet 20 mg PO DAILY@08 Qty: 30 RF: 2 fluticasone propion-salmeterol [Advair Diskus] 500-50 mcg/dose blister with device 1 inh INHALATION BID@,20 Qty: 60 RF: 2 metformin 500 mg tablet extended release 24 hr 1,000 mg PO BID Qty: 120 RF: 2 Xarelto 2.5 mg tablet 2.5 mg PO BID@,20 Qty: 60 RF: 2 cyclobenzaprine 10 mg tablet 10 mg PO TID PRN (Reason: muscle spasm) Qty: 60 RF: 0 (DME) lancets [OneTouch Delica Lancets] 33 gauge misc See Rx Instructions .ROUTE .MEDSUPPLY Qty: 100 RF: 0 insulin aspart U-100 [Novolog Flexpen U-100 Insulin] 100 unit/mL (3 mL) insulin pen 6 - 30 unit SUBCUT TID Qty: 15 RF: 1 Levemir FlexTouch U-100 Insuln 100 unit/mL (3 mL) insulin pen 40 unit SUBCUT QAM Qty: 15 RF: 2 (DME) pen needle, diabetic 33 gauge x 5/32 needle See Rx Instructions .ROUTE .MEDSUPPLY Qty: 100 RF: 5 (DME) lancing device with lancets [OneTouch Delica Lanc Device] Kit See Rx Instructions .ROUTE .MEDSUPPLY Qty: 1 RF: 1 (DME) blood-glucose meter Kit See Rx Instructions .ROUTE .MEDSUPPLY Qty: 1 RF: 0 aspirin 81 mg tablet,delayed release (DR/EC) 81 mg PO BID@,20 Qty: 60 RF: 0 hydrocodone-acetaminophen 5-325 mg tablet 1 tab PO Q6H PRN (Reason: pain) Qty: 10 RF: 0 albuterol sulfate [ProAir HFA] 90 mcg/actuation Hfa Aerosol Inhaler 2 puff INHALATION Q4H PRN (Reason: Shortness Of Breath) RF: 0 promethazine 25 mg tablet 25 mg PO TID PRN (Reason: nausea and vomiting) Qty: 14 RF: 0 tizanidine 2 mg tablet 2 mg PO BID PRN (Reason: Muscle Pain) RF: 0 Ozempic 0.25 mg or 0.5 mg(2 mg/1.5 mL) pen injector 0.5 mg SUBCUT Q7D RF: 0 nitroglycerin 0.4 mg Tablet, Sublingual 0.4 mg SUBLINGUAL Q5M PRN (Reason: Chest Pain) RF: 0 ondansetron 4 mg tablet,disintegrating 4 mg PO Q6H PRN (Reason: nausea and vomiting) Qty: 14 RF: 0 Changed pantoprazole 40 mg tablet,delayed release (DR/EC) 40 mg PO BID Qty: 60 RF: 2 Held furosemide 20 mg tablet 20 mg PO BID Qty: 60 RF: 2 Hold Instructions: Resume on 07/20/21. Hold for next week, then resume as needed only Discharge Orders: Discharge Order (Routine); Ordered 07/21/21 Ordered By: Flakito Plata Referrals: José Antonio Pfeiffer MD [Physician] - 4-7 days (Arrangements for endoscopy - persistent dyspepsia, also did not previously follow up for esophageal dysmotility, biliary polyp .PLEASE CALL FOR APPOINTMENT WITH DR PFEIFFER.[phone]) Alondra Ham, [employer] [Primary Care Provider] - 07/30/21 9:20 am Discharge Diet: Cardiac, Diabetic and GI Soft Discharge Activity: Increase activity as tolerated Patient Instructions: Levofloxacin (By mouth), Aspiration Pneumonia (GEN), GERD (Gastroesophageal Reflux Disease) (GEN), Esophageal Spasm (GEN), GI (Gastrointestinal) Soft Diet (GEN), Opioid Safety Activity Restrictions/Additional Instructions: Please continue soft or even liquid diet due to esophageal dysmotility. Please follow-up with surgery with regards to esophageal dysmotility, GERD to set up endoscopic evaluation, as well as please follow-up regarding biliary polyp as per prior arrangements in August 2019. Complete Levaquin course due to possible aspiration pneumonia with changes seen on x-ray as discussed. Also as discussed, please seek medical attention in case of spiking high fever, feeling worse, worsening abdominal pain, recurrence of vomiting or not tolerating food or drink, worsening shortness of breath, or other concerning symptoms. Continue to monitor blood glucose, blood pressures at home. Due to dehydration on presentation for now hold Lasix for the next week. Subsequently resume only as needed. Discussed with your primary doctor. Discharge Attestations Time Spent in Discharge Care*: greater than 30 min Quality Metrics Clinical Quality Measures During this hospital stay, did patient experience: None Coding Level of Care Code Acute [facility] note Diagnoses Gastroenteritis K52.9 UTI (urinary tract infection) N39.0; R31.9 Hematuria presence: with hematuria Urinary tract infection type: site unspecified Dehydration E86.0 Hx of insulin dependent diabetes mellitus Z86.39
== END 2021-07-21 15:55 | disposition home or self-care (01) | DRG 689 ==
LOC: ER 18:52 → MEDSURG 19:23
PROVIDERS: Student in an Organized Health Care Education/Training Program; Admitting Provider Student in an Organized Health Care Education/Training Program; Emergency Provider Family Medicine; PCP Nurse Practitioner; Visit Provider Internal Medicine
DX: N39.0 Urinary tract infection, site not specified (principal); J69.0 Pneumonitis due to inhalation of food and vomit; E87.3 Alkalosis; R31.9 Hematuria, unspecified; K52.9 Noninfective gastroenteritis and colitis, unspecified; E11.65 Type 2 diabetes mellitus with hyperglycemia; I11.0 Hypertensive heart disease with heart failure; I50.9 Heart failure, unspecified; F41.1 Generalized anxiety disorder; K21.9 Gastro-esophageal reflux disease without esophagitis; Z86.718 Personal history of other venous thrombosis and embolism; Z85.828 Personal history of other malignant neoplasm of skin; G47.00 Insomnia, unspecified; E53.8 Deficiency of other specified B group vitamins; Z87.891 Personal history of nicotine dependence; E86.0 Dehydration; J44.9 Chronic obstructive pulmonary disease, unspecified; K22.4 Dyskinesia of esophagus; K29.70 Gastritis, unspecified, without bleeding; Z79.51 Long term (current) use of inhaled steroids; Z79.82 Long term (current) use of aspirin; Z79.4 Long term (current) use of insulin; Z79.01 Long term (current) use of anticoagulants; Z79.84 Long term (current) use of oral hypoglycemic drugs; Z91.14 Patient's other noncompliance with medication regimen
CPT/HCPCS: 36415; 36416; 70450; 71045; 74150; 80048; 80053; 81001; 82550; 82803; 82962; 83036; 83605; 83690; 83735; 84439; 84443; 84481; 84484; 85025; 87086; 87635; 93005; 94640; 94760; 96361; 96365; 96372; 96374; 96375; 99284; 99285; G0378; J0456; J0696; J1650; J1815; J2405; J2550; J3535; J7030; J7050; Q0169

== ENCOUNTER 2021-08-15 15:34 | Emergency (ER) | payer MEDICARE, MEDICAID, SELFPAY ==
[2021-08-15] VITALS (11 sets, daily range): BP systolic 94–126; BP diastolic 53–75; PULSE 72–100; RESP 9–25; TEMP 36.7; O2SAT 85–99; BMI 28.0
--- NOTE | 2021-08-15 15:40 | ED_ITS ---
Documented by User: Howard Robertson MD 08/16/21 13:00 HPI - Chest Pain General: Chief Complaint: Chest Pain Stated Complaint: CHEST PAIN Time Seen by Provider: 08/15/21 15:39 History of Present Illness: Ms Simon is a 60-year-old lady with history of hypertension, hyperlipidemia, diabetes, COPD with history of tobaccoism, CAD presenting to the emergency department due to chest discomfort. She reports symptoms started a few weeks ago without known specific provoking factor. She endorses pressure in the middle of her chest that is been intermittent. She does not have cough or worsening shortness of breath associated with this. At times it is worse with exertion. There is mild radiation at the right side of the chest however no radiation to the arms or neck. Today it was more persistent and mildly worse so she came to the emergency department. Her symptoms are currently only minimal and she did have improvement with aspirin and nitroglycerin. She otherwise has generally not felt well and has had chills but no measured fevers. Overall the course of symptoms has persisted. Denies other specific changes in health, exacerbating, relieving factors. Does report a hospitalization previously this month for a fall with head injury. Pertinent past history: coronary artery disease and other Onset (ago): week(s) Timing of current episode: episodic Onset: during exertion Pain location: substernal Pain radiation: other Severity: moderate Quality: dull Relieving factors: nitroglycerin Exacerbating factors: exertion Treatment prior to arrival: aspirin and nitroglycerin Review of Systems General: Reports: 10 or more systems reviewed and unremarkable except in HPI and below PFSH ED PFSH: Medical History Chest pain Diabetes mellitus with hyperglycemia Diastolic congestive heart failure Gallbladder anomaly Generalized anxiety disorder GERD (gastroesophageal reflux disease) H/O deep venous thrombosis History of DVT of lower extremity Left leg 06/2019 History of skin cancer Basal cell carcinoma on back 2007 HTN (hypertension) Hx of insulin dependent diabetes mellitus Insomnia, unspecified Noncompliance with dietary restriction Noncompliance with medication regimen Tremor, unspecified Unspecified urinary incontinence Vitamin B12 deficiency Surgical History H/O left breast biopsy Benign 2016 History of thoracentesis X 2 for traumatic effusion History of tonsillectomy Hx of colonoscopy Hx of tubal ligation / incidental appendectomy 1980 Status post surgical removal of malignant neoplasm of skin Basal cell carcinoma on back 2007 Family History Mother Cancer Unknown type Father Cancer Lung CA Son Gallbladder disease Other Hypertension Denies family history of Clotting disorder Social History Quit status (tobacco): has quit using tobacco Former quit date comment: Patient smoked 2 packs of cigarettes a day for 25 years Second hand smoke exposure: No Smoking risk assessment/counseling performed?: No Alcohol intake: never Desire information about alcohol rehabilitation?: No Counseling given: No Desire information about substance/drug rehabilitation?: No Counseling given: No Adopted: No Caregiver/support person: No Lives independently: Yes Household members: spouse and children Marital status: service: No Current occupational status: unemployed History of recent travel: No Current gender identity: Female Physical Exam Const: COMMON NORMALS: alert GENERAL APPEARANCE: cooperative, well developed and ill appearing (Mildly); not in distress HENMT: COMMON NORMALS: normocephalic and atraumatic HEAD & SCALP: normocephalic and atraumatic Eye: COMMON NORMALS: conjunctivae normal CONJUNCTIVA: Yes conjunctivae normal SCLERA: sclerae normal Neck/C-Spine: COMMON NORMALS: supple GENERAL: Yes trachea midline Resp: COMMON NORMALS: normal respiratory effort and clear to auscultation bilaterally EFFORT & INSPECTION: Yes able to speak in complete sentences AUSCULTATION: clear to auscultation bilaterally Cardio: COMMON NORMALS: regular rate and regular rhythm RATE: regular rate RHYTHM: regular rhythm OTHER: No peripheral edema GI: COMMON NORMALS: Soft to palpation PALPATION: Yes Soft to palpation and No Tenderness to palpation present (GI) PERCUSSION: normal to percussion Extremity: GENERAL: Yes normal exam except as noted and No edema Neuro: COMMON NORMALS: moves all extremities SENSORIUM/ORIENTATION: Yes alert and No Orientation impaired Psych: COMMON NORMALS: mental status grossly normal and Normal thought process present THOUGHT PROCESS: Normal thought process present Course ED course: - Patient was seen and evaluated by me at bedside - Patient placed on cardiac monitors, IV access obtained - Initial evaluation notable for exam as above -RT treatment ordered - Labs notable for mild leukopenia. Metabolic panel with mild evidence of dehydration. IV fluids given. Covid positive. UA questionable for infection however in the absence of symptoms will have some coverage from doxycycline for copd exacerbation. - Imaging notable for mild nonspecific opacity in left lung base. - Upon serial reexamination after treatment the patient was similar, additional treatments ordered - Most likely etiology of the patient's symptoms is COVID-19. Given history of COPD I will plan to treat with antibiotics for COPD exacerbation and treated with steroids for COVID-19 and COPD exacerbation patient discharged. - Discussed with patient - Patient care handed off to overnight ED physician Dr. Kumar pending repeat troponin for likely discharge. Note: Click bubbles or prepopulated gilman in note writing are used for assistance with data collection and billing and are inherently more limited than narrative and other text portions of this note. Please use narrative for additional clinical history and defer to narrative/free test for any case of contradictory information. If information appears in only free text or click bubble it should be considered present or absent as reported. Please contact note service writer advisor for clarifications of clinical information or contradictory information. MDM is a brief summary, contradictory or erroneous seeming information should be clarified and full note should be reviewed. Vital Signs: Vital signs: Vital Signs Temperature 98.1 F 08/15/21 15:42 Pulse Rate 72 08/15/21 20:31 Respiratory Rate 10 L 08/15/21 20:31 Blood Pressure 107/64 08/15/21 20:31 Pulse Oximetry 94 08/15/21 20:31 MDM - Chest Pain Medical Decision Making 60-year-old lady with history of CAD, COPD presenting with chest pain and other generalized symptoms. Patient had Covid positive which likely explains her symptoms. She does intermittently require oxygen however qualifies for oxygen 3 L. She has oxygen equipment at home. Handed off to overnight ED physician Dr. Kumar pending repeat troponin. Medical Records I reviewed the patient's medical records. Lab Data I reviewed the patient's lab results. : 08/15/21 16:04 08/15/21 16:04 Radiology Impressions Chest X-Ray 08/15/21 15:52 IMPRESSION: Mild nonspecific opacity in the left lung base, persistent since 07/21/2021. Possible atelectasis. Infection is not excluded. Laboratory Results WBC 3.2 10^3/uL (4.0-10.0) L 08/15/21 16:04 RBC 4.28 10^6/uL (4.1-5.3) 08/15/21 16:04 Hgb 12.5 g/dL (11.5-15.3) 08/15/21 16:04 Hct 38.9 % (37.0-47.0) 08/15/21 16:04 MCV 90.9 fl (81-99) 08/15/21 16:04 MCH 29.2 pg (28.0-34.0) 08/15/21 16:04 MCHC 32.1 g/dL (30.0-36.0) 08/15/21 16:04 RDW 13.8 % (12.1-15.1) 08/15/21 16:04 Plt Count 141 10^3/cmm (130-400) 08/15/21 16:04 MPV 10.7 fL (7.4-10.4) H 08/15/21 16:04 Neut % (Auto) 59.4 % 08/15/21 16:04 Lymph % (Auto) 28.4 % 08/15/21 16:04 Faulkner % (Auto) 10.3 % 08/15/21 16:04 Eos % (Auto) 1.3 % 08/15/21 16:04 Baso % (Auto) 0.3 % 08/15/21 16:04 Neut # (Auto) 1.90 10^3/uL (1.8-7.7) 08/15/21 16:04 Lymph # (Auto) 0.9 10^3/uL (0.8-4.8) 08/15/21 16:04 Faulkner # (Auto) 0.3 10^3/uL (0.2-0.9) 08/15/21 16:04 Eos # (Auto) 0.0 10^3/uL (0.0-0.8) 08/15/21 16:04 Baso # (Auto) 0.0 10^3/uL (0.0-0.1) 08/15/21 16:04 Nucleated RBC % (auto) 0 % 08/15/21 16:04 Nucleated RBCs # 0.0 /100WBC 08/15/21 16:04 Sodium 134 mmol/L (136-145) L 08/15/21 16:04 Potassium 4.4 mmol/L (3.5-5.1) 08/15/21 16:04 Chloride 101 mmol/L (98-107) 08/15/21 16:04 Carbon Dioxide 16 mmol/L (22-29) L 08/15/21 16:04 Anion Gap 21.4 (5-19) H 08/15/21 16:04 BUN 15 mg/dL (8-23) 08/15/21 16:04 Creatinine 0.6 mg/dL (0.5-0.9) 08/15/21 16:04 GFR Calculation 101.3 mL/min (90-130) 08/15/21 16:04 Glucose 224 mg/dL (65-115) H 08/15/21 16:04 POC Glucose 243 mg/dL (70-110) H 08/15/21 18:16 Calculated Osmolality 286 mOsm/kg (285-295) 08/15/21 16:04 Calcium 8.2 mg/dL (8.5-10.5) L 08/15/21 16:04 Total Bilirubin 0.4 mg/dL (0.15-1.2) 08/15/21 16:04 AST 18 U/L (0-32) 08/15/21 16:04 ALT 14 U/L (0-33) 08/15/21 16:04 Alkaline Phosphatase 74 IU/L (35-105) 08/15/21 16:04 Troponin T Baseline 23 ng/L (0-10) H 08/15/21 16:04 Troponin T 120 Minute 20.50 ng/L (0-10) H 08/15/21 18:45 Delta Troponin T -2.50 ABS# (0-10) L 08/15/21 18:45 NT-Pro-B Natriuret Pep 348 pg/mL (0-125) H 08/15/21 16:04 Total Protein 6.2 g/dL (6.6-8.7) L 08/15/21 16:04 Albumin 3.1 g/dL (3.5-5.2) L 08/15/21 16:04 Globulin 3.1 g/dL (1.3-4.6) 08/15/21 16:04 Lipase 17 U/L (13-60) 08/15/21 16:04 Urine Color Dark yellow (Yellow) 08/15/21 17:30 Urine Appearance Hazy (CLEAR) A 08/15/21 17:30 Urine pH 5 (5-7) 08/15/21 17:30 Ur Specific Lockwood 1.025 (1.005-1.030) 08/15/21 17:30 Urine Protein 1+ (Negative) H 08/15/21 17:30 Urine Glucose (UA) 4+ (Normal) H 08/15/21 17:30 Urine Ketones Negative (Negative) 08/15/21 17:30 Urine Blood 2+ (Negative) H 08/15/21 17:30 Urine Nitrate Negative (Negative) 08/15/21 17:30 Urine Bilirubin 1+ (Negative) H 08/15/21 17:30 Urine Urobilinogen Norm mg/dL (Negative) 08/15/21 17:30 Ur Leukocyte Esterase 1+ (Negative) H 08/15/21 17:30 Urine RBC 0-4 /hpf (0-2) H 08/15/21 17:30 Urine WBC 5-10 /hpf (0-5) H 08/15/21 17:30 Ur Squamous Epith Cells 0-4 /hpf (0-5) H 08/15/21 17:30 Amorphous Sediment Not Reportable 08/15/21 17:30 Urine Bacteria 3+ /hpf (NONE) H 08/15/21 17:30 Influenza Type A Ag Negative (Negative) 08/15/21 16:40 Influenza Type B Ag Negative (Negative) 08/15/21 16:40 SARS-CoV-2 Ag (Rapid) Positive (Negative) H 08/15/21 16:40 EKG Data EKG 1: Interpretation: Twelve-lead EKG shows a regular rhythm at a rate of 97. ID interval 154, QRS duration 82, QTc 388. Normal axis. Interpretation: Sinus rhythm. Discharge Plan Discharge Patient Disposition: Home Clinical Impression: Chest pain, COVID-19, Acute exacerbation of chronic obstructive pulmonary disease, Hypoxemia Condition: Stable Prescriptions: New Decadron 6 mg tablet 6 mg PO DAILY Qty: 7 0RF doxycycline hyclate 100 mg tablet 100 mg PO BID 7 Days Qty: 14 0RF No Action atorvastatin 10 mg tablet 10 mg PO DAILY Qty: 30 2RF (DME) blood sugar diagnostic Strip See Rx Instructions .ROUTE .MEDSUPPLY Qty: 100 5RF Rx Instructions: 3 times day diltiazem HCl 30 mg tablet 30 mg PO BID@08,20 Qty: 60 2RF escitalopram oxalate 20 mg tablet 20 mg PO DAILY@08 Qty: 30 2RF fluticasone propion-salmeterol [Advair Diskus] 500-50 mcg/dose blister with de vice 1 inh INHALATION BID@,20 Qty: 60 2RF furosemide 20 mg tablet 20 mg PO BID Qty: 60 2RF Hold Instructions: Resume on 07/20/21. Hold for next week, then resume as needed only Xarelto 2.5 mg tablet 2.5 mg PO BID@,20 Qty: 60 2RF cyclobenzaprine 10 mg tablet 10 mg PO TID PRN (Reason: muscle spasm) Qty: 60 0RF (DME) lancets [OneTouch Delica Lancets] 33 gauge misc See Rx Instructions .ROUTE .MEDSUPPLY Qty: 100 0RF Rx Instructions: 3 time day insulin aspart U-100 [Novolog Flexpen U-100 Insulin] 100 unit/mL (3 mL) insulin pen 6 - 30 unit SUBCUT TID Qty: 15 1RF Rx Instructions: with meals Levemir FlexTouch U-100 Insuln 100 unit/mL (3 mL) insulin pen 40 unit SUBCUT QAM Qty: 15 2RF (DME) pen needle, diabetic 33 gauge x 5/32 needle See Rx Instructions .ROUTE .MEDSUPPLY Qty: 100 5RF Rx Instructions: 4 daily (DME) lancing device with lancets [OneTouch Delica Lanc Device] Kit See Rx Instructions .ROUTE .MEDSUPPLY Qty: 1 1RF Rx Instructions: daily (DME) blood-glucose meter Kit See Rx Instructions .ROUTE .MEDSUPPLY Qty: 1 0RF Rx Instructions: three times daily aspirin 81 mg tablet,delayed release (DR/EC) 81 mg PO BID@,20 Qty: 60 0RF metformin 500 mg tablet extended release 24 hr 1,000 mg PO BID Qty: 56 2RF Rx Instructions: Need apt have not keep the past 2 apt times hydrocodone-acetaminophen 5-325 mg tablet 1 tab PO Q6H PRN (Reason: pain) Qty: 10 0RF albuterol sulfate [ProAir HFA] 90 mcg/actuation Hfa Aerosol Inhaler 2 puff INHALATION Q4H PRN (Reason: Shortness Of Breath) 0RF promethazine 25 mg tablet 25 mg PO TID PRN (Reason: nausea and vomiting) Qty: 14 0RF tizanidine 2 mg tablet 2 mg PO BID PRN (Reason: Muscle Pain) 0RF Ozempic 0.25 mg or 0.5 mg(2 mg/1.5 mL) pen injector 0.5 mg SUBCUT Q7D 0RF Rx Instructions: (Mondays) pantoprazole 40 mg tablet,delayed release (DR/EC) 40 mg PO BID Qty: 60 2RF nitroglycerin 0.4 mg Tablet, Sublingual 0.4 mg SUBLINGUAL Q5M PRN (Reason: Chest Pain) 0RF ondansetron 4 mg tablet,disintegrating 4 mg PO Q6H PRN (Reason: nausea and vomiting) Qty: 14 0RF Discharge Orders: Discharge ED (Routine); Ordered 08/15/21 Ordered By: Mirian Kumar Other Ambulatory Orders: DME: Oxygen (Order) Location: None Selected Ordered By: Mirian Kumar Referrals: Alondra Ham, [facility] [Primary Care Provider] - Discharge Diet: Usual diet Discharge Activity: Resume usual activity Patient Instructions: COPD (Chronic Obstructive Pulmonary Disease) (ED), COVID- 19 (Coronavirus Disease 2019) (ED) Activity Restrictions/Additional Instructions: Thank you for visiting the emergency department. You were seen and evaluated for chest discomfort. You were found to have COVID-19. I believe that this adequately explains your symptoms. Please follow-up with your primary care provider. Please continue to wear home oxygen. Return the emergency department if your oxygen levels dropped below 90%. Return to the ED for worsening symptoms or anything else that you are concerned about and feel needs ED evaluation. Coding Level of Care Code ED Marketing Writer for Chg Fwd Exam Comprehensive Documented by User: Mirian Kumar MD 08/15/21 20:42 HPI - Chest Pain General: Chief Complaint: Chest Pain Stated Complaint: CHEST PAIN Time Seen by Provider: 08/15/21 15:39 PFSH ED PFSH: Medical History Chest pain Diabetes mellitus with hyperglycemia Diastolic congestive heart failure Gallbladder anomaly Generalized anxiety disorder GERD (gastroesophageal reflux disease) H/O deep venous thrombosis History of DVT of lower extremity Left leg 06/2019 History of skin cancer Basal cell carcinoma on back 2007 HTN (hypertension) Hx of insulin dependent diabetes mellitus Insomnia, unspecified Noncompliance with dietary restriction Noncompliance with medication regimen Tremor, unspecified Unspecified urinary incontinence Vitamin B12 deficiency Surgical History H/O left breast biopsy Benign 2016 History of thoracentesis X 2 for traumatic effusion History of tonsillectomy Hx of colonoscopy Hx of tubal ligation / incidental appendectomy 1980 Status post surgical removal of malignant neoplasm of skin Basal cell carcinoma on back 2007 Family History Mother Cancer Unknown type Father Cancer Lung CA Son Gallbladder disease Other Hypertension Denies family history of Clotting disorder Social History Quit status (tobacco): has quit using tobacco Former quit date comment: Patient smoked 2 packs of cigarettes a day for 25 years Second hand smoke exposure: No Smoking risk assessment/counseling performed?: No Alcohol intake: never Desire information about alcohol rehabilitation?: No Counseling given: No Desire information about substance/drug rehabilitation?: No Counseling given: No Adopted: No Caregiver/support person: No Lives independently: Yes Household members: spouse and children Marital status: service: No Current occupational status: unemployed History of recent travel: No Current gender identity: Female Course Vital Signs: Vital signs: Vital Signs Temperature 98.1 F 08/15/21 15:42 Pulse Rate 72 08/15/21 20:31 Respiratory Rate 10 L 08/15/21 20:31 Blood Pressure 107/64 08/15/21 20:31 Pulse Oximetry 94 08/15/21 20:31 MDM - Chest Pain Medical Decision Making 60-year-old lady with history of CAD, COPD presenting with chest pain and other generalized symptoms. Patient had Covid positive which likely explains her symptoms. She does intermittently require oxygen however qualifies for oxygen 3 L. She has oxygen equipment at home. Handed off to overnight ED physician Dr. Kumar pending repeat troponin. Took patient over from other physician patient does have Covid she qualifies for 3 L of oxygen at home we will set her up with home oxygen she does wear oxygen as needed already her repeat troponins negative she is well-appearing informed her she has any worsening symptoms or hypoxia she is to return she understands agrees to plan. Lab Data : 08/15/21 16:04 08/15/21 16:04 Radiology Impressions Chest X-Ray 08/15/21 15:52 IMPRESSION: Mild nonspecific opacity in the left lung base, persistent since 07/21/2021. Possible atelectasis. Infection is not excluded. Laboratory Results WBC 3.2 10^3/uL (4.0-10.0) L 08/15/21 16:04 RBC 4.28 10^6/uL (4.1-5.3) 08/15/21 16:04 Hgb 12.5 g/dL (11.5-15.3) 08/15/21 16:04 Hct 38.9 % (37.0-47.0) 08/15/21 16:04 MCV 90.9 fl (81-99) 08/15/21 16:04 MCH 29.2 pg (28.0-34.0) 08/15/21 16:04 MCHC 32.1 g/dL (30.0-36.0) 08/15/21 16:04 RDW 13.8 % (12.1-15.1) 08/15/21 16:04 Plt Count 141 10^3/cmm (130-400) 08/15/21 16:04 MPV 10.7 fL (7.4-10.4) H 08/15/21 16:04 Neut % (Auto) 59.4 % 08/15/21 16:04 Lymph % (Auto) 28.4 % 08/15/21 16:04 Faulkner % (Auto) 10.3 % 08/15/21 16:04 Eos % (Auto) 1.3 % 08/15/21 16:04 Baso % (Auto) 0.3 % 08/15/21 16:04 Neut # (Auto) 1.90 10^3/uL (1.8-7.7) 08/15/21 16:04 Lymph # (Auto) 0.9 10^3/uL (0.8-4.8) 08/15/21 16:04 Faulkner # (Auto) 0.3 10^3/uL (0.2-0.9) 08/15/21 16:04 Eos # (Auto) 0.0 10^3/uL (0.0-0.8) 08/15/21 16:04 Baso # (Auto) 0.0 10^3/uL (0.0-0.1) 08/15/21 16:04 Nucleated RBC % (auto) 0 % 08/15/21 16:04 Nucleated RBCs # 0.0 /100WBC 08/15/21 16:04 Sodium 134 mmol/L (136-145) L 08/15/21 16:04 Potassium 4.4 mmol/L (3.5-5.1) 08/15/21 16:04 Chloride 101 mmol/L (98-107) 08/15/21 16:04 Carbon Dioxide 16 mmol/L (22-29) L 08/15/21 16:04 Anion Gap 21.4 (5-19) H 08/15/21 16:04 BUN 15 mg/dL (8-23) 08/15/21 16:04 Creatinine 0.6 mg/dL (0.5-0.9) 08/15/21 16:04 GFR Calculation 101.3 mL/min (90-130) 08/15/21 16:04 Glucose 224 mg/dL (65-115) H 08/15/21 16:04 POC Glucose 243 mg/dL (70-110) H 08/15/21 18:16 Calculated Osmolality 286 mOsm/kg (285-295) 08/15/21 16:04 Calcium 8.2 mg/dL (8.5-10.5) L 08/15/21 16:04 Total Bilirubin 0.4 mg/dL (0.15-1.2) 08/15/21 16:04 AST 18 U/L (0-32) 08/15/21 16:04 ALT 14 U/L (0-33) 08/15/21 16:04 Alkaline Phosphatase 74 IU/L (35-105) 08/15/21 16:04 Troponin T Baseline 23 ng/L (0-10) H 08/15/21 16:04 Troponin T 120 Minute 20.50 ng/L (0-10) H 08/15/21 18:45 Delta Troponin T -2.50 ABS# (0-10) L 08/15/21 18:45 NT-Pro-B Natriuret Pep 348 pg/mL (0-125) H 08/15/21 16:04 Total Protein 6.2 g/dL (6.6-8.7) L 08/15/21 16:04 Albumin 3.1 g/dL (3.5-5.2) L 08/15/21 16:04 Globulin 3.1 g/dL (1.3-4.6) 08/15/21 16:04 Lipase 17 U/L (13-60) 08/15/21 16:04 Urine Color Dark yellow (Yellow) 08/15/21 17:30 Urine Appearance Hazy (CLEAR) A 08/15/21 17:30 Urine pH 5 (5-7) 08/15/21 17:30 Ur Specific Lockwood 1.025 (1.005-1.030) 08/15/21 17:30 Urine Protein 1+ (Negative) H 08/15/21 17:30 Urine Glucose (UA) 4+ (Normal) H 08/15/21 17:30 Urine Ketones Negative (Negative) 08/15/21 17:30 Urine Blood 2+ (Negative) H 08/15/21 17:30 Urine Nitrate Negative (Negative) 08/15/21 17:30 Urine Bilirubin 1+ (Negative) H 08/15/21 17:30 Urine Urobilinogen Norm mg/dL (Negative) 08/15/21 17:30 Ur Leukocyte Esterase 1+ (Negative) H 08/15/21 17:30 Urine RBC 0-4 /hpf (0-2) H 08/15/21 17:30 Urine WBC 5-10 /hpf (0-5) H 08/15/21 17:30 Ur Squamous Epith Cells 0-4 /hpf (0-5) H 08/15/21 17:30 Amorphous Sediment Not Reportable 08/15/21 17:30 Urine Bacteria 3+ /hpf (NONE) H 08/15/21 17:30 Influenza Type A Ag Negative (Negative) 08/15/21 16:40 Influenza Type B Ag Negative (Negative) 08/15/21 16:40 SARS-CoV-2 Ag (Rapid) Positive (Negative) H 08/15/21 16:40 Discharge Plan Discharge Patient Disposition: Home Clinical Impression: Chest pain, COVID-19, Acute exacerbation of chronic obstructive pulmonary dise ase, Hypoxemia Condition: Stable Prescriptions: New Decadron 6 mg tablet 6 mg PO DAILY Qty: 7 0RF doxycycline hyclate 100 mg tablet 100 mg PO BID 7 Days Qty: 14 0RF No Action atorvastatin 10 mg tablet 10 mg PO DAILY Qty: 30 2RF (DME) blood sugar diagnostic Strip See Rx Instructions .ROUTE .MEDSUPPLY Qty: 100 5RF Rx Instructions: 3 times day diltiazem HCl 30 mg tablet 30 mg PO BID@08,20 Qty: 60 2RF escitalopram oxalate 20 mg tablet 20 mg PO DAILY@08 Qty: 30 2RF fluticasone propion-salmeterol [Advair Diskus] 500-50 mcg/dose blister with device 1 inh INHALATION BID@08,20 Qty: 60 2RF furosemide 20 mg tablet 20 mg PO BID Qty: 60 2RF Hold Instructions: Resume on 07/20/21. Hold for next week, then resume as needed only Xarelto 2.5 mg tablet 2.5 mg PO BID@08,20 Qty: 60 2RF cyclobenzaprine 10 mg tablet 10 mg PO TID PRN (Reason: muscle spasm) Qty: 60 0RF (DME) lancets [OneTouch Delica Lancets] 33 gauge misc See Rx Instructions .ROUTE .MEDSUPPLY Qty: 100 0RF Rx Instructions: 3 time day insulin aspart U-100 [Novolog Flexpen U-100 Insulin] 100 unit/mL (3 mL) insulin pen 6 - 30 unit SUBCUT TID Qty: 15 1RF Rx Instructions: with meals Levemir FlexTouch U-100 Insuln 100 unit/mL (3 mL) insulin pen 40 unit SUBCUT QAM Qty: 15 2RF (DME) pen needle, diabetic 33 gauge x 5/32 needle See Rx Instructions .ROUTE .MEDSUPPLY Qty: 100 5RF Rx Instructions: 4 daily (DME) lancing device with lancets [[employer] DelInstagram Lanc Device] Kit See Rx Instructions .ROUTE .MEDSUPPLY Qty: 1 1RF Rx Instructions: daily (DME) blood-glucose meter Kit See Rx Instructions .ROUTE .MEDSUPPLY Qty: 1 0RF Rx Instructions: three times daily aspirin 81 mg tablet,delayed release (DR/EC) 81 mg PO BID@08,20 Qty: 60 0RF metformin 500 mg tablet extended release 24 hr 1,000 mg PO BID Qty: 56 2RF Rx Instructions: Need apt have not keep the past 2 apt times hydrocodone-acetaminophen 5-325 mg tablet 1 tab PO Q6H PRN (Reason: pain) Qty: 10 0RF albuterol sulfate [ProAir HFA] 90 mcg/actuation Hfa Aerosol Inhaler 2 puff INHALATION Q4H PRN (Reason: Shortness Of Breath) 0RF promethazine 25 mg tablet 25 mg PO TID PRN (Reason: nausea and vomiting) Qty: 14 0RF tizanidine 2 mg tablet 2 mg PO BID PRN (Reason: Muscle Pain) 0RF Ozempic 0.25 mg or 0.5 mg(2 mg/1.5 mL) pen injector 0.5 mg SUBCUT Q7D 0RF Rx Instructions: (Mondays) pantoprazole 40 mg tablet,delayed release (DR/EC) 40 mg PO BID Qty: 60 2RF nitroglycerin 0.4 mg Tablet, Sublingual 0.4 mg SUBLINGUAL Q5M PRN (Reason: Chest Pain) 0RF ondansetron 4 mg tablet,disintegrating 4 mg PO Q6H PRN (Reason: nausea and vomiting) Qty: 14 0RF Discharge Orders: Discharge ED (Routine); Ordered 08/15/21 Ordered By: Mirian Kumar Other Ambulatory Orders: DME: Oxygen (Order) Location: None Selected Ordered By: Mirian Kumar Referrals: Alondra Ham, [facility] [Primary Care Provider] - Discharge Diet: Usual diet Discharge Activity: Resume usual activity Patient Instructions: COPD (Chronic Obstructive Pulmonary Disease) (ED), COVID- 19 (Coronavirus Disease 2019) (ED) Activity Restrictions/Additional Instructions: Thank you for visiting the emergency department. You were seen and evaluated for chest discomfort. You were found to have COVID-19. I believe that this adequately explains your symptoms. Please follow-up with your primary care provider. Please continue to wear home oxygen. Return the emergency department if your oxygen levels dropped below 90%. Return to the ED for worsening symptoms or anything else that you are concerned about and feel needs ED evaluation. Coding Level of Care Code ED Marketing Writer for Kristian Marquis Exam Comprehensive
--- NOTE | 2021-08-15 15:52 | XRR_ITS ---
PROCEDURE INFORMATION: Exam: XR Chest Exam date and time: 08/15/2021 3:52 PM Age: 60 years old Clinical indication: Pain; Chest pressure; Additional info: Chest pain TECHNIQUE: Imaging protocol: XR of the chest. Views: 1 view. COMPARISON: CR XR chest 1V portable [id number] 07/21/2021 9:19 AM FINDINGS: Lungs: Stable right lung granulomas. Mild ill-defined opacity in the left lung base is persistent since 07/21/2021. Pleural spaces: Unremarkable. No pleural effusion. No pneumothorax. Heart/Mediastinum: Cardiomediastinal contours are unremarkable. Bones/joints: Bones are unremarkable. XR/XR chest 1V portable [id number] IMPRESSION: Mild nonspecific opacity in the left lung base, persistent since 07/21/2021. Possible atelectasis. Infection is not excluded.
[2021-08-15 16:10] LABS: Basophils % 0.3 %; Eosinophils % 1.3 %; Hematocrit 38.9 % (37.0-47.0); Hemoglobin 12.5 g/dL (11.5-15.3); Lymphocytes # 0.9 10^3/uL (0.8-4.8); Lymphocytes % 28.4 %; Mean Corpuscular HGB Conc 32.1 g/dL (30.0-36.0); Mean Corpuscular Hemoglobin 29.2 pg (28.0-34.0); Mean Corpuscular Volume 90.9 fl (81-99); Mean Platelet Volume 10.7 fL (7.4-10.4); Monocytes # 0.3 10^3/uL (0.2-0.9); Monocytes % 10.3 %; Neutrophils % 59.4 %; Nucleated Red Blood Cells % 0 %; Platelet Count 141 10^3/cmm (130-400); Red Blood Count 4.28 10^6/uL (4.1-5.3); Red Cell Distribution Width 13.8 % (12.1-15.1); White Blood Count 3.2 10^3/uL (4.0-10.0)
[2021-08-15 16:39] LABS: Alanine Aminotransferase 14 U/L (0-33); Blood Urea Nitrogen 15 mg/dL (8-23); Glomerular Filtration Rate 101.3 mL/min (90-130); Lipase 17 U/L (13-60); Total Bilirubin 0.4 mg/dL (0.15-1.2)
[2021-08-15] MEDS: sodium chloride 0.9% 1,000 ML 999 ML IV (16:43)
[2021-08-15 16:47] LABS: Albumin Level 3.1 g/dL (3.5-5.2); Alkaline Phosphatase 74 IU/L (35-105); Anion Gap 21.4 (5-19); Aspartate Amino Transferase 18 U/L (0-32); Calcium 8.2 mg/dL (8.5-10.5); Carbon Dioxide 16 mmol/L (22-29); Chloride 101 mmol/L (98-107); Globulin 3.1 g/dL (1.3-4.6); Glucose 224 mg/dL (65-115); Osmolality Calculated 286 mOsm/kg (285-295); Potassium 4.4 mmol/L (3.5-5.1); Sodium 134 mmol/L (136-145); Total Protein 6.2 g/dL (6.6-8.7)
--- NOTE | 2021-08-15 17:00 | PC.NURSE ---
PATIENT CONTINUED TO DROP TO 86% O2 SATURATION, PATIENT PLACED ON 2 L O2 NC.
[2021-08-15 17:11] LABS: Influenza A by IFA Negative (Negative); Influenza B by IFA Negative (Negative); SARS Covid-2 Antigen Positive (Negative)
[2021-08-15 17:12] LABS: NT Pro B Type Natriuretic Pept 348 pg/mL (0-125)
[2021-08-15 17:27] LABS: Troponin(5th) Baseline 23 ng/L (0-10)
[2021-08-15 17:54] LABS: Urine Color Dark Yellow (Yellow)
[2021-08-15 17:55] LABS: Add Urine Microscopic? YES; Bilirubin Urine 1+ (Negative); Blood Urine 2+ (Negative); Glucose Urine UA 4+ (Normal); Ketones Urine Negative (Negative); Leukocyte Esterase Urine 1+ (Negative); Nitrate Urine Negative (Negative); Protein Urine 1+ (Negative); Specific Gravity, Urine 1.025 (1.005-1.030); Urine Appearance Hazy (CLEAR); Urobilinogen Urine Norm (Negative); pH Urine 5 (5-7)
[2021-08-15 17:56] LABS: Add Urine Culture? Yes; Bacteria Urine 3+ /hpf; RBC Urine 0-4 /hpf (0-2); Squamous Epithelial Cell Urine 0-4 /hpf (0-5)
[2021-08-15 18:19] LABS: Glucose Point of Care 243 mg/dL (70-110)
--- NOTE | 2021-08-15 18:37 | ECG_ITS ---
[facility] Test Date: 2021-08-15 Pat Name: Shea Simon Department: Room: Gender: Female Bottle Caser: : 1960 Requested By: Howard Robertson Order Number: [id number] Reading MD: GAMA KAY Measurements Intervals [place] Rate: 79 P: 63 DE: 155 QRS: 64 QRSD: 89 T: 76 QT: 371 QTc: 427 Interpretive Statements SINUS RHYTHM POSSIBLE LEFT ATRIAL ENLARGEMENT [-0.1mV P-WAVE IN V1/V2] Compared to ECG 08/15/2021 15:45:13 No significant changes Electronically Signed On 08-15-2021 19:17:24 CIVILIAN TECHNICIAN by GAMA KAY [id number]
[2021-08-15] MEDS: lidocaine 2% viscous 15 ML, aluminum-mag hydrox-simethicon 30 ML, sucralfate oral liq 1 GM PO (19:05)
[2021-08-15] MEDS: acetaminophen 500 mg Tablet 1000 MG PO (19:06)
[2021-08-15] MEDS: ketorolac 30 mg/mL INJ 15 MG IVP (19:06)
--- NOTE | 2021-08-15 22:37 | ECG_ITS ---
[facility] Test Date: 2021-08-15 Pat Name: Shea Simon Department: Room: Gender: Female Dietary Clerk: : 1960 Requested By: Howard Robertson Order Number: [id number] Reading MD: GAMA KAY Measurements Intervals [place] Rate: 97 P: 61 SC: 154 QRS: 84 QRSD: 82 T: 64 QT: 334 QTc: 424 Interpretive Statements SINUS RHYTHM LEFT ATRIAL ENLARGEMENT [-0.15mV P-WAVE IN V1/V2] Compared to ECG 07/18/2021 14:29:01 No significant changes Electronically Signed On 08-15-2021 19:17:37 MANAGER FLORAL by GAMA KAY [id number]
== END 2021-08-15 20:33 | disposition home or self-care (01) ==
PROVIDERS: Emergency Medicine; Emergency Provider Emergency Medicine; PCP Nurse Practitioner
DX: U07.1 COVID-19 (principal); R07.9 Chest pain, unspecified; J44.1 Chronic obstructive pulmonary disease with (acute) exacerbation; R09.02 Hypoxemia; Z79.4 Long term (current) use of insulin; Z79.84 Long term (current) use of oral hypoglycemic drugs; Z79.82 Long term (current) use of aspirin; E11.9 Type 2 diabetes mellitus without complications; I11.0 Hypertensive heart disease with heart failure; I50.30 Unspecified diastolic (congestive) heart failure; Z87.891 Personal history of nicotine dependence
CPT/HCPCS: 36415; 36416; 71045; 80053; 81001; 82962; 83690; 83880; 84484; 85025; 87086; 87426; 87804; 93005; 94640; 96361; 96374; 99284; J1885; J7030

== ENCOUNTER 2021-08-21 16:00 | Inpatient (IN) | payer MEDICARE, MEDICAID, SELFPAY ==
[2021-08-21] VITALS (8 sets, daily range): BP systolic 70–116; BP diastolic 49–82; PULSE 68–100; RESP 16–24; TEMP 38.5; O2SAT 89–97
--- NOTE | 2021-08-21 17:06 | XRR_ITS ---
PROCEDURE INFORMATION: Exam: XR Chest Exam date and time: 08/21/2021 5:06 PM Age: 60 years old Clinical indication: Shortness of breath; Additional info: Covid/hypoxia TECHNIQUE: Imaging protocol: XR of the chest. Views: 1 view. COMPARISON: CR (CHEST, ) 08/15/2021 4:12 PM FINDINGS: Lungs: Ill-defined peripheral opacities in the mid and lower lungs. Pleural spaces: Unremarkable. No pleural effusion. No pneumothorax. Heart/Mediastinum: Unremarkable. No cardiomegaly. Bones/joints: Unremarkable. XR/XR chest 1V portable [id number] IMPRESSION: Ill-defined peripheral opacities within the mid and lower lungs suspicious for COVID pneumonia.
--- NOTE | 2021-08-21 17:16 | ED_ITS ---
HPI - COVID General: Chief Complaint: ER Hold Stated Complaint: weakness,sob, covid postive Time Seen by Provider: 08/21/21 17:14 Source: patient Mode of arrival: ambulatory Triage information: Has fever, cough or shortness of breath . Exposure to COVID + person last 14 days History of Present Illness: 60-year-old female with history of COPD and congestive heart failure presents emergency room complaining of myalgias fever headache weakness some loose stools. Has been going on for the last week. She tested positive on August 15 6 days ago. She normally is on 4 L by nasal cannula at home however on arrival here she is satting in the mid 80s on that same 4 L. Cough is been nonproductive. She been very fatigued and weak as well as having a sore throat. MD complaint: known COVID positive Prior covid testing: yes, results known Prior testing date: 08/15/21 COVID 19 common symptoms: positive fever(s), chills, cough, non-productive cough, dyspnea, fatigue, body aches, headache(s), throat pain, nasal congestion, nausea, diarrhea and chest tightness (Occasional); negative productive cough, loss of sense of smell and/or taste or vomiting COVID 19 other sytmptoms: positive requiring more oxygen; negative chest pain Onset (ago): day(s) (-8) Severity: severe Pertinent comorbid conditions: diabetes, hypertension, COPD/respiratory disease and on home oxygen Treatment prior to arrival: none COVID Results: SARS-CoV-2 Antigen (Rapid) Positive (Negative) H 08/15/21 16:40 08/15/21 SARS-CoV-2 (PCR) Not detected (NOT DETECT) 07/21/21 10:28 07/21/21 Coronavirus Type 229E (PCR) Not detected (NOT DETECT) 07/21/21 10:28 07/21/21 Review of Systems Const: Reports: fever(s), chills, body aches and fatigue ENMT: Reports: throat pain and nasal congestion Card: Denies: chest pain, edema, dyspnea on exertion or orthopnea Resp: Reports: dyspnea and non-productive cough; Denies: productive cough GI: Reports: nausea and diarrhea; Denies: vomiting : Denies: flank pain, difficulty voiding, dysuria, urinary frequency or urinary urgency Skin/Breast: Denies: rash or pruritus Neuro: Reports: headache(s) PFSH ED PFSH: Medical History Chest pain Diabetes mellitus with hyperglycemia Diastolic congestive heart failure Gallbladder anomaly Generalized anxiety disorder GERD (gastroesophageal reflux disease) H/O deep venous thrombosis History of DVT of lower extremity Left leg 06/2019 History of skin cancer Basal cell carcinoma on back 2007 HTN (hypertension) Hx of insulin dependent diabetes mellitus Insomnia, unspecified Noncompliance with dietary restriction Noncompliance with medication regimen Tremor, unspecified Unspecified urinary incontinence Vitamin B12 deficiency Surgical History H/O left breast biopsy Benign 2016 History of thoracentesis X 2 for traumatic effusion History of tonsillectomy Hx of colonoscopy Hx of tubal ligation / incidental appendectomy 1981 Status post surgical removal of malignant neoplasm of skin Basal cell carcinoma on back 2007 Family History Mother Cancer Unknown type Father Cancer Lung CA Son Gallbladder disease Other Hypertension Denies family history of Clotting disorder Social History Quit status (tobacco): has quit using tobacco Former quit date comment: Patient smoked 2 packs of cigarettes a day for 25 years Second hand smoke exposure: No Smoking risk assessment/counseling performed?: No Alcohol intake: never Desire information about alcohol rehabilitation?: No Counseling given: No Desire information about substance/drug rehabilitation?: No Counseling given: No Adopted: No Caregiver/support person: No Lives independently: Yes Household members: spouse and children Marital status: service: No Current occupational status: unemployed History of recent travel: No Current gender identity: Female Physical Exam Const: GENERAL APPEARANCE: cooperative and comfortable ORIENTATION/CONSCIOUSNESS: Yes awake, Yes oriented to person, Yes oriented to place and Yes oriented to time HENMT: COMMON NORMALS: normocephalic, atraumatic and hearing grossly normal bilaterally HEAD & SCALP: normocephalic and atraumatic Neck/C-Spine: COMMON NORMALS: no JVD Resp: COMMON NORMALS: normal respiratory effort and No retractions AUSCULTATION: rales and wheezes Cardio: COMMON NORMALS: no JVD, regular rate, regular rhythm and No murmurs present (Cardio) RATE: regular rate RHYTHM: regular rhythm GI: COMMON NORMALS: Soft to palpation and No hepatosplenomegaly present AUSCULTATION: Yes normoactive bowel sounds PALPATION: Yes Soft to palpation, No Tenderness to palpation present (GI), No Guarding due to palpation present (GI) and Yes No hepatosplenomegaly present Extremity: COMMON NORMALS: normal to inspection, capillary refill normal, no clubbing, cyanosis or edema, no calf tenderness and no pedal edema Neuro: SENSORIUM/ORIENTATION: Yes oriented to person, Yes oriented to place and Yes oriented to time Skin: COMMON NORMALS: no rashes or lesions noted GENERAL SKIN EXAM: no rashes or lesions noted Course Vital Signs: Vital signs: Vital Signs Temperature 97.7 F 08/23/21 07:40 Pulse Rate 70 08/23/21 07:40 Respiratory Rate 18 08/23/21 07:40 Blood Pressure 93/57 08/23/21 07:40 Pulse Oximetry 90 08/23/21 07:40 MDM - COVID Medical Decision Making Acute COVID with acute respiratory failure with hypoxia discussed with hospitalist orders written to admit. Medical Records I reviewed the patient's medical records. Lab Data I reviewed the patient's lab results. : 08/23/21 02:40 08/23/21 02:40 Radiology Impressions Chest X-Ray 08/21/21 17:06 IMPRESSION: Ill-defined peripheral opacities within the mid and lower lungs suspicious for COVID pneumonia. Laboratory Results WBC 4.0 10^3/uL (4.0-10.0) 08/21/21 17:25 RBC 4.46 10^6/uL (4.1-5.3) 08/21/21 17:25 Hgb 12.8 g/dL (11.5-15.3) 08/21/21 17:25 Hct 39.8 % (37.0-47.0) 08/21/21 17:25 MCV 89.2 fl (81-99) 08/21/21 17:25 MCH 28.7 pg (28.0-34.0) 08/21/21 17: MCHC 32.2 g/dL (30.0-36.0) 08/21/21 17:25 RDW 13.6 % (12.1-15.1) 08/21/21 17:25 Plt Count 164 10^3/cmm (130-400) 08/21/21 17:25 MPV 11.4 fL (7.4-10.4) H 08/21/21 17:25 Neut % (Auto) 74.7 % 08/21/21 17:25 Lymph % (Auto) 16.7 % 08/21/21 17:25 [place] % (Auto) 8.3 % 08/21/21 17:25 Eos % (Auto) 0.0 % 08/21/21 17:25 Baso % (Auto) 0.0 % 08/21/21 17:25 Neut # (Auto) 2.96 10^3/uL (1.8-7.7) 08/21/21 17: Lymph # (Auto) 0.7 10^3/uL (0.8-4.8) L 08/21/21 17:25 [place] # (Auto) 0.3 10^3/uL (0.2-0.9) 08/21/21 17:25 Eos # (Auto) 0.0 10^3/uL (0.0-0.8) 08/21/21 17:25 Baso # (Auto) 0.0 10^3/uL (0.0-0.1) 08/21/21 17: Nucleated RBC % (auto) 0 % 08/21/21 17: Nucleated RBCs # 0.0 /100WBC 08/21/21 17:25 Specimen Type Arterial 08/21/21 17:15 Sample Site Radial, left 08/21/21 17:15 ABG pH 7.45 (7.35-7.45) 08/21/21 17:15 ABG pCO2 36.4 mmHg (35-45) 08/21/21 17:15 ABG pO2 57.4 mmHg (80.0-100.0) L 08/21/21 17:15 ABG HCO3 25.4 mmol/L (22-26) 08/21/21 17:15 ABG O2 Saturation 92.3 08/21/21 17:15 ABG Base Excess 1.6 mmol/L (-2.0-2.0) 08/21/21 17:15 Dilshad Test Pos 08/21/21 17:15 A-a O2 Gradient 24.1 mmHg (5-10) H 08/21/21 17:15 Hematocrit 38.3 % (37-47) 08/21/21 17:15 Hgb O2 Saturation 90.0 % (95-100) L 08/21/21 17:15 Carboxyhemoglobin 1.6 %THgb (0.4-20.1) 08/21/21 17:15 Methemoglobin 0.9 % (0.4-1.5) 08/21/21 17:15 Total Hemoglobin 12.5 g/dL (12-16) 08/21/21 17:15 Sodium 132.0 mmol/L (131-143) 08/21/21 17:15 Potassium 4.2 mmol/L (3.5-5.0) 08/21/21 17:15 Glucose 177.0 mg/dL (70-115) H 08/21/21 17:15 Ionized Calcium 1.1 mmol/L (1.1-1.4) 08/21/21 17:15 O2 Delivery Device Nc 08/21/21 17:15 O2 Liters/Min 5.0 % 08/21/21 17:15 FiO2 40.0 % 08/21/21 17:15 Power Cutting Machine Operator ID [place] 08/21/21 17:15 Sodium 131 mmol/L (136-145) L 08/21/21 17:25 Potassium 4.4 mmol/L (3.5-5.1) 08/21/21 17:25 Chloride 95 mmol/L (98-107) L 08/21/21 17:25 Carbon Dioxide 22 mmol/L (22-29) 08/21/21 17:25 Anion Gap 18.4 (5-19) 08/21/21 17:25 BUN 21 mg/dL (8-23) 08/21/21 17:25 Creatinine 1.0 mg/dL (0.5-0.9) H 08/21/21 17:25 GFR Calculation 56.2 mL/min (90-130) L 08/21/21 17:25 Glucose 157 mg/dL (65-115) H 08/21/21 17:25 Calculated Osmolality 278 mOsm/kg (285-295) L 08/21/21 17:25 Lactic Acid 1.2 mmol/L (0.5-2.2) 08/21/21 17:25 Calcium 8.8 mg/dL (8.5-10.5) 08/21/21 17:25 Total Bilirubin 0.4 mg/dL (0.15-1.2) 08/21/21 17:25 AST 32 U/L (0-32) 08/21/21 17:25 ALT 15 U/L (0-33) 08/21/21 17:25 Alkaline Phosphatase 67 IU/L (35-105) 08/21/21 17:25 C-Reactive Protein 209.5 mg/L (0.0-4.9) H 08/21/21 17:25 Total Protein 6.8 g/dL (6.6-8.7) 08/21/21 17:25 Albumin 3.1 g/dL (3.5-5.2) L 08/21/21 17:25 Globulin 3.7 g/dL (1.3-4.6) 08/21/21 17:25 Procalcitonin 0.18 ng/mL (0-0.5) 08/21/21 17:25 SARS-CoV-2 Antigen (Rapid) Positive (Negative) H 08/15/21 16:40 08/15/21 SARS-CoV-2 (PCR) Not detected (NOT DETECT) 07/21/21 10:28 07/21/21 Coronavirus Type 229E (PCR) Not detected (NOT DETECT) 07/21/21 10:28 07/21/21 Discharge Plan Discharge Patient Disposition: Admitted As Inpatient Admit Provider: Flakito Plata Clinical Impression: Acute and chronic respiratory failure with hypoxia, COVID-19, COPD (chronic obstructive pulmonary disease) with emphysema, Diabetes mellitus with hyperglycemia, HTN (hypertension) Condition: Stable Coding Level of Care Code ED Extruder Operator Helper for Chg Fwd Exam Comprehensive
[2021-08-21 17:25] LABS: ABG PCO2 36.4 mmHg (35-45); ABG PH Result 7.45 (7.35-7.45); Arterial Blood Gas Hematocrit 38.3 % (37-47); Base Excess ABG 1.6 mmol/L (-2.0-2.0); Blood Gas Allen Test Pos; Blood Gas Sample Type Arterial; Carboxyhemoglobin 1.6 %THgb (0.4-20.1); HCO3 ABG 25.4 mmol/L (22-26); Ionized Calcium Level - ABG 1.1 mmol/L (1.1-1.4); Methemoglobin 0.9 % (0.4-1.5); Oxygen Saturation ABG 92.3; PO2 ABG 57.4 mmHg (80.0-100.0); Potassium Level - ABG 4.2 mmol/L (3.5-5.0); Total Hemoglobin 12.5 g/dL (12-16)
--- NOTE | 2021-08-21 17:27 | PC.NURSE ---
PATIENT PLACED ON CONTINUOUS BEDSIDE CARDIAC, BP AND O2 MONITOR.
[2021-08-21 17:28] LABS: Alveolar-Arterial Oxygen Gradi 24.1 mmHg (5-10); Blood Gas Operator Identificat MONRO; Blood Gas Sample Site Radial, left; Oxygen Device NC
[2021-08-21 17:58] LABS: Hematocrit 39.8 % (37.0-47.0); Hemoglobin 12.8 g/dL (11.5-15.3); Lymphocytes # 0.7 10^3/uL (0.8-4.8); Lymphocytes % 16.7 %; Mean Corpuscular HGB Conc 32.2 g/dL (30.0-36.0); Mean Corpuscular Hemoglobin 28.7 pg (28.0-34.0); Mean Corpuscular Volume 89.2 fl (81-99); Mean Platelet Volume 11.4 fL (7.4-10.4); Monocytes # 0.3 10^3/uL (0.2-0.9); Monocytes % 8.3 %; Neutrophils # 2.96 10^3/uL (1.8-7.7); Neutrophils % 74.7 %; Nucleated Red Blood Cells % 0 %; Platelet Count 164 10^3/cmm (130-400); Red Blood Count 4.46 10^6/uL (4.1-5.3); Red Cell Distribution Width 13.6 % (12.1-15.1)
[2021-08-21] MEDS: dexamethasone 10 mg/mL INJ 6 MG IVP (18:01)
[2021-08-21] MEDS: acetaminophen 500 mg Tablet 1000 MG PO (18:01)
[2021-08-21 18:17] LABS: Lactic Sepsis W/Reflex 1.2 mmol/L (0.5-2.2)
[2021-08-21] MEDS: remdesivir 200 MG in sodium chloride 0.9% (100 ml) 60 ML 100 MG IV (18:32)
--- NOTE | 2021-08-21 18:35 | PC.NURSE ---
PATIENT PLACED ON BEDSIDE CARDIAC, BP AND O2 MONITOR. 4
[2021-08-21 18:36] LABS: Alanine Aminotransferase 15 U/L (0-33); Albumin Level 3.1 g/dL (3.5-5.2); Alkaline Phosphatase 67 IU/L (35-105); Aspartate Amino Transferase 32 U/L (0-32); Blood Urea Nitrogen 21 mg/dL (8-23); C Reactive Protein 209.5 mg/L (0.0-4.9); Calcium 8.8 mg/dL (8.5-10.5); Carbon Dioxide 22 mmol/L (22-29); Chloride 95 mmol/L (98-107); Globulin 3.7 g/dL (1.3-4.6); Glomerular Filtration Rate 56.2 mL/min (90-130); Glucose 157 mg/dL (65-115); Osmolality Calculated 278 mOsm/kg (285-295); Sodium 131 mmol/L (136-145); Total Bilirubin 0.4 mg/dL (0.15-1.2); Total Protein 6.8 g/dL (6.6-8.7)
--- NOTE | 2021-08-21 18:36 | PM.HP ---
Providers/Chief Complaint Admitting Physician: Flakito Plata Primary Care Provider: [facility] Chief Complaint: weakness,sob, covid postive History of Present Illness Pleasant 60-year-old lady diagnosed with COVID-19 on Monday has been progressively getting more short of breath at rest and with exertion. Not much significant cough. Denies chest pain or pressure. Has been having a headache. Nausea. No vomiting or diarrhea. Febrile, 1-1.3. Chest x-ray with ill-defined peripheral opacities. Normally on 4 L of oxygen, currently requiring 55% FiO2, 35 L on heated high flow to maintain saturation in the low 90s. Review of Systems Const: Reports: fever(s), fatigue and malaise Eyes: Denies: change in vision or eye redness ENMT: Denies: throat pain, oral sores or ear or mastoid pain Card: Denies: chest pain, edema, pre-syncope or dyspnea on exertion Resp: Reports: dyspnea; Denies: productive cough, change in phlegm color or hemoptysis GI: Reports: nausea; Denies: abdominal pain, vomiting, diarrhea, constipation, hematochezia or melena : Denies: flank pain, urinary frequency or hematuria Musc: Denies: back pain, joint swelling or joint redness Skin/Breast: Denies: rash, sores or new lesions Neuro: Reports: headache(s); Denies: numbness in extremities, weakness in extremities, dizziness, confusion or seizure-like activity Endo: Denies: polyuria or polydipsia Bhavin/Lymph: Denies: easy bleeding or purpura All/Imm: Denies: urticaria, throat swelling or tongue swelling Medications/Allergies Home Medications Medication Instructions Recorded Confirmed Last Taken Type nitroglycerin 0.4 mg sublingual 0.4 mg SUBLINGUAL Q5M PRN 09/25/19 07/18/21 09/25/19 History tablet ondansetron 4 mg disintegrating 4 mg PO Q6H PRN #14 tab 07/28/20 07/18/21 09/08/20 Rx tablet hydrocodone 5 mg-acetaminophen 325 1 tab PO Q6H PRN #10 tab 09/08/20 07/18/21 09/22/20 Rx mg tablet atorvastatin 10 mg tablet 10 mg PO DAILY #30 tab 03/18/21 07/18/21 07/16/21 Rx diltiazem HCl 30 mg tablet 30 mg PO BID@08,20 #60 tab 03/18/21 07/18/21 07/16/21 Rx escitalopram oxalate 20 mg tablet 20 mg PO DAILY@08 #30 tab 03/18/21 07/18/21 07/16/21 Rx fluticasone 500 mcg-salmeterol 50 1 inh INHALATION BID@08,20 #60 ea 03/18/21 07/18/21 07/17/21 Rx mcg/dose blistr powdr for inhalation (Advair Diskus) rivaroxaban 2.5 mg tablet (Xarelto) 2.5 mg PO BID@08,20 #60 tab 03/18/21 07/18/21 07/17/21 Rx aspirin 81 mg tablet,delayed 81 mg PO BID@08,20 #60 tab 05/15/21 07/18/21 07/16/21 Rx release cyclobenzaprine 10 mg tablet 10 mg PO TID PRN #60 tab 06/22/21 07/18/21 Unknown Rx promethazine 25 mg tablet 25 mg PO TID PRN #14 tab 07/16/21 07/18/21 Unknown Rx tizanidine 2 mg tablet 2 mg PO BID PRN 07/18/21 07/18/21 Unknown History pantoprazole 40 mg tablet,delayed 40 mg PO BID #60 tab 07/21/21 07/18/21 07/17/21 Rx release metformin 500 mg tablet,extended 1,000 mg PO BID #56 tab 07/26/21 Unknown Rx release 24 hr furosemide 20 mg tablet 20 mg PO BID PRN 08/21/21 08/21/21 Unknown History Allergies Allergy/AdvReac Type Severity Reaction Status Date / Time No Known Allergies Allergy Verified 08/21/21 18:49 PFSH Acute PFSH: Medical History Chest pain Diabetes mellitus with hyperglycemia Diastolic congestive heart failure Gallbladder anomaly Generalized anxiety disorder GERD (gastroesophageal reflux disease) H/O deep venous thrombosis History of DVT of lower extremity Left leg 06/2019 History of skin cancer Basal cell carcinoma on back 2007 HTN (hypertension) Hx of insulin dependent diabetes mellitus Insomnia, unspecified Noncompliance with dietary restriction Noncompliance with medication regimen Tremor, unspecified Unspecified urinary incontinence Vitamin B12 deficiency Surgical History H/O left breast biopsy Benign 2016 History of thoracentesis X 2 for traumatic effusion History of tonsillectomy Hx of colonoscopy Hx of tubal ligation / incidental appendectomy 1981 Status post surgical removal of malignant neoplasm of skin Basal cell carcinoma on back 2007 Family History Mother Cancer Unknown type Father Cancer Lung CA Son Gallbladder disease Other Hypertension Denies family history of Clotting disorder Social History Quit status (tobacco): has quit using tobacco Former quit date comment: Patient smoked 2 packs of cigarettes a day for 25 years Second hand smoke exposure: No Smoking risk assessment/counseling performed?: No Alcohol intake: never Desire information about alcohol rehabilitation?: No Counseling given: No Desire information about substance/drug rehabilitation?: No Counseling given: No Adopted: No Caregiver/support person: No Lives independently: Yes Household members: spouse and children Marital status: service: No Current occupational status: unemployed History of recent travel: No Current gender identity: Female Vitals/I&O/Wt Last Vital Signs Temp 101.3 F H 08/21/21 16:54 Pulse 87 08/21/21 18:26 Resp 16 08/21/21 18:26 BP 115/82 08/21/21 18:26 Pulse Ox 93 08/21/21 18:26 Weight last 48 hrs Weight 77.111 kg Physical Exam Const: COMMON NORMALS: no acute distress and patient oriented x3 GENERAL APPEARANCE: ill appearing OTHER: Tolerating HHF cannula HENMT: COMMON NORMALS: oropharynx normal Neck/C-Spine: COMMON NORMALS: no JVD Resp: COMMON NORMALS: normal respiratory effort and clear to auscultation bilaterally AUSCULTATION: clear to auscultation bilaterally Cardio: COMMON NORMALS: no JVD, regular rhythm, S1 normal heart sound present, S2 normal heart sound present and No murmurs present (Cardio) RHYTHM: regular rhythm HEART SOUNDS: S1 normal heart sound present and S2 normal heart sound present GI: COMMON NORMALS: Normal to inspection, nondistended, normoactive bowel sounds present, Soft to palpation and non-tender PALPATION: Yes Soft to palpation Extremity: COMMON NORMALS: no joint enlargement and no pedal edema Neuro: COMMON NORMALS: patient oriented x3 and moves all extremities Skin: COMMON NORMALS: no rashes or lesions noted GENERAL SKIN EXAM: no rashes or lesions noted Data : 08/21/21 17:25 08/21/21 17:25 Micro: Microbiology 08/21/21 17:33 Blood Culture - Preliminary Blood SPECIMEN COLLECTED A&P Assessment and plan (1) Acute and chronic respiratory failure with hypoxia: Continue oxygen support, heated high flow. Tolerating well at the moment. Started on remdesivir, Decadron. Continue. At the moment no evidence of superimposed bacterial infection. Monitor symptoms. On Xarelto previously, will transition to Lovenox anticoagulation for now to avoid interactions. Status: Acute (2) COVID-19: Status: Acute Plan COPD, not in exacerbation DM2: Sliding scale, detemir, consistent carbohydrate diet Diastolic CHF history, currently not in exacerbation History of esophageal dysmotility HTN Anxiety PAD Other chronic conditions noted Attestations Medical Necessity Statement*: Admission of over 2 midnights good immediate versus management of acute on chronic hypoxic respite failure with severe COVID-19 in a lady with underlying COPD, diastolic CHF, additional comorbidities. Coding Level of Care Code Acute Ceramic Products Sales Engineer for Yulissag Fwd Exam Comprehensive Diagnoses COVID-19 U07.1 Acute and chronic respiratory failure with hypoxia J96.21
[2021-08-21 18:42] LABS: Anion Gap 18.4 (5-19); Potassium 4.4 mmol/L (3.5-5.1)
[2021-08-21 18:43] LABS: Procalcitonin 0.18 ng/mL (0-0.5)
[2021-08-21 18:59] LABS: D Dimer 1.93 ug/mIFEU (0-0.59)
[2021-08-21 19:21] LABS: Glucose Point of Care 232 mg/dL (70-110)
[2021-08-21] MEDS: enoxaparin 80 mg/0.8 mL Syringe 77 MG SUBCUT (20:33)
[2021-08-21] MEDS: sodium chloride 0.9% 1,000 ML 100 ML IV (20:34)
[2021-08-21] MEDS: dilTIAZem 30 mg Tablet PO (20:37)
[2021-08-21] MEDS: aspirin 81 mg EC Tablet PO (20:37)
[2021-08-21 21:54] LABS: Glucose Point of Care 277 mg/dL (70-110)
[2021-08-21] MEDS: insulin lispro 100 unit/1 mL SUBCUT (22:07)
[2021-08-22] VITALS (18 sets, daily range): BP systolic 89–150; BP diastolic 53–91; PULSE 61–72; RESP 16–22; TEMP 36.3–36.6; O2SAT 88–96; BMI 26.9
[2021-08-22 02:46] LABS: Basophils % 0.3 %; Hematocrit 42.8 % (37.0-47.0); Hemoglobin 13.3 g/dL (11.5-15.3); Lymphocytes # 0.5 10^3/uL (0.8-4.8); Lymphocytes % 13.5 %; Mean Corpuscular HGB Conc 31.1 g/dL (30.0-36.0); Mean Corpuscular Hemoglobin 28.6 pg (28.0-34.0); Mean Platelet Volume 13.1 fL (7.4-10.4); Monocytes # 0.2 10^3/uL (0.2-0.9); Monocytes % 5.7 %; Neutrophils # 2.77 10^3/uL (1.8-7.7); Neutrophils % 79.4 %; Nucleated Red Blood Cells % 0 %; Platelet Count 113 10^3/cmm (130-400); Red Blood Count 4.65 10^6/uL (4.1-5.3); Red Cell Distribution Width 13.8 % (12.1-15.1); White Blood Count 3.5 10^3/uL (4.0-10.0)
[2021-08-22 02:55] LABS: D Dimer 2.19 ug/mIFEU (0-0.59)
[2021-08-22 03:09] LABS: Albumin Level 2.7 g/dL (3.5-5.2); Alkaline Phosphatase 70 IU/L (35-105); Blood Urea Nitrogen 29 mg/dL (8-23); Calcium 7.9 mg/dL (8.5-10.5); Carbon Dioxide 19 mmol/L (22-29); Chloride 97 mmol/L (98-107); Globulin 3.6 g/dL (1.3-4.6); Glomerular Filtration Rate 63.4 mL/min (90-130); Glucose 288 mg/dL (65-115); Osmolality Calculated 286 mOsm/kg (285-295); Sodium 130 mmol/L (136-145); Total Bilirubin 0.3 mg/dL (0.15-1.2); Total Protein 6.3 g/dL (6.6-8.7)
[2021-08-22 03:15] LABS: Slide Review Slide Review Perform
[2021-08-22 03:17] LABS: Anion Gap 18.8 (5-19); Aspartate Amino Transferase 42 U/L (0-32); Potassium 4.8 mmol/L (3.5-5.1)
[2021-08-22 03:18] LABS: Alanine Aminotransferase 17 U/L (0-33)
[2021-08-22] MEDS: sodium chloride 0.9% 1,000 ML 100 ML IV ×2 (06:33→17:04)
[2021-08-22] MEDS: enoxaparin 80 mg/0.8 mL Syringe 77 MG SUBCUT ×2 (06:33→18:25)
[2021-08-22 06:42] LABS: Glucose Point of Care 269 mg/dL (70-110)
[2021-08-22] MEDS: dexamethasone 10 mg/mL INJ 6 MG IVP (08:38)
[2021-08-22] MEDS: HYDROcodone-acetaminophen 5-325 mg Tablet 1 TAB PO ×2 (09:31→18:25)
[2021-08-22] MEDS: pantoprazole DR 40 mg Tablet PO ×2 (09:31→17:01)
[2021-08-22] MEDS: dilTIAZem 30 mg Tablet PO (09:31)
[2021-08-22] MEDS: atorvastatin 40 mg Tablet 10 MG PO (09:32)
[2021-08-22] MEDS: aspirin 81 mg EC Tablet PO ×2 (09:33→21:55)
[2021-08-22] MEDS: escitalopram 10 mg Tablet 20 MG PO (09:33)
[2021-08-22] MEDS: insulin lispro 100 unit/1 mL SUBCUT ×4 (09:33→22:03)
[2021-08-22 11:22] LABS: Glucose Point of Care 309 mg/dL (70-110)
[2021-08-22] MEDS: benzonatate 100 mg Capsule 200 MG PO ×2 (15:58→21:55)
[2021-08-22 16:47] LABS: Glucose Point of Care 294 mg/dL (70-110)
[2021-08-22] MEDS: remdesivir 100 MG in sodium chloride 0.9% (100 ml) 80 ML IV (17:01)
[2021-08-22 22:22] LABS: Glucose Point of Care 305 mg/dL (70-110)
--- NOTE | 2021-08-22 22:31 | P.PN_ITS ---
Subjective Subjective: Interval history: Doing slightly better. Still coughing. Discussed with her to request for cough medicine. No nausea vomiting or diarrhea. Vitals/I&O/Wt Last Vital Signs Temp 97.9 F 08/22/21 20:00 Pulse 64 08/22/21 20:00 Resp 18 08/22/21 20:00 BP 103/58 08/22/21 20:00 Pulse Ox 88 L 08/22/21 20:00 08/22/21 08/22/21 08/22/21 06:59 14:59 22:59 Intake Total 1058.333 / 1058.333 240 / 240 1080 / 1320 Balance 1058.333 / 1058.333 240 / 240 1080 / 1320 Weight last 48 hrs Weight 82.69 kg Weight 82.69 kg Weight 82.69 kg Weight 77.111 kg Physical Exam Const: COMMON NORMALS: no acute distress and patient oriented x3 GENERAL APPEARANCE: ill appearing OTHER: Tolerating HHF cannula HENMT: COMMON NORMALS: oropharynx normal Neck/C-Spine: COMMON NORMALS: no JVD Resp: COMMON NORMALS: normal respiratory effort and clear to auscultation bilaterally AUSCULTATION: clear to auscultation bilaterally Cardio: COMMON NORMALS: no JVD, regular rhythm, S1 normal heart sound present, S2 normal heart sound present and No murmurs present (Cardio) RHYTHM: regular rhythm HEART SOUNDS: S1 normal heart sound present and S2 normal heart sound present GI: COMMON NORMALS: Normal to inspection, nondistended, normoactive bowel sounds present, Soft to palpation and non-tender PALPATION: Yes Soft to palpation Extremity: COMMON NORMALS: no joint enlargement and no pedal edema Neuro: COMMON NORMALS: patient oriented x3 and moves all extremities Skin: COMMON NORMALS: no rashes or lesions noted GENERAL SKIN EXAM: no rashes or lesions noted Data : 08/22/21 01:59 08/22/21 01:59 Micro: Microbiology 08/21/21 18:34 Blood Culture - Preliminary Blood NEGATIVE TO DATE 08/21/21 17:33 Blood Culture - Preliminary Blood NEGATIVE TO DATE A&P Assessment and plan (1) Acute and chronic respiratory failure with hypoxia: Gradually improving. FiO2 requirement slightly lower, down to 45%. Continue oxygen support, heated high flow. Continue remdesivir, Decadron. At the moment no evidence of superimposed bacterial infection. Monitor symptoms. On Xarelto previously, will transition to Lovenox anticoagulation for now to avoid interactions. Status: Acute (2) COVID-19: Severe COVID-19 pneumonia. Covid induced bicytopenia. Monitor counts. Status: Acute Plan COPD, not in exacerbation DM2: Increase detemir dose. Sliding scale, detemir, consistent carbohydrate diet Diastolic CHF history, currently not in exacerbation History of esophageal dysmotility HTN Anxiety PAD Other chronic conditions noted Attestations Medical Necessity Statement*: Continue admission for assessment management of hypoxic respite failure with severe COVID-19 pneumonia. Coding Level of Care Code Acute Business Center Attendant for Kristian Marquis Diagnoses Acute and chronic respiratory failure with hypoxia J96.21 COVID-19 U07.1
[2021-08-23] VITALS (10 sets, daily range): BP systolic 93–118; BP diastolic 57–70; PULSE 65–73; RESP 16–20; TEMP 36.3–36.8; O2SAT 90–97
[2021-08-23 03:59] LABS: Basophils % 0.2 %; Hematocrit 35.8 % (37.0-47.0); Hemoglobin 11.5 g/dL (11.5-15.3); Lymphocytes # 0.5 10^3/uL (0.8-4.8); Mean Corpuscular HGB Conc 32.1 g/dL (30.0-36.0); Mean Corpuscular Hemoglobin 28.5 pg (28.0-34.0); Mean Corpuscular Volume 88.6 fl (81-99); Monocytes # 0.4 10^3/uL (0.2-0.9); Monocytes % 5.9 %; Neutrophils # 5.15 10^3/uL (1.8-7.7); Neutrophils % 84.6 %; Nucleated Red Blood Cells % 0 %; Platelet Count 233 10^3/cmm (130-400); Red Blood Count 4.04 10^6/uL (4.1-5.3); Red Cell Distribution Width 13.8 % (12.1-15.1); White Blood Count 6.1 10^3/uL (4.0-10.0)
[2021-08-23 04:26] LABS: Alanine Aminotransferase 16 U/L (0-33); Albumin Level 2.9 g/dL (3.5-5.2); Alkaline Phosphatase 70 IU/L (35-105); Anion Gap 16.4 (5-19); Aspartate Amino Transferase 26 U/L (0-32); Blood Urea Nitrogen 36 mg/dL (8-23); Calcium 7.7 mg/dL (8.5-10.5); Carbon Dioxide 25 mmol/L (22-29); Chloride 101 mmol/L (98-107); Globulin 2.7 g/dL (1.3-4.6); Glomerular Filtration Rate 84.8 mL/min (90-130); Glucose 268 mg/dL (65-115); Osmolality Calculated 304 mOsm/kg (285-295); Potassium 4.4 mmol/L (3.5-5.1); Sodium 138 mmol/L (136-145); Total Bilirubin 0.2 mg/dL (0.15-1.2); Total Protein 5.6 g/dL (6.6-8.7)
[2021-08-23 04:41] LABS: D Dimer 1.25 ug/mIFEU (0-0.59)
[2021-08-23] MEDS: sodium chloride 0.9% 1,000 ML 100 ML IV ×2 (04:51→15:40)
[2021-08-23] MEDS: enoxaparin 80 mg/0.8 mL Syringe 77 MG SUBCUT ×2 (06:29→17:35)
[2021-08-23 06:55] LABS: Glucose Point of Care 203 mg/dL (70-110)
[2021-08-23] MEDS: aspirin 81 mg EC Tablet PO ×2 (09:07→19:45)
[2021-08-23] MEDS: benzonatate 100 mg Capsule 200 MG PO ×3 (09:07→22:14)
[2021-08-23] MEDS: dilTIAZem 30 mg Tablet PO ×2 (09:07→19:44)
[2021-08-23] MEDS: escitalopram 10 mg Tablet 20 MG PO (09:07)
[2021-08-23] MEDS: pantoprazole DR 40 mg Tablet PO ×2 (09:07→17:35)
[2021-08-23] MEDS: atorvastatin 40 mg Tablet 10 MG PO (09:07)
[2021-08-23] MEDS: insulin lispro 100 unit/1 mL SUBCUT ×4 (09:08→22:14)
[2021-08-23] MEDS: dexamethasone 10 mg/mL INJ 6 MG IVP (09:08)
[2021-08-23 13:51] LABS: Glucose Point of Care 271 mg/dL (70-110)
[2021-08-23 17:16] LABS: Glucose Point of Care 260 mg/dL (70-110)
[2021-08-23] MEDS: remdesivir 100 MG in sodium chloride 0.9% (100 ml) 80 ML IV (17:35)
--- NOTE | 2021-08-23 18:17 | PM.PN ---
Subjective Subjective: Interval history: To be on heated high flow at 60% FiO2, saturating 94% currently. Reports no significantrelief in dyspnea however able to hold a conversation with me at this time.developing LE piting edema Vitals/I&O/Wt Last Vital Signs Temp 98.0 F 08/23/21 15:36 Pulse 65 08/23/21 15:36 Resp 18 08/23/21 15:36 BP 94/60 08/23/21 15:36 Pulse Ox 94 08/23/21 15:36 08/23/21 08/23/21 08/23/21 06:59 14:59 22:59 Intake Total 988.333 / 2308.333 1360 / 1360 Output Total 1000 / 1000 Balance -11.667 / 4711.577 1629 / 1360 Weight last 48 hrs Weight 87.679 kg Weight 82.69 kg Weight 82.69 kg Weight 82.69 kg Physical Exam Narrative: EXAM NARRATIVE: GEN: Awake, alert and oriented, no acute distress CVS: S1S2 N RS: CTA B/L except crackles over RUL Abd: Soft, nt/nd , bs+ DAIRY NUTRITION CONSULTANT: developing pitting edema Data : 08/23/21 02:40 08/23/21 02:40 Micro: Microbiology 08/21/21 18:34 Blood Culture - Preliminary Blood NEGATIVE TO DATE 08/21/21 17:33 Blood Culture - Preliminary Blood NEGATIVE TO DATE A&P Assessment and plan (1) Acute and chronic respiratory failure with hypoxia: Gradually improving. FiO2 requirement at 60% fi02 today Remdisivir 200mg iv x 1 followed by 100mg iv daily started 08/22- dexamethasone 6mg IVP daily Standing inhalers fluticasone-salmetrol empiric levaquin started 08/23 Flutter valve/spirometer at bedside trend inflammatory markers including CRP, D dimer Currently on full dose a/c with lovenox 1mg/kg q12h Status: Acute (2) COVID-19: Severe COVID-19 pneumonia. . Status: Acute Plan COPD, not in exacerbation DM2: Increase detemir dose. Sliding scale, detemir, consistent carbohydrate diet Diastolic CHF history, currently with developing LE pedal edema. Stop IVF, lasix 40mg IVP x1 History of esophageal dysmotility HTN Anxiety PAD Other chronic conditions noted Attestations Medical Necessity Statement*: needs inpatient IV treatment for COVID as above Coding Level of Care Code Acute Clinical Trials Data Coordinator for [facility] Fwd Diagnoses Acute and chronic respiratory failure with hypoxia J96.21 COVID-19 U07.1
[2021-08-23] MEDS: FUROsemide 10 mg/mL SDV 4mL 40 MG IVP (19:35)
[2021-08-23 21:41] LABS: Glucose Point of Care 236 mg/dL (70-110)
[2021-08-24] VITALS (9 sets, daily range): BP systolic 96–125; BP diastolic 61–77; PULSE 61–81; RESP 16–20; TEMP 36.6–36.9; O2SAT 86–94
[2021-08-24 05:29] LABS: Basophils % 0.2 %; Hematocrit 36.5 % (37.0-47.0); Hemoglobin 11.8 g/dL (11.5-15.3); Lymphocytes # 0.5 10^3/uL (0.8-4.8); Lymphocytes % 9.6 %; Mean Corpuscular HGB Conc 32.3 g/dL (30.0-36.0); Mean Corpuscular Hemoglobin 28.5 pg (28.0-34.0); Mean Corpuscular Volume 88.2 fl (81-99); Mean Platelet Volume 10.5 fL (7.4-10.4); Monocytes # 0.4 10^3/uL (0.2-0.9); Neutrophils # 4.47 10^3/uL (1.8-7.7); Neutrophils % 82.1 %; Nucleated Red Blood Cells % 0 %; Platelet Count 244 10^3/cmm (130-400); Red Blood Count 4.14 10^6/uL (4.1-5.3); Red Cell Distribution Width 14.1 % (12.1-15.1); White Blood Count 5.4 10^3/uL (4.0-10.0)
[2021-08-24 05:54] LABS: Alanine Aminotransferase 13 U/L (0-33); Albumin Level 2.9 g/dL (3.5-5.2); Alkaline Phosphatase 62 IU/L (35-105); Aspartate Amino Transferase 16 U/L (0-32); Blood Urea Nitrogen 24 mg/dL (8-23); Calcium 7.9 mg/dL (8.5-10.5); Carbon Dioxide 26 mmol/L (22-29); Chloride 105 mmol/L (98-107); Globulin 2.8 g/dL (1.3-4.6); Glucose 98 mg/dL (65-115); Osmolality Calculated 296 mOsm/kg (285-295); Sodium 141 mmol/L (136-145); Total Bilirubin 0.2 mg/dL (0.15-1.2); Total Protein 5.7 g/dL (6.6-8.7)
[2021-08-24 06:05] LABS: C Reactive Protein 48.7 mg/L (0.0-4.9); NT Pro B Type Natriuretic Pept 667 pg/mL (0-125)
[2021-08-24 06:24] LABS: Slide Review Slide Review Perform
[2021-08-24 06:45] LABS: Glucose Point of Care 88 mg/dL (70-110)
[2021-08-24] MEDS: enoxaparin 80 mg/0.8 mL Syringe 77 MG SUBCUT (06:48)
[2021-08-24] MEDS: benzonatate 100 mg Capsule 200 MG PO ×2 (09:01→14:45)
[2021-08-24] MEDS: levoFLOXacin 750 mg Tablet PO (09:02)
[2021-08-24] MEDS: pantoprazole DR 40 mg Tablet PO ×2 (09:02→17:20)
[2021-08-24] MEDS: atorvastatin 40 mg Tablet 10 MG PO (09:02)
[2021-08-24] MEDS: dilTIAZem 30 mg Tablet PO ×2 (09:02→19:41)
[2021-08-24] MEDS: aspirin 81 mg EC Tablet PO ×2 (09:02→19:41)
[2021-08-24] MEDS: escitalopram 10 mg Tablet 20 MG PO (09:02)
[2021-08-24] MEDS: dexamethasone 10 mg/mL INJ 6 MG IVP (09:03)
--- NOTE | 2021-08-24 09:43 | PC.NURSE ---
notified Dr Abraham that patient's blood sugar is 88 and has 43 units [address] scheduled. per Dr Abraham, administer 20 units of Lantus. copywriter put order in.
[2021-08-24] MEDS: insulin glargine 100 units/1 mL 20 UNIT SUBCUT (12:22)
[2021-08-24 12:44] LABS: Glucose Point of Care 128 mg/dL (70-110)
--- NOTE | 2021-08-24 14:15 | PC.SOCIAL ---
IMM Update pg 2 of IMM updated and reviewed w/ patient. Copy provided and copy placed in chart.
[2021-08-24] MEDS: HYDROcodone-acetaminophen 5-325 mg Tablet 1 TAB PO (16:34)
[2021-08-24 17:19] LABS: Glucose Point of Care 272 mg/dL (70-110)
[2021-08-24] MEDS: insulin lispro 100 unit/1 mL SUBCUT ×2 (17:20→21:06)
[2021-08-24] MEDS: remdesivir 100 MG in sodium chloride 0.9% (100 ml) 80 ML IV (17:21)
--- NOTE | 2021-08-24 19:03 | PM.PN ---
Subjective Subjective: Wean down to high flow nasal cannula 12 L/min today. Afebrile. No new complaints. Reports being less dyspneic today. Vitals/I&O/Wt Last Vital Signs Temp 98.4 F 08/24/21 16:00 Pulse 81 08/24/21 16:00 Resp 18 08/24/21 16:00 BP 121/61 08/24/21 16:00 Pulse Ox 92 08/24/21 16:00 08/24/21 08/24/21 08/24/21 06:59 14:59 22:59 Intake Total 80 / 80 Output Total 1250 / 1250 Balance -1250 / -1250 80 / -1170 Weight last 48 hrs Weight 84.912 kg Weight 87.679 kg Physical Exam Narrative: GEN: Awake, alert and oriented, no acute distress CVS: S1S2 N RS: CTA B/L except crackles over RUL Abd: Soft, nt/nd , bs+ PARACHUTE MARKER: developing pitting edema Data : 08/24/21 05:18 08/24/21 05:18 A&P Assessment and plan (1) Acute and chronic respiratory failure with hypoxia: Gradually improving. Currently on high flow nasal cannula 12 L/min. Remdisivir 200mg iv x 1 followed by 100mg iv daily started 08/22- dexamethasone 6mg IVP daily Standing inhalers fluticasone-salmetrol empiric levaquin started 08/23 Flutter valve/spirometer at bedside trend inflammatory markers including CRP, D dimer Currently on full dose a/c with lovenox 1mg/kg q12h Repeat Lasix 40 mg IV today. Status: Acute (2) COVID-19: Severe COVID-19 pneumonia. . Status: Acute Plan COPD, not in exacerbation DM2: Increase detemir dose. Sliding scale, detemir, consistent carbohydrate diet Diastolic CHF history, currently with developing LE pedal edema. Stop IVF, lasix 40mg IVP x1 History of esophageal dysmotility HTN Anxiety PAD Other chronic conditions noted Attestations Medical Necessity Statement*: Ongoing treatment for COVID-19 pneumonia, high FiO2 requirements, attempting to wean down prior to discharge home. Coding Level of Care Code Acute Computer Tester for [facility] Diagnoses Acute and chronic respiratory failure with hypoxia J96.21 COVID-19 U07.1
[2021-08-24] MEDS: FUROsemide 10 mg/mL SDV 4mL 40 MG IVP (19:41)
[2021-08-24 20:29] LABS: Glucose Point of Care 290 mg/dL (70-110)
[2021-08-25] VITALS (8 sets, daily range): BP systolic 109–148; BP diastolic 65–81; PULSE 60–73; RESP 16–22; TEMP 36.4–37.1; O2SAT 92–98
[2021-08-25 05:32] LABS: Basophils % 0.2 %; Hematocrit 37.8 % (37.0-47.0); Hemoglobin 12.1 g/dL (11.5-15.3); Lymphocytes # 0.5 10^3/uL (0.8-4.8); Lymphocytes % 9.9 %; Mean Corpuscular Hemoglobin 28.3 pg (28.0-34.0); Mean Corpuscular Volume 88.3 fl (81-99); Mean Platelet Volume 10.5 fL (7.4-10.4); Monocytes # 0.4 10^3/uL (0.2-0.9); Monocytes % 7.9 %; Neutrophils # 3.86 10^3/uL (1.8-7.7); Neutrophils % 79.7 %; Nucleated Red Blood Cells % 0 %; Platelet Count 298 10^3/cmm (130-400); Red Blood Count 4.28 10^6/uL (4.1-5.3); Red Cell Distribution Width 14.2 % (12.1-15.1); White Blood Count 4.8 10^3/uL (4.0-10.0)
[2021-08-25 05:52] LABS: Alanine Aminotransferase 14 U/L (0-33); Albumin Level 2.8 g/dL (3.5-5.2); Alkaline Phosphatase 64 IU/L (35-105); Anion Gap 15.8 (5-19); Aspartate Amino Transferase 18 U/L (0-32); Blood Urea Nitrogen 18 mg/dL (8-23); C Reactive Protein 34.1 mg/L (0.0-4.9); Calcium 8.4 mg/dL (8.5-10.5); Carbon Dioxide 26 mmol/L (22-29); Chloride 100 mmol/L (98-107); Globulin 3.1 g/dL (1.3-4.6); Glucose 212 mg/dL (65-115); Osmolality Calculated 294 mOsm/kg (285-295); Potassium 3.8 mmol/L (3.5-5.1); Sodium 138 mmol/L (136-145); Total Bilirubin 0.4 mg/dL (0.15-1.2); Total Protein 5.9 g/dL (6.6-8.7)
[2021-08-25 06:17] LABS: Slide Review Slide Review Perform
[2021-08-25] MEDS: enoxaparin 80 mg/0.8 mL Syringe 77 MG SUBCUT ×2 (06:38→20:33)
[2021-08-25 07:30] LABS: Glucose Point of Care 216 mg/dL (70-110)
[2021-08-25] MEDS: aspirin 81 mg EC Tablet PO ×2 (08:44→20:34)
[2021-08-25] MEDS: dilTIAZem 30 mg Tablet PO ×2 (08:44→20:34)
[2021-08-25] MEDS: insulin glargine 100 units/1 mL 20 UNIT SUBCUT (08:44)
[2021-08-25] MEDS: atorvastatin 40 mg Tablet 10 MG PO (08:44)
[2021-08-25] MEDS: dexamethasone 10 mg/mL INJ 6 MG IVP (08:44)
[2021-08-25] MEDS: escitalopram 10 mg Tablet 20 MG PO (08:44)
[2021-08-25] MEDS: pantoprazole DR 40 mg Tablet PO ×2 (08:44→17:52)
[2021-08-25] MEDS: insulin lispro 100 unit/1 mL SUBCUT ×4 (08:44→21:52)
[2021-08-25] MEDS: benzonatate 100 mg Capsule 200 MG PO ×2 (08:44→20:34)
[2021-08-25] MEDS: levoFLOXacin 750 mg Tablet PO (08:44)
[2021-08-25] MEDS: HYDROcodone-acetaminophen 5-325 mg Tablet 1 TAB PO (08:52)
[2021-08-25 11:17] LABS: Glucose Point of Care 221 mg/dL (70-110)
[2021-08-25 16:17] LABS: Glucose Point of Care 281 mg/dL (70-110)
--- NOTE | 2021-08-25 17:17 | PM.PN ---
Subjective Subjective: continues to be on HFNC at 15lpm, 02 sat 86-96%. no acute interim events. CRP trending down. Vitals/I&O/Wt Last Vital Signs Temp 97.6 F 08/25/21 16:10 Pulse 66 08/25/21 16:10 Resp 16 08/25/21 16:10 BP 109/66 08/25/21 16:10 Pulse Ox 98 08/25/21 16:10 08/25/21 08/25/21 08/25/21 06:59 14:59 22:59 Intake Total 240 / 240 Balance 240 / 240 Weight last 48 hrs Weight 83.37 kg Weight 84.912 kg Physical Exam Narrative: GEN: Awake, alert and oriented, no acute distress CVS: S1S2 N RS: CTA B/L Abd: Soft, nt/nd , bs+ Data : 08/25/21 04:15 08/25/21 04:15 A&P Assessment and plan (1) Acute and chronic respiratory failure with hypoxia: Date of positive test : 08/15/2021 Gradually improving. Currently on high flow nasal cannula 15 L/min. Remdisivir 200mg iv x 1 followed by 100mg iv daily started 08/22- day 4 today dexamethasone 6mg IVP daily Standing nebs duoneb, add budesonide empiric levaquin started 08/23 Flutter valve/spirometer at bedside trend inflammatory markers including CRP, D dimer, CRP trending down to 34, recheck with am labs, if clinical worsening, will use actemra Currently on full dose a/c with lovenox 1mg/kg q12h , on xarelto per home meddications start lasix 40mg po daily change insulin sliding scale to high dose given elevated blood sugars Status: Acute (2) COVID-19: Severe COVID-19 pneumonia. . Status: Acute Plan COPD, not in exacerbation DM2: Increase detemir dose. Diastolic CHF history, currently with developing LE pedal edema. History of esophageal dysmotility HTN Anxiety PAD Other chronic conditions noted Attestations Medical Necessity Statement*: covid 19 pneumonia, needs iv remdisivir, steroids, high 02 requirements unable to be replicated at home Coding Level of Care Code Acute Three Dimensional Map Modeler for [facility] Diagnoses Acute and chronic respiratory failure with hypoxia J96.21 COVID-19 U07.1
[2021-08-25] MEDS: remdesivir 100 MG in sodium chloride 0.9% (100 ml) 80 ML IV (17:52)
[2021-08-25 21:17] LABS: Glucose Point of Care 247 mg/dL (70-110)
[2021-08-25] MEDS: budesonide 0.5 mg/2 mL Neb INHALATION (21:24)
[2021-08-25] MEDS: ipratropium-albuterol 3 mL Neb INHALATION (21:24)
[2021-08-26] VITALS (12 sets, daily range): BP systolic 94–122; BP diastolic 63–67; PULSE 60–77; RESP 16–20; TEMP 36.5–36.9; O2SAT 89–93
--- NOTE | 2021-08-26 | USCV_ITS ---
Transthoracic Echo Shea Simon Age: 60 Gender: F : 1960 Exam Date: 08/26/2021 15:56 Ordering Phys: Paula Abraham MD Technologist: Carlos Rm [place] [facility] [place]: CHF, Pulmonary Edema BP: / HR: 68 Rhythm: Sinus Technical Quality: Adequate MEASUREMENTS (Male / Female) Normal Values 2D ECHO LV Diastolic Diameter PLAX 2.5 cm 4.2 - 5.9 / 3.9 - 5.3 cm LV Systolic Diameter PLAX 1.7 cm IVS Diastolic Thickness 1.3 cm 0.6 - 1.0 / 0.6 - 0.9 cm IVS Systolic Thickness 1.7 cm LVPW Diastolic Thickness 1.6 cm 0.6 - 1.0 / 0.6 - 0.9 cm LVPW Systolic Thickness 1.8 cm LVOT Diameter 1.7 cm LV Ejection Fraction 2D Teich 61.3 % LA Diameter 3.7 cm LA Width 3.9 cm LA Height 6.1 cm RA Width 3.7 cm RA Height 5.3 cm Aorta at Sinotubular Diameter 2.6 cm M-MODE Aortic Annulus Diameter 2.6 cm LA Ao Ratio MM 1.6 MV E Point Septal Separation 1.4 cm DOPPLER AV Peak Velocity 165.0 cm/s LVOT Peak Velocity 111.0 cm/s AV Area Cont Eq vti 2.1 cm squared AV Area Cont Eq pk 1.5 cm squared MV Peak Velocity 93.0 cm/s MV Area PHT 3.3 cm squared Mitral E to A Ratio 1.0 MV E' Velocity 47.0 cm/s Mitral E to MV E' Ratio 8.5 Mitral E to LV E' Lateral Ratio 8.5 Mitral E to LV E' Septal Ratio 8.5 TR Peak Velocity 99.9 cm/s TR Peak Gradient 4.0 mmHg TR Mean Velocity 62.9 cm/s TR Mean Gradient 2.0 mmHg TR Velocity Time Integral 21.5 cm Right Atrial Pressure 10.0 mmHg Pulmonary Artery Systolic Pressu 14.0 mmHg PV Peak Velocity 108.0 cm/s RV Acceleration Time 0.1 s RV Ejection Time 0.2 s RV AcT/ET 0.5 FINDINGS Left Ventricle Normal left ventricular cavity size. Normal left ventricular systolic function. Left ventricular ejection fraction is estimated at 55 %. Grade I/IV diastolic dysfunction (abnormal relaxation filling pattern), normal to mildly elevated filling pressures. Right Ventricle The right ventricle is normal in size and function. Right Atrium The right atrium is normal in size. Left Atrium The left atrium is normal in size. Mitral Valve Structurally normal mitral valve without significant stenosis or prolapse. There is no mitral regurgitation. Aortic Valve Moderate aortic valve calcification. Moderate aortic valve stenosis, mean gradient 5.5 mmHg, JAHAIRA 2.1 cm squared. Mild aortic valve regurgitation. Tricuspid Valve Structurally normal tricuspid valve without significant stenosis or regurgitation. Pulmonary artery systolic pressure is normal. Pulmonic Valve Structurally normal pulmonic valve without significant stenosis. There is no pulmonic regurgitation. Pericardium Normal pericardium without effusion. Aorta Normal ascending aorta dimension. CONCLUSIONS 1-Normal left ventricular cavity size. Normal left ventricular systolic function. Left ventricular ejection fraction is estimated at 55 %. Grade I/IV diastolic dysfunction (abnormal relaxation filling pattern), normal to mildly elevated filling pressures. 2-Moderate aortic valve calcification. Moderate aortic valve stenosis, mean gradient 5.5 mmHg, JAHAIRA 2.1 cm squared. Mild aortic valve regurgitation. 3-There is no pericardial effusion. 4-Pulmonary artery systolic pressure is within normal limits. 5-Right atrial pressure is around 5 mm of mercury. 6-When compared to the prior echocardiogram dated 20 August 2019 there is moderate aortic stenosis now Sabra Askew MD (Electronically Signed) Final Date: 31 August 2021 16:58 S
--- NOTE | 2021-08-26 04:00 | XR_ITS ---
WS: [id number] XR chest 1V portable [id number] REASON FOR EXAM: follow up COVID FINDINGS: Diffuse bilateral lung opacities more extensive and confluent than on the previous examination of 08/21. No new abnormality. XR/XR chest 1V portable [id number] IMPRESSION: Progression of bilateral lung opacities.
[2021-08-26 06:26] LABS: Glucose Point of Care 242 mg/dL (70-110)
[2021-08-26] MEDS: enoxaparin 80 mg/0.8 mL Syringe 77 MG SUBCUT ×2 (06:36→18:06)
[2021-08-26] MEDS: pantoprazole DR 40 mg Tablet PO ×2 (09:23→18:11)
[2021-08-26] MEDS: escitalopram 10 mg Tablet 20 MG PO (09:23)
[2021-08-26] MEDS: benzonatate 100 mg Capsule 200 MG PO ×3 (09:23→20:20)
[2021-08-26] MEDS: FUROsemide 40 mg Tablet PO (09:23)
[2021-08-26] MEDS: aspirin 81 mg EC Tablet PO ×2 (09:24→20:20)
[2021-08-26] MEDS: levoFLOXacin 750 mg Tablet PO (09:24)
[2021-08-26] MEDS: dilTIAZem 30 mg Tablet PO ×2 (09:24→20:20)
[2021-08-26] MEDS: dexamethasone 10 mg/mL INJ 6 MG IVP (09:24)
[2021-08-26] MEDS: insulin glargine 100 units/1 mL 20 UNIT SUBCUT (09:24)
[2021-08-26] MEDS: cyclobenzaprine 10 mg Tablet PO (09:24)
[2021-08-26] MEDS: atorvastatin 40 mg Tablet 10 MG PO (09:24)
[2021-08-26] MEDS: insulin lispro 100 unit/1 mL SUBCUT ×4 (09:25→21:28)
--- NOTE | 2021-08-26 11:02 | PC.SOCIAL ---
IMM update IMM updated with patients. Verbalized an understanding. Initialled, dated, timed, and placed in chart.
[2021-08-26 11:14] LABS: Glucose Point of Care 203 mg/dL (70-110)
--- NOTE | 2021-08-26 11:24 | PC.SOCIAL ---
IMM update IMM updated with patient. Verbalized an understanding. Initialled, dated, timed, and placed in chart.
[2021-08-26] MEDS: FUROsemide 10 mg/mL SDV 4mL 40 MG IVP (11:43)
[2021-08-26 17:12] LABS: Glucose Point of Care 201 mg/dL (70-110)
--- NOTE | 2021-08-26 17:38 | PM.PN ---
Subjective Subjective: Patient feels overall unchanged. Continues to be on high flow nasal cannula at 15 L/min, however pulse ox ranging 89% today. Chest x-ray repeated this morning shows worsening infiltrates bilaterally. Echocardiogram currently pending. Vitals/I&O/Wt Last Vital Signs Temp 97.7 F 08/26/21 16:00 Pulse 74 08/26/21 16:00 Resp 19 H 08/26/21 16:00 BP 94/67 08/26/21 16:00 Pulse Ox 89 L 08/26/21 16:00 08/26/21 08/26/21 08/26/21 06:59 14:59 22:59 Intake Total 480 / 960 Balance 480 / 960 Weight last 48 hrs Weight 84.686 kg Weight 83.37 kg Physical Exam Narrative: GEN: Awake, alert and oriented, no acute distress CVS: S1S2 N RS: CTA B/L Abd: Soft, nt/nd , bs+ Data : 08/25/21 04:15 08/25/21 04:15 A&P Assessment and plan (1) Acute and chronic respiratory failure with hypoxia: Date of positive test : 08/15/2021 Gradually improving. Currently on high flow nasal cannula 15 L/min. Remdisivir 200mg iv x 1 followed by 100mg iv daily started 08/22- day 4 today dexamethasone 6mg IVP daily Standing nebs duoneb, add budesonide empiric levaquin started 08/23 Flutter valve/spirometer at bedside trend inflammatory markers including CRP, D dimer, CRP trending down to 34, recheck with am labs, if clinical worsening, will use actemra Currently on full dose a/c with lovenox 1mg/kg q12h , on xarelto per home meddications start lasix 40mg po daily change insulin sliding scale to high dose given elevated blood sugars Plan for today: Start baricitinib 4 mg p.o. daily given worsening bilateral infiltrates, low O2 sats on 15 L/min, up from 12 L/min additional 40 mg of IV Lasix. Awaiting echocardiogram at this time. Status: Acute (2) COVID-19: Severe COVID-19 pneumonia. . Status: Acute Plan COPD, not in exacerbation DM2: Increase detemir dose. Diastolic CHF history, currently with developing LE pedal edema. History of esophageal dysmotility HTN Anxiety PAD Other chronic conditions noted Attestations Medical Necessity Statement*: Needs ongoing inpatient admission for treatment of severe COVID-19 pneumonia Coding Level of Care Code Acute Cocoa Milling Machine Operator for g Fwd Diagnoses Acute and chronic respiratory failure with hypoxia J96.21 COVID-19 U07.1
[2021-08-26] MEDS: ipratropium-albuterol 3 mL Neb INHALATION (20:27)
[2021-08-26 21:27] LABS: Glucose Point of Care 263 mg/dL (70-110)
[2021-08-27] VITALS (13 sets, daily range): BP systolic 98–126; BP diastolic 59–73; PULSE 58–84; RESP 14–23; TEMP 36.4–36.9; O2SAT 90–99
[2021-08-27] MEDS: HYDROcodone-acetaminophen 5-325 mg Tablet 1 TAB PO ×3 (05:46→21:37)
[2021-08-27] MEDS: enoxaparin 80 mg/0.8 mL Syringe 77 MG SUBCUT ×2 (06:16→17:52)
--- NOTE | 2021-08-27 06:24 | PC.NURSE ---
Patient refused to allow lab personal to draw blood after multiple people asked. Lab will try again later this morning.
[2021-08-27 06:52] LABS: Basophils % 0.2 %; Eosinophils % 0.6 %; Hemoglobin 12.5 g/dL (11.5-15.3); Lymphocytes # 0.8 10^3/uL (0.8-4.8); Lymphocytes % 16.3 %; Mean Corpuscular HGB Conc 31.3 g/dL (30.0-36.0); Mean Corpuscular Hemoglobin 28.2 pg (28.0-34.0); Mean Corpuscular Volume 90.1 fl (81-99); Mean Platelet Volume 9.8 fL (7.4-10.4); Monocytes # 0.6 10^3/uL (0.2-0.9); Monocytes % 10.8 %; Neutrophils # 3.38 10^3/uL (1.8-7.7); Neutrophils % 66.4 %; Nucleated Red Blood Cells % 0 %; Platelet Count 354 10^3/cmm (130-400); Red Blood Count 4.44 10^6/uL (4.1-5.3); Red Cell Distribution Width 13.9 % (12.1-15.1); White Blood Count 5.1 10^3/uL (4.0-10.0)
[2021-08-27 07:06] LABS: Alanine Aminotransferase 13 U/L (0-33); Albumin Level 2.8 g/dL (3.5-5.2); Alkaline Phosphatase 67 IU/L (35-105); Anion Gap 13.6 (5-19); Aspartate Amino Transferase 15 U/L (0-32); Blood Urea Nitrogen 21 mg/dL (8-23); Carbon Dioxide 34 mmol/L (22-29); Chloride 96 mmol/L (98-107); Globulin 3.3 g/dL (1.3-4.6); Glomerular Filtration Rate 101.3 mL/min (90-130); Glucose 156 mg/dL (65-115); Osmolality Calculated 296 mOsm/kg (285-295); Potassium 3.6 mmol/L (3.5-5.1); Sodium 140 mmol/L (136-145); Total Bilirubin 0.5 mg/dL (0.15-1.2); Total Protein 6.1 g/dL (6.6-8.7)
[2021-08-27 07:10] LABS: Glucose Point of Care 149 mg/dL (70-110)
[2021-08-27 07:32] LABS: C Reactive Protein 14.9 mg/L (0.0-4.9)
[2021-08-27 07:43] LABS: Slide Review Slide Review Perform
[2021-08-27] MEDS: dilTIAZem 30 mg Tablet PO ×2 (10:55→21:33)
[2021-08-27] MEDS: pantoprazole DR 40 mg Tablet PO ×2 (10:55→17:51)
[2021-08-27] MEDS: benzonatate 100 mg Capsule 200 MG PO ×3 (10:55→21:32)
[2021-08-27] MEDS: escitalopram 10 mg Tablet 20 MG PO (10:55)
[2021-08-27] MEDS: aspirin 81 mg EC Tablet PO ×2 (10:55→21:33)
[2021-08-27] MEDS: FUROsemide 40 mg Tablet PO (10:55)
[2021-08-27] MEDS: atorvastatin 40 mg Tablet 10 MG PO (10:56)
[2021-08-27] MEDS: dexamethasone 10 mg/mL INJ 6 MG IVP (10:56)
[2021-08-27] MEDS: levoFLOXacin 750 mg Tablet PO (10:56)
[2021-08-27] MEDS: insulin glargine 100 units/1 mL 20 UNIT SUBCUT (11:41)
[2021-08-27] MEDS: cyclobenzaprine 10 mg Tablet PO ×2 (11:42→23:04)
[2021-08-27 12:47] LABS: Glucose Point of Care 240 mg/dL (70-110)
[2021-08-27] MEDS: insulin lispro 100 unit/1 mL SUBCUT ×3 (13:01→21:33)
[2021-08-27 17:40] LABS: Glucose Point of Care 306 mg/dL (70-110)
--- NOTE | 2021-08-27 18:11 | P.PN_ITS ---
Subjective Subjective: continues to be on HFNC at 15lpm. states breathing feels improved today. Wishes to go home but understands that current high 02 requirements cannot be replicated at home at this time Vitals/I&O/Wt Last Vital Signs Temp 98.4 F 08/27/21 12:00 Pulse 59 L 08/27/21 15:51 Resp 14 08/27/21 15:51 BP 98/60 08/27/21 15:51 Pulse Ox 96 08/27/21 15:51 08/27/21 08/27/21 08/27/21 06:59 14:59 22:59 Output Total 380 / 380 Balance -380 / -380 Weight last 48 hrs Weight 84.686 kg Physical Exam Narrative: GEN: Awake, alert and oriented, no acute distress CVS: S1S2 N RS: B?l scattered crackles to auscultation Abd: Soft, nt/nd , bs+ UNIVERSAL GRINDER OPERATOR: no focal neuro deficits Data : 08/27/21 06:27 08/27/21 06:27 Micro: Microbiology 08/21/21 18:34 Blood Culture - Final Blood NO GROWTH AFTER 5 DAYS 08/21/21 17:33 Blood Culture - Final Blood NO GROWTH AFTER 5 DAYS A&P Assessment and plan (1) Acute and chronic respiratory failure with hypoxia: Date of positive test : 08/15/2021 Gradually improving. Currently continues to be on high flow nasal cannula 15 L/ min, unable to weaned down to where 02 requirements can be replaicted at home Remdisivir completed 5 days 08/22- 08/26 dexamethasone 6mg IVP daily Baricitinib started 08/26 due to worsening infiltrates on CXR Standing nebs duoneb, add budesonide empiric levaquin started 08/23 Flutter valve/spirometer at bedside CRP trending down to 14 Currently on full dose a/c with lovenox 1mg/kg q12h , on xarelto per home meddications continue lasix 40mg po daily , additional 40mg iv today, net + 3.7 L since admission echo awaited Status: Acute (2) COVID-19: Severe COVID-19 pneumonia. . Status: Acute Attestations Medical Necessity Statement*: continues to have high 02 requirements at 15lpm HFNC, needs to wean down to a point able to be replicated at home Coding Level of Care Code Acute Station Air Traffic Control Specialist for [facility] Fwd Diagnoses Acute and chronic respiratory failure with hypoxia J96.21 COVID-19 U07.1
[2021-08-27] MEDS: FUROsemide 10 mg/mL SDV 2mL 40 MG IVP (19:22)
[2021-08-27 21:30] LABS: Glucose Point of Care 256 mg/dL (70-110)
[2021-08-27] MEDS: tizanidine 4 mg Tablet 2 MG PO (23:43)
[2021-08-28] VITALS (12 sets, daily range): BP systolic 90–138; BP diastolic 51–81; PULSE 64–79; RESP 15–22; TEMP 36.4–36.7; O2SAT 92–98
[2021-08-28] MEDS: HYDROcodone-acetaminophen 5-325 mg Tablet 1 TAB PO ×2 (03:31→09:32)
--- NOTE | 2021-08-28 04:00 | XRR_ITS ---
PROCEDURE INFORMATION: Exam: XR Chest Exam date and time: 08/28/2021 4:00 AM Age: 60 years old Clinical indication: Shortness of breath. Follow-up infiltrates. TECHNIQUE: Imaging protocol: XR of the chest. Views: 1 view. COMPARISON: CR XR chest 1V portable [id number] 08/26/2021 4:13 AM FINDINGS: Lungs: Extensive bilateral pulmonary opacities appear greatly improved with patchy residual opacity at the left base. A calcified granuloma is again noted in the right chest. Pleural spaces: No pleural effusion. No pneumothorax. Heart/Mediastinum: The cardiac silhouette is approximately unchanged. No gross evidence of pneumomediastinum. Bones/joints: No gross fracture. XR/XR chest 1V portable [id number] IMPRESSION: Extensive bilateral pulmonary opacities appear greatly improved with patchy residual opacity at the left base.
--- NOTE | 2021-08-28 04:06 | PC.NURSE ---
Patient c/o muscle spasms to right leg causing unrelieved pain. Requesting Dilaudid . Per phone conversation with Dr. Squires Morphine 1 mg IVP now x's 1.
[2021-08-28] MEDS: morphine 4 mg/mL SDV 1 mL 1 MG IVP (04:10)
[2021-08-28] MEDS: cyclobenzaprine 10 mg Tablet PO (06:15)
[2021-08-28] MEDS: enoxaparin 80 mg/0.8 mL Syringe 77 MG SUBCUT ×2 (06:16→18:14)
[2021-08-28 06:42] LABS: Glucose Point of Care 160 mg/dL (70-110)
[2021-08-28 06:45] LABS: Basophils % 0.2 %; Eosinophils # 0.1 10^3/uL (0.0-0.8); Hematocrit 36.9 % (37.0-47.0); Hemoglobin 11.6 g/dL (11.5-15.3); Lymphocytes % 16.6 %; Mean Corpuscular HGB Conc 31.4 g/dL (30.0-36.0); Mean Corpuscular Hemoglobin 28.4 pg (28.0-34.0); Mean Corpuscular Volume 90.4 fl (81-99); Mean Platelet Volume 9.9 fL (7.4-10.4); Monocytes # 0.6 10^3/uL (0.2-0.9); Monocytes % 9.7 %; Neutrophils # 3.78 10^3/uL (1.8-7.7); Nucleated Red Blood Cells % 0 %; Platelet Count 388 10^3/cmm (130-400); Red Blood Count 4.08 10^6/uL (4.1-5.3); Red Cell Distribution Width 13.7 % (12.1-15.1); White Blood Count 5.8 10^3/uL (4.0-10.0)
[2021-08-28 07:15] LABS: Alanine Aminotransferase 15 U/L (0-33); Albumin Level 2.9 g/dL (3.5-5.2); Alkaline Phosphatase 64 IU/L (35-105); Anion Gap 13.3 (5-19); Aspartate Amino Transferase 15 U/L (0-32); Blood Urea Nitrogen 35 mg/dL (8-23); Calcium 8.4 mg/dL (8.5-10.5); Carbon Dioxide 36 mmol/L (22-29); Chloride 97 mmol/L (98-107); Glomerular Filtration Rate 72.7 mL/min (90-130); Glucose 156 mg/dL (65-115); Osmolality Calculated 305 mOsm/kg (285-295); Potassium 4.3 mmol/L (3.5-5.1); Procalcitonin 0.04 ng/mL (0-0.5); Sodium 142 mmol/L (136-145); Total Bilirubin 0.5 mg/dL (0.15-1.2); Total Protein 5.9 g/dL (6.6-8.7)
[2021-08-28 07:16] LABS: C Reactive Protein 9.8 mg/L (0.0-4.9)
[2021-08-28 08:17] LABS: Slide Review Slide Review Perform
[2021-08-28 08:18] LABS: Neutrophils % 72.5 %
[2021-08-28] MEDS: FUROsemide 40 mg Tablet PO ×2 (08:54→17:10)
[2021-08-28] MEDS: benzonatate 100 mg Capsule 200 MG PO ×3 (08:55→21:14)
[2021-08-28] MEDS: atorvastatin 40 mg Tablet 10 MG PO (08:55)
[2021-08-28] MEDS: dilTIAZem 30 mg Tablet PO ×2 (08:56→21:14)
[2021-08-28] MEDS: escitalopram 10 mg Tablet 20 MG PO (08:56)
[2021-08-28] MEDS: pantoprazole DR 40 mg Tablet PO ×2 (08:56→17:09)
[2021-08-28] MEDS: aspirin 81 mg EC Tablet PO ×2 (08:56→21:14)
[2021-08-28] MEDS: levoFLOXacin 750 mg Tablet PO (08:56)
[2021-08-28] MEDS: insulin lispro 100 unit/1 mL SUBCUT ×2 (09:33→12:56)
[2021-08-28] MEDS: insulin glargine 100 units/1 mL 20 UNIT SUBCUT (09:33)
[2021-08-28] MEDS: dexamethasone 10 mg/mL INJ 6 MG IVP (09:38)
[2021-08-28] MEDS: ondansetron 4 MG Tablet PO (09:52)
[2021-08-28 11:15] LABS: Glucose Point of Care 152 mg/dL (70-110)
--- NOTE | 2021-08-28 11:17 | PC.SOCIAL ---
IMM Update pg 2 of IMM updated and reviewed w/ patient. Copy provided.
--- NOTE | 2021-08-28 16:24 | PM.PN ---
Subjective Subjective: Chest x-ray looks improved today. Much improved bilateral infiltrates. CRP continues to trend down. With the reservoir and nasal cannula, currently flow rate is at 6 L/min of supplemental O2. At baseline patient takes 4 L/min O2 at home. Complaining of pain over her right leg today, improved with morphine overnight. Vitals/I&O/Wt Last Vital Signs Temp 97.6 F 08/28/21 15:30 Pulse 77 08/28/21 15:30 Resp 15 08/28/21 15:30 BP 91/52 08/28/21 15:30 Pulse Ox 98 08/28/21 15:30 08/28/21 08/28/21 08/28/21 06:59 14:59 22:59 Intake Total 480 / 480 Balance 480 / 480 Weight last 48 hrs Weight 84.368 kg Physical Exam Narrative: GEN: Awake, alert and oriented, complaining of right leg pain today. CVS: S1S2 N RS: Clear to auscultation bilaterally Abd: Soft, nt/nd , bs+ HEAD TURNING MACHINE OPERATOR: no focal neuro deficits Data : 08/28/21 05:15 08/28/21 05:15 A&P Assessment and plan (1) Acute and chronic respiratory failure with hypoxia: Date of positive test : 08/15/2021 Gradually improving. Oxygen requirement now down to 6 L/min with the rest via nasal cannula. Chest x-ray looks much improving today. Remdisivir completed 5 days 08/22- 08/26 dexamethasone 6mg IVP daily Baricitinib started 08/26 due to worsening infiltrates on CXR Standing nebs duoneb, add budesonide empiric levaquin started 08/23 Flutter valve/spirometer at bedside CRP trending down to 14 Currently on full dose a/c with lovenox 1mg/kg q12h , on xarelto per home meddications Increase Lasix to 40 mg p.o. twice daily Echocardiogram still pending Status: Acute (2) COVID-19: Severe COVID-19 pneumonia. . Status: Acute Attestations Medical Necessity Statement*: Oxygen requirement finally starting to improve today. Bilateral chest infiltrates additionally improving. Likely discharge in the upcoming 24 hours if continues to have the same oxygen requirements. Coding Level of Care Code Acute School Business Administrator for [facility] Diagnoses Acute and chronic respiratory failure with hypoxia J96.21 COVID-19 U07.1
[2021-08-28 17:10] LABS: Glucose Point of Care 104 mg/dL (70-110)
[2021-08-28] MEDS: tizanidine 4 mg Tablet 2 MG PO (17:10)
[2021-08-28] MEDS: TRAMadol 50 mg Tablet PO (17:10)
[2021-08-28 20:45] LABS: Glucose Point of Care 171 mg/dL (70-110)
[2021-08-28] MEDS: morphine 4 mg/mL SDV 1 mL 2 MG IVP (21:13)
[2021-08-29] VITALS (12 sets, daily range): BP systolic 93–115; BP diastolic 57–68; PULSE 71–78; RESP 17–24; TEMP 36.5–36.9; O2SAT 86–98
--- NOTE | 2021-08-29 05:47 | PC.NURSE ---
Patient c/o pain 10/10 in right leg. BP 95/65. Per phone conversation with DR. Henry give patient hydrocodone as ordered and if pain is unrelieved in 1 hour may give zanaflex if BP is still 95 systolic or above.
[2021-08-29] MEDS: HYDROcodone-acetaminophen 5-325 mg Tablet 1 TAB PO (05:50)
[2021-08-29 06:28] LABS: Glucose Point of Care 111 mg/dL (70-110)
--- NOTE | 2021-08-29 08:44 | XRR_ITS ---
PROCEDURE INFORMATION: Exam: XR Right Hip Exam date and time: 08/29/2021 8:44 AM Age: 60 years old Clinical indication: Hip pain; Right hip; Additional info: Evaluate for fracture TECHNIQUE: Imaging protocol: XR Right hip. Views: 1 view hip with pelvis when performed. Total images: 1 COMPARISON: CT pelvis wo con [id number] 11/10/2020 2:47 PM FINDINGS: Bones/joints: Unremarkable. No acute fracture. Soft tissues: Unremarkable. XR/XR hip RT 1V wo/w pel [id number] IMPRESSION: No acute findings.
--- NOTE | 2021-08-29 08:44 | XRR_ITS ---
PROCEDURE INFORMATION: Exam: XR Right Knee Exam date and time: 08/29/2021 8:44 AM Age: 60 years old Clinical indication: Pain; Knee; Right; Additional info: Evalute for fracture TECHNIQUE: Imaging protocol: XR Right knee. Views: 1 or 2 views. Total images: 2 COMPARISON: No relevant prior studies available. FINDINGS: Bones/joints: Normal. Soft tissues: Normal. XR/XR knee RT 1-2V [id number] IMPRESSION: No acute findings.
[2021-08-29] MEDS: dexamethasone 10 mg/mL INJ 6 MG IVP (09:27)
[2021-08-29] MEDS: insulin glargine 100 units/1 mL 20 UNIT SUBCUT (09:53)
[2021-08-29] MEDS: levoFLOXacin 750 mg Tablet PO (09:53)
[2021-08-29] MEDS: aspirin 81 mg EC Tablet PO (09:55)
[2021-08-29] MEDS: benzonatate 100 mg Capsule 200 MG PO ×3 (09:55→20:50)
[2021-08-29] MEDS: FUROsemide 40 mg Tablet PO ×2 (09:56→17:51)
[2021-08-29] MEDS: atorvastatin 40 mg Tablet 10 MG PO (09:56)
[2021-08-29] MEDS: dilTIAZem 30 mg Tablet PO ×2 (09:56→20:50)
[2021-08-29] MEDS: pantoprazole DR 40 mg Tablet PO ×2 (09:56→17:51)
[2021-08-29] MEDS: escitalopram 10 mg Tablet 20 MG PO (09:57)
--- NOTE | 2021-08-29 10:59 | USR_ITS ---
PROCEDURE INFORMATION: Exam: US Duplex Right Lower Extremity Veins, Limited Exam date and time: 08/29/2021 10:59 AM Age: 60 years old Clinical indication: Pain; Leg, upper; Right; Patient HX: Had superficial thrombosis on lt in past; Additional info: R/O dvt TECHNIQUE: Imaging protocol: Real-time Duplex ultrasound of the Right Lower Extremity with 2-D junior scale, color Doppler flow and spectral waveform analysis with image documentation. Limited exam was focused on the right lower extremity veins. Total images: 34 COMPARISON: CR (LOW EXM, ) 08/29/2021 9:55 AM FINDINGS: Right deep veins: Unremarkable. The common femoral, femoral, proximal profunda femoral and popliteal veins are patent without thrombus. Normal Doppler waveforms. Normal compressibility and/or augmentation response. Right superficial veins: Unremarkable. Saphenofemoral junction is patent without thrombus. Soft tissues: Unremarkable. US/[place] [id number] IMPRESSION: No evidence of deep vein thrombosis.
--- NOTE | 2021-08-29 11:05 | CTR_ITS ---
PROCEDURE INFORMATION: Exam: CT Abdomen And Pelvis Without Contrast Exam date and time: 08/29/2021 11:05 AM Age: 60 years old Clinical indication: Abdominal pain; Additional info: R/O abd bleed TECHNIQUE: Imaging protocol: Computed tomography of the abdomen and pelvis without contrast. Radiation optimization: All CT scans at this facility use at least one of these dose optimization techniques: automated exposure control; mA and/or kV adjustment per patient size (includes targeted exams where dose is matched to clinical indication); or iterative reconstruction. COMPARISON: CT abdomen wo con [id number] 07/19/2021 6:30 AM RADIATION DOSE METRICS: Total DLP (mGy-cm): 1821.1 FINDINGS: Lungs: Nonspecific infiltrates at the lung bases. Liver: Calcified granulomas are seen in the liver. Gallbladder and bile ducts: No calcified gallstones in the gallbladder. No gallbladder wall thickening. No pericholecystic fluid. No biliary dilatation. Pancreas: The pancreas is normal in appearance. No pancreatic duct dilatation. Spleen: Calcified granulomas are noted in the spleen. Adrenal glands: 2.4 cm left adrenal mass, with density measurement of 9 Hounsfield units, consistent with adrenal adenoma. The adrenal glands appear within normal limits. Kidneys and ureters: The kidneys are normal in morphology. No hydronephrosis. No solid mass. Stomach and bowel: No acute gastric abnormality demonstrated. The small bowel is unremarkable as demonstrated. No acute abnormality/inflammatory change of the colon. Appendix: No evidence of appendicitis. Intraperitoneal space: No free air. No significant fluid collection. Vasculature: No abdominal aortic aneurysm. Lymph nodes: Nonspecific bilateral inguinal lymph nodes are noted measuring up to 14 mm in length. Urinary bladder: The urinary bladder is unremarkable in appearance. Reproductive: Mild myomatous change of the uterus. No adnexal abnormality. Bones/joints: Degenerative lumbar disc changes. No acute osseous abnormality. Lumbar scoliosis noted. Soft tissues: There is a right iliacus muscle hematoma noted. The enlarged iliacus muscle measures 10 cm AP x 5 cm transverse by 10 cm craniocaudal. Active bleeding is not assessed on this noncontrast study. Normal, contralateral iliacus muscle measures 8 x 4 x 10 cm. The soft tissues appear unremarkable. CT/CT abdomen pelvis wo con [id number] IMPRESSION: 1. There is a right iliacus muscle hematoma noted The enlarged iliacus muscle measures 10 cm AP x 5 cm transverse by 10 cm craniocaudal (unaffected contralateral iliacus muscle measures 8 x 4 x 10 cm). Active bleeding is not assessed on this noncontrast study. 2. 2.4 cm left adrenal mass, with density measurement of 9 Hounsfield units, consistent with adrenal adenoma. 3. Nonspecific infiltrates at the lung bases. COMMENTS: Consistent with the [place]'s Incidental Findings Committee white paper (J Am Papi Radiol 2017): Any incidental adrenal lesion less than or equal to 1 cm is likely benign. No follow-up imaging is recommended for these lesions per consensus recommendations based on imaging criteria. Further lab evaluation could be pursued if warranted based on clinical findings.
[2021-08-29 11:23] LABS: Glucose Point of Care 135 mg/dL (70-110)
[2021-08-29] MEDS: cyclobenzaprine 10 mg Tablet PO ×2 (13:02→20:49)
--- NOTE | 2021-08-29 14:26 | P.PN_ITS ---
Subjective Subjective: Oxygen requirement remained stable at 6 L/min via pendant. However patient is complaining of severe right leg pain which is radiating down from hip to her foot to the point where she refuses to get out of bed today. Earlier today RN noted that as the patient tried to get up her legs seem to sanders le down. This appears to be a new development as patient previously reported walking in the room with assistance of a walker. States that she does not have similar pain at home. Discharge has been held because of this reason today. X- ray of the hip and knee without any acute fractures or dislocation. No evidence of DVT right lower extremity. Noted to have hematoma over anterior abdominal wall, at the site of Lovenox injections. Hemoglobin has remained stable. 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 Oxygen requirement now down to 6 L/min with the rest via nasal cannula and re servior. Home baseline 4lpm. Chest x-ray looks much improving on 08/28. Remdisivir completed 5 days 08/22- 08/26 dexamethasone 6mg IVP daily , transition to oral steroid taper at discharge Baricitinib started 08/26 due to worsening infiltrates on CXR, now improving, this is probably more likely due to improved pulmonary edema. D/c Baricitinib 08/29. Standing nebs duoneb, budesonide empiric levaquin started 08/23 , discontinue today, completing day 7 Flutter valve/spirometer at bedside Currently on full dose a/c with lovenox 1mg/kg q12h , on xarelto per home meddications which will be resumed at discharge continue po Lasix to 40 mg p.o. twice daily Echocardiogram still pending Status: Acute (2) COVID-19: Severe COVID-19 pneumonia. . 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
[2021-08-29] MEDS: oxyCODONE-APAP 5-325 mg Tablet 1 TAB PO (15:32)
[2021-08-29 16:59] LABS: Glucose Point of Care 269 mg/dL (70-110)
[2021-08-29] MEDS: tizanidine 4 mg Tablet 2 MG PO (17:50)
[2021-08-29] MEDS: insulin lispro 100 unit/1 mL SUBCUT (17:51)
[2021-08-29 19:36] LABS: Hematocrit 31.8 % (37.0-47.0); Hemoglobin 9.9 g/dL (11.5-15.3)
[2021-08-29 20:31] LABS: Glucose Point of Care 134 mg/dL (70-110)
[2021-08-30] VITALS (9 sets, daily range): BP systolic 93–122; BP diastolic 60–75; PULSE 68–78; RESP 17–24; TEMP 36.4–36.8; O2SAT 76–95
[2021-08-30 05:20] LABS: Basophils % 0.2 %; Eosinophils % 0.2 %; Hematocrit 32.2 % (37.0-47.0); Hemoglobin 9.7 g/dL (11.5-15.3); Lymphocytes # 0.9 10^3/uL (0.8-4.8); Lymphocytes % 10.5 %; Mean Corpuscular HGB Conc 30.1 g/dL (30.0-36.0); Mean Corpuscular Volume 92.8 fl (81-99); Monocytes # 0.6 10^3/uL (0.2-0.9); Monocytes % 7.6 %; Neutrophils # 6.26 10^3/uL (1.8-7.7); Neutrophils % 76.7 %; Nucleated Red Blood Cells % 0 %; Platelet Count 356 10^3/cmm (130-400); Red Blood Count 3.47 10^6/uL (4.1-5.3); White Blood Count 8.2 10^3/uL (4.0-10.0)
[2021-08-30 05:45] LABS: Alanine Aminotransferase 18 U/L (0-33); Albumin Level 3.2 g/dL (3.5-5.2); Alkaline Phosphatase 60 IU/L (35-105); Anion Gap 10.3 (5-19); Aspartate Amino Transferase 38 U/L (0-32); Blood Urea Nitrogen 33 mg/dL (8-23); C Reactive Protein 6.7 mg/L (0.0-4.9); Carbon Dioxide 39 mmol/L (22-29); Chloride 96 mmol/L (98-107); Globulin 2.5 g/dL (1.3-4.6); Glomerular Filtration Rate 84.8 mL/min (90-130); Glucose 103 mg/dL (65-115); Osmolality Calculated 300 mOsm/kg (285-295); Potassium 4.3 mmol/L (3.5-5.1); Sodium 141 mmol/L (136-145); Total Bilirubin 0.7 mg/dL (0.15-1.2); Total Protein 5.7 g/dL (6.6-8.7)
[2021-08-30 06:39] LABS: Glucose Point of Care 93 mg/dL (70-110)
[2021-08-30] MEDS: oxyCODONE-APAP 5-325 mg Tablet 1 TAB PO (09:09)
[2021-08-30] MEDS: escitalopram 10 mg Tablet 20 MG PO (09:10)
[2021-08-30] MEDS: benzonatate 100 mg Capsule 200 MG PO ×3 (09:10→20:37)
[2021-08-30] MEDS: pantoprazole DR 40 mg Tablet PO ×2 (09:11→18:20)
[2021-08-30] MEDS: FUROsemide 40 mg Tablet PO ×2 (09:11→18:20)
[2021-08-30] MEDS: atorvastatin 40 mg Tablet 10 MG PO (09:11)
[2021-08-30] MEDS: dexamethasone 10 mg/mL INJ 6 MG IVP (09:12)
[2021-08-30] MEDS: dilTIAZem 30 mg Tablet PO ×2 (09:44→20:37)
[2021-08-30 11:55] LABS: Glucose Point of Care 183 mg/dL (70-110)
[2021-08-30] MEDS: insulin lispro 100 unit/1 mL SUBCUT ×3 (11:59→21:19)
--- NOTE | 2021-08-30 12:34 | P.PN_ITS ---
Subjective Subjective: Patient was seen and examined this morning, continues to complain of right lower extremity pain, because of the pain, participating in physical therapy has been difficult. Continues to saturate well on 6 L of oxygen per minute via pendant. Vitals/I&O/Wt Last Vital Signs Temp 98.0 F 08/30/21 12:00 Pulse 78 08/30/21 12:00 Resp 18 08/30/21 12:00 BP 93/60 08/30/21 12:00 Pulse Ox 92 08/30/21 12:00 08/29/21 08/30/21 08/30/21 22:59 06:59 14:59 Intake Total 320 / 320 Balance 320 / 320 Physical Exam Const: COMMON NORMALS: patient oriented x3 HENMT: COMMON NORMALS: normocephalic, atraumatic, hearing grossly normal bilaterally and external ears normal HEAD & SCALP: normocephalic and atraumatic EXTERNAL EAR: Yes external ears normal Eye: COMMON NORMALS: no scleral icterus GENERAL EYE: appearance normal, both eyes and all related structures Chest: COMMONS NORMALS: normal inspection of the chest and normal palpation of entire chest wall CHEST: Yes Symmetrical chest wall rise Resp: COMMON NORMALS: normal respiratory effort, No retractions, No use of accessory muscles and clear to auscultation bilaterally EFFORT & INSPECTION: Yes symmetric chest movement AUSCULTATION: clear to auscultation bilaterally Cardio: COMMON NORMALS: regular rate, regular rhythm, S1 normal heart sound present, S2 normal heart sound present, No gallops present (Cardio), No murmurs present (Cardio), No rub (Cardio) and Peripheral pulses 2+ throughout RATE: regular rate RHYTHM: regular rhythm HEART SOUNDS: S1 normal heart sound present and S2 normal heart sound present PERIPHERAL PULSES: Peripheral pulses 2+ throughout GI: COMMON NORMALS: Normal to inspection, nondistended, normoactive bowel sounds present, Soft to palpation, non-tender, No hepatosplenomegaly present and no masses AUSCULTATION: Yes normoactive bowel sounds PALPATION: Yes Soft to palpation and Yes No hepatosplenomegaly present RECTAL EXAM: deferred Extremity: COMMON NORMALS: no clubbing, cyanosis or edema and no pedal edema Neuro: COMMON NORMALS: patient oriented x3 Data : 08/30/21 04:23 08/30/21 04:23 A&P Assessment and plan (1) Acute and chronic respiratory failure with hypoxia: Date of positive test : 08/15/2021 Gradually improving. Oxygen requirement now down to 6 L/min with the rest via nasal cannula and reservior. Home baseline 4lpm. Chest x-ray looks much improving on 08/28. Remdisivir completed 5 days 08/22- 08/26 dexamethasone 6mg IVP daily , transition to oral steroid taper at discharge Baricitinib started 08/26 due to worsening infiltrates on CXR, now improving, this is probably more likely due to improved pulmonary edema. D/c Baricitinib 08/29. Standing nebs duoneb, budesonide empiric levaquin started 08/23 , discontinue today, completing day 7 Flutter valve/spirometer at bedside Currently on full dose a/c with lovenox 1mg/kg q12h , on xarelto per home meddications which will be resumed at discharge continue po Lasix to 40 mg p.o. twice daily Echocardiogram still pending Status: Acute (2) COVID-19: Severe COVID-19 pneumonia. . Status: Acute (3) Pain of back and right lower extremity: Acute over past 2 days, unable to bear weight X ray hip and knee WNL LE duplex negative Ct abdomen to evaluate for intraabdominal bleeding given pain, will additionally evaluate for lumbar spine Percocet 5/325 q4h prn added Status: Acute Plan #?right iliacus muscle hematoma: CT abdomen pelvis wo con:right iliacus muscle hematoma noted The enlarged iliacus muscle measures 10 cm AP x 5 cm transverse by 10 cm craniocaudal (unaffected contralateral iliacus muscle measures 8 x 4 x 10 cm).? Active bleeding is not assessed on this noncontrast study. Likely secondary therapeutic anticoagulation: Currently stopped: Current plan is to continue to monitor the H&H, transfuse if the hemoglobin drops below 7. Pain control. On discharge we will keep Xarelto on hold we will do repeat H&H in 2 weeks.And thereafter if it stays stable Xarelto can be resumed. #History of DVT: On Xarelto at home: Has been stopped, as the patient has currently right iliac muscle hematoma. Attestations Medical Necessity Statement*: Patient is to be in hospital for management of Covid pneumonia,right iliacus muscle hematoma. 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
--- NOTE | 2021-08-30 14:49 | PC.SOCIAL ---
IMM Update Pg. 2 of IMM updated and reviewed with patient. Copy Provided.
--- NOTE | 2021-08-30 15:57 | PC.OT ---
OT EVALUATION ATTEMPTED. PATIENT GAVE PLOF INFORMATION BUT DECLINED TO PARTICIPATE ACTIVELY IN EVALUATION SHE WAS TOO TIRED. REQUEST THAT I RETURN TOMORROW.
[2021-08-30 17:34] LABS: Glucose Point of Care 210 mg/dL (70-110)
[2021-08-30] MEDS: cyclobenzaprine 10 mg Tablet PO (20:37)
[2021-08-30 20:59] LABS: Glucose Point of Care 337 mg/dL (70-110)
[2021-08-31 03:36] VITALS: BP 93/57; PULSE 83; RESP 17; TEMP 36.8; O2SAT 90
[2021-08-31 05:33] LABS: Basophils % 0.2 %; Eosinophils % 0.2 %; Hematocrit 30.4 % (37.0-47.0); Hemoglobin 9.5 g/dL (11.5-15.3); Lymphocytes # 0.7 10^3/uL (0.8-4.8); Lymphocytes % 6.1 %; Mean Corpuscular HGB Conc 31.3 g/dL (30.0-36.0); Mean Corpuscular Hemoglobin 28.9 pg (28.0-34.0); Mean Corpuscular Volume 92.4 fl (81-99); Mean Platelet Volume 10.1 fL (7.4-10.4); Monocytes # 0.8 10^3/uL (0.2-0.9); Monocytes % 6.9 %; Neutrophils # 10.22 10^3/uL (1.8-7.7); Neutrophils % 84.9 %; Nucleated Red Blood Cells % 0 %; Platelet Count 303 10^3/cmm (130-400); Red Blood Count 3.29 10^6/uL (4.1-5.3); White Blood Count 12.1 10^3/uL (4.0-10.0)
[2021-08-31 05:51] LABS: Anion Gap 10.1 (5-19); Blood Urea Nitrogen 31 mg/dL (8-23); Calcium 8.7 mg/dL (8.5-10.5); Carbon Dioxide 37 mmol/L (22-29); Chloride 98 mmol/L (98-107); Glomerular Filtration Rate 101.3 mL/min (90-130); Glucose 111 mg/dL (65-115); Osmolality Calculated 299 mOsm/kg (285-295); Potassium 4.1 mmol/L (3.5-5.1); Sodium 141 mmol/L (136-145)
[2021-08-31 06:47] LABS: Glucose Point of Care 129 mg/dL (70-110)
[2021-08-31 07:25] VITALS: BP 75/48; PULSE 91; RESP 20; TEMP 36.5; O2SAT 92
--- NOTE | 2021-08-31 07:26 | PC.NURSE ---
I reported the low bp to the nurse 75/48 67/45
--- NOTE | 2021-08-31 08:09 | PC.NURSE ---
Notifed Dr. Handley of BP Sitting 75/48, 67/45 auto cuff. Manual 90/68. Hold Cardizem.
[2021-08-31 09:25] VITALS: PULSE 78; RESP 18; O2SAT 97
[2021-08-31] MEDS: insulin glargine 100 units/1 mL 20 UNIT SUBCUT (09:51)
[2021-08-31] MEDS: atorvastatin 40 mg Tablet 10 MG PO (09:56)
[2021-08-31] MEDS: FUROsemide 40 mg Tablet PO (09:56)
[2021-08-31] MEDS: pantoprazole DR 40 mg Tablet PO ×2 (09:56→18:48)
[2021-08-31] MEDS: escitalopram 10 mg Tablet 20 MG PO (09:56)
[2021-08-31] MEDS: benzonatate 100 mg Capsule 200 MG PO ×3 (09:56→21:03)
[2021-08-31] MEDS: dexamethasone 10 mg/mL INJ 6 MG IVP (09:57)
[2021-08-31 11:49] VITALS: BP 103/65; PULSE 77; RESP 18; TEMP 36.6; O2SAT 91
[2021-08-31 12:48] LABS: Glucose Point of Care 284 mg/dL (70-110)
[2021-08-31] MEDS: insulin lispro 100 unit/1 mL SUBCUT ×3 (13:29→21:43)
--- NOTE | 2021-08-31 15:43 | P.PN_ITS ---
Subjective Subjective: Patient was seen and examined this morning, continues to complain of right lower extremity pain. H&H has been stable: Medications: Medication Review Details: Generic Name Dose Route Start Last Admin Trade Name Marino PRN Reason Stop Dose Admin Albuterol/Ipratrop ium 3 ml 08/25/21 21:00 08/31/21 14:41 Ipratropium-Albu terol 3 Ml Neb INHALATION Not Given Q6H.RESPIRATORY S CH Atorvastatin Calci um 10 mg 08/22/21 09:00 08/31/21 09:56 Atorvastatin 40 Mg Tablet PO 10 mg DAILY MACARENA Administration Benzonatate 200 mg 08/22/21 15:00 08/31/21 09:56 Benzonatate 100 Mg Capsule PO 200 mg TID MACARENA Administration Budesonide 0.5 mg 08/25/21 20:00 08/31/21 09:25 Budesonide 0.5 M g/2 Ml Neb INHALATION Not Given BID.RESPIRATORY S CH Cyclobenzaprine HC l 10 mg 08/21/21 19:12 08/30/21 20:37 Cyclobenzaprine 10 Mg Tablet PO 10 mg TID PRN Administration muscle spasm Dexamethasone 6 mg 08/22/21 09:00 08/31/21 09:57 Dexamethasone 10 Mg/Ml Inj IVP 6 mg DAILY MACARENA Administration Diltiazem HCl 30 mg 08/21/21 20:00 08/31/21 08:08 Diltiazem 30 Mg Tablet PO Not Given BID@08,20 MACARENA Escitalopram Oxala te 20 mg 08/22/21 08:00 08/31/21 09:56 Escitalopram 10 Mg Tablet PO 20 mg DAILY@08 MACARENA Administration Furosemide 40 mg 08/28/21 18:00 08/31/21 09:56 Furosemide 40 Mg Tablet PO 40 mg BID MACARENA Administration Insulin Glargine 20 unit 08/24/21 11:00 08/31/21 09:51 Insulin Glargine 100 Units/1 Ml SUBCUT 20 unit DAILY MACARENA Administration Insulin Human Lisp ro 0 unit 08/25/21 18:00 08/31/21 13:29 Insulin Lispro 1 00 Unit/1 Ml SUBCUT 12 unit WM&BEDTIME MACARENA Administration Protocol Morphine Sulfate 2 mg 08/28/21 12:06 08/28/21 21:13 Morphine 4 Mg/Ml Sdv 1 Ml IVP 2 mg Q6H PRN Administration SEVERE PAIN Ondansetron HCl 4 mg 08/21/21 19:12 08/28/21 09:52 Ondansetron 4 Mg Tablet PO 4 mg Q6H PRN Administration nausea and vomiti ng Oxycodone/Acetamin ophen 1 tab 08/29/21 14:31 08/30/21 09:09 Oxycodone-Apap 5 -325 Mg Tablet PO 1 tab Q4H PRN Administration MODERATE PAIN Pantoprazole Sodiu m 40 mg 08/22/21 09:00 08/31/21 09:[address] 40 Mg Tablet PO 40 mg BID MACARENA Administration Tizanidine HCl 2 mg 08/21/21 19:12 08/29/21 17:50 Tizanidine 4 Mg Tablet PO 2 mg BID PRN Administration Muscle Pain Vitals/I&O/Wt Last Vital Signs Temp 97.8 F 08/31/21 11:49 Pulse 77 08/31/21 11:49 Resp 18 08/31/21 11:49 BP 103/65 08/31/21 11:49 Pulse Ox 91 08/31/21 11:49 08/31/21 08/31/21 08/31/21 06:59 14:59 22:59 Intake Total 240 / 240 Balance 240 / 240 Weight last 48 hrs Weight 82.871 kg Physical Exam Const: COMMON NORMALS: patient oriented x3 HENMT: COMMON NORMALS: normocephalic, atraumatic, hearing grossly normal bilaterally and external ears normal HEAD & SCALP: normocephalic and atraumatic EXTERNAL EAR: Yes external ears normal Eye: COMMON NORMALS: no scleral icterus GENERAL EYE: appearance normal, both eyes and all related structures Chest: COMMONS NORMALS: normal inspection of the chest and normal palpation of entire chest wall CHEST: Yes Symmetrical chest wall rise Resp: COMMON NORMALS: normal respiratory effort, No retractions, No use of accessory muscles and clear to auscultation bilaterally EFFORT & INSPECTION: Yes symmetric chest movement AUSCULTATION: clear to auscultation bilaterally Cardio: COMMON NORMALS: regular rate, regular rhythm, S1 normal heart sound present, S2 normal heart sound present, No gallops present (Cardio), No murmurs present (Cardio), No rub (Cardio) and Peripheral pulses 2+ throughout RATE: regular rate RHYTHM: regular rhythm HEART SOUNDS: S1 normal heart sound present and S2 normal heart sound present PERIPHERAL PULSES: Peripheral pulses 2+ throughout GI: COMMON NORMALS: Normal to inspection, nondistended, normoactive bowel sounds present, Soft to palpation, non-tender, No hepatosplenomegaly present and no masses AUSCULTATION: Yes normoactive bowel sounds PALPATION: Yes Soft to palpation and Yes No hepatosplenomegaly present RECTAL EXAM: deferred Extremity: COMMON NORMALS: no clubbing, cyanosis or edema and no pedal edema Neuro: COMMON NORMALS: patient oriented x3 Data : 08/31/21 04:44 08/31/21 04:44 A&P Assessment and plan (1) Acute and chronic respiratory failure with hypoxia: Date of positive test : 08/15/2021 Gradually improving. Oxygen requirement now down to 6 L/min with the rest via nasal cannula and reservior. Home baseline 4lpm. Chest x-ray looks much improving on 08/28. Remdisivir completed 5 days 08/22- 08/26 dexamethasone 6mg IVP daily , transition to oral steroid taper at discharge Baricitinib started 08/26 due to worsening infiltrates on CXR, now improving, this is probably more likely due to improved pulmonary edema. D/c Baricitinib 08/29. Standing nebs duoneb, budesonide empiric levaquin started 08/23 , discontinue today, completing day 7 Flutter valve/spirometer at bedside Currently on full dose a/c with lovenox 1mg/kg q12h , on xarelto per home meddications which will be resumed at discharge continue po Lasix to 40 mg p.o. twice daily Echocardiogram still pending Status: Acute (2) COVID-19: Severe COVID-19 pneumonia. . Status: Acute (3) Pain of back and right lower extremity: Acute over past 2 days, unable to bear weight X ray hip and knee WNL LE duplex negative Ct abdomen to evaluate for intraabdominal bleeding given pain, will additionally evaluate for lumbar spine Percocet 5/325 q4h prn added Status: Acute Plan #?right iliacus muscle hematoma: CT abdomen pelvis wo con:right iliacus muscle hematoma noted The enlarged iliacus muscle measures 10 cm AP x 5 cm transverse by 10 cm craniocaudal (unaffected contralateral iliacus muscle measures 8 x 4 x 10 cm).? Active bleeding is not assessed on this noncontrast study. Likely secondary therapeutic anticoagulation: Currently stopped: Current plan is to continue to monitor the H&H, transfuse if the hemoglobin drops below 7. Pain control. On discharge we will keep Xarelto on hold we will do repeat H&H in 2 weeks.And thereafter if it stays stable Xarelto can be resumed. #History of DVT: On Xarelto at home: Has been stopped, as the patient has currently right iliac muscle hematoma. #Disposition: Likely senior care facility, given significant difficulty with ambulation. Attestations Medical Necessity Statement*: Patient is still in hospital for management of Covid pneumonia, right iliacus muscle hematoma, need for monitoring of H&H, difficulty with ambulation, due to right lower extremity pain. 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
[2021-08-31 16:00] VITALS: BP 98/63; PULSE 80; RESP 18; TEMP 36.8; O2SAT 93
[2021-08-31 17:20] LABS: Glucose Point of Care 347 mg/dL (70-110)
[2021-08-31 20:00] VITALS: BP 94/57; PULSE 91; RESP 17; TEMP 37.1; O2SAT 90
[2021-08-31] MEDS: cyclobenzaprine 10 mg Tablet PO (21:03)
[2021-08-31 21:09] LABS: Glucose Point of Care 415 mg/dL (70-110)
[2021-09-01] VITALS (7 sets, daily range): BP systolic 94–131; BP diastolic 57–77; PULSE 72–86; RESP 14–20; TEMP 36.4–37.1; O2SAT 92–98
[2021-09-01 06:03] LABS: Basophils % 0.1 %; Eosinophils # 0.1 10^3/uL (0.0-0.8); Eosinophils % 0.6 %; Hematocrit 29.8 % (37.0-47.0); Hemoglobin 9.2 g/dL (11.5-15.3); Lymphocytes # 0.6 10^3/uL (0.8-4.8); Mean Corpuscular HGB Conc 30.9 g/dL (30.0-36.0); Mean Corpuscular Hemoglobin 28.9 pg (28.0-34.0); Mean Corpuscular Volume 93.7 fl (81-99); Monocytes # 0.6 10^3/uL (0.2-0.9); Monocytes % 5.6 %; Neutrophils # 9.22 10^3/uL (1.8-7.7); Nucleated Red Blood Cells % 0 %; Platelet Count 292 10^3/cmm (130-400); Red Blood Count 3.18 10^6/uL (4.1-5.3); Red Cell Distribution Width 13.8 % (12.1-15.1); White Blood Count 10.7 10^3/uL (4.0-10.0)
[2021-09-01 06:20] LABS: Glucose Point of Care 216 mg/dL (70-110)
[2021-09-01 06:24] LABS: Anion Gap 10.5 (5-19); Blood Urea Nitrogen 29 mg/dL (8-23); Calcium 8.5 mg/dL (8.5-10.5); Carbon Dioxide 37 mmol/L (22-29); Chloride 98 mmol/L (98-107); Glucose 204 mg/dL (65-115); Osmolality Calculated 304 mOsm/kg (285-295); Potassium 4.5 mmol/L (3.5-5.1); Sodium 141 mmol/L (136-145)
--- NOTE | 2021-09-01 08:53 | PC.SOCIAL ---
IMM Update Pg. 2 of IMM updated and reviewed with patient, who verbalized understanding. Copy provided.
[2021-09-01] MEDS: FUROsemide 40 mg Tablet PO (10:05)
[2021-09-01] MEDS: benzonatate 100 mg Capsule 200 MG PO ×2 (10:05→20:54)
[2021-09-01] MEDS: escitalopram 10 mg Tablet 20 MG PO (10:05)
[2021-09-01] MEDS: pantoprazole DR 40 mg Tablet PO ×2 (10:05→17:46)
[2021-09-01] MEDS: atorvastatin 40 mg Tablet 10 MG PO (10:06)
[2021-09-01] MEDS: dexamethasone 10 mg/mL INJ 6 MG IVP (10:07)
[2021-09-01] MEDS: insulin lispro 100 unit/1 mL SUBCUT ×3 (12:35→21:12)
[2021-09-01] MEDS: insulin glargine 100 units/1 mL 20 UNIT SUBCUT (12:35)
--- NOTE | 2021-09-01 14:46 | P.PN_ITS ---
Subjective Subjective: She was seen and examined this morning, has significant orthostatic hypotension, which is symptomatic, She has a history of chronic orthostatic hypotension, currently it is more symptomatic, possibly secondary to Blood loss. Currently we have discontinued Cardizem as well as Lasix, as the blood pressure is soft, and she is also euvolemic. Right lower extremity pain has improved. Medications: Medication Review Details: Generic Name Dose Route Start Last Admin Trade Name Freq PRN Reason Stop Dose Admin Albuterol/Ipratrop ium 3 ml 08/25/21 21:00 08/31/21 14:41 Ipratropium-Albu terol 3 Ml Neb INHALATION Not Given Q6H.RESPIRATORY S CH Atorvastatin Calci um 10 mg 08/22/21 09:00 08/31/21 09:56 Atorvastatin 40 Mg Tablet PO 10 mg DAILY MACARENA Administration Benzonatate 200 mg 08/22/21 15:00 08/31/21 09:56 Benzonatate 100 Mg Capsule PO 200 mg TID MACARENA Administration Budesonide 0.5 mg 08/25/21 20:00 08/31/21 09:25 Budesonide 0.5 M g/2 Ml Neb INHALATION Not Given BID.RESPIRATORY S CH Cyclobenzaprine HC l 10 mg 08/21/21 19:12 08/30/21 20:37 Cyclobenzaprine 10 Mg Tablet PO 10 mg TID PRN Administration muscle spasm Dexamethasone 6 mg 08/22/21 09:00 08/31/21 09:57 Dexamethasone 10 Mg/Ml Inj IVP 6 mg DAILY MACARENA Administration Diltiazem HCl 30 mg 08/21/21 20:00 08/31/21 08:08 Diltiazem 30 Mg Tablet PO Not Given BID@08,20 MACARENA Escitalopram Oxala te 20 mg 08/22/21 08:00 08/31/21 09:56 Escitalopram 10 Mg Tablet PO 20 mg DAILY@08 MACARENA Administration Furosemide 40 mg 08/28/21 18:00 08/31/21 09:56 Furosemide 40 Mg Tablet PO 40 mg BID MACARENA Administration Insulin Glargine 20 unit 08/24/21 11:00 08/31/21 09:51 Insulin Glargine 100 Units/1 Ml SUBCUT 20 unit DAILY MACARENA Administration Insulin Human Lisp ro 0 unit 08/25/21 18:00 08/31/21 13:29 Insulin Lispro 1 00 Unit/1 Ml SUBCUT 12 unit WM&BEDTIME MACARENA Administration Protocol Morphine Sulfate 2 mg 08/28/21 12:06 08/28/21 21:13 Morphine 4 Mg/Ml Sdv 1 Ml IVP 2 mg Q6H PRN Administration SEVERE PAIN Ondansetron HCl 4 mg 08/21/21 19:12 08/28/21 09:52 Ondansetron 4 Mg Tablet PO 4 mg Q6H PRN Administration nausea and vomiti ng Oxycodone/Acetamin ophen 1 tab 08/29/21 14:31 08/30/21 09:09 Oxycodone-Apap 5 -325 Mg Tablet PO 1 tab Q4H PRN Administration MODERATE PAIN Pantoprazole Sodiu m 40 mg 08/22/21 09:00 08/31/21 09:[address] 40 Mg Tablet PO 40 mg BID MACARENA Administration Tizanidine HCl 2 mg 08/21/21 19:12 08/29/21 17:50 Tizanidine 4 Mg Tablet PO 2 mg BID PRN Administration Muscle Pain Vitals/I&O/Wt Last Vital Signs Temp 98.7 F 09/01/21 07:12 Pulse 86 09/01/21 08:07 Resp 17 09/01/21 08:07 BP 102/66 09/01/21 07:12 Pulse Ox 95 09/01/21 08:07 08/31/21 09/01/21 09/01/21 22:59 06:59 14:59 Intake Total 820 / 1060 Output Total 800 / 800 Balance 20 / 260 Weight last 48 hrs Weight 83.325 kg Weight 82.871 kg Physical Exam Const: COMMON NORMALS: patient oriented x3 HENMT: COMMON NORMALS: normocephalic, atraumatic, hearing grossly normal bilaterally and external ears normal HEAD & SCALP: normocephalic and atr aumatic EXTERNAL EAR: Yes external ears normal Eye: COMMON NORMALS: no scleral icterus GENERAL EYE: appearance normal, both eyes and all related structures Chest: COMMONS NORMALS: normal inspection of the chest and normal palpation of entire chest wall CHEST: Yes Symmetrical chest wall rise Resp: COMMON NORMALS: normal respiratory effort, No retractions, No use of accessory muscles and clear to auscultation bilaterally EFFORT & INSPECTION: Yes symmetric chest movement AUSCULTATION: clear to auscultation bilaterally Cardio: COMMON NORMALS: regular rate, regular rhythm, S1 normal heart sound present, S2 normal heart sound present, No gallops present (Cardio), No murmurs present (Cardio), No rub (Cardio) and Peripheral pulses 2+ throughout RATE: regular rate RHYTHM: regular rhythm HEART SOUNDS: S1 normal heart sound present and S2 normal heart sound present PERIPHERAL PULSES: Peripheral pulses 2+ throughout GI: COMMON NORMALS: Normal to inspection, nondistended, normoactive bowel sounds present, Soft to palpation, non-tender, No hepatosplenomegaly present and no masses AUSCULTATION: Yes normoactive bowel sounds PALPATION: Yes Soft to palpation and Yes No hepatosplenomegaly present RECTAL EXAM: deferred Extremity: COMMON NORMALS: no clubbing, cyanosis or edema and no pedal edema Neuro: COMMON NORMALS: patient oriented x3 Data : 09/01/21 05:47 09/01/21 05:47 A&P Assessment and plan (1) Acute and chronic respiratory failure with hypoxia: Date of positive test : 08/15/2021 Gradually improving. Oxygen requirement now down to 6 L/min with the rest via nasal cannula and reservior. Home baseline 4lpm. Chest x-ray looks much improving on 08/28. Remdisivir completed 5 days 08/22- 08/26 dexamethasone 6mg IVP daily , transition to oral steroid taper at discharge Baricitinib started 08/26 due to worsening infiltrates on CXR, now improving, this is probably more likely due to improved pulmonary edema. D/c Baricitinib 08/29. Standing nebs duoneb, budesonide empiric levaquin started 08/23 , discontinue today, completing day 7 Flutter valve/spirometer at bedside Currently on full dose a/c with lovenox 1mg/kg q12h , on xarelto per home meddications which will be resumed at discharge continue po Lasix to 40 mg p.o. twice daily Echocardiogram still pending Status: Acute (2) COVID-19: Severe COVID-19 pneumonia. . Status: Acute (3) Pain of back and right lower extremity: Acute over past 2 days, unable to bear weight X ray hip and knee WNL LE duplex negative Ct abdomen to evaluate for intraabdominal bleeding given pain, will additionally evaluate for lumbar spine Percocet 5/325 q4h prn added Status: Acute Plan #?right iliacus muscle hematoma: CT abdomen pelvis wo con:right iliacus muscle hematoma noted The enlarged iliacus muscle measures 10 cm AP x 5 cm transverse by 10 cm craniocaudal (unaffected contralateral iliacus muscle measures 8 x 4 x 10 cm).? Active bleeding is not assessed on this noncontrast study. Likely secondary therapeutic anticoagulation: Currently stopped: Current plan is to continue to monitor the H&H, transfuse if the hemoglobin dr ops below 7. Pain control. On discharge we will keep Xarelto on hold we will do repeat H&H in 2 weeks.And thereafter if it stays stable Xarelto can be resumed. #Symptomatic orthostatic hypotension: We will hold Cardizem, as well as Lasix. Orthostatic vitals check every 6H. She has been educated on conservative management, has been asked to slowly rise from the bed, after sitting for some time at the bedside. #History of DVT: On Xarelto at home: Has been stopped, as the patient has currently right iliac muscle hematoma. #Disposition: [facility] [place] [facility], given significant difficulty with ambulation. Attestations Medical Necessity Statement*: Patient is to be in hospital for management of Covid pneumonia, significant orthostatic hypotension, need for safe discharge. Coding Level of Care Code Acute Heel Sander for demarcus Fwd Exam Comprehensive Diagnoses Acute and chronic respiratory failure with hypoxia J96.21 COVID-19 U07.1 Pain of back and right lower extremity M54.9; M79.604
[2021-09-01 17:04] LABS: Glucose Point of Care 374 mg/dL (70-110)
[2021-09-01] MEDS: cyclobenzaprine 10 mg Tablet PO (21:12)
[2021-09-02] VITALS (8 sets, daily range): BP systolic 77–156; BP diastolic 52–85; PULSE 66–92; RESP 15–18; TEMP 36.5–36.7; O2SAT 89–95
[2021-09-02 05:16] LABS: Basophils % 0.1 %; Eosinophils # 0.1 10^3/uL (0.0-0.8); Eosinophils % 0.8 %; Hematocrit 27.2 % (37.0-47.0); Hemoglobin 8.3 g/dL (11.5-15.3); Lymphocytes # 0.8 10^3/uL (0.8-4.8); Lymphocytes % 8.3 %; Mean Corpuscular HGB Conc 30.5 g/dL (30.0-36.0); Mean Corpuscular Hemoglobin 28.5 pg (28.0-34.0); Mean Corpuscular Volume 93.5 fl (81-99); Mean Platelet Volume 10.5 fL (7.4-10.4); Monocytes # 0.5 10^3/uL (0.2-0.9); Monocytes % 5.5 %; Neutrophils # 8.05 10^3/uL (1.8-7.7); Neutrophils % 83.6 %; Nucleated Red Blood Cells % 0 %; Platelet Count 291 10^3/cmm (130-400); Red Blood Count 2.91 10^6/uL (4.1-5.3); Red Cell Distribution Width 13.8 % (12.1-15.1); White Blood Count 9.6 10^3/uL (4.0-10.0)
[2021-09-02 05:42] LABS: Anion Gap 6.8 (5-19); Blood Urea Nitrogen 35 mg/dL (8-23); Calcium 8.9 mg/dL (8.5-10.5); Carbon Dioxide 38 mmol/L (22-29); Chloride 98 mmol/L (98-107); Glucose 214 mg/dL (65-115); Osmolality Calculated 300 mOsm/kg (285-295); Potassium 4.8 mmol/L (3.5-5.1); Sodium 138 mmol/L (136-145)
[2021-09-02 06:24] LABS: Glucose Point of Care 245 mg/dL (70-110)
[2021-09-02] MEDS: benzonatate 100 mg Capsule 200 MG PO ×3 (09:25→20:20)
[2021-09-02] MEDS: insulin glargine 100 units/1 mL 20 UNIT SUBCUT (09:25)
[2021-09-02] MEDS: escitalopram 10 mg Tablet 20 MG PO (09:25)
[2021-09-02] MEDS: pantoprazole DR 40 mg Tablet PO ×2 (09:25→17:10)
[2021-09-02] MEDS: atorvastatin 40 mg Tablet 10 MG PO (09:25)
[2021-09-02] MEDS: insulin lispro 100 unit/1 mL SUBCUT ×4 (09:25→21:14)
[2021-09-02] MEDS: dexamethasone 10 mg/mL INJ 6 MG IVP (09:26)
--- NOTE | 2021-09-02 09:43 | CT_ITS ---
WS: [id number] CT ABDOMEN PELVIS TECHNIQUE: Noncontrast CT of the abdomen and pelvis with coronal and sagittal reformatted images. CLINICAL INFORMATION: right iliacus muscle hematoma evaluation COMPARISON: None. DLP: 1886.[address] scans at [facility] use at least one of these dose optimization techniques: automated e xposure control; mA and/or kV adjustment per patient size (includes targeted exams where dose is matc hed to clinical indication); or iterative reconstruction. FINDINGS: Again seen is the heterogeneous RIGHT intramuscular iliacus pelvic hematoma in the RIGHT pelvis with heterogeneous mixed attenuation blood products similar in appearance to August 29, 2021. No signifi cant progression. This measures approximately 9.5 x 5.8 x 10.0 cm. No significant change compared to previous. This extends into the RIGHT anterior thigh also unchanged from previous. No evidence of pro gressive hematoma. Stable RIGHT psoas increased attenuation hematoma measuring 2.1 cm also unchanged. Small amount of in duration about the RIGHT iliacus hematoma. Additional small LEFT pelvic iliacus hematoma also unchang ed measuring 3.8 x 3.3 x 4.7 cm. No other significant changes compared to previous. Patchy infiltrates are visualized in the lung base s similar to the prior examination. Recommend correlation for pneumonia. Subsegmental atelectasis RIG HT lower lobe has improved. Noncontrast liver is normal. Mild hepatomegaly. Splenic granulomas. Normal GE junction. RIGHT adrenal gland is normal. Stable LEFT adrenal adenoma measuring 2.2 CM. Fatty atrophy of the pancreas. No hyd ronephrosis in either kidney. Normal caliber abdominal aorta. Mild aortic calcification. Mild constip ation. A few prominent lymph nodes in the inguinal regions likely reactive unchanged from previous. S light retrolisthesis L2 on L3. CT/CT abdomen pelvis wo con [id number] IMPRESSION: 1. Stable large RIGHT iliacus and small RIGHT psoas hematoma unchanged from Fe bru2021. 2. Additional small hematoma within the LEFT iliacus better seen today is also similar in appearance to August 29, 2021 and not significantly changed. 3. No free fluid in the abdomen or pelvis. 4. Patchy infiltrates in the lung bases similar to the prior examination. Joe mmend correlation for pneumonitis. 5. No other significant changes compared to previous. Notified Bradford Chaves MD at 09/02/2021 11:13 AM.
[2021-09-02 11:48] LABS: Glucose Point of Care 247 mg/dL (70-110)
--- NOTE | 2021-09-02 15:40 | P.PN_ITS ---
Subjective Subjective: She was seen and examined this morning, has significant pain in the right thigh region, unable to bear weight, repeat CT abdomen and pelvis without contrast: Stable large RIGHT iliacus and small RIGHT psoas hematoma. Additional small hematoma within the LEFT iliacus better seen today is also similar in appearance to August 29, 2021 and not significantly changed. Hemoglobin has dropped to: 8.3 from 9.2 of yesterday. Medications: Medication Review Details: Generic Name Dose Route Start Last Admin Trade Name Coleq PRN Reason Stop Dose Admin Albuterol/Ipratrop ium 3 ml 08/25/21 21:00 08/31/21 14:41 Ipratropium-Albu terol 3 Ml Neb INHALATION Not Given Q6H.RESPIRATORY S CH Atorvastatin Calci um 10 mg 08/22/21 09:00 08/31/21 09:56 Atorvastatin 40 Mg Tablet PO 10 mg DAILY MACARENA Administration Benzonatate 200 mg 08/22/21 15:00 08/31/21 09:56 Benzonatate 100 Mg Capsule PO 200 mg TID MACARENA Administration Budesonide 0.5 mg 08/25/21 20:00 08/31/21 09:25 Budesonide 0.5 M g/2 Ml Neb INHALATION Not Given BID.RESPIRATORY S CH Cyclobenzaprine HC l 10 mg 08/21/21 19:12 08/30/21 20:37 Cyclobenzaprine 10 Mg Tablet PO 10 mg TID PRN Administration muscle spasm Dexamethasone 6 mg 08/22/21 09:00 08/31/21 09:57 Dexamethasone 10 Mg/Ml Inj IVP 6 mg DAILY MACARENA Administration Diltiazem HCl 30 mg 08/21/21 20:00 08/31/21 08:08 Diltiazem 30 Mg Tablet PO Not Given BID@08,20 [facility] Escitalopram Oxala te 20 mg 08/22/21 08:00 08/31/21 09:56 Escitalopram 10 Mg Tablet PO 20 mg DAILY@08 MACARENA Administration Furosemide 40 mg 08/28/21 18:00 08/31/21 09:56 Furosemide 40 Mg Tablet PO 40 mg BID MACARENA Administration Insulin Glargine 20 unit 08/24/21 11:00 08/31/21 09:51 Insulin Glargine 100 Units/1 Ml SUBCUT 20 unit DAILY MACARENA Administration Insulin Human Lisp ro 0 unit 08/25/21 18:00 08/31/21 13:29 Insulin Lispro 1 00 Unit/1 Ml SUBCUT 12 unit WM&BEDTIME MACARENA Administration Protocol Morphine Sulfate 2 mg 08/28/21 12:06 08/28/21 21:13 Morphine 4 Mg/Ml Sdv 1 Ml IVP 2 mg Q6H PRN Administration SEVERE PAIN Ondansetron HCl 4 mg 08/21/21 19:12 08/28/21 09:52 Ondansetron 4 Mg Tablet PO 4 mg Q6H PRN Administration nausea and vomiti ng Oxycodone/Acetamin ophen 1 tab 08/29/21 14:31 08/30/21 09:09 Oxycodone-Apap 5 -325 Mg Tablet PO 1 tab Q4H PRN Administration MODERATE PAIN Pantoprazole Sodiu m 40 mg 08/22/21 09:00 08/31/21 09:[address] 40 Mg Tablet PO 40 mg BID MACARENA Administration Tizanidine HCl 2 mg 08/21/21 19:12 08/29/21 17:50 Tizanidine 4 Mg Tablet PO 2 mg BID PRN Administration Muscle Pain Vitals/I&O/Wt Last Vital Signs Temp 97.9 F 09/02/21 07:40 Pulse 69 09/02/21 08:35 Resp 18 09/02/21 08:35 BP 80/52 09/02/21 07:40 Pulse Ox 89 L 09/02/21 08:45 09/02/21 09/02/21 09/02/21 06:59 14:59 22:59 Intake Total 960 / 1440 Output Total 800 / 800 Balance 160 / 640 Weight last 48 hrs Weight 86.455 kg Weight 83.325 kg Physical Exam Const: COMMON NORMALS: patient oriented x3 HENMT: COMMON NORMALS: normocephalic, atraumatic, hearing grossly normal bilaterally and external ears normal HEAD & SCALP: normocephalic and atraumatic EXTERNAL EAR: Yes external ears normal Eye: COMMON NORMALS: no scleral icterus GENERAL EYE: appearance normal, both eyes and all related structures Chest: COMMONS NORMALS: normal inspection of the chest and normal palpation of entire chest wall CHEST: Yes Symmetrical chest wall rise Resp: COMMON NORMALS: normal respiratory effort, No retractions, No use of accessory muscles and clear to auscultation bilaterally EFFORT & INSPECTION: Yes symmetric chest movement AUSCULTATION: clear to auscultation bilaterally Cardio: COMMON NORMALS: regular rate, regular rhythm, S1 normal heart sound present, S2 normal heart sound present, No gallops present (Cardio), No murmurs present (Cardio), No rub (Cardio) and Peripheral pulses 2+ throughout RATE: regular rate RHYTHM: regular rhythm HEART SOUNDS: S1 normal heart sound present and S2 normal heart sound present PERIPHERAL PULSES: Peripheral pulses 2+ throughout GI: COMMON NORMALS: Normal to inspection, nondistended, normoactive bowel sounds present, Soft to palpation, non-tender, No hepatosplenomegaly present and no masses AUSCULTATION: Yes normoactive bowel sounds PALPATION: Yes Soft to palpation and Yes No hepatosplenomegaly present RECTAL EXAM: deferred Extremity: COMMON NORMALS: no clubbing, cyanosis or edema and no pedal edema Neuro: COMMON NORMALS: patient oriented x3 Data : 09/02/21 04:12 09/02/21 04:12 A&P Assessment and plan (1) Acute and chronic respiratory failure with hypoxia: Date of positive test : 08/15/2021 Gradually improving. Oxygen requirement now down to 6 L/min with the rest via nasal cannula and reservior. Home baseline 4lpm. Chest x-ray looks much improving on 08/28. Remdisivir completed 5 days 08/22- 08/26 dexamethasone 6mg IVP daily , transition to oral steroid taper at discharge Baricitinib started 08/26 due to worsening infiltrates on CXR, now improving, this is probably more likely due to improved pulmonary edema. D/c Baricitinib 08/29. Standing nebs duoneb, budesonide empiric levaquin started 08/23 , discontinue today, completing day 7 Flutter valve/spirometer at bedside Currently on full dose a/c with lovenox 1mg/kg q12h , on xarelto per home meddications which will be resumed at discharge continue po Lasix to 40 mg p.o. twice daily Echocardiogram still pending Status: Acute (2) COVID-19: Severe COVID-19 pneumonia. . Status: Acute (3) Pain of back and right lower extremity: Acute over past 2 days, unable to bear weight X ray hip and knee WNL LE duplex negative Ct abdomen to evaluate for intraabdominal bleeding given pain, will additionally evaluate for lumbar spine Percocet 5/325 q4h prn added Status: Acute Plan #?right iliacus muscle hematoma: CT abdomen pelvis wo con:right iliacus muscle hematoma noted The enlarged iliacus muscle measures 10 cm AP x 5 cm transverse by 10 cm craniocaudal (unaffected contralateral iliacus muscle measures 8 x 4 x 10 cm).? Active bleeding is not assessed on this noncontrast study. Repeat CT abdomen and pelvis without contrast: Stable large RIGHT iliacus and small RIGHT psoas hematoma. Additional small hematoma within the LEFT iliacus better seen today is also similar in appearance to August 29, 2021 and not significantly changed. Likely secondary therapeutic anticoagulation: Currently stopped: Current plan is to continue to monitor the H&H, transfuse if the hemoglobin drops below 7. Pain control. On discharge we will keep Xarelto on hold we will do repeat H&H in 2 weeks.And thereafter if it stays stable Xarelto can be resumed. #Symptomatic orthostatic hypotension: We will hold Cardizem, as well as Lasix. Orthostatic vitals check every 6H. She has been educated on conservative management, has been asked to slowly rise from the bed, after sitting for some time at the bedside. #History of DVT: On Xarelto at home: Has been stopped, as the patient has currently right iliac muscle hematoma. #Disposition: Patient denied discharged to intermediate facility, even though she has significant difficulty with ambulation. Attestations Medical Necessity Statement*: Patient is in hospital for monitoring of significant iliacus muscle hematoma. Coding Level of Care Code Acute Director Of Radiology for [facility] Fwd Exam Comprehensive Diagnoses Acute and chronic respiratory failure with hypoxia J96.21 COVID-19 U07.1 Pain of back and right lower extremity M54.9; M79.604
[2021-09-02 17:04] LABS: Glucose Point of Care 204 mg/dL (70-110)
[2021-09-02 17:46] LABS: Basophils % 0.1 %; Eosinophils # 0.1 10^3/uL (0.0-0.8); Eosinophils % 1.1 %; Hematocrit 29.4 % (37.0-47.0); Hemoglobin 8.9 g/dL (11.5-15.3); Lymphocytes % 9.6 %; Mean Corpuscular HGB Conc 30.3 g/dL (30.0-36.0); Mean Corpuscular Hemoglobin 28.9 pg (28.0-34.0); Mean Corpuscular Volume 95.5 fl (81-99); Mean Platelet Volume 10.3 fL (7.4-10.4); Monocytes # 0.6 10^3/uL (0.2-0.9); Monocytes % 5.7 %; Neutrophils # 8.45 10^3/uL (1.8-7.7); Neutrophils % 82.6 %; Nucleated Red Blood Cells % 0 %; Platelet Count 302 10^3/cmm (130-400); Red Blood Count 3.08 10^6/uL (4.1-5.3); White Blood Count 10.2 10^3/uL (4.0-10.0)
[2021-09-02] MEDS: cyclobenzaprine 10 mg Tablet PO (20:19)
[2021-09-02] MEDS: midodrine 5 mg TABLET PO (20:20)
[2021-09-02 21:09] LABS: Glucose Point of Care 403 mg/dL (70-110)
[2021-09-02 21:19] LABS: Glucose Point of Care 221 mg/dL (70-110)
--- NOTE | 2021-09-02 21:21 | PC.NURSE ---
2000 Pt sitting on side of bed. [place] and milk given per pt requests. Pt spills milk in floor. Requests bettina and given diet. Assisted pt back in bed. Unable to bare weight on right leg due to weakness. 2 person assist back up in bed.
[2021-09-03] VITALS (7 sets, daily range): BP systolic 104–157; BP diastolic 71–79; PULSE 77–91; RESP 16–20; TEMP 36.4–36.9; O2SAT 92–99
--- NOTE | 2021-09-03 04:46 | PC.NURSE ---
0445 Resting in bed on right side. Resp E/U No distress. O2 in use at 7L.
[2021-09-03 06:46] LABS: Glucose Point of Care 181 mg/dL (70-110)
[2021-09-03] MEDS: insulin lispro 100 unit/1 mL SUBCUT ×2 (09:18→12:27)
[2021-09-03] MEDS: benzonatate 100 mg Capsule 200 MG PO (09:18)
[2021-09-03] MEDS: insulin glargine 100 units/1 mL 20 UNIT SUBCUT (09:18)
[2021-09-03] MEDS: atorvastatin 40 mg Tablet 10 MG PO (09:19)
[2021-09-03] MEDS: pantoprazole DR 40 mg Tablet PO (09:19)
[2021-09-03] MEDS: escitalopram 10 mg Tablet 20 MG PO (09:19)
[2021-09-03] MEDS: midodrine 5 mg TABLET PO (09:19)
[2021-09-03] MEDS: permethrin lotion 59 mL Btl 1 APPLIC TOPICAL (10:39)
[2021-09-03 10:57] LABS: Basophils % 0.1 %; Eosinophils # 0.1 10^3/uL (0.0-0.8); Eosinophils % 0.8 %; Hematocrit 30.3 % (37.0-47.0); Hemoglobin 9.4 g/dL (11.5-15.3); Lymphocytes # 0.8 10^3/uL (0.8-4.8); Lymphocytes % 6.6 %; Mean Corpuscular Hemoglobin 29.7 pg (28.0-34.0); Mean Corpuscular Volume 95.6 fl (81-99); Mean Platelet Volume 10.4 fL (7.4-10.4); Monocytes # 0.5 10^3/uL (0.2-0.9); Monocytes % 4.7 %; Neutrophils # 10.03 10^3/uL (1.8-7.7); Neutrophils % 86.9 %; Nucleated Red Blood Cells % 0 %; Platelet Count 308 10^3/cmm (130-400); Red Blood Count 3.17 10^6/uL (4.1-5.3); White Blood Count 11.5 10^3/uL (4.0-10.0)
[2021-09-03 11:15] LABS: Anion Gap 11.5 (5-19); Blood Urea Nitrogen 33 mg/dL (8-23); Carbon Dioxide 34 mmol/L (22-29); Chloride 95 mmol/L (98-107); Glomerular Filtration Rate 84.8 mL/min (90-130); Glucose 338 mg/dL (65-115); Osmolality Calculated 303 mOsm/kg (285-295); Potassium 4.5 mmol/L (3.5-5.1); Sodium 136 mmol/L (136-145)
--- NOTE | 2021-09-03 11:33 | PM.DCS ---
Discharge Providers Date of Admission: 08/21/21 17:50 Date of Discharge: September 03, 2021 Attending Provider at Admission: Flakito Plata Attending Provider at Discharge: Bradford Chaves MD Primary Care Provider: [facility] Diagnoses at Discharge Discharge Diagnosis (1) Acute and chronic respiratory failure with hypoxia: Status: Acute (2) COVID-19: Status: Acute (3) Pain of back and right lower extremity: Status: Acute Reason for Visit Reason for Visit: weakness,sob, covid postive Hospital Course Hospital Course 60-year-old female with history of COPD on 4 L home oxygen ,dm,dvt on Xarelto, congestive heart failure presents emergency room complaining of myalgias fever headache weakness some loose stools.She was admitted for the management of acute on chronic hypoxic respiratory failure secondary to Covid pneumonia. She was kept on Covid protocol completed the course of remdesivir dexamethasone, she was also briefly on baricitinib, empirically on antibiotics, she responded well to above medical management at the time of discharge she was saturating well on her home oxygen, unfortunately hospital course was complicated by development of bilateral iliac muscle hematoma as well as right psoas hematoma, likely secondary therapeutic anticoagulation.H&H was monitored, serial CT scan abdomen and pelvis was done. Pain control was done, patient H&H remained stable there was no need for transfusion, patient continued to have significant, right lower extremity pain, because of which her ambulation was very difficult.Patient was accepted by SNF, but she choose to return to home to her son, anticoagulation has been kept on hold at the time of discharge, she has been asked to do repeat CBC in a week, and follow-up with her primary care physician, it is possible that she may even need repeat CT scan abdomen and pelvis, to assess the status of hematoma.For her h/o chronic orthostatic hypotension Cardizem was discontinued,on discharge as the blood pressure was soft, midodrine p.o. 5 mg 3 times daily was also added, she was educated on use of other conservative measures to maintain chronic symptomatic orthostatic hypotension. Patient responded well to above medical management is being discharged in stable condition to home. She will continue to follow-up with her primary care physician as an outpatient. Physical Exam Const: COMMON NORMALS: patient oriented x3 HENMT: COMMON NORMALS: normocephalic, atraumatic, hearing grossly normal bilaterally and external ears normal HEAD & SCALP: normocephalic and atraumatic EXTERNAL EAR: Yes external ears normal Eye: COMMON NORMALS: no scleral icterus GENERAL EYE: appearance normal, both eyes and all related structures Chest: COMMONS NORMALS: normal inspection of the chest and normal palpation of entire chest wall CHEST: Yes Symmetrical chest wall rise Resp: COMMON NORMALS: normal respiratory effort, No retractions, No use of accessory muscles and clear to auscultation bilaterally EFFORT & INSPECTION: Yes symmetric chest movement AUSCULTATION: clear to auscultation bilaterally Cardio: COMMON NORMALS: regular rate, regular rhythm, S1 normal heart sound present, S2 normal heart sound present, No gallops present (Cardio), No murmurs present (Cardio), No rub (Cardio) and Peripheral pulses 2+ throughout RATE: regular rate RHYTHM: regular rhythm HEART SOUNDS: S1 normal heart sound present and S2 normal heart sound present PERIPHERAL PULSES: Peripheral pulses 2+ throughout GI: COMMON NORMALS: Normal to inspection, nondistended, normoactive bowel sounds present, Soft to palpation, non-tender, No hepatosplenomegaly present and no masses AUSCULTATION: Yes normoactive bowel sounds PALPATION: Yes Soft to palpation and Yes No hepatosplenomegaly present RECTAL EXAM: deferred Extremity: COMMON NORMALS: no clubbing, cyanosis or edema and no pedal edema Neuro: COMMON NORMALS: patient oriented x3 Discharge Data Studies Completed and Pending Completed Studies During Hospitalization Category Date Time Status CT abdomen pelvis wo con [id number] Stat Cat Scan 09/02/21 09:[address] abdomen pelvis wo con [id number] Urgent Cat Scan 08/29/21 11:05 Completed CXRP [XR chest 1V portable [id number]] AM LABS Exams 08/26/21 04:00 Completed CXRP [XR chest 1V portable [id number]] AM LABS Exams 08/28/21 04:00 Completed XR chest 1V portable [id number] Stat Exams 08/21/21 17:06 Completed XR hip RT 1V wo/w pel [id number] Routine Exams 08/29/21 08:44 Completed XR knee RT 1-2V [id number] Routine Exams 08/29/21 08:44 Completed CV. echo complete* [id number] Routine Ultrasound 08/26/21 Completed US venous duplex lower extremity RT [CV venous duplex Ultrasound 08/29/21 10:[place] [id number]] Urgent Pending at discharge Category Date Time Status BMP [Basic Metabolic Panel] AM LABS Lab 09/04/21 04:00 Ordered BMP [Basic Metabolic Panel] AM LABS Lab 09/05/21 04:00 Ordered BMP [Basic Metabolic Panel] AM LABS Lab 09/06/21 04:00 Ordered CBC Auto Diff [Complete Blood Count w/Auto] AM LABS Lab 09/04/21 04:00 Ordered CBC Auto Diff [Complete Blood Count w/Auto] AM LABS Lab 09/05/21 04:00 Ordered CBC Auto Diff [Complete Blood Count w/Auto] AM LABS Lab 09/06/21 04:00 Ordered Radiology Impressions Chest X-Ray 08/28/21 04:00 IMPRESSION: Extensive bilateral pulmonary opacities appear greatly improved with patchy residual opacity at the left base. Hip X-Ray 08/29/21 08:44 IMPRESSION: No acute findings. Knee X-Ray 08/29/21 08:44 IMPRESSION: No acute findings. Venous Duplex 08/29/21 10:59 IMPRESSION: No evidence of deep vein thrombosis. Abdomen/Pelvis CT 09/02/21 09:43 IMPRESSION: 1. Stable large RIGHT iliacus and small RIGHT psoas hematoma unchanged from August 29, 2021. 2. Additional small hematoma within the LEFT iliacus better seen today is also similar in appearance to August 29, 2021 and not significantly changed. 3. No free fluid in the abdomen or pelvis. 4. Patchy infiltrates in the lung bases similar to the prior examination. Recommend correlation for pneumonitis. 5. No other significant changes compared to previous. Notified Bradford Chaves MD at 09/02/2021 11:13 AM. Laboratory Results WBC 11.5 10^3/uL (4.0-10.0) H 09/03/21 10:44 RBC 3.17 10^6/uL (4.1-5.3) L 09/03/21 10:44 Hgb 9.4 g/dL (11.5-15.3) L 09/03/21 10:44 Hct 30.3 % (37.0-47.0) L 09/03/21 10:44 MCV 95.6 fl (81-99) 09/03/21 10:44 MCH 29.7 pg (28.0-34.0) 09/03/21 10:44 MCHC 31.0 g/dL (30.0-36.0) 09/03/21 10:44 RDW 14.0 % (12.1-15.1) 09/03/21 10:44 Plt Count 308 10^3/cmm (130-400) 09/03/21 10:44 MPV 10.4 fL (7.4-10.4) 09/03/21 10:44 Neut % (Auto) 86.9 % 09/03/21 10:44 Lymph % (Auto) 6.6 % 09/03/21 10:44 Shannon % (Auto) 4.7 % 09/03/21 10:44 Eos % (Auto) 0.8 % 09/03/21 10:44 Baso % (Auto) 0.1 % 09/03/21 10:44 Neut # (Auto) 10.03 10^3/uL (1.8-7.7) H 09/03/21 10:44 Lymph # (Auto) 0.8 10^3/uL (0.8-4.8) 09/03/21 10:44 Shannon # (Auto) 0.5 10^3/uL (0.2-0.9) 09/03/21 10:44 Eos # (Auto) 0.1 10^3/uL (0.0-0.8) 09/03/21 10:44 Baso # (Auto) 0.0 10^3/uL (0.0-0.1) 09/03/21 10:44 Nucleated RBC % (auto) 0 % 09/03/21 10:44 Nucleated RBCs # 0.0 /100WBC 09/03/21 10:44 D-Dimer 1.25 ug/mIFEU (0-0.59) H 08/23/21 02:40 Specimen Type Arterial 08/21/21 17:15 Sample Site Radial, left 08/21/21 17:15 ABG pH 7.45 (7.35-7.45) 08/21/21 17:15 ABG pCO2 36.4 mmHg (35-45) 08/21/21 17:15 ABG pO2 57.4 mmHg (80.0-100.0) L 08/21/21 17:15 ABG HCO3 25.4 mmol/L (22-26) 08/21/21 17:15 ABG O2 Saturation 92.3 08/21/21 17:15 ABG Base Excess 1.6 mmol/L (-2.0-2.0) 08/21/21 17:15 Dilshad Test Pos 08/21/21 17:15 A-a O2 Gradient 24.1 mmHg (5-10) H 08/21/21 17:15 Hematocrit 38.3 % (37-47) 08/21/21 17:15 Hgb O2 Saturation 90.0 % (95-100) L 08/21/21 17:15 Carboxyhemoglobin 1.6 %THgb (0.4-20.1) 08/21/21 17:15 Methemoglobin 0.9 % (0.4-1.5) 08/21/21 17:15 Total Hemoglobin 12.5 g/dL (12-16) 08/21/21 17:15 Sodium 132.0 mmol/L (131-143) 08/21/21 17:15 Potassium 4.2 mmol/L (3.5-5.0) 08/21/21 17:15 Glucose 177.0 mg/dL (70-115) H 08/21/21 17:15 Ionized Calcium 1.1 mmol/L (1.1-1.4) 08/21/21 17:15 O2 Delivery Device Nc 08/21/21 17:15 O2 Liters/Min 5.0 % 08/21/21 17:15 FiO2 40.0 % 08/21/21 17:15 Customer Service And Sales Consultant ID Monro 08/21/21 17:15 Sodium 136 mmol/L (136-145) 09/03/21 10:44 Potassium 4.5 mmol/L (3.5-5.1) 09/03/21 10:44 Chloride 95 mmol/L (98-107) L 09/03/21 10:44 Carbon Dioxide 34 mmol/L (22-29) H 09/03/21 10:44 Anion Gap 11.5 (5-19) 09/03/21 10:44 BUN 33 mg/dL (8-23) H 09/03/21 10:44 Creatinine 0.7 mg/dL (0.5-0.9) 09/03/21 10:44 GFR Calculation 84.8 mL/min (90-130) L 09/03/21 10:44 Glucose 338 mg/dL (65-115) H 09/03/21 10:44 POC Glucose 181 mg/dL (70-110) H 09/03/21 06:21 Calculated Osmolality 303 mOsm/kg (285-295) H 09/03/21 10:44 Lactic Acid 1.2 mmol/L (0.5-2.2) 08/21/21 17:25 Calcium 9.0 mg/dL (8.5-10.5) 09/03/21 10:44 Total Bilirubin 0.7 mg/dL (0.15-1.2) 08/30/21 04:23 AST 38 U/L (0-32) H 08/30/21 04:23 ALT 18 U/L (0-33) 08/30/21 04:23 Alkaline Phosphatase 60 IU/L (35-105) 08/30/21 04:23 C-Reactive Protein 6.7 mg/L (0.0-4.9) H 08/30/21 04:23 NT-Pro-B Natriuret Pep 667 pg/mL (0-125) H 08/24/21 05:18 Total Protein 5.7 g/dL (6.6-8.7) L 08/30/21 04:23 Albumin 3.2 g/dL (3.5-5.2) L 08/30/21 04:23 Globulin 2.5 g/dL (1.3-4.6) 08/30/21 04:23 Procalcitonin 0.04 ng/mL (0-0.5) 08/28/21 05:15 Vitals Last Vital Signs Temp 97.6 F 09/03/21 08:00 Pulse 91 09/03/21 09:08 Resp 20 H 09/03/21 09:08 BP 104/71 09/03/21 08:00 Pulse Ox 92 09/03/21 09:08 Discharge Plan Discharge Patient Disposition: Home Condition: Stable Prescriptions: New dextromethorphan-guaifenesin 10-100 mg/5 mL Syrup 10 ml PO Q4H PRN (Reason: Cough) Qty: 0 0RF prednisone 10 mg tablet See Rx Instructions .ROUTE .COMPLEX Qty: 36 0RF Rx Instructions: prednisone 5 mg: take 8 tablets (40 mg) on Day 1; 7 tablets (35 mg) on Day 2; then decrease by 1 tablet every day until finished Spiriva with HandiHaler 18 mcg capsule, w/inhalation device 1 cap inhalation DAILY 30 Days Qty: 30 0RF Rx Instructions: puncture 1 cap using device; one dose = 2 inhalations midodrine 5 mg tablet 5 mg PO TID Qty: 90 0RF Rx Instructions: do not give last dose of day after 6PM or within 4 hrs of bedtime Continued atorvastatin 10 mg tablet 10 mg PO DAILY Qty: 30 2RF escitalopram oxalate 20 mg tablet 20 mg PO DAILY@08 Qty: 30 2RF fluticasone propion-salmeterol [Advair Diskus] 500-50 mcg/dose blister with device 1 inh INHALATION BID@08,20 Qty: 60 2RF cyclobenzaprine 10 mg tablet 10 mg PO TID PRN (Reason: muscle spasm) Qty: 60 0RF metformin 500 mg tablet extended release 24 hr 1,000 mg PO BID Qty: 56 2RF Rx Instructions: Need apt have not keep the past 2 apt times promethazine 25 mg tablet 25 mg PO TID PRN (Reason: nausea and vomiting) Qty: 14 0RF tizanidine 2 mg tablet 2 mg PO BID PRN (Reason: Muscle Pain) 0RF pantoprazole 40 mg tablet,delayed release (DR/EC) 40 mg PO BID Qty: 60 2RF nitroglycerin 0.4 mg Tablet, Sublingual 0.4 mg SUBLINGUAL Q5M PRN (Reason: Chest Pain) 0RF ondansetron 4 mg tablet,disintegrating 4 mg PO Q6H PRN (Reason: nausea and vomiting) Qty: 14 0RF furosemide 20 mg tablet 20 mg PO BID PRN (Reason: Edema) 0RF Held diltiazem HCl 30 mg tablet 30 mg PO BID@08,20 Qty: 60 2RF Hold Instructions: Resume on 09/17/21. Xarelto 2.5 mg tablet 2.5 mg PO BID@08,20 Qty: 60 2RF Hold Instructions: Resume on 09/17/21. aspirin 81 mg tablet,delayed release (DR/EC) 81 mg PO BID@08,20 Qty: 60 0RF Hold Instructions: Resume on 09/17/21. Discontinued hydrocodone-acetaminophen 5-325 mg tablet 1 tab PO Q6H PRN (Reason: pain) Qty: 10 0RF Discharge Orders: Discharge Order (Routine); Ordered 09/03/21 Ordered By: Bradford Chaves Other Ambulatory Orders: Complete Blood Count w/Auto (Routine) Timeframe: 1 Week Location: Determined by Patient Ordered By: Bradford Chaves DME: Oxygen (Order) Location: None Selected Ordered By: Paula Abraham Referrals: Kristy Ham FNP-C [Primary Care Provider] - 09/13/21 9:40 am (YOU HAVE A FOLLW-UP APPOINTMENT WITH KRISTY HAM Monday09/13/21 AT 09:40 IN THE MORNING. ) Discharge Diet: Usual diet Discharge Activity: Increase activity as tolerated Patient Instructions: Prednisone (By mouth), Midodrine (By mouth), COVID-19 and Chronic Health Conditions (DC), Opioid Safety Discharge Attestations Time Spent in Discharge Care*: greater than 30 min Specific Discharge Activities: educating patient, educating and/or supporting family/caregiver, discussing with pcp/other providers, discussing with rn case management/social workers/dc planners, documenting/other paperwork and evaluating patient/reviewing data Quality Metrics Clinical Quality Measures [ No reported AMI, CVA or VTE this stay] Coding Level of Care Code Acute Chg FW DC note Exam Comprehensive Diagnoses Acute and chronic respiratory failure with hypoxia J96.21 COVID-19 U07.1 Pain of back and right lower extremity M54.9; M79.604
--- NOTE | 2021-09-03 11:55 | PC.SOCIAL ---
IMM Update Updated pt on IMM. No questions voiced. Provided pt a copy. Initialed, dated, & timed copy in chart.
--- NOTE | 2021-09-03 12:02 | PC.SOCIAL ---
Spiriva not covered by insurance. Dr Chaves provided verbal order to change to Trelegy Ellipta 100/62.5/25mcg one inhalation daily. Dee repeated back at pharmacy to confirm.
[2021-09-03 12:21] LABS: Glucose Point of Care 305 mg/dL (70-110)
--- NOTE | 2021-09-03 13:36 | PC.NURSE ---
Discussed extensively about lice treatment, and the need for the patient to, or have someone, continue to monitor for active lice infestation. Patient was treated with a lice treatment, and extensively used a nit comb to comb out nits. Discussed treatment at home including washing linens and getting rid of hair tools like powers and brushes. patient verbalized understanding of discharge instructions, home medications, and follow up appointments.
== END 2021-09-03 15:33 | disposition home or self-care (01) | DRG 177 ==
LOC: ER 17:24 → ER IP 19:18 → MEDSURG 23:50
PROVIDERS: Student in an Organized Health Care Education/Training Program; Admitting Provider Internal Medicine; Emergency Provider Family Medicine; PCP Nurse Practitioner; Visit Provider Internal Medicine
DX: U07.1 COVID-19 (principal); J12.82 Pneumonia due to coronavirus disease 2019; J96.21 Acute and chronic respiratory failure with hypoxia; I50.32 Chronic diastolic (congestive) heart failure; J44.9 Chronic obstructive pulmonary disease, unspecified; I11.0 Hypertensive heart disease with heart failure; Z99.81 Dependence on supplemental oxygen; E11.51 Type 2 diabetes mellitus with diabetic peripheral angiopathy without gangrene; F41.1 Generalized anxiety disorder; K21.9 Gastro-esophageal reflux disease without esophagitis; Z86.718 Personal history of other venous thrombosis and embolism; Z85.828 Personal history of other malignant neoplasm of skin; G47.00 Insomnia, unspecified; R25.1 Tremor, unspecified; Z87.891 Personal history of nicotine dependence; Z79.84 Long term (current) use of oral hypoglycemic drugs; I95.1 Orthostatic hypotension; M54.9 Dorsalgia, unspecified; M79.604 Pain in right leg; M79.81 Nontraumatic hematoma of soft tissue; T45.515A Adverse effect of anticoagulants, initial encounter
CPT/HCPCS: 36415; 36416; 36600; 71045; 73501; 73560; 74176; 80048; 80051; 80053; 82330; 82805; 82962; 83605; 83880; 84145; 85014; 85018; 85025; 85378; 86140; 87040; 93306; 93971; 94640; 94664; 96365; 96372; 96375; 97161; 97165; 97530; 99285; J1100; J1650; J1815 ×2; J1940; J2270; J7030; J7626; Q0162

== ENCOUNTER 2021-09-04 18:10 | Observation (INO) | payer MEDICARE, MEDICAID, SELFPAY ==
[2021-09-04 18:15] VITALS: BP 131/80; PULSE 84; RESP 18; TEMP 36.5; O2SAT 93; BMI 26.6
--- NOTE | 2021-09-04 18:34 | ED_ITS ---
HPI - General Adult General: Chief complaint: Extremity Problem,Nontraumatic Stated complaint: ABD PAIN; RIGHT LEG PAIN Time Seen by Provider: 09/04/21 18:12 Source: patient Mode of arrival: EMS Limitations: no limitations History of Present Illness: This patient returns to the emergency department because she states she does not feel well. She has generalized malaise has not been to eat since going home yesterday. She states she is drink some fluids but not nearly enough. She states that she cannot care for herself and her family is unable to care for her. She was admitted to this facility on 21 August for Covid 19 complications with acute on chronic respiratory failure. She was discharged yesterday with some improvement overall during her hospital course. She was recommended for a fdc facility at the time of her discharge but declined that option. She is here because as noted above she cannot seem to care for herself at home. Patient was previously on Xarelto because of a history of DVT and apparently developed some subcutaneous bleeding as a result of that medication that was discontinued and she has not taken that since she is arrived home. She denies any falls or trauma. She states her pain in her right leg is persists and sometimes radiates up into her lower back. Associated symptoms: Reports cough, decreased appetite, dyspnea, malaise and weakness; Deny chest pain, headache(s), nausea, rash, palpitations or vomiting Review of Systems Const: Reports: body aches and malaise Eyes: Denies: change in vision or blurry vision ENMT: Denies: throat pain, odynophagia, hoarseness or mouth pain Card: Denies: chest pain, palpitations or irregular heart rhythm Resp: Reports: dyspnea GI: Denies: abdominal pain, nausea, vomiting or diarrhea : Reports: flank pain; Denies: difficulty voiding, dysuria, urinary frequency or urinary urgency Musc: Reports: back pain, extremity pain and limited range of motion; Denies: neck pain Skin/Breast: Denies: rash or pruritus Neuro: Denies: headache(s) or numbness in extremities Endo: Denies: polyuria or polydipsia Bhavin/Lymph: Reports: easy bruising PFSH ED PFSH: Medical History Chest pain Diabetes mellitus with hyperglycemia Diastolic congestive heart failure Gallbladder anomaly Generalized anxiety disorder GERD (gastroesophageal reflux disease) H/O deep venous thrombosis History of DVT of lower extremity Left leg 06/2019 History of skin cancer Basal cell carcinoma on back 2007 HTN (hypertension) Hx of insulin dependent diabetes mellitus Insomnia, unspecified Noncompliance with dietary restriction Noncompliance with medication regimen Pain of back and right lower extremity Tremor, unspecified Unspecified urinary incontinence Vitamin B12 deficiency Surgical History H/O left breast biopsy Benign 2016 History of thoracentesis X 2 for traumatic effusion History of tonsillectomy Hx of colonoscopy Hx of tubal ligation / incidental appendectomy 1981 Status post surgical removal of malignant neoplasm of skin Basal cell carcinoma on back 2007 Family History Mother Cancer Unknown type Father Cancer Lung CA Son Gallbladder disease Other Hypertension Denies family history of Clotting disorder Social History Quit status (tobacco): has quit using tobacco Former quit date comment: Patient smoked 2 packs of cigarettes a day for 25 years Second hand smoke exposure: No Smoking risk assessment/counseling performed?: No Alcohol intake: never Desire information about alcohol rehabilitation?: No Counseling given: No Desire information about substance/drug rehabilitation?: No Counseling given: No Adopted: No Caregiver/support person: No Lives independently: Yes Household members: spouse and children Marital status: service: No Current occupational status: unemployed History of recent travel: No Current gender identity: Female Physical Exam Narrative: EXAM NARRATIVE: The patient is alert she makes good eye contact and her speech is goal-directed. Const: COMMON NORMALS: no acute distress and patient oriented x3 GENERAL APPEARANCE: cooperative HENMT: COMMON NORMALS: normocephalic, atraumatic, external ears normal, Normal nasal mucous membranes and turbinates present, moist oral mucous membranes and oropharynx normal HEAD & SCALP: normocephalic and atraumatic NOSE: Normal nasal mucous membranes and turbinates present EXTERNAL EAR: Yes external ears normal Eye: COMMON NORMALS: Equal, round and reactive pupils present, EOMs intact bilaterally and no scleral icterus PUPIL: Yes Equal, round and reactive pupils present Neck/C-Spine: COMMON NORMALS: full ROM, no lymphadenopathy, no meningeal signs and no JVD GENERAL: Yes trachea midline Lymph: LYMPHATIC: no lymphadenopathy noted Chest: COMMONS NORMALS: normal inspection of the chest and normal palpation of entire chest wall Resp: COMMON NORMALS: normal respiratory effort, No retractions, No use of accessory muscles and clear to auscultation bilaterally EFFORT & INSPECTION: Yes able to speak in complete sentences AUSCULTATION: clear to auscultation bilaterally Cardio: COMMON NORMALS: no JVD, regular rate and No murmurs present (Cardio) RATE: regular rate GI: COMMON NORMALS: Soft to palpation, non-tender and no masses INSPECTION: Yes abdominal wall ecchymosis (Right lower abdomen) PALPATION: Yes Soft to palpation : COMMON NORMALS: Yes no CVA tenderness BLADDER/KIDNEY EXAM: Yes no CVA tenderness Back/Pelvis: COMMON NORMALS: no CVA tenderness, thoracic and lumbar spine normal to inspection, no thoracic nor lumbar tenderness and thoraco-lumbar ROM normal Extremity: RIGHT LOWER EXTREMITY: Yes upper leg (Ecchymosis) Neuro: COMMON NORMALS: patient oriented x3, no focal motor deficits and no sensory deficits noted MENINGEAL SIGNS: Yes no meningeal signs Psych: COMMON NORMALS: mental status grossly normal and normal affect Skin: COMMON NORMALS: turgor normal GENERAL SKIN EXAM: turgor normal Course Consultations: Consultation #1: I discussed with the on-call hospitalist who agreed to place the patient in observation so that we can get her into a fdc facility. Time: 22:48 Vital Signs: Vital signs: Vital Signs Temperature 97.7 F 09/04/21 18:15 Pulse Rate 83 09/04/21 20:55 Respiratory Rate 17 09/04/21 20:55 Blood Pressure 149/107 09/04/21 20:55 Pulse Oximetry 98 09/04/21 20:55 [facility] - General Adult Medical Decision Making Patient with COVID-19 with a history of a resolving retroperitoneal hematoma while taking a DOAC. The patient was recommended for fdc facility at discharge yesterday however thought she could do well at home but is proven that she cannot. We will go ahead and place her back in the hospital so that we can get her placed in a fdc facility for continued recovery from her COVID-19 as well as her other current clinical conditions. Medical Records I reviewed the patient's medical records. Lab Data I reviewed the patient's lab results. : 09/04/21 19:25 09/04/21 19:25 Radiology Impressions Abdomen/Pelvis CT 09/04/21 18:40 IMPRESSION: Retroperitoneal hematomas mildly decreased on the left and unchanged on the right. 4 mm pulmonary nodule; for patients at low risk (minimal or absent history of smoking and of other known risk factors), no routine follow-up is indicated. For patients at high risk (history of smoking or of other known risk factors), consider optional CT Chest at 12 months. (Reference: Leeann) References: Leeann Davis, et al. Guidelines for Management of Incidental Pulmonary Nodules Detected on CT Images: From the Fleischner Society 2017. Radiology. 2017;284(1):228-243. Laboratory Results WBC 9.0 10^3/uL (4.0-10.0) 09/04/21: RBC 3.15 10^6/uL (4.1-5.3) L 09/04/21: Hgb 9.1 g/dL (11.5-15.3) L 09/04/21: Hct 29.5 % (37.0-47.0) L 09/04/21: MCV 93.7 fl (81-99) 09/04/21: MCH 28.9 pg (28.0-34.0) 09/04/21: MCHC 30.8 g/dL (30.0-36.0) 09/04/21 19: RDW 14.0 % (12.1-15.1) 09/04/21: Plt Count 298 10^3/cmm (130-400) 09/04/21: MPV 10.4 fL (7.4-10.4) 09/04/21 19: Neut % (Auto) 82.4 % 09/04/21: Lymph % (Auto) 8.0 % 09/04/21: Aiken % (Auto) 7.9 % 09/04/21: Eos % (Auto) 0.9 % 09/04/21: Baso % (Auto) 0.1 % 09/04/21: Neut # (Auto) 7.37 10^3/uL (1.8-7.7) 09/04/21: Lymph # (Auto) 0.7 10^3/uL (0.8-4.8) L 09/04/21 19:25 Aiken # (Auto) 0.7 10^3/uL (0.2-0.9) 09/04/21 19:25 Eos # (Auto) 0.1 10^3/uL (0.0-0.8) 09/04/21 19:25 Baso # (Auto) 0.0 10^3/uL (0.0-0.1) 09/04/21:25 Nucleated RBC % (auto) 0 % 09/04/21:25 Nucleated RBCs # 0.0 /100WBC 09/04/21 19:25 Sodium 134 mmol/L (136-145) L 09/04/21:25 Potassium 4.7 mmol/L (3.5-5.1) 09/04/21: Chloride 94 mmol/L (98-107) L 09/04/21:25 Carbon Dioxide 33 mmol/L (22-29) H 09/04/21:25 Anion Gap 11.7 (5-19) 09/04/21:25 BUN 34 mg/dL (8-23) H 09/04/21 19:25 Creatinine 0.4 mg/dL (0.5-0.9) L 09/04/21:25 GFR Calculation 161.7 mL/min (90-130) H 09/04/21:25 Glucose 309 mg/dL (65-115) H 09/04/21:25 Calculated Osmolality 297 mOsm/kg (285-295) H 09/04/21:25 Calcium 9.4 mg/dL (8.5-10.5) 09/04/21:25 Total Bilirubin 0.9 mg/dL (0.15-1.2) 09/04/21:25 AST 14 U/L (0-32) 09/04/21:25 ALT 18 U/L (0-33) 09/04/21 19:25 Alkaline Phosphatase 72 IU/L (35-105) 09/04/21 19:25 Total Protein 6.4 g/dL (6.6-8.7) L 09/04/21:25 Albumin 3.3 g/dL (3.5-5.2) L 09/04/21 19:25 Globulin 3.1 g/dL (1.3-4.6) 09/04/21 19:25 Other Data Reviewed the radiology report. Retroperitoneal hematoma unchanged from previous on the right and actually decreased on the left. Discharge Plan Discharge Clinical Impression: COVID-19, Nontraumatic retroperitoneal hematoma Condition: Stable Prescriptions: No Action atorvastatin 10 mg tablet 10 mg PO DAILY Qty: 30 2RF diltiazem HCl 30 mg tablet 30 mg PO BID@08,20 Qty: 60 2RF Hold Instructions: Resume on 09/17/21. escitalopram oxalate 20 mg tablet 20 mg PO DAILY@08 Qty: 30 2RF fluticasone propion-salmeterol [Advair Diskus] 500-50 mcg/dose blister with device 1 inh INHALATION BID@08,20 Qty: 60 2RF Xarelto 2.5 mg tablet 2.5 mg PO BID@08,20 Qty: 60 2RF Hold Instructions: Resume on 09/17/21. cyclobenzaprine 10 mg tablet 10 mg PO TID PRN (Reason: muscle spasm) Qty: 60 0RF aspirin 81 mg tablet,delayed release (DR/EC) 81 mg PO BID@08,20 Qty: 60 0RF Hold Instructions: Resume on 09/17/21. metformin 500 mg tablet extended release 24 hr 1,000 mg PO BID Qty: 56 2RF Rx Instructions: Need apt have not keep the past 2 apt times promethazine 25 mg tablet 25 mg PO TID PRN (Reason: nausea and vomiting) Qty: 14 0RF tizanidine 2 mg tablet 2 mg PO BID PRN (Reason: Muscle Pain) 0RF pantoprazole 40 mg tablet,delayed release (DR/EC) 40 mg PO BID Qty: 60 2RF nitroglycerin 0.4 mg Tablet, Sublingual 0.4 mg SUBLINGUAL Q5M PRN (Reason: Chest Pain) 0RF ondansetron 4 mg tablet,disintegrating 4 mg PO Q6H PRN (Reason: nausea and vomiting) Qty: 14 0RF furosemide 20 mg tablet 20 mg PO BID PRN (Reason: Edema) 0RF dextromethorphan-guaifenesin 10-100 mg/5 mL Syrup 10 ml PO Q4H PRN (Reason: Cough) Qty: 0 0RF prednisone 10 mg tablet See Rx Instructions .ROUTE .COMPLEX Qty: 36 0RF Rx Instructions: prednisone 5 mg: take 8 tablets (40 mg) on Day 1; 7 tablets (35 mg) on Day 2; then decrease by 1 tablet every day until finished Spiriva with HandiHaler 18 mcg capsule, w/inhalation device 1 cap inhalation DAILY 30 Days Qty: 30 0RF Rx Instructions: puncture 1 cap using device; one dose = 2 inhalations midodrine 5 mg tablet 5 mg PO TID Qty: 90 0RF Rx Instructions: do not give last dose of day after 6PM or within 4 hrs of bedtime Referrals: Alondra Ham, SOURCE INSPECTOR-C [Primary Care Provider] - Coding Level of Care Code ED Industrial Automation Specialist for Chg Fwd Exam Comprehensive
--- NOTE | 2021-09-04 18:40 | CTR_ITS ---
PROCEDURE INFORMATION: Exam: CT Abdomen And Pelvis With Contrast Exam date and time: 09/04/2021 6:40 PM Age: 60 years old Clinical indication: Abdominal pain; Localized; Right lower quadrant (rlq); Additional info: Evaluate for retroperitoneal hemorrhage TECHNIQUE: Imaging protocol: Computed tomography of the abdomen and pelvis with contrast. Radiation optimization: All CT scans at this facility use at least one of these dose optimization techniques: automated exposure control; mA and/or kV adjustment per patient size (includes targeted exams where dose is matched to clinical indication); or iterative reconstruction. Contrast material: OMNI 300; Contrast volume: 95 ml; Contrast route: INTRAVENOUS (IV); COMPARISON: CT abdomen pelvis wo con [id number] 09/02/2021 10:33 AM RADIATION DOSE METRICS: Total DLP (mGy-cm): 1904.35 FINDINGS: Lungs: Bilateral pulmonary infiltrates are again noted . Mild increase in airspace disease at right lung base can represent atelectasis or infiltrate. 4 mm nodule noted at left lower lobe series 2, image 11. Liver: Unchanged Gallbladder and bile ducts: Normal. No calcified stones. No ductal dilation. Pancreas: Normal. No ductal dilation. Spleen: Spleen unchanged. Adrenal glands: Adrenal glands are unchanged including left-sided nodule. Kidneys and ureters: Normal. No hydronephrosis. Stomach and bowel: Unremarkable. No obstruction. No mucosal thickening. Appendix: No evidence of appendicitis. Intraperitoneal space: Unremarkable. No free air. No significant fluid collection. Vasculature: Vascular calcifications are noted. No abdominal aortic aneurysm. Lymph nodes: Unremarkable. No enlarged lymph nodes. Urinary bladder: Unremarkable as visualized. Reproductive: Unremarkable as visualized. Bones/joints: No acute fracture. Soft tissues: Retroperitoneal hematoma involving right iliopsoas musculature is unchanged. Smaller hematoma involving left iliacus musculature has mildly decreased. Small fatty inguinal hernia on the right. CT/CT abdomen pelvis w con* [id number] IMPRESSION: Retroperitoneal hematomas mildly decreased on the left and unchanged on the right. 4 mm pulmonary nodule; for patients at low risk (minimal or absent history of smoking and of other known risk factors), no routine follow-up is indicated. For patients at high risk (history of smoking or of other known risk factors), consider optional CT Chest at 12 months. (Reference: Leeann) References: Leeann Davis et al. Guidelines for Management of Incidental Pulmonary Nodules Detected on CT Images: From the Fleischner Society 2017. Radiology. 2017;284(1):228-243.
[2021-09-04 19:38] LABS: Basophils % 0.1 %; Eosinophils # 0.1 10^3/uL (0.0-0.8); Eosinophils % 0.9 %; Hematocrit 29.5 % (37.0-47.0); Hemoglobin 9.1 g/dL (11.5-15.3); Lymphocytes # 0.7 10^3/uL (0.8-4.8); Mean Corpuscular HGB Conc 30.8 g/dL (30.0-36.0); Mean Corpuscular Hemoglobin 28.9 pg (28.0-34.0); Mean Corpuscular Volume 93.7 fl (81-99); Mean Platelet Volume 10.4 fL (7.4-10.4); Monocytes # 0.7 10^3/uL (0.2-0.9); Monocytes % 7.9 %; Neutrophils # 7.37 10^3/uL (1.8-7.7); Neutrophils % 82.4 %; Nucleated Red Blood Cells % 0 %; Platelet Count 298 10^3/cmm (130-400); Red Blood Count 3.15 10^6/uL (4.1-5.3)
[2021-09-04 20:02] LABS: Alanine Aminotransferase 18 U/L (0-33); Albumin Level 3.3 g/dL (3.5-5.2); Alkaline Phosphatase 72 IU/L (35-105); Anion Gap 11.7 (5-19); Aspartate Amino Transferase 14 U/L (0-32); Blood Urea Nitrogen 34 mg/dL (8-23); Calcium 9.4 mg/dL (8.5-10.5); Carbon Dioxide 33 mmol/L (22-29); Chloride 94 mmol/L (98-107); Globulin 3.1 g/dL (1.3-4.6); Glomerular Filtration Rate 161.7 mL/min (90-130); Glucose 309 mg/dL (65-115); Osmolality Calculated 297 mOsm/kg (285-295); Potassium 4.7 mmol/L (3.5-5.1); Sodium 134 mmol/L (136-145); Total Bilirubin 0.9 mg/dL (0.15-1.2); Total Protein 6.4 g/dL (6.6-8.7)
[2021-09-04] MEDS: iohexol 300 mg/mL 100 mL Btl IV (20:14)
[2021-09-04] MEDS: lactated ringers 1,000 ML 150 ML IV (20:53)
[2021-09-04 20:55] VITALS: BP 149/107; PULSE 83; RESP 17; O2SAT 98
--- NOTE | 2021-09-04 23:30 | PM.HP ---
Providers/Chief Complaint Primary Care Provider: Alondra Ham, UNCLAIMED PROPERTY OFFICER-C Chief Complaint: ABD PAIN; RIGHT LEG PAIN History of Present Illness Shea Simon is a 60 year old female discharged yesterday after treatment for COVID 19 pneumonia, acute hypoxic respiratory failure, and CHF, with improvement in respiratory parameters, weaned down from heated high flow to home 02 requirement of 3lpm at discharge. She has a known h/o COPD in the past. Her hospital course was complicated by deconditioning, ?development of bilateral iliac muscle hematoma as well as right psoas hematoma, likely secondary therapeutic anticoagulation.H&H was monitored, serial CT scan abdomen and pelvis was done whic remained stable. Patient was noted to have significant right lower extremity pain and orthostatic hypotension for which she was started on midodrine, because of which her ambulation was very difficult. She remained max assist for reduced endurance and difficulty bearing weight, was recommended SNF placement however elected to return home with her son. Since her return home, she has found it increasingly difficult to manage at home. reports being dizzy and fatigued with minimal exertion, has poor strength to get out of bed and unable to carry out her ADLs. Hb is stable at 9.2. CT abdomen today shows stable hematomas. Denies any worsening dyspnea, chest pain or palpitations. Review of Systems General: Reports: 10 or more systems reviewed and unremarkable except in HPI and below Const: Denies: fever(s), chills or body aches Eyes: Denies: change in vision, blurry vision or photophobia ENMT: Reports: hoarseness; Denies: throat pain, enlarged tonsils, odynophagia or nasal congestion Card: Denies: chest pain, palpitations, irregular heart rhythm, edema, swelling of feet/ankles, lightheadedness, pre-syncope, dyspnea on exertion or orthopnea Resp: Denies: dyspnea, productive cough, non-productive cough, wheezing, stridor, pain on inspiration, change in phlegm color, hemoptysis or chest congestion GI: Denies: abdominal pain, nausea, vomiting, hematemesis, coffee ground emesis, dysphagia, heartburn, diarrhea, constipation, GI cramping, change in stool character, hematochezia or melena : Denies: flank pain, difficulty voiding, dysuria, urinary frequency, urinary urgency, urinary hesitancy or hematuria Musc: Denies: neck pain, back pain, extremity pain, joint swelling, joint warmth or deformity Neuro: Denies: headache(s), numbness in extremities, weakness in extremities, sensory changes, difficulty walking, frequent falls, dizziness, vertigo, behavioral changes, Slurred speech present or seizure-like activity Psych: Denies: anxiety, depression, suicidal ideation or homicidal ideation Endo: Denies: polyuria, polydipsia, tired all the time, cold intolerance or hot flashes Bhavin/Lymph: Denies: easy bruising or easy bleeding Medications/Allergies Home Medications Medication Instructions Recorded Confirmed Last Taken Type nitroglycerin 0.4 mg sublingual 0.4 mg SUBLINGUAL Q5M PRN 09/25/19 08/21/21 09/25/19 History tablet ondansetron 4 mg disintegrating 4 mg PO Q6H PRN #14 tab 07/28/20 08/21/21 09/08/20 Rx tablet atorvastatin 10 mg tablet 10 mg PO DAILY #30 tab 03/18/21 08/21/21 07/16/21 Rx diltiazem HCl 30 mg tablet 30 mg PO BID@08,20 #60 tab 03/18/21 08/21/21 07/16/21 Rx escitalopram oxalate 20 mg tablet 20 mg PO DAILY@08 #30 tab 03/18/21 08/21/21 07/16/21 Rx fluticasone 500 mcg-salmeterol 50 1 inh INHALATION BID@08,20 #60 ea 03/18/21 08/21/21 07/17/21 Rx mcg/dose blistr powdr for inhalation (Advair Diskus) rivaroxaban 2.5 mg tablet (Xarelto) 2.5 mg PO BID@08,20 #60 tab 03/18/21 08/21/21 07/17/21 Rx aspirin 81 mg tablet,delayed 81 mg PO BID@08,20 #60 tab 05/15/21 08/21/21 07/16/21 Rx release cyclobenzaprine 10 mg tablet 10 mg PO TID PRN #60 tab 06/22/21 08/21/21 Unknown Rx promethazine 25 mg tablet 25 mg PO TID PRN #14 tab 07/16/21 08/21/21 Unknown Rx tizanidine 2 mg tablet 2 mg PO BID PRN 07/18/21 08/21/21 Unknown History pantoprazole 40 mg tablet,delayed 40 mg PO BID #60 tab 07/21/21 08/21/21 07/17/21 Rx release metformin 500 mg tablet,extended 1,000 mg PO BID #56 tab 07/26/21 08/21/21 Unknown Rx release 24 hr furosemide 20 mg tablet 20 mg PO BID PRN 08/21/21 08/21/21 Unknown History dextromethorphan-guaifenesin 10 10 ml PO Q4H PRN #0 ml 08/29/21 Unknown Rx mg-100 mg/5 mL oral syrup prednisone 10 mg tablet See Rx Instructions .ROUTE 08/29/21 Unknown Rx .COMPLEX #36 tab tiotropium bromide 18 mcg capsule 1 cap INHALATION DAILY 30 Days #30 08/29/21 Unknown Rx with inhalation device (Spiriva inh with HandiHaler) midodrine 5 mg tablet 5 mg PO TID #90 tab 09/03/21 Unknown Rx Allergies Allergy/AdvReac Type Severity Reaction Status Date / Time No Known Allergies Allergy Verified 09/04/21 18:12 PFSH Acute PFSH: Medical History Chest pain Diabetes mellitus with hyperglycemia Diastolic congestive heart failure Gallbladder anomaly Generalized anxiety disorder GERD (gastroesophageal reflux disease) H/O deep venous thrombosis History of DVT of lower extremity Left leg 06/2019 History of skin cancer Basal cell carcinoma on back 2007 HTN (hypertension) Hx of insulin dependent diabetes mellitus Insomnia, unspecified Noncompliance with dietary restriction Noncompliance with medication regimen Pain of back and right lower extremity Tremor, unspecified Unspecified urinary incontinence Vitamin B12 deficiency Surgical History H/O left breast biopsy Benign 2016 History of thoracentesis X 2 for traumatic effusion History of tonsillectomy Hx of colonoscopy Hx of tubal ligation / incidental appendectomy 1981 Status post surgical removal of malignant neoplasm of skin Basal cell carcinoma on back 2007 Family History Mother Cancer Unknown type Father Cancer Lung CA Son Gallbladder disease Other Hypertension Denies family history of Clotting disorder Social History Quit status (tobacco): has quit using tobacco Former quit date comment: Patient smoked 2 packs of cigarettes a day for 25 years Second hand smoke exposure: No Smoking risk assessment/counseling performed?: No Alcohol intake: never Desire information about alcohol rehabilitation?: No Counseling given: No Desire information about substance/drug rehabilitation?: No Counseling given: No Adopted: No Caregiver/support person: No Lives independently: Yes Household members: spouse and children Marital status: service: No Current occupational status: unemployed History of recent travel: No Current gender identity: Female Vitals/I&O/Wt Last Vital Signs Temp 97.7 F 09/04/21 18:15 Pulse 83 09/04/21 20:55 Resp 17 09/04/21 20:55 BP 149/107 09/04/21 20:55 Pulse Ox 98 09/04/21 20:55 Weight last 48 hrs Weight 81.647 kg Physical Exam Narrative: GEN: Awake, alert and oriented, no acute distress CVS: S1S2 N RS: CTA B/L all areas Abd: Soft, nt/nd , bs+ VACUUM SPINDLE SANDER: no focal motor neuro deficits however exam limited due to c/o pain over right leg Data : 09/04/21 19:25 09/04/21 19:25 A&P Assessment and plan (1) Nontraumatic retroperitoneal hematoma: Status: Acute (2) Acute and chronic respiratory failure with hypoxia: Status: Acute (3) H/O deep venous thrombosis: Status: Chronic (4) Physical deconditioning: Status: Acute Plan Patient with recent hospital admission for COVID 19 pneumonia with complicated hospital course as noted above in HPI, with significant deconditioing, and pain related to her recent hematomas and hospital stay, orthostatic hypotension returned to ER one day after discharge due to significant limitation in ADLS and inability to care for self after return to home. Explained extensively that per prior fairly recent assessments, patient has been requiring significant assistance with ADLs and ambulation. Admit to med/surg as unable to return home safely in current situation We will obtain PT/OT assessments again in the AM and follow recommendations for safe disposition planning. In the interim. continue patient's home medications including nebulization, lasix, prednisone taper and midodrine. Continue to hold Xarelto given intraabdominal hematomas. Monitor H&H Attestations Medical Necessity Statement*: anticipate less than 2 midnight stay for appropriate disposition planning- patient currently unable to care for self in her deconditioned state Coding Level of Care Code Acute Medical Claims Analyst for Kristian Fwclotilde Diagnoses Nontraumatic retroperitoneal hematoma K66.1 Acute and chronic respiratory failure with hypoxia J96.21 H/O deep venous thrombosis Z86.718 Physical deconditioning R53.81
[2021-09-05] VITALS (14 sets, daily range): BP systolic 105–150; BP diastolic 57–96; PULSE 62–92; RESP 16–19; TEMP 36.6–37.2; O2SAT 90–100
--- NOTE | 2021-09-05 00:07 | XRR_ITS ---
PROCEDURE INFORMATION: Exam: XR Chest Exam date and time: 09/05/2021 12:07 AM Age: 60 years old Clinical indication: Dyspnea; Additional info: F/up covid pneumonia TECHNIQUE: Imaging protocol: XR of the chest. Views: 1 view. COMPARISON: CR (CHEST, ) 08/28/2021 8:27 AM FINDINGS: Lungs: Bilateral pulmonary infiltrates are noted with increase from prior study. Infiltrates are of moderate to large extent. Pleural spaces: Unremarkable. No pleural effusion. No pneumothorax. Heart/Mediastinum: Unremarkable. No cardiomegaly. Bones/joints: No acute findings. XR/XR chest 1V portable [id number] IMPRESSION: Increase in bilateral pulmonary infiltrates from prior study.
[2021-09-05] MEDS: predniSONE 20 mg Tablet 40 MG PO (06:02)
[2021-09-05] MEDS: HYDROcodone-acetaminophen 5-325 mg Tablet 1 TAB PO ×2 (06:25→20:32)
[2021-09-05 06:36] LABS: Glucose Point of Care 210 mg/dL (70-110)
[2021-09-05] MEDS: atorvastatin 40 mg Tablet 10 MG PO (07:51)
[2021-09-05] MEDS: pantoprazole DR 40 mg Tablet PO ×2 (07:52→17:51)
[2021-09-05] MEDS: docusate sodium 100 mg Capsule PO ×2 (07:52→17:51)
[2021-09-05] MEDS: insulin lispro 100 unit/1 mL SUBCUT ×4 (07:54→20:20)
[2021-09-05] MEDS: escitalopram 10 mg Tablet 20 MG PO (08:02)
--- NOTE | 2021-09-05 11:03 | P.PN_ITS ---
Subjective Subjective: Patient was seen and examined this morning, currently she saturating well on her home oxygen 2 Ls. Continue to have right lower extremity pain. H&H is stable. Medications: Medication Review Details: Generic Name Dose Route Start Last Admin Trade Name Marino PRN Reason Stop Dose Admin Hydrocodone Bitart /Acetaminophen 1 tab 09/05/21 00:01 09/05/21 06:25 Hydrocodone-Acet aminophen 5-325 Mg Tablet PO 1 tab Q4H PRN Administration MODERATE TO SEVER E PAIN Atorvastatin Calci um 10 mg 09/05/21 09:00 09/05/21 07:51 Atorvastatin 40 Mg Tablet PO 10 mg DAILY MACARENA Administration Docusate Sodium 100 mg 09/05/21 09:00 09/05/21 07:52 Docusate Sodium 100 Mg Capsule PO 100 mg BID MACARENA Administration Escitalopram Oxala te 20 mg 09/05/21 08:00 09/05/21 08:02 Escitalopram 10 Mg Tablet PO 20 mg DAILY@08 MACARENA Administration Insulin Human Lisp ro 0 unit 09/05/21 08:00 09/05/21 07:54 Insulin Lispro 1 00 Unit/1 Ml SUBCUT 4 unit WM&BEDTIME MACARENA Administration Protocol Pantoprazole Sodiu m 40 mg 09/05/21 09:00 09/05/21 07:[address] 40 Mg Tablet PO 40 mg BID MACARENA Administration Vitals/I&O/Wt Last Vital Signs Temp 97.8 F 09/05/21 08:00 Pulse 89 09/05/21 08:38 Resp 18 09/05/21 08:38 BP 106/70 09/05/21 08:00 Pulse Ox 90 09/05/21 08:38 09/04/21 09/05/21 09/05/21 22:59 06:59 14:59 Intake Total 1240 / 1240 240 / 240 Balance 1240 / 1240 240 / 240 Weight last 48 hrs Weight 81.647 kg Physical Exam Const: COMMON NORMALS: patient oriented x3 HENMT: COMMON NORMALS: normocephalic, atraumatic, hearing grossly normal bilaterally and external ears normal HEAD & SCALP: normocephalic and atraumatic EXTERNAL EAR: Yes external ears normal Eye: COMMON NORMALS: no scleral icterus GENERAL EYE: appearance normal, both eyes and all related structures Chest: COMMONS NORMALS: normal inspection of the chest and normal palpation of entire chest wall CHEST: Yes Symmetrical chest wall rise Resp: COMMON NORMALS: normal respiratory effort, No retractions, No use of accessory muscles and clear to auscultation bilaterally EFFORT & INSPECTION: Yes symmetric chest movement AUSCULTATION: clear to auscultation bilaterally Cardio: COMMON NORMALS: regular rate, regular rhythm, S1 normal heart sound present, S2 normal heart sound present, No gallops present (Cardio), No murmurs present (Cardio), No rub (Cardio) and Peripheral pulses 2+ throughout RATE: regular rate RHYTHM: regular rhythm HEART SOUNDS: S1 normal heart sound present and S2 normal heart sound present PERIPHERAL PULSES: Peripheral pulses 2+ throughout GI: COMMON NORMALS: Normal to inspection, nondistended, normoactive bowel sounds present, Soft to palpation, non-tender, No hepatosplenomegaly present and no masses AUSCULTATION: Yes normoactive bowel sounds PALPATION: Yes Soft to palpation and Yes No hepatosplenomegaly present RECTAL EXAM: deferred Extremity: COMMON NORMALS: no clubbing, cyanosis or edema and no pedal edema Neuro: COMMON NORMALS: patient oriented x3 Data : 09/04/21 19:25 09/04/21 19:25 A&P Assessment and plan (1) COPD (chronic obstructive pulmonary disease): Status: Acute (2) Chronic respiratory failure with hypoxia: Status: Acute (3) Diabetes: Status: Acute (4) (HFpEF) heart failure with preserved ejection fraction: Status: Acute Plan Assessment: chronic respiratory failure with hypoxia: Secondary to COPD Currently at baseline oxygen requirement of 3 L Continue nebs Continue p.o. prednisone Supplemental oxygen as needed #Recent history of COVID-19 pneumonia: Currently she has recovered. Plan as above #?right iliacus muscle hematoma: CT abdomen pelvis wo con:right iliacus muscle hematoma noted The enlarged iliacus muscle measures 10 cm AP x 5 cm transverse by 10 cm craniocaudal (unaffected contralateral iliacus muscle measures 8 x 4 x 10 cm).? Active bleeding is not assessed on this noncontrast study. Likely secondary therapeutic anticoagulation: Currently stopped: Current plan is to continue to monitor the H&H, transfuse if the hemoglobin drops below 7. Pain control. On discharge we will keep Xarelto on hold we will do repeat H&H in 2 weeks.And thereafter if it stays stable Xarelto can be resumed. #HFpEF : Currently compensated Monitoring and output charting Daily weight K>4. Mg>2 #History of DVT: She is on Eliquis at home currently on hold #Diabetes: SSI,FSG , carbohydrate consistent diet #CODE STATUS: Full code # DVT PPX : On SCDs #Disposition: Patient needs to be placed in snf, because of severe right lower extremity pain, unable to perform ADL, Attestations Medical Necessity Statement*: Patient is currently awaiting placement to [facility] facility. Coding Level of Care Code Acute [employer] for [facility] Fwd Diagnoses COPD (chronic obstructive pulmonary disease) J44.9 Chronic respiratory failure with hypoxia J96.11 Diabetes E11.9 (HFpEF) heart failure with preserved ejection fraction I50.30
[2021-09-05 17:28] LABS: Glucose Point of Care 388 mg/dL (70-110)
[2021-09-05 17:28] LABS: Glucose Point of Care 401 mg/dL (70-110)
[2021-09-05 20:02] LABS: Glucose Point of Care 447 mg/dL (70-110)
[2021-09-06] VITALS (8 sets, daily range): BP systolic 96–140; BP diastolic 62–72; PULSE 74–92; RESP 16–17; TEMP 36.6–37; O2SAT 92–99
[2021-09-06 04:56] LABS: Basophils % 0.2 %; Eosinophils # 0.1 10^3/uL (0.0-0.8); Eosinophils % 1.4 %; Hematocrit 27.1 % (37.0-47.0); Hemoglobin 8.3 g/dL (11.5-15.3); Lymphocytes # 0.8 10^3/uL (0.8-4.8); Mean Corpuscular HGB Conc 30.6 g/dL (30.0-36.0); Mean Corpuscular Hemoglobin 28.9 pg (28.0-34.0); Mean Corpuscular Volume 94.4 fl (81-99); Mean Platelet Volume 10.2 fL (7.4-10.4); Monocytes # 0.5 10^3/uL (0.2-0.9); Monocytes % 9.1 %; Neutrophils # 4.16 10^3/uL (1.8-7.7); Neutrophils % 74.4 %; Nucleated Red Blood Cells % 0 %; Platelet Count 285 10^3/cmm (130-400); Red Blood Count 2.87 10^6/uL (4.1-5.3); Red Cell Distribution Width 14.1 % (12.1-15.1); White Blood Count 5.6 10^3/uL (4.0-10.0)
[2021-09-06 05:18] LABS: Alanine Aminotransferase 13 U/L (0-33); Albumin Level 3.1 g/dL (3.5-5.2); Alkaline Phosphatase 69 IU/L (35-105); Anion Gap 11.5 (5-19); Aspartate Amino Transferase 10 U/L (0-32); Blood Urea Nitrogen 25 mg/dL (8-23); Calcium 9.1 mg/dL (8.5-10.5); Carbon Dioxide 33 mmol/L (22-29); Chloride 102 mmol/L (98-107); Globulin 2.6 g/dL (1.3-4.6); Glucose 144 mg/dL (65-115); Osmolality Calculated 301 mOsm/kg (285-295); Potassium 4.5 mmol/L (3.5-5.1); Sodium 142 mmol/L (136-145); Total Bilirubin 0.7 mg/dL (0.15-1.2); Total Protein 5.7 g/dL (6.6-8.7)
[2021-09-06] MEDS: HYDROcodone-acetaminophen 5-325 mg Tablet 1 TAB PO (06:14)
[2021-09-06] MEDS: predniSONE 10 mg Tablet 35 MG PO (06:14)
[2021-09-06 06:30] LABS: Glucose Point of Care 194 mg/dL (70-110)
[2021-09-06] MEDS: docusate sodium 100 mg Capsule PO (07:49)
[2021-09-06] MEDS: pantoprazole DR 40 mg Tablet PO (07:49)
[2021-09-06] MEDS: insulin lispro 100 unit/1 mL SUBCUT ×2 (07:51→12:51)
[2021-09-06] MEDS: atorvastatin 40 mg Tablet 10 MG PO (07:51)
[2021-09-06] MEDS: escitalopram 10 mg Tablet 20 MG PO (07:56)
[2021-09-06 11:26] LABS: Glucose Point of Care 336 mg/dL (70-110)
--- NOTE | 2021-09-06 11:55 | P.DS_ITS ---
Discharge Providers Date of Admission: 09/04/21 23:01 Date of Discharge: September 06, 2021 Attending Provider at Admission: Paula Abraham MD Attending Provider at Discharge: Stefano Faust MD Primary Care Provider: [facility] Diagnoses at Discharge Discharge Diagnosis (1) COPD (chronic obstructive pulmonary disease): Status: Acute (2) Chronic respiratory failure with hypoxia: Status: Acute (3) Diabetes: Status: Acute (4) (HFpEF) heart failure with preserved ejection fraction: Status: Acute Reason for Visit Reason for Visit: ABD PAIN; RIGHT LEG PAIN Hospital Course Hospital Course This is a 60-year-old female with a past medical history of COVID-19 pneumonia with respiratory failure, CHF, with bilateral iliac muscle hematomas as well as right psoas muscle hematoma secondary to anticoagulation, history of DVT on Xarelto which has been held, deconditioning, who presented to [facility] due to decreased mobility, increased fatigue, increased shortness of breath Patient was admitted to [facility] for deconditioning, weakness secondary COVID-19 pneumonia, with right psoas and bilateral iliac muscle hematomas. Patient was monitored as inpatient, anticoagulation was held, hemoglobin remained stable, received physical therapy, patient was transition [facility]. Patient is to continue to hold aspirin and Xarelto, monitor hemoglobin as outpatient, follow-up with primary care provider with recheck hemoglobin in 2 weeks. Repeat venous ultrasound as inpatient was negative for DVT. Of note I believe she was placed on Xarelto back in May 2019 due to left lower extremity superficial thrombophlebitis of greater saphenous vein and lower extremity varicosities, patient also confirms that she had been put on Xarelto in 2019, no evidence of DVT during that ultrasound exam. Can consider discontinuing Xarelto permanently based on discussion with outpati ent physician. For COVID-19, discharged on 2 L, prednisone taper For type 2 diabetes mellitus, discharged on insulin sliding scale Physical Exam 2 Const: COMMON NORMALS: no acute distress and patient oriented x3 Resp: COMMON NORMALS: normal respiratory effort, No retractions, No use of accessory muscles and clear to auscultation bilaterally AUSCULTATION: clear to auscultation bilaterally Cardio: COMMON NORMALS: regular rate, regular rhythm, S1 normal heart sound present and S2 normal heart sound present RATE: regular rate RHYTHM: regular rhythm HEART SOUNDS: S1 normal heart sound present and S2 normal heart sound present GI: COMMON NORMALS: Normal to inspection, nondistended, normoactive bowel sounds present, Soft to palpation, non-tender and No hepatosplenomegaly present PALPATION: Yes Soft to palpation and Yes No hepatosplenomegaly present Extremity: COMMON NORMALS: no pedal edema Neuro: COMMON NORMALS: patient oriented x3 Psych: COMMON NORMALS: mental status grossly normal Discharge Data Studies Completed and Pending Completed Studies During Hospitalization Category Date Time Status CT abdomen pelvis w con* [id number] Urgent Cat Scan 09/04/21 18:40 Completed XR chest 1V portable [id number] Routine Exams 09/05/21 00:07 Completed Pending at discharge Category Date Time Status BMP [Basic Metabolic Panel] AM LABS Lab 09/07/21 04:00 Ordered BMP [Basic Metabolic Panel] AM LABS Lab 09/08/21 04:00 Ordered CBC Auto Diff [Complete Blood Count w/Auto] AM LABS Lab 09/07/21 04:00 Ordered Radiology Impressions Abdomen/Pelvis CT 09/04/21 18:40 IMPRESSION: Retroperitoneal hematomas mildly decreased on the left and unchanged on the right. 4 mm pulmonary nodule; for patients at low risk (minimal or absent history of smoking and of other known risk factors), no routine follow-up is indicated. For patients at high risk (history of smoking or of other known risk factors), consider optional CT Chest at 12 months. (Reference: Leeann) References: Leeann H, et al. Guidelines for Management of Incidental Pulmonary Nodules Detected on CT Images: From the Fleischner Society 2017. Radiology. 2017;284(1):228-243. Chest X-Ray 09/05/21 00:07 IMPRESSION: Increase in bilateral pulmonary infiltrates from prior study. Laboratory Results WBC 5.6 10^3/uL (4.0-10.0) 09/06/21 04:05 RBC 2.87 10^6/uL (4.1-5.3) L 09/06/21 04:05 Hgb 8.3 g/dL (11.5-15.3) L 09/06/21 04:05 Hct 27.1 % (37.0-47.0) L 09/06/21 04:05 MCV 94.4 fl (81-99) 09/06/21 04:05 MCH 28.9 pg (28.0-34.0) 09/06/21 04:05 MCHC 30.6 g/dL (30.0-36.0) 09/06/21 04:05 RDW 14.1 % (12.1-15.1) 09/06/21 04:05 Plt Count 285 10^3/cmm (130-400) 09/06/21 04:05 MPV 10.2 fL (7.4-10.4) 09/06/21 04:05 Neut % (Auto) 74.4 % 09/06/21 04:05 Lymph % (Auto) 14.0 % 09/06/21 04:05 Cache % (Auto) 9.1 % 09/06/21 04:05 Eos % (Auto) 1.4 % 09/06/21 04:05 Baso % (Auto) 0.2 % 09/06/21 04:05 Neut # (Auto) 4.16 10^3/uL (1.8-7.7) 09/06/21 04:05 Lymph # (Auto) 0.8 10^3/uL (0.8-4.8) 09/06/21 04:05 Cache # (Auto) 0.5 10^3/uL (0.2-0.9) 09/06/21 04:05 Eos # (Auto) 0.1 10^3/uL (0.0-0.8) 09/06/21 04:05 Baso # (Auto) 0.0 10^3/uL (0.0-0.1) 09/06/21 04:05 Nucleated RBC % (auto) 0 % 09/06/21 04:05 Nucleated RBCs # 0.0 /100WBC 09/06/21 04:05 Sodium 142 mmol/L (136-145) 09/06/21 04:05 Potassium 4.5 mmol/L (3.5-5.1) 09/06/21 04:05 Chloride 102 mmol/L (98-107) 09/06/21 04:05 Carbon Dioxide 33 mmol/L (22-29) H 09/06/21 04:05 Anion Gap 11.5 (5-19) 09/06/21 04:05 BUN 25 mg/dL (8-23) H 09/06/21 04:05 Creatinine 0.5 mg/dL (0.5-0.9) 09/06/21 04:05 GFR Calculation 125.0 mL/min (90-130) 09/06/21 04:05 Glucose 144 mg/dL (65-115) H 09/06/21 04:05 POC Glucose 336 mg/dL (70-110) H 09/06/21 11:06 Calculated Osmolality 301 mOsm/kg (285-295) H 09/06/21 04:05 Calcium 9.1 mg/dL (8.5-10.5) 09/06/21 04:05 Total Bilirubin 0.7 mg/dL (0.15-1.2) 09/06/21 04:05 AST 10 U/L (0-32) 09/06/21 04:05 ALT 13 U/L (0-33) 09/06/21 04:05 Alkaline Phosphatase 69 IU/L (35-105) 09/06/21 04:05 Total Protein 5.7 g/dL (6.6-8.7) L 09/06/21 04:05 Albumin 3.1 g/dL (3.5-5.2) L 09/06/21 04:05 Globulin 2.6 g/dL (1.3-4.6) 09/06/21 04:05 Vitals Last Vital Signs Temp 98.6 F 09/06/21 11:31 Pulse 74 09/06/21 11:31 Resp 16 09/06/21 11:31 BP 96/63 09/06/21 11:33 Pulse Ox 99 09/06/21 11:31 Discharge Plan Discharge Patient Disposition: Xfer SNF Condition: Stable Prescriptions: New hydrocodone-acetaminophen 5-325 mg Tablet 1 tab PO Q4H PRN (Reason: Moderate To Severe Pain) 7 Days Qty: 42 0RF docusate sodium 100 mg Capsule 100 mg PO BID 30 Days Qty: 60 0RF Novolog Flexpen U-100 Insulin 100 unit/mL (3 mL) insulin pen See Rx Instructions .ROUTE .COMPLEX Qty: 15 0RF Rx Instructions: Inject subcu, 3 times a day, after meals, based on sliding scale Continued atorvastatin 10 mg tablet 10 mg PO DAILY Qty: 30 2RF escitalopram oxalate 20 mg tablet 20 mg PO DAILY@08 Qty: 30 2RF fluticasone propion-salmeterol [Advair Diskus] 500-50 mcg/dose blister with device 1 inh INHALATION BID@ Qty: 60 2RF cyclobenzaprine 10 mg tablet 10 mg PO TID PRN (Reason: muscle spasm) Qty: 60 0RF metformin 500 mg tablet extended release 24 hr 1,000 mg PO BID Qty: 56 2RF Rx Instructions: Need apt have not keep the past 2 apt times promethazine 25 mg tablet 25 mg PO TID PRN (Reason: nausea and vomiting) Qty: 14 0RF tizanidine 2 mg tablet 2 mg PO BID PRN (Reason: Muscle Pain) 0RF pantoprazole 40 mg tablet,delayed release (DR/EC) 40 mg PO BID Qty: 60 2RF nitroglycerin 0.4 mg Tablet, Sublingual 0.4 mg SUBLINGUAL Q5M PRN (Reason: Chest Pain) 0RF ondansetron 4 mg tablet,disintegrating 4 mg PO Q6H PRN (Reason: nausea and vomiting) Qty: 14 0RF furosemide 20 mg tablet 20 mg PO BID PRN (Reason: Edema) 0RF dextromethorphan-guaifenesin 10-100 mg/5 mL Syrup 10 ml PO Q4H PRN (Reason: Cough) Qty: 0 0RF prednisone 10 mg tablet See Rx Instructions .ROUTE .COMPLEX Qty: 36 0RF Rx Instructions: prednisone 5 mg: take 8 tablets (40 mg) on Day 1; 7 tablets (35 mg) on Day 2; then decrease by 1 tablet every day until finished Spiriva with HandiHaler 18 mcg capsule, w/inhalation device 1 cap inhalation DAILY 30 Days Qty: 30 0RF Rx Instructions: puncture 1 cap using device; one dose = 2 inhalations midodrine 5 mg tablet 5 mg PO TID Qty: 90 0RF Rx Instructions: do not give last dose of day after 6PM or within 4 hrs of bedtime Changed prednisone 10 mg tablet See Rx Instructions .ROUTE .COMPLEX Qty: 36 0RF Rx Instructions: prednisone 5 mg: take 7 tablets (35 mg) on Day 1; 6 tablets (30 mg) on Day 2; then decrease by 1 tablet every day until finished Discontinued diltiazem HCl 30 mg tablet 30 mg PO BID@ Qty: 60 2RF Hold Instructions: Resume on 09/17/21. Xarelto 2.5 mg tablet 2.5 mg PO BID@,20 Qty: 60 2RF Hold Instructions: Resume on 09/17/21. aspirin 81 mg tablet,delayed release (DR/EC) 81 mg PO BID@,20 Qty: 60 0RF Hold Instructions: Resume on 09/17/21. Discharge Orders: Discharge Order (Routine); Ordered 09/06/21 Ordered By: Stefano Faust Referrals: [facility] [Outside] Alondra Ham, [employer] [Primary Care Provider] - Discharge Diet: Cardiac Discharge Activity: Resume usual activity Patient Instructions: Hydrocodone/Acetaminophen (By mouth), Laxative, Stool Softeners (By mouth), Insulin Aspart, Recombinant (By injection) Activity Restrictions/Additional Instructions: -Recheck hemoglobin tomorrow -Continue to hold aspirin and Xarelto until she sees her primary care -Repeat hemoglobin in 2 weeks -Inject insulin, subcu, 3 times daily, after meals, based on sliding scale provided -Insulin sliding fingerstick? Insulin 141-180 2 units/sq 181-220 4 units/sq 221-260 6 units/sq 261-300 8 units/sq 301-350 10 units/sq 351-400 12 units/sq > 400? 14 units/sq Discharge Attestations Time Spent in Discharge Care*: less than 30 min Quality Metrics Clinical Quality Measures [ No reported AMI, CVA or VTE this stay] Coding Level of Care Code Acute g [facility] note Diagnoses COPD (chronic obstructive pulmonary disease) J44.9 Chronic respiratory failure with hypoxia J96.11 Diabetes E11.9 (HFpEF) heart failure with preserved ejection fraction I50.30
--- NOTE | 2021-09-06 13:05 | PC.NURSE ---
Notified Jluis (Spouse) of patient being discharged to [facility] today.
--- NOTE | 2021-09-06 13:06 | PC.NURSE ---
Called report to Vernell Encinas LPN
== END 2021-09-06 14:00 | disposition skilled nursing facility (03) ==
LOC: ER 23:26 → MEDSURG 09-05 00:15
PROVIDERS: Internal Medicine; Admitting Provider Student in an Organized Health Care Education/Training Program; Emergency Provider Emergency Medicine; PCP Nurse Practitioner; Visit Provider Family Medicine
DX: J96.11 Chronic respiratory failure with hypoxia (principal); J44.9 Chronic obstructive pulmonary disease, unspecified; E11.9 Type 2 diabetes mellitus without complications; I50.30 Unspecified diastolic (congestive) heart failure; U09.9 Post COVID-19 condition, unspecified; Z99.81 Dependence on supplemental oxygen; Z79.01 Long term (current) use of anticoagulants; Z79.84 Long term (current) use of oral hypoglycemic drugs; Z79.52 Long term (current) use of systemic steroids; F41.9 Anxiety disorder, unspecified; Z86.718 Personal history of other venous thrombosis and embolism; Z85.828 Personal history of other malignant neoplasm of skin; Z91.14 Patient's other noncompliance with medication regimen; Z87.891 Personal history of nicotine dependence; K66.1 Hemoperitoneum; R53.81 Other malaise
CPT/HCPCS: 36415; 36416; 71045; 74177; 80053; 82962; 85025; 94664; 96360; 96361; 96372; 97116; 97162; 97165; 99285; G0378; J1815; J7512; Q9967

== ENCOUNTER → 2021-12-02 08:47 | Outpatient (BNVA) | payer MEDICARE, MEDICAID, SELFPAY | PROVIDERS: PCP Nurse Practitioner; Visit Provider Nurse Practitioner | DX: E11.65 Type 2 diabetes mellitus with hyperglycemia (principal); D64.9 Anemia, unspecified; E55.9 Vitamin D deficiency, unspecified; Z79.899 Other long term (current) drug therapy | CPT/HCPCS: 80053; 80061; 81003; 82306; 82607; 83036; 83550; 84443; 85025; 87077; 87086; 87184 ==

== ENCOUNTER → 2022-03-02 08:53 | Outpatient (BNVA) | payer MEDICARE, MEDICAID, SELFPAY | PROVIDERS: PCP Nurse Practitioner; Visit Provider Nurse Practitioner Family | DX: M25.561 Pain in right knee (principal); M71.9 Bursopathy, unspecified; R20.2 Paresthesia of skin | CPT/HCPCS: 73560; 73565; 99213; 99214 ==

== ENCOUNTER → 2022-03-24 11:05 | Outpatient (BNVA) | payer MEDICARE, MEDICAID, SELFPAY | PROVIDERS: PCP Nurse Practitioner; Visit Provider Nurse Practitioner | DX: E11.65 Type 2 diabetes mellitus with hyperglycemia (principal); M79.662 Pain in left lower leg; R10.30 Lower abdominal pain, unspecified; M54.41 Lumbago with sciatica, right side; R26.81 Unsteadiness on feet; J44.9 Chronic obstructive pulmonary disease, unspecified; I10 Essential (primary) hypertension; G20 Parkinson's disease; R20.2 Paresthesia of skin; M79.609 Pain in unspecified limb; Z91.11 Patient's noncompliance with dietary regimen; F41.1 Generalized anxiety disorder; K21.9 Gastro-esophageal reflux disease without esophagitis; N39.0 Urinary tract infection, site not specified; B95.2 Enterococcus as the cause of diseases classified elsewhere | CPT/HCPCS: 80053; 80061; 81003; 83036; 84443; 85025; 87077; 87086; 87184 ==

== ENCOUNTER 2022-04-12 14:13 | Outpatient (CLI) | payer MEDICARE, MEDICAID, SELFPAY ==
--- NOTE | 2022-04-12 15:15 | MR_ITS ---
WS: [id number] MRI LUMBAR SPINE NONCONTRAST TECHNIQUE: Sagittal T1, T2 and STIR imaging. Axial T1 and T2 imaging. CLINICAL INFORMATION: M54.41 - Lumbago with sciatica, right side COMPARISON: None. FINDINGS: Mild lumbar curve. No acute compression. Slight retrolisthesis L2 on L3, L4 on L5. Slight anterolisth esis L5 on S1. Disc bulging worse at L2-L3 L3-L4 and L4-L5. Slight retrolisthesis L2 on L3. L1-L2: Slight narrowing of the RIGHT subarticular recess. Spinal canal and foramen are patent. Mild f acet arthropathy. L2-L3: Slight retrolisthesis. Mild disc bulging with moderate central canal stenosis. Impingement tra versing RIGHT L3 nerve root. Mild RIGHT L2-L3 foraminal narrowing. LEFT foramen is patent. Moderate f acet arthropathy. L3-L4: Mild annular bulging. Mild to moderate central canal stenosis. Impingement traversing L4 nerve roots. Moderate facet arthropathy. Mild RIGHT foraminal narrowing. L4-L5: Disc osteophyte complex with endplate ridging. Moderate central canal stenosis. Impingement tr aversing LEFT L5 nerve root in the subarticular recess. LEFT foraminal protrusion with moderate LEFT foraminal narrowing. Impingement on the exiting LEFT L4 nerve root. L5-S1: Mild annular bulging. Spinal canal and foramen are patent. Mild facet arthropathy. Benign hemangioma T5 vertebral body on the computer service technician imaging. Small amount of edema in the LEFT L4-L5 and L5-S1 facets. Visualized pelvic bony structures: Normal. Paravertebral soft tissues: Normal. Small central protrusion seen cervical spine computer service technician imaging at C5-C6 and C6-C7. MR/MR lumbar spine wo con* [id number] IMPRESSION: 1. Mild lumbar curve. No acute compression. 2. Moderate central canal stenosis L2-L3 with slight retrolisthesis and centra l disc bulging. Impingement on the traversing RIGHT L3 nerve root. Moderate RIG HT L2-L3 foraminal narrowing. 3. Mild to moderate central canal stenosis L3-L4. 4. Moderate central canal stenosis L4-L5 with impingement traversing LEFT L5 n erve root. Moderate LEFT L4-L5 foraminal narrowing.
[2022-04-12] MEDS: iohexol 350 mg/mL 100 mL Btl PO (15:53)
--- NOTE | 2022-04-12 16:30 | CT_ITS ---
WS: [id number] CT ABDOMEN AND PELVIS NONCONTRAST HISTORY: R10.30 - Lower abdominal pain, unspecified TECHNIQUE: Imaging performed through the abdomen and pelvis. Coronal and sagittal reformats are submi tted. All CT scans at [facility] use at least one of these dose optimization techniques: auto mated exposure control; mA and/or kV adjustment per patient size (includes targeted exams where dose is matched to clinical indication); or iterative reconstruction. DLP: 1228.50 mGy.cm COMPARISON: 09/04/2021 Lower thorax: No increase in size 4 mm noncalcified pulmonary nodule at the LEFT lung base. Overall t here is improved aeration of the irregular opacifications at the lung bases as compared to the most r ecent exam. Heart is enlarged. Heart appears slightly greater size as compared to the prior examinati on and there is mild RIGHT heart strain. Intraventricular septum appears flattened. No effusion. Liver: Coarse echotexture and granulomata throughout. Gallbladder: Mildly contracted. No adjacent inflammation. Pancreas: Normal size and attenuation. Normal pancreatic duct. No pancreatitis or mass. Spleen: Normal size with numerous granulomata. Adrenal glands: Normal RIGHT adrenal gland. LEFT adrenal adenoma measures 1.8 x 2.6 cm. Right kidney: Normal size kidney with no mass or hydronephrosis. Left kidney: Normal size kidney with no mass or hydronephrosis. Aorta: Mild atherosclerosis abdominal aorta with no aneurysm. No free fluid, intraperitoneal air or significant lymphadenopathy. Numerous varicosities are noted wi thin the abdomen. GI tract: Mildly distended stomach. No wall thickening. No small bowel obstruction. There is mild dif fuse constipation with no evidence for colitis. There is a focal area of wall thickening involving th e ascending colon towards the hepatic flexure. Mild constipation. No evidence for appendicitis. The a ppendix is not definitely identified. Abdominal wall: No hernia. Mild soft tissue anasarca. Pelvis: Urinary bladder is well distended. Uterus is midline. No adnexal masses. No free fluid. Mild pelvic congestion. Bilateral inguinal lymph nodes are enlarged. Numerous lymph nodes are identified. Largest lymph nodes measure 2.2 cm in the inguinal regions bilaterally. Osseous structures: 5 mm retrolisthesis of L2. No lumbar spine fracture or destructive bone process. CT/CT abdomen pelvis wo con [id number] IMPRESSION: 1. Enlarged bilateral inguinal lymph nodes measure up to 2.2 cm. These may be reactive. No significant retroperitoneal or mesenteric lymph nodes are identifi ed. 2. Moderate diffuse constipation with overlapping loops of GI tract. No obstru ction. 3. Focal wall thickening involving the ascending colon towards the hepatic fle xure. May be an area of peristalsis and underdistention. Early neoplasm is not excluded. Recommend colonoscopy follow-up.
== END 2022-04-12 14:14 | disposition home or self-care (01) ==
LOC: RAD 14:14
PROVIDERS: PCP Nurse Practitioner; Visit Provider Nurse Practitioner
DX: M54.41 Lumbago with sciatica, right side (principal); R10.30 Lower abdominal pain, unspecified; K59.00 Constipation, unspecified; M48.061 Spinal stenosis, lumbar region without neurogenic claudication
CPT/HCPCS: 72148; 74176; 80053; 80061; 81003; 83036; 84443; 85025; 87077; 87086; 87184

== ENCOUNTER → 2022-04-26 11:05 | Outpatient (BNVA) | payer MEDICARE, MEDICAID, SELFPAY | PROVIDERS: PCP Nurse Practitioner; Visit Provider Nurse Practitioner | DX: L89.309 Pressure ulcer of unspecified buttock, unspecified stage (principal); E11.65 Type 2 diabetes mellitus with hyperglycemia; Z12.11 Encounter for screening for malignant neoplasm of colon | CPT/HCPCS: 81000 ==

== ENCOUNTER → 2022-07-28 11:01 | Outpatient (BNVA) | payer MEDICARE, MEDICAID, SELFPAY | PROVIDERS: PCP Nurse Practitioner; Visit Provider Nurse Practitioner | DX: E11.65 Type 2 diabetes mellitus with hyperglycemia (principal); Z79.4 Long term (current) use of insulin; I73.9 Peripheral vascular disease, unspecified; J43.9 Emphysema, unspecified; F41.1 Generalized anxiety disorder; E55.9 Vitamin D deficiency, unspecified; I10 Essential (primary) hypertension; L89.309 Pressure ulcer of unspecified buttock, unspecified stage; B37.9 Candidiasis, unspecified | CPT/HCPCS: 80053; 80061; 81003; 82306; 83036; 84443 ==

== ENCOUNTER 2022-11-15 09:05 | Inpatient (IN) | payer MEDICARE, MEDICAID, SELFPAY ==
[2022-11-15] VITALS (65 sets, daily range): BP systolic 146–189; BP diastolic 85–139; PULSE 0–131; RESP 12–27; TEMP 36.7–36.8; O2SAT 78–100; BMI 21.4
--- NOTE | 2022-11-15 09:07 | XRR_ITS ---
PROCEDURE INFORMATION: Exam: XR Chest Exam date and time: 11/15/2022 9:17 AM Age: 61 years old Clinical indication: Cough and dyspnea; Additional info: Dyspnea/cough TECHNIQUE: Imaging protocol: Radiologic exam of the chest. Views: 1 view. COMPARISON: CR XR chest 1V portable [id number] 09/05/2021 12:26 AM FINDINGS: Lungs: Ground-glass consolidation in the left lung base concerning for possible pneumonia. Mildly prominent interstitial markings again noted. Bilateral stable probable pulmonary granulomas again noted. Pleural spaces: No pneumothorax. No pleural effusion. Heart/Mediastinum: The cardiomediastinal silhouette is within normal limits. Bones/joints: Unremarkable. XR/XR chest 1V portable [id number] IMPRESSION: Ground-glass consolidation in the left lung base concerning for possible pneumonia.
--- NOTE | 2022-11-15 09:15 | ED_ITS ---
HPI - General Adult General: Chief complaint: Weakness Stated complaint: generalized weakness/ unable to ambulate Time Seen by Provider: 11/15/22 09:06 Source: patient Mode of arrival: ambulatory History of Present Illness: 61-year-old female who presents to the emergency room complaints of weakness for the last 3 weeks. She is an insulin-dependent diabetic she has not used any of her medications for the last 3 weeks blood sugar on presentation is 518 she was given IV fluids in route. Patient is incontinent of urine on arrival and a strong foul smelling urine. She denies any shortness of breath chest or abdominal pain. EMS was called due to the fact patient had a fall and could not stand up. When asked the patient about falling she denied any falls and denies any pain or injury from fall. Onset (ago): unknown Relieving factors: none Exacerbating factors: none Associated symptoms: Deny chest pain, confusion, cough, diaphoresis, decreased appetite, dyspnea, fevers/chills, headache(s), malaise, nausea, rash, palpitations, seizures, short of breath, syncope, vomiting or weakness Treatments prior to arrival: none Review of Systems Const: Denies: fever(s), chills, malaise or diaphoresis ENMT: Denies: throat pain, ear or mastoid pain, nasal discharge or nasal con gestion Card: Reports: edema and swelling of feet/ankles; Denies: chest pain, palpitations or syncope Resp: Reports: non-productive cough and wheezing; Denies: dyspnea GI: Denies: abdominal pain, nausea or vomiting : Denies: flank pain, difficulty voiding, dysuria, urinary frequency or urinary urgency Skin/Breast: Denies: rash Neuro: Denies: headache(s) or confusion [facility] ED PFSH: Medical History Chest pain Diabetes mellitus with hyperglycemia Diastolic congestive heart failure Gallbladder anomaly Generalized anxiety disorder GERD (gastroesophageal reflux disease) H/O deep venous thrombosis History of DVT of lower extremity Left leg 06/2019 History of skin cancer Basal cell carcinoma on back 2007 HTN (hypertension) Hx of insulin dependent diabetes mellitus Insomnia, unspecified Lumbar nerve root impingement Noncompliance with dietary restriction Noncompliance with medication regimen Pain of back and right lower extremity Parkinsonian tremor Tremor, unspecified Unspecified urinary incontinence Unsteady gait Vitamin B12 deficiency Surgical History H/O left breast biopsy Benign 2016 History of thoracentesis X 2 for traumatic effusion History of tonsillectomy Hx of colonoscopy Hx of tubal ligation / incidental appendectomy 1981 Status post surgical removal of malignant neoplasm of skin Basal cell carcinoma on back 2007 Family History Mother Cancer Unknown type Father Cancer Lung CA Son Gallbladder disease Other Hypertension Denies family history of Clotting disorder Social History Smoking and tobacco status: current every day smoker Quit status (tobacco): has quit using tobacco Former quit date comment: Patient smoked 2 packs of cigarettes a day for 25 years Second hand smoke exposure: No Smoking risk assessment/counseling performed?: No Alcohol intake: never Desire information about alcohol rehabilitation?: No Counseling given: No Substance/Drug Use: unknown Desire information about substance/drug rehabilitation?: No Counseling given: No Adopted: No Caregiver/support person: No Lives independently: Yes Household members: spouse and children Marital status: service: No Current occupational status: unemployed Do you think of yourself as: Straight/Heterosexual Current gender identity: Female Physical Exam Const: GENERAL APPEARANCE: cooperative and comfortable ORIENTATION/CONSCIOUSNESS: Yes awake HENMT: COMMON NORMALS: normocephalic, atraumatic and hearing grossly normal bilaterally HEAD & SCALP: normocephalic and atraumatic Resp: COMMON NORMALS: normal respiratory effort, No retractions, No use of accessory muscles and clear to auscultation bilaterally AUSCULTATION: clear to auscultation bilaterally Cardio: COMMON NORMALS: regular rate, regular rhythm and No murmurs present (Cardio) RATE: regular rate RHYTHM: regular rhythm GI: COMMON NORMALS: Soft to palpation and No hepatosplenomegaly present AUSCULTATION: Yes normoactive bowel sounds PALPATION: Yes Soft to palpation, No Tenderness to palpation present (GI), No Guarding due to palpation present (GI) and Yes No hepatosplenomegaly present : COMMON NORMALS: Yes no CVA tenderness BLADDER/KIDNEY EXAM: Yes no CVA tenderness Back/Pelvis: COMMON NORMALS: no CVA tenderness Extremity: COMMON NORMALS: normal to inspection, capillary refill normal, no clubbing, cyanosis or edema, no calf tenderness and no pedal edema Skin: COMMON NORMALS: no rashes or lesions noted GENERAL SKIN EXAM: no rashes or lesions noted Course Vital Signs: Vital signs: Vital Signs Temperature 98.1 F 11/15/22 09:09 Pulse Rate 77 11/15/22 12:15 Respiratory Rate 20 H 11/15/22 12:15 Blood Pressure 189/100 11/15/22 11:30 Pulse Oximetry 96 11/15/22 12:15 Oxygen Delivery Me thod Nasal Cannula 11/15/22 12:15 Oxygen Flow Rate 2 11/15/22 12:15 MDM - General Adult Medical Decision Making Acute exacerbation COPD with new oxygen deficit and pneumonia. Blood glucose actually markedly elevated as well. Surprisingly her urine is normal on a cath UA she had very foul-smelling urine when she arrived here was suspicious for UTI. Patient will need improved COPD control improved blood pressure control and treatment for pneumonia cultures of been done started on ceftriaxone and Zithromax. Medical Records I reviewed the patient's medical records. Lab Data I reviewed the patient's lab results. 11/15/22 08:20 11/15/22 08:20 Radiology Impressions Chest X-Ray 11/15/22 09:07 IMPRESSION: Ground-glass consolidation in the left lung base concerning for possible pneumonia. Cervical Spine CT 11/15/22 09:16 IMPRESSION: 1. No cervical spine fracture. 2. No significant central or foraminal stenosis or large disc protrusions. Head CT 11/15/22 09:16 IMPRESSION: 1. No acute intracranial hemorrhage identified. Mild limitation due to motion artifact. 2. Mild cerebral atrophy and small vessel ischemic disease. New area of decreased attenuation in the LEFT basal ganglia. Does not appear acute. Laboratory Results WBC 5.5 10^3/uL (4.0-10.0) 11/15/22 08:20 RBC 5.79 10^6/uL (4.1-5.3) H 11/15/22 08:20 Hgb 17.3 g/dL (11.5-15.3) H 11/15/22 08:20 Hct 51.5 % (37.0-47.0) H 11/15/22 08:20 MCV 88.9 fl (81-99) 11/15/22 08:20 MCH 29.9 pg (28.0-34.0) 11/15/22 08:20 MCHC 33.6 g/dL (30.0-36.0) 11/15/22 08:20 RDW 13.5 % (12.1-15.1) 11/15/22 08:20 Plt Count 167 10^3/cmm (130-400) 11/15/22 08:20 MPV 10.3 fL (7.4-10.4) 11/15/22 08:20 Neut % (Auto) 65.4 % 11/15/22 08:20 Lymph % (Auto) 24.6 % 11/15/22 08:20 [place] % (Auto) 6.7 % 11/15/22 08:20 Eos % (Auto) 2.7 % 11/15/22 08:20 Baso % (Auto) 0.4 % 11/15/22 08:20 Neut # (Auto) 3.62 10^3/uL (1.8-7.7) 11/15/22 08:20 Lymph # (Auto) 1.4 10^3/uL (0.8-4.8) 11/15/22 08:20 [place] # (Auto) 0.4 10^3/uL (0.2-0.9) 11/15/22 08:20 Eos # (Auto) 0.2 10^3/uL (0.0-0.8) 11/15/22 08:20 Baso # (Auto) 0.0 10^3/uL (0.0-0.1) 11/15/22 08:20 Nucleated RBC % (auto) 0 % 11/15/22 08:20 Nucleated RBCs # 0.0 /100WBC 11/15/22 08:20 Specimen Type Arterial 11/15/22 09:28 Sample Site Brachial, right 11/15/22 09:28 ABG pH 7.39 (7.35-7.45) 11/15/22 09:28 ABG pCO2 56.4 mmHg (35-45) H 11/15/22 09:28 ABG pO2 67.3 mmHg (80.0-100.0) L 11/15/22 09:28 ABG HCO3 34.2 mmol/L (22-26) H 11/15/22 09:28 ABG O2 Saturation 93.6 11/15/22 09:28 ABG Base Excess 6.9 mmol/L (-2.0-2.0) H 11/15/22 09:28 Dilshad Test N/a 11/15/22 09:28 A-a O2 Gradient 8.2 mmHg (5-10) 11/15/22 09:28 Hematocrit 53.7 % (37-47) H 11/15/22 09:28 Hgb O2 Saturation 86.3 % (95-100) L 11/15/22 09:28 Carboxyhemoglobin 7.2 %THgb (0.4-20.1) 11/15/22 09:28 Methemoglobin 0.7 % (0.4-1.5) 11/15/22 09:28 Total Hemoglobin 17.5 g/dL (12-16) H 11/15/22 09:28 Sodium 139.0 mmol/L (131-143) 11/15/22 09:28 Potassium 3.9 mmol/L (3.5-5.0) 11/15/22 09:28 Glucose 417.0 mg/dL (70-115) H 11/15/22 09:28 Ionized Calcium 1.2 mmol/L (1.1-1.4) 11/15/22 09:28 O2 Delivery Device Nc 11/15/22 09:28 O2 Liters/Min 2.0 % 11/15/22 09:28 FiO2 28.0 % 11/15/22 09:28 Direct Marketing Manager ID Gd 11/15/22 09:28 Sodium 136 mmol/L (136-145) 11/15/22 08:20 Potassium 4.2 mmol/L (3.5-5.1) 11/15/22 08:20 Chloride 94 mmol/L (98-107) L 11/15/22 08:20 Carbon Dioxide 35 mmol/L (22-29) H 11/15/22 08:20 Anion Gap 11.2 (5-19) 11/15/22 08:20 BUN 21 mg/dL (8-23) 11/15/22 08:20 Creatinine 0.6 mg/dL (0.5-0.9) 11/15/22 08:20 GFR Calculation 101.0 mL/min (90-130) 11/15/22 08:20 Glucose 434 mg/dL (65-115) H 11/15/22 08:20 POC Glucose 434 mg/dL (70-110) H 11/15/22 09:27 Calculated Osmolality 304 mOsm/kg (285-295) H 11/15/22 08:20 Lactic Acid 0.6 mmol/L (0.5-2.2) 11/15/22 09:34 Calcium 8.8 mg/dL (8.5-10.5) 11/15/22 08:20 Total Bilirubin 0.3 mg/dL (0.15-1.2) 11/15/22 08:20 AST 7 U/L (0-32) 11/15/22 08:20 ALT 7 U/L (0-33) 11/15/22 08:20 Alkaline Phosphatase 104 U/L (35-105) 11/15/22 08:20 Creatine Kinase 56 U/L (26-192) 11/15/22 08:20 Total Protein 6.1 g/dL (6.6-8.7) L 11/15/22 08:20 Albumin 2.8 g/dL (3.5-5.2) L 11/15/22 08:20 Globulin 3.3 g/dL (1.3-4.6) 11/15/22 08:20 Lipase 22 U/L (13-60) 11/15/22 08:20 Urine Color Colorless (Yellow) 11/15/22 11:20 Urine Appearance Sl cloudy (CLEAR) A 11/15/22 11:20 Urine pH 7 (5-7) 11/15/22 11:20 Ur Specific [place] 1.015 (1.005-1.030) 11/15/22 11:20 Urine Protein 2+ (Negative) H 11/15/22 11:20 Urine Glucose (UA) 4+ (Normal) H 11/15/22 11:20 Urine Ketones Negative (Negative) 11/15/22 11:20 Urine Blood 2+ (Negative) H 11/15/22 11:20 Urine Nitrate Negative (Negative) 11/15/22 11:20 Urine Bilirubin Neg (Negative) 11/15/22 11:20 Urine Urobilinogen Norm mg/dL (Negative) 11/15/22 11:20 Ur Leukocyte Esterase Negative (Negative) 11/15/22 11:20 Urine RBC 5-10 /hpf (0-2) H 11/15/22 11:20 Urine WBC 0-4 /hpf (0-5) H 11/15/22 11:20 Ur Squamous Epith Cells 25-40 /hpf (0-5) H 11/15/22 11:20 Amorphous Sediment Not Reportable 11/15/22 11:20 Urine Bacteria 1+ /hpf (NONE) H 11/15/22 11:20 Serum Ketones Negative (Negative) 11/15/22 08:20 Discharge Plan Discharge Patient Disposition: Admitted As Inpatient Clinical Impression: Pneumonia, Acute exacerbation of chronic obstructive pulmonary disease, Poorly controlled diabetes mellitus Condition: Stable Prescriptions: No Action aspirin 81 mg tablet,delayed release (DR/EC) 81 mg PO BID nitroglycerin 0.4 mg tablet, sublingual 0.4 mg sublingual Q5M PRN (Reason: Chest Pain) Rx Instructions: do not exceed 3 doses per episode (DME) walker See Rx Instructions .Route .MEDSUPPLY Qty: 1 0RF Rx Instructions: As directed 99 months walker with front wheels atorvastatin 10 mg tablet 10 mg PO DAILY Qty: 30 2RF Ozempic 0.25 mg or 0.5 mg(2 mg/1.5 mL) pen injector 0.5 mg SUBCUT Q7D Qty: 1.5 2RF Xarelto 2.5 mg tablet 2.5 mg PO BID Qty: 60 2RF metformin 500 mg tablet extended release 24 hr 1,000 mg PO BID Qty: 120 2RF fluticasone propion-salmeterol [Advair Diskus] 500-50 mcg/dose blister with device 1 inh INHALATION BID@08,20 Qty: 60 2RF escitalopram oxalate 20 mg tablet 20 mg PO DAILY@08 Qty: 30 2RF diltiazem HCl 30 mg tablet 30 mg PO BID Qty: 60 2RF insulin degludec [Tresiba FlexTouch U-200] 200 unit/mL (3 mL) insulin pen 20 unit SUBCUT DAILY Qty: 9 0RF (DME) pen needle, diabetic 33 gauge x 5/32 needle See Rx Instructions .ROUTE .MEDSUPPLY Qty: 100 5RF Rx Instructions: 1 time day MediHoney (honey) 100 % paste 1 applic topical BID Qty: 103 0RF nystatin 100,000 unit/gram cream 1 applic topical BID Qty: 30 2RF primidone 250 mg tablet 250 mg PO DAILY Qty: 30 2RF (DME) blood-glucose meter [OneTouch Ultra2 Meter] Kit See Rx Instructions .Route Qty: 1 0RF Rx Instructions: daily (DME) OneTouch Ultra Test Strip See Rx Instructions .Route Qty: 50 5RF Rx Instructions: daily use strip (DME) lancets [OneTouch Delica Plus Lancet] 33 gauge misc See Rx Instructions .Route Qty: 100 5RF Rx Instructions: use one daily furosemide 20 mg tablet 20 mg PO BID PRN (Reason: Edema) Qty: 60 2RF ergocalciferol (vitamin D2) 1,250 mcg (50,000 unit) capsule 1,250 mcg PO Q7D Referrals: Marilou Bearden MD [Primary Care Provider] - Coding Level of Care Code ED Outdoor Illuminating Engineer for Kristian Marquis
--- NOTE | 2022-11-15 09:16 | CT_ITS ---
WS: [id number] CT HEAD NONCONTRAST HISTORY: fall/on chronic anticoagulation TECHNIQUE: Contiguous axial imaging performed through the brain in 2.5 mm imaging. Bone and soft tiss ue windows. Sagittal and coronal reformats reviewed. All CT scans at [facility] use at least one of these dose optimization techniques: automated exposure control; mA and/or kV adjustment per pa tient size (includes targeted exams where dose is matched to clinical indication); or iterative recon struction. DLP: 1240.70 mGy.cm COMPARISON: 07/18/2021 Motion artifact in the supraventricular brain. No acute intracranial hemorrhage, midline shift or mass effect. Mild atrophy and small vessel ischemic disease. New area of decreased attenuation LEFT basal ganglia. Ventricles: Mild enlargement of ventricles probably on the basis of atrophy. No intraventricular blo od. No inferior displacement of cerebellar tonsils. Paranasal sinuses: As visualized are clear. Mastoid air cells: Well pneumatized. Calvarium and scalp: Skull is intact with no soft tissue edema or swelling. CT/CT head wo con* [id number] IMPRESSION: 1. No acute intracranial hemorrhage identified. Mild limitation due to motion artifact. 2. Mild cerebral atrophy and small vessel ischemic disease. New area of decrea sed attenuation in the LEFT basal ganglia. Does not appear acute.
--- NOTE | 2022-11-15 09:16 | CT_ITS ---
WS: [id number] CT CERVICAL SPINE HISTORY: fall TECHNIQUE: Contiguous 2.0 mm axial imaging performed through the entire cervical spine. Sagittal and coronal reformats also performed. All CT scans at [facility] use at least one of these dose o ptimization techniques: automated exposure control; mA and/or kV adjustment per patient size (include s targeted exams where dose is matched to clinical indication); or iterative reconstruction. DLP: 1240.70 mGy.cm COMPARISON: 10/31/2020 Normal cervical alignment. Craniocervical junction, atlantodental interval and C1-C2 alignment is nor mal. C2-C3: Normal. C3-C4: Mild osteophytic ridging and mild foraminal narrowing. C4-C5: Normal. C5-C6: Mild osteophytic ridging. Mild bilateral foraminal narrowing. C6-C7: Mild osteophytic ridging. C7-T1: Normal. Mild scattered calcifications in the cervical carotid artery. Distal vertebral calcifications. CT/CT cervical spin wo con* [id number] IMPRESSION: 1. No cervical spine fracture. 2. No significant central or foraminal stenosis or large disc protrusions.
[2022-11-15 09:27] LABS: Basophils % 0.4 %; Eosinophils # 0.2 10^3/uL (0.0-0.8); Eosinophils % 2.7 %; Hematocrit 51.5 % (37.0-47.0); Hemoglobin 17.3 g/dL (11.5-15.3); Lymphocytes # 1.4 10^3/uL (0.8-4.8); Lymphocytes % 24.6 %; Mean Corpuscular HGB Conc 33.6 g/dL (30.0-36.0); Mean Corpuscular Hemoglobin 29.9 pg (28.0-34.0); Mean Corpuscular Volume 88.9 fl (81-99); Mean Platelet Volume 10.3 fL (7.4-10.4); Monocytes # 0.4 10^3/uL (0.2-0.9); Monocytes % 6.7 %; Neutrophils # 3.62 10^3/uL (1.8-7.7); Neutrophils % 65.4 %; Nucleated Red Blood Cells % 0 %; Platelet Count 167 10^3/cmm (130-400); Red Blood Count 5.79 10^6/uL (4.1-5.3); Red Cell Distribution Width 13.5 % (12.1-15.1); White Blood Count 5.5 10^3/uL (4.0-10.0)
[2022-11-15 09:33] LABS: Ketone (Acetest) Serum Negative (Negative)
[2022-11-15 09:37] LABS: Glucose Point of Care 434 mg/dL (70-110)
[2022-11-15 09:42] LABS: Alanine Aminotransferase 7 U/L (0-33); Albumin Level 2.8 g/dL (3.5-5.2); Alkaline Phosphatase 104 U/L (35-105); Anion Gap 11.2 (5-19); Aspartate Amino Transferase 7 U/L (0-32); Blood Urea Nitrogen 21 mg/dL (8-23); Calcium 8.8 mg/dL (8.5-10.5); Carbon Dioxide 35 mmol/L (22-29); Chloride 94 mmol/L (98-107); Creatine Phosphokinase 56 U/L (26-192); Globulin 3.3 g/dL (1.3-4.6); Glucose 434 mg/dL (65-115); Lipase 22 U/L (13-60); Osmolality Calculated 304 mOsm/kg (285-295); Potassium 4.2 mmol/L (3.5-5.1); Sodium 136 mmol/L (136-145); Total Bilirubin 0.3 mg/dL (0.15-1.2); Total Protein 6.1 g/dL (6.6-8.7)
[2022-11-15 09:42] LABS: ABG PCO2 56.4 mmHg (35-45); ABG PH Result 7.39 (7.35-7.45); Alveolar-Arterial Oxygen Gradi 8.2 mmHg (5-10); Arterial Blood Gas Hematocrit 53.7 % (37-47); Base Excess ABG 6.9 mmol/L (-2.0-2.0); Blood Gas Operator Identificat GD; Blood Gas Sample Site Brachial, right; Blood Gas Sample Type Arterial; Carboxyhemoglobin 7.2 %THgb (0.4-20.1); HCO3 ABG 34.2 mmol/L (22-26); HGB O2 Sat 86.3 % (95-100); Ionized Calcium Level - ABG 1.2 mmol/L (1.1-1.4); Methemoglobin 0.7 % (0.4-1.5); Oxygen Device NC; Oxygen Saturation ABG 93.6; PO2 ABG 67.3 mmHg (80.0-100.0); Potassium Level - ABG 3.9 mmol/L (3.5-5.0); Total Hemoglobin 17.5 g/dL (12-16)
[2022-11-15 09:54] LABS: Lactic Sepsis W/Reflex 0.6 mmol/L (0.5-2.2)
--- NOTE | 2022-11-15 10:11 | ECG_ITS ---
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 Measurements Intervals [place] Rate: 79 P: 65 CA: 164 QRS: 65 QRSD: 90 T: 77 QT: 382 QTc: 439 Interpretive Statements SINUS RHYTHM LEFT ATRIAL ENLARGEMENT [-0.15mV P-WAVE IN V1/V2] Compared to ECG 08/15/2021 18:45:55 No significant changes Electronically Signed On 11-16-2022 0:17:52 CDT by Rashad Hobbs M.D. [email or web address]
[2022-11-15] MEDS: insulin regular-human 100 units/1 mL 10 UNIT IVP (11:00)
[2022-11-15 12:02] LABS: Specific Gravity, Urine 1.015 (1.005-1.030); Urine Color Colorless (Yellow); pH Urine 7 (5-7)
[2022-11-15 12:03] LABS: Add Urine Microscopic? YES; Bilirubin Urine Neg (Negative); Blood Urine 2+ (Negative); Glucose Urine UA 4+ (Normal); Ketones Urine Negative (Negative); Leukocyte Esterase Urine Negative (Negative); Nitrate Urine Negative (Negative); Protein Urine 2+ (Negative); Urobilinogen Urine Norm (Negative)
[2022-11-15 12:18] LABS: Add Urine Culture? No; Bacteria Urine 1+ /hpf; Squamous Epithelial Cell Urine 25-40 /hpf (0-5); WBC Urine 0-4 /hpf (0-5)
--- NOTE | 2022-11-15 12:32 | PC.PHAR ---
pt states she does not know her medications and does not want to discuss them. Asked patient if she was out of her meds and she stated I don't know if I am out of them, in them or upside down.
--- NOTE | 2022-11-15 13:03 | P.HP_ITS ---
Providers/Chief Complaint Admitting Physician: Karen Jewell MD Primary Care Provider: Marilou Bearden MD Chief Complaint: generalized weakness/ unable to ambulate History of Present Illness Shea Simon is a 61 year old female who presented to the emergency room via EMS because of weakness. From what she tells me, her arms and legs are so weak that she was having more difficulty getting up from her chair and walking around than usual. She does have a chronic unsteady gait according to available records as well as a tremor. There was a question of whether or not she fell but she denies it at this time. CT of the head and cervical spine in the emergency room were unremarkable. In talking with her she reports that she quit taking all of her medications a couple of weeks ago. She stopped the Lasix prior to that because she felt like she was having to urinate too much. She has not been taking her insulin nor her blood thinners. She has had gradually increasing swelling of both lower extremities. Left lower extremity is larger than right lower extremity but she indicates this is not new. She does have a history of a DVT in the left lower extremity in 2019. She reports pain in her arms and legs in addition to the weakness. She also describes development of orthopnea, PND to the point that she is sleeping even worse than usual. Denies significant increase in cough or change in sputum. No report of any fever. She has continued to smoke 2 to 2-1/2 packs of cigarettes per day. She has had urinary frequency and incontinence but denies any dysuria. In the emergency room oxygen saturation in the mid 80s on presentation and blood pressure 180s over 90s. Not tachycardic. She is not on oxygen at home. She has known COPD as well as heart failure with preserved ejection fraction and moderate aortic stenosis by last echocardiogram in early 2021. Oxygenation improved with 2 L by nasal cannula. Breathing treatment and BiPAP were ordered but patient refused both. She refused blood cultures and COVID testing. She was given Rocephin and azithromycin for left lower lobe infiltrate suggesting pneumonia on chest x-ray. She also received 10 units of regular insulin for blood sugars of greater than 500 at presentation. She did not have serum ketones and anion gap was normal. Hospitalist were contacted for admission. Review of Systems General: Reports: Other (ROS as per HPI or as otherwise noted here) Const: Reports: change in weight (unable to quantify) Eyes: Denies: change in vision ENMT: Denies: throat pain or nasal congestion Card: Denies: chest pain or palpitations Resp: Denies: pain on inspiration or hemoptysis GI: Denies: abdominal pain, nausea, vomiting or diarrhea : Denies: flank pain Musc: Reports: extremity pain (Arms and legs with similar discomfort) Skin/Breast: Reports: sores (Arms and sacral area) Neuro: Reports: difficulty walking (Acute on chronic due to weakness) and involuntary movements (Chronic tremor in her hands); Denies: frequent falls or Slurred speech present Medications/Allergies Home Medications Medication Instructions Recorded Confirmed Last Taken Type aspirin 81 mg tablet,delayed 81 mg PO BID 09/16/21 11/15/22 Unknown History release nitroglycerin 0.4 mg sublingual 0.4 mg sublingual Q5M PRN Chest 09/16/21 11/15/22 Unknown History tablet Pain walker #1 ea 12/02/21 11/15/22 Unknown Rx blood sugar diagnostic (TapastreetTouch #50 ea 12/06/21 11/15/22 Unknown Rx Ultra Test strips) blood-glucose meter (TapastreetTouch #1 ea 12/06/21 11/15/22 Unknown Rx Ultra2 Meter kit) lancets 33 gauge (OneTouch Delica #100 ea 12/06/21 11/15/22 Unknown Rx Plus Lancet) furosemide 20 mg tablet 20 mg PO BID PRN Edema #60 tabs 03/27/22 11/15/22 Unknown Rx atorvastatin 10 mg tablet 10 mg PO DAILY #30 tabs 07/28/22 11/15/22 Unknown Rx diltiazem HCl 30 mg tablet 30 mg PO BID #60 tabs 07/28/22 11/15/22 Unknown Rx escitalopram oxalate 20 mg tablet 20 mg PO DAILY@08 #30 tabs 07/28/22 11/15/22 Unknown Rx fluticasone 500 mcg-salmeterol 50 1 inh inhalation BID@,20 #60 ea 07/28/22 11/15/22 Unknown Rx mcg/dose blistr powdr for inhalation (Advair Diskus) honey 100 % topical paste 1 applic topical BID #103 mL 07/28/22 11/15/22 Unknown Rx (Jermaine (honey)) insulin degludec 200 unit/mL (3 20 unit (0.1 mL) SUBCUT DAILY #9 mL 07/28/22 11/15/22 Unknown Rx mL) subcutaneous pen (Tresiba FlexTouch U-200 insulin) metformin 500 mg tablet,extended 1,000 mg PO BID #120 tabs 07/28/22 11/15/22 Unknown Rx release 24 hr nystatin 100,000 unit/gram topical 1 applic topical BID #30 grams 07/28/22 11/15/22 Unknown Rx cream pen needle, diabetic 33 gauge x #100 ea 07/28/22 11/15/22 Unknown Rx 5/32 rivaroxaban 2.5 mg tablet (Xarelto) 2.5 mg PO BID #60 tabs 07/28/22 11/15/22 Unknown Rx semaglutide 0.25 mg or 0.5 mg (2 0.5 mg (0.4 mL) SUBCUT Q7D #1.5 mL 07/28/22 11/15/22 Unknown Rx mg/1.5 mL) subcutaneous pen injector (Ozempic) primidone 250 mg tablet 250 mg PO DAILY #30 tabs 07/31/22 11/15/22 Unknown Rx ergocalciferol (vitamin D2) 1,250 1,250 mcg PO Q7D 11/15/22 11/15/22 Unknown History mcg (50,000 unit) capsule Allergies Allergy/AdvReac Type Severity Reaction Status Date / Time No Known Allergies Allergy Verified 08/04/22 17:53 Additional Medication Information The above medication list is what patient has been prescribed however she has not taken any of the medications for at least the past 2 weeks by her report PFSH Acute PFSH: Medical History (Updated 11/15/22 @ 15:04 by Karen Jewell MD) Aortic stenosis Moderate by echocardiogram in August 2021 with aortic valve area of 2.1 cm? Cervical disc disease Chronic neck pain COPD (chronic obstructive pulmonary disease) COVID-19 Recovered 07/2021 Diabetes mellitus with hyperglycemia Diastolic congestive heart failure Gallbladder anomaly US in 2019 showed a 1.2 cm gallbladder wall polyp versus stone, with some gallbladder wall thickening at 4.6 mm Generalized anxiety disorder GERD (gastroesophageal reflux disease) History of DVT of lower extremity Left leg 06/2019 History of skin cancer Basal cell carcinoma on back 2007 HTN (hypertension) Insomnia, unspecified Lumbar nerve root impingement Noncompliance with dietary restriction Noncompliance with medication regimen Nontraumatic retroperitoneal hematoma 2021 during admission for covid, developed bilateral iliac muscle and right psoas muscle hematomas while on therapeutic anticoagulation Pain of back and right lower extremity Parkinsonian tremor Peripheral arterial disease Unspecified urinary incontinence Unsteady gait Vitamin B12 deficiency Vitamin D deficiency Surgical History H/O left breast biopsy Benign 2016 History of thoracentesis X 2 for traumatic effusion History of tonsillectomy Hx of colonoscopy Hx of tubal ligation / incidental appendectomy 1981 Status post surgical removal of malignant neoplasm of skin Basal cell carcinoma on back 2007 Family History Mother Cancer Unknown type Father Cancer Lung CA Son Gallbladder disease Other Hypertension Denies family history of Clotting disorder Social History (Updated 11/15/22 @ 14:36 by Karen Jewell MD) Smoking and tobacco status: current every day smoker cigarettes [ Other cigarette details: 2-2.5 PPD] Second hand smoke exposure: No Alcohol intake: never Substance/Drug Use: never Caregiver/support person: No Lives independently: Yes Household members: other Details: friends help her Current occupational status: unemployed Do you think of yourself as: Straight/Heterosexual Current gender identity: Female Vitals/I&O/Wt Last Vital Signs Temp 98.1 F 11/15/22 09:09 Pulse 77 11/15/22 12:15 Resp 20 H 11/15/22 12:15 BP 189/100 11/15/22 11:30 Pulse Ox 96 11/15/22 12:15 O2 Del Method Nasal Cannula 11/15/22 12:15 O2 Flow Rate 2 11/15/22 12:15 Weight last 48 hrs Weight 65.771 kg Physical Exam Narrative: Patient is easy to arouse. She is oriented to person and place but to a lesser degree situation. History is obtained from her but difficult to get consistent or detailed answers. She looks both chronically and acutely ill. Normocephalic. Sclera slightly injected. Nasopharynx is clear. Oropharynx with dry mucous membranes, dentures noted. Neck is supple with JVD noted up to the earlobes. Cardiovascular exam reveals a regular rhythm with S4 gallop and apical impulse displaced in the axillary line. 3/6 holosystolic murmur noted loudest at the right upper sternal border radiating up into the neck. Abdomen is soft, nontender, positive bowel sounds. External genitalia with some erythema of the vulva but no visible satellite lesions. Patient smells of urine. 4+ edema to the lower extremities. Left lower extremity is significantly larger in diameter than the right lower extremity. No significant differentiation and calf tenderness between either leg. Chronic stasis changes noted to both legs. More pitting is appreciated in the left leg. Capillary refill is brisk at the great toe bilaterally though peripheral pulses are faint in the feet. 1+ radial pulses. Currently without any involuntary movements noted. Generally weak and not fully cooperative with neurological exam but moves all extremities. Face is symmetric. Speech is clear and extraocular movements are grossly intact. Some oozing is noted to both lower extremities. In the sacral area there are 3 blanchable areas with some skin breakdown grouped at the sacral region present on admission. She has some dried scabs to both arms and other chronic skin changes. No large areas of bruising though I did note some faint bruising to the top of the left foot. Data 11/15/22 08:20 11/15/22 08:20 Other Labs: Radiology Impressions Chest X-Ray 11/15/22 09:07 IMPRESSION: Ground-glass consolidation in the left lung base concerning for possible pneumonia. Cervical Spine CT 11/15/22 09:16 IMPRESSION: 1. No cervical spine fracture. 2. No significant central or foraminal stenosis or large disc protrusions. Head CT 11/15/22 09:16 IMPRESSION: 1. No acute intracranial hemorrhage identified. Mild limitation due to motion artifact. 2. Mild cerebral atrophy and small vessel ischemic disease. New area of decreased attenuation in the LEFT basal ganglia. Does not appear acute. Laboratory Results WBC 5.5 10^3/uL (4.0-10.0) 11/15/22 08:20 RBC 5.79 10^6/uL (4.1-5.3) H 11/15/22 08:20 Hgb 17.3 g/dL (11.5-15.3) H 11/15/22 08:20 Hct 51.5 % (37.0-47.0) H 11/15/22 08:20 MCV 88.9 fl (81-99) 11/15/22 08:20 MCH 29.9 pg (28.0-34.0) 11/15/22 08:20 MCHC 33.6 g/dL (30.0-36.0) 11/15/22 08:20 RDW 13.5 % (12.1-15.1) 11/15/22 08:20 Plt Count 167 10^3/cmm (130-400) 11/15/22 08:20 MPV 10.3 fL (7.4-10.4) 11/15/22 08:20 Neut % (Auto) 65.4 % 11/15/22 08:20 Lymph % (Auto) 24.6 % 11/15/22 08:20 [place] % (Auto) 6.7 % 11/15/22 08:20 Eos % (Auto) 2.7 % 11/15/22 08:20 Baso % (Auto) 0.4 % 11/15/22 08:20 Neut # (Auto) 3.62 10^3/uL (1.8-7.7) 11/15/22 08:20 Lymph # (Auto) 1.4 10^3/uL (0.8-4.8) 11/15/22 08:20 [place] # (Auto) 0.4 10^3/uL (0.2-0.9) 11/15/22 08:20 Eos # (Auto) 0.2 10^3/uL (0.0-0.8) 11/15/22 08:20 Baso # (Auto) 0.0 10^3/uL (0.0-0.1) 11/15/22 08:20 Nucleated RBC % (auto) 0 % 11/15/22 08:20 Nucleated RBCs # 0.0 /100WBC 11/15/22 08:20 Specimen Type Arterial 11/15/22 09:28 Sample Site Brachial, right 11/15/22 09:28 ABG pH 7.39 (7.35-7.45) 11/15/22 09:28 ABG pCO2 56.4 mmHg (35-45) H 11/15/22 09:28 ABG pO2 67.3 mmHg (80.0-100.0) L 11/15/22 09:28 ABG HCO3 34.2 mmol/L (22-26) H 11/15/22 09:28 ABG O2 Saturation 93.6 11/15/22 09:28 ABG Base Excess 6.9 mmol/L (-2.0-2.0) H 11/15/22 09:28 Dilshad Test N/a 11/15/22 09:28 A-a O2 Gradient 8.2 mmHg (5-10) 11/15/22 09:28 Hematocrit 53.7 % (37-47) H 11/15/22 09:28 Hgb O2 Saturation 86.3 % (95-100) L 11/15/22 09:28 Carboxyhemoglobin 7.2 %THgb (0.4-20.1) 11/15/22 09:28 Methemoglobin 0.7 % (0.4-1.5) 11/15/22 09:28 Total Hemoglobin 17.5 g/dL (12-16) H 11/15/22 09:28 Sodium 139.0 mmol/L (131-143) 11/15/22 09:28 Potassium 3.9 mmol/L (3.5-5.0) 11/15/22 09:28 Glucose 417.0 mg/dL (70-115) H 11/15/22 09:28 Ionized Calcium 1.2 mmol/L (1.1-1.4) 11/15/22 09:28 O2 Delivery Device Nc 11/15/22 09:28 O2 Liters/Min 2.0 % 11/15/22 09:28 FiO2 28.0 % 11/15/22 09:28 Telegraph Dispatcher ID Gd 11/15/22 09:28 Sodium 136 mmol/L (136-145) 11/15/22 08:20 Potassium 4.2 mmol/L (3.5-5.1) 11/15/22 08:20 Chloride 94 mmol/L (98-107) L 11/15/22 08:20 Carbon Dioxide 35 mmol/L (22-29) H 11/15/22 08:20 Anion Gap 11.2 (5-19) 11/15/22 08:20 BUN 21 mg/dL (8-23) 11/15/22 08:20 Creatinine 0.6 mg/dL (0.5-0.9) 11/15/22 08:20 GFR Calculation 101.0 mL/min (90-130) 11/15/22 08:20 Glucose 434 mg/dL (65-115) H 11/15/22 08:20 POC Glucose 434 mg/dL (70-110) H 11/15/22 09:27 Calculated Osmolality 304 mOsm/kg (285-295) H 11/15/22 08:20 Lactic Acid 0.6 mmol/L (0.5-2.2) 11/15/22 09:34 Calcium 8.8 mg/dL (8.5-10.5) 11/15/22 08:20 Total Bilirubin 0.3 mg/dL (0.15-1.2) 11/15/22 08:20 AST 7 U/L (0-32) 11/15/22 08:20 ALT 7 U/L (0-33) 11/15/22 08:20 Alkaline Phosphatase 104 U/L (35-105) 11/15/22 08:20 Creatine Kinase 56 U/L (26-192) 11/15/22 08:20 Total Protein 6.1 g/dL (6.6-8.7) L 11/15/22 08:20 Albumin 2.8 g/dL (3.5-5.2) L 11/15/22 08:20 Globulin 3.3 g/dL (1.3-4.6) 11/15/22 08:20 Lipase 22 U/L (13-60) 11/15/22 08:20 Urine Color Colorless (Yellow) 11/15/22 11:20 Urine Appearance Sl cloudy (CLEAR) A 11/15/22 11:20 Urine pH 7 (5-7) 11/15/22 11:20 Ur Specific [place] 1.015 (1.005-1.030) 11/15/22 11:20 Urine Protein 2+ (Negative) H 11/15/22 11:20 Urine Glucose (UA) 4+ (Normal) H 11/15/22 11:20 Urine Ketones Negative (Negative) 11/15/22 11:20 Urine Blood 2+ (Negative) H 11/15/22 11:20 Urine Nitrate Negative (Negative) 11/15/22 11:20 Urine Bilirubin Neg (Negative) 11/15/22 11:20 Urine Urobilinogen Norm mg/dL (Negative) 11/15/22 11:20 Ur Leukocyte Esterase Negative (Negative) 11/15/22 11:20 Urine RBC 5-10 /hpf (0-2) H 11/15/22 11:20 Urine WBC 0-4 /hpf (0-5) H 11/15/22 11:20 Ur Squamous Epith Cells 25-40 /hpf (0-5) H 11/15/22 11:20 Amorphous Sediment Not Reportable 11/15/22 11:20 Urine Bacteria 1+ /hpf (NONE) H 11/15/22 11:20 Serum Ketones Negative (Negative) 11/15/22 08:20 A&P Assessment and plan (1) Weakness: Presenting complaint, involving both arms and both legs, more generalized than focal, multifactorial from hypoxemia/hypercapnia related to COPD/CHF/, poorly controlled diabetes mellitus with significant hyperglycemia, polycythemia, baseline gait instability and tremor, and general deconditioning secondary to chronic diagnoses and noncompliance with recommended medication management. CK was normal. We will monitor response with treatment for other conditions Check TSH PT and OT evaluations (2) Pneumonia: Left lower lobe, diagnosis from ER at admission though without report of increased cough or sputum production, fever Refused blood cultures and sputum collection Refused COVID testing Add procalcitonin to blood in the lab Continue Rocephin and azithromycin currently Breathing treatments ordered but she has thus far refused Secondary to hyperglycemia and current pulmonary examination I have not instituted steroids (3) (HFpEF) heart failure with preserved ejection fraction: Acute on chronic based on degree of edema with some weeping, orthopnea, PND and dyspnea with minimal exertion increasing gradually over time along with progressive cardiomegaly on examination. Somewhat of a mixed picture with slightly elevated calculated osmolarity and polycythemia along with dry mouth though I do believe hypoalbuminemia is contributing to total body volume overload. Check BNP IV diuresis with potassium supplementation Strict I's and O's and daily weights I recommended Gutierrez catheter for close monitoring of urine output to facilitate medical management but patient has refused Check echocardiogram Has refused repeat blood draws in ED so have been unable to get cardiac enzymes series Monitor overall volume status, renal function and hemoconcentration, adjusting therapy as needed Considered albumin to facilitate diuresis but with current significant hypertension, holding off for now (4) Polycythemia: Suspect secondary to to chronic undiagnosed hypoxemia at this point in time, has not been noted previously with last comparable labs at the upper range of normal for hemoglobin last year. In early 2021 had COVID and was on anticoagulation when she developed retroperitoneal hematoma and associated acute blood loss anemia. While oropharynx is dry appears to be total body volume overloaded so I do not believe hemoconcentration is accounting for this presently. Monitor hemoglobin with diuresis and other management Expect will meet requirements for home oxygen though she may decline it (5) Aortic stenosis: Identified on echocardiogram in August 2021 with mean gradient of 5.5 mmHg and aortic valve area of 2.1 cm? Monitor clinical status with shifts closely (6) HTN (hypertension): Historically with a history of essential hypertension, currently with very poorly controlled hypertension but has not been on any medications for several weeks and appears total body volume overloaded Anticipate some improvement with diuresis Nitroglycerin will be added Monitor blood pressures for need to adjust therapy further (7) Chronic respiratory failure with hypoxia and hypercapnia: Secondary to commendation of COPD, ongoing tobacco use with smoking cigarettes and CHF. Had some degree of distress initially and reports distress with activity. I presently suspect degree of current hypoxemia on room air is likely a recent baseline along with the hypercapnia. Monitor respiratory status for acute worsening (8) COPD (chronic obstructive pulmonary disease): Chronic related to cigarette use, does not clinically appear acutely exacerbated at the time of my examination having not had breathing treatments nor steroids Breathing treatments will be ordered as needed though patient has thus far refused them BiPAP was considered but patient refused Continue oxygen therapy Not interested in smoking cessation Avoiding steroid therapy secondary to degree of hyperglycemia and present examination (9) Diabetes mellitus with hyperglycemia: Type II, prescribed insulin but does not take, with significant hyperglycemia w hich I suspect is a contributor to urinary incontinence in addition to volume overload Lantus at bedtime with sliding scale before meals and at bedtime Check hemoglobin A1c Qualifiers: Diabetes mellitus type: type 2 (10) Sacral decubitus ulcer, stage II: Present on admission Wound care, regular turning and monitoring (11) H/O deep venous thrombosis: Deep vein thrombosis left lower extremity in 2019, has chronically been prescribed Xarelto at a prophylactic dose though has not been taking it. Venous ultrasound in August 2021 without evidence of DVT in the left leg. Check venous Doppler Continue Lovenox at prophylactic dosing currently (12) Parkinsonian tremor: Has been prescribed primidone in the past though not taking it for the last few weeks Monitor need to consider resumption of home medication (13) Noncompliance with medication regimen: Contributing to current admission and diagnoses above Education and ongoing discussion regarding benefits of compliance and risk of noncompliance Plan Hypoalbuminemia Pain in arms and legs, impart chronic as has been noted in the past, and acutely edema appears to be contributing Insomnia Inpatient admission Fair to poor overall prognosis secondary to noncompliance, comorbidities and refusal of some care Tylenol for pain control currently Trazodone for sleep, want to avoid benzodiazopines if we can given hypercapnea PPI for GI prophylaxis Lovenox for DVT prophylaxis Fall precautions, neurochecks Other care as noted above Supportive care otherwise Plan of care as outlined in this note was reviewed with patient and she agreed at this point in time Anticipate discharge home in several days if she continues to agree to stay in the hospital with home oxygen and follow-up primary care provider; suspect that she might benefit from home health but may not agree to it based on conversation today Full code Attestations Medical Necessity Statement*: Anticipated stay greater than two midnights in this patient with noted comorbidities who has not been taking her medications for the past few weeks. She has poorly controlled blood pressure, heart failure, diabetes, new polycythemia, likely previously unnoted (vs refusal to accept) chronic hypoxia and hypercapnia and other issues as described. She is requiring oxygen, IV diuresis, presently antibiotics for possibility of pneumonia, further work-up and monitoring as noted. At high risk of continued clinical decline up to and including the possibility of without intervention though I will note her noncompliance and refusal of some care is a contributing factor. and High Time for a total of 75 minutes, includes reviewing past or interval history, examining/interviewing patient, placing orders, discussing plan of care with staff and documenting encounter Diagnoses Weakness R53.1 Pneumonia J18.9 (HFpEF) heart failure with preserved ejection fraction I50.30 Polycythemia D75.1 Aortic stenosis I35.0 HTN (hypertension) I10 Chronic respiratory failure with hypoxia and hypercapnia J96.11; J96.12 COPD (chronic obstructive pulmonary disease) J44.9 Diabetes mellitus with hyperglycemia E11.65 Diabetes mellitus type: type 2 Sacral decubitus ulcer, stage II L89.152 H/O deep venous thrombosis Z86.718 Parkinsonian tremor G20 Noncompliance with medication regimen Z91.14
[2022-11-15 13:33] LABS: Urine Appearance Clear (CLEAR); Urine Color Colorless (Yellow)
[2022-11-15 13:34] LABS: Add Urine Culture? No; Bilirubin Urine Neg (Negative); Blood Urine 2+ (Negative); Glucose Urine UA 4+ (Normal); Ketones Urine Negative (Negative); Leukocyte Esterase Urine Negative (Negative); Nitrate Urine Negative (Negative); Protein Urine 3+ (Negative); RBC Urine 0-4 /hpf (0-2); Specific Gravity, Urine 1.015 (1.005-1.030); Squamous Epithelial Cell Urine 0-4 /hpf (0-5); Urobilinogen Urine Norm (Negative); WBC Urine 0-4 /hpf (0-5); pH Urine 6.5 (5-7)
--- NOTE | 2022-11-15 13:39 | PC.NURSE ---
Pt refused PCR Covid test. Provider notified.
[2022-11-15 14:12] LABS: NT Pro B Type Natriuretic Pept 521 pg/mL (0-125)
[2022-11-15 14:28] LABS: Glucose Point of Care 312 mg/dL (70-110)
[2022-11-15 15:08] LABS: Procalcitonin 0.07 ng/mL (0-0.5); Thyroid Stimulating Hormone 5.48 uIU/mL (0.27-4.20)
[2022-11-15] MEDS: azithromycin 500 MG in sodium chloride 0.9% 250 ML 250 MG IV (16:25)
[2022-11-15] MEDS: cefTRIAXone 1,000 MG in sodium chloride 0.9% (plus) 50 ML 100 MG IV (16:25)
[2022-11-15] MEDS: acetaminophen 325 mg Tablet 650 MG PO (16:26)
[2022-11-15] MEDS: FUROsemide 10 mg/mL SDV 4mL 40 MG IVP (16:26)
[2022-11-15] MEDS: enoxaparin 40 mg/0.4 mL Syringe SUBCUT (16:26)
[2022-11-15] MEDS: potassium chloride ER 20 mEq Tablet PO (16:26)
[2022-11-15] MEDS: nitroglycerin 1 gm/inch oint Pkt 1 INCH TOPICAL ×2 (16:26→20:45)
[2022-11-15 17:07] LABS: Glucose Point of Care 327 mg/dL (70-110)
[2022-11-15] MEDS: insulin lispro 100 unit/1 mL SUBCUT ×2 (17:46→21:44)
[2022-11-15] MEDS: docusate sodium 100 mg Capsule PO (17:46)
--- NOTE | 2022-11-15 20:34 | PC.NURSE ---
Patient is able to tell me her name, where she is at, why she is here and the month. Patient states that the year is 2021. Patient needs frequent reinforcement on fall education. Bed alarm is set. Nurse came in to do physical assessment and patient wanting to sit on side of bed. Per shift report, patient is very weak. Patient states I walk just fine at home. This nurse stated to patient give me one minute and let me go get some help. Patient states I'll just get up myself. Nurse stated don't get up by yourself, you might fall and get hurt. Patient states if I fall, I'll just tell them you wouldn't help me. Nurse stated, I will help you sit on the side of the bed, I just want a second nurse in here to help. Patient assisted to side of bed. Patient very wobbly and weak. Patient unable to hold drink without dropping it. Patient assisted back to bed. Patient educated that she is very weak and to not get up without assistance. Patient states okay I won't Bed alarm is set.
[2022-11-15 20:57] LABS: Glucose Point of Care 221 mg/dL (70-110)
[2022-11-15] MEDS: insulin glargine 100 units/1 mL 10 UNIT SUBCUT (21:44)
[2022-11-15 23:58] LABS: Estmated Average Glucose 404; Hemoglobin A1C 15.7 % (4.0-6.0)
[2022-11-16] VITALS (11 sets, daily range): BP systolic 111–178; BP diastolic 59–83; PULSE 66–82; RESP 15–18; TEMP 36.6–36.8; O2SAT 90–97
--- NOTE | 2022-11-16 04:37 | PC.NURSE ---
03:30 meds given late due to patient getting echo by US staff.
[2022-11-16 05:32] LABS: Basophils % 0.4 %; Eosinophils # 0.2 10^3/uL (0.0-0.8); Eosinophils % 2.3 %; Hematocrit 46.5 % (37.0-47.0); Hemoglobin 15.5 g/dL (11.5-15.3); Lymphocytes # 1.4 10^3/uL (0.8-4.8); Lymphocytes % 20.2 %; Mean Corpuscular HGB Conc 33.3 g/dL (30.0-36.0); Mean Corpuscular Hemoglobin 29.8 pg (28.0-34.0); Mean Corpuscular Volume 89.4 fl (81-99); Mean Platelet Volume 10.4 fL (7.4-10.4); Monocytes # 0.5 10^3/uL (0.2-0.9); Neutrophils # 4.77 10^3/uL (1.8-7.7); Nucleated Red Blood Cells % 0 %; Platelet Count 155 10^3/cmm (130-400); Red Cell Distribution Width 13.3 % (12.1-15.1); White Blood Count 6.8 10^3/uL (4.0-10.0)
[2022-11-16] MEDS: FUROsemide 10 mg/mL SDV 4mL 40 MG IVP (05:46)
[2022-11-16] MEDS: potassium chloride ER 20 mEq Tablet PO (05:46)
[2022-11-16] MEDS: nitroglycerin 1 gm/inch oint Pkt 1 INCH TOPICAL ×2 (05:47→10:46)
[2022-11-16 05:50] LABS: D Dimer 0.98 ug/mIFEU (0-0.59)
[2022-11-16 06:02] LABS: Anion Gap 11.6 (5-19); Blood Urea Nitrogen 19 mg/dL (8-23); Calcium 8.6 mg/dL (8.5-10.5); Carbon Dioxide 31 mmol/L (22-29); Chloride 101 mmol/L (98-107); Free T4 Free Thyroxine 0.79 ng/dL (0.82-1.77); Glucose 291 mg/dL (65-115); Magnesium 1.9 mg/dL (1.7-2.3); Osmolality Calculated 303 mOsm/kg (285-295); Phosphorus 3.8 mg/dL (2.5-4.5); Potassium 3.6 mmol/L (3.5-5.1); Sodium 140 mmol/L (136-145); T3 Free 1.4 PG/ML (2.0-4.4)
[2022-11-16 08:57] LABS: Glucose Point of Care 337 mg/dL (70-110)
[2022-11-16] MEDS: aspirin 81 mg EC Tablet PO (10:46)
[2022-11-16] MEDS: docusate sodium 100 mg Capsule PO ×2 (10:46→17:34)
[2022-11-16] MEDS: insulin lispro 100 unit/1 mL SUBCUT ×4 (10:46→21:22)
[2022-11-16] MEDS: pantoprazole DR 40 mg Tablet PO (10:46)
[2022-11-16 12:28] LABS: Glucose Point of Care 484 mg/dL (70-110)
[2022-11-16 12:28] LABS: Glucose Point of Care 359 mg/dL (70-110)
[2022-11-16 12:28] LABS: Glucose Point of Care 446 mg/dL (70-110)
[2022-11-16] MEDS: sodium chloride 0.9% 1,000 ML 75 ML IV ×2 (12:31→21:23)
[2022-11-16] MEDS: rivaroxaban 10 mg Tablet 2.5 MG PO (12:37)
[2022-11-16 12:40] LABS: Amphetamines Screen Urine Negative (Negative); Barbiturates Screen Urine Negative (Negative); Benzodiazepines Screen Urine Negative (Negative); Cocaine Screen Urine Negative (Negative); Opiate Screen Urine Negative (Negative); PCP Screen Urine Negative (Negative); THC Screen Urine Negative (Negative)
[2022-11-16] MEDS: insulin glargine 100 units/1 mL 10 UNIT SUBCUT ×2 (12:45→21:22)
[2022-11-16 12:50] LABS: Cortisol Random 12.77 ug/dL (2.47-19.5)
[2022-11-16 14:33] LABS: Iron 62 ug/dL (37-145); Percent Saturation 33.1 % (20-50); Total Iron Binding Capacity 187 mcg/dl; Unsaturated Iron Binding 125 ug/dL (112-347)
[2022-11-16 14:41] LABS: Procalcitonin 0.07 ng/mL (0-0.5)
--- NOTE | 2022-11-16 14:45 | USCV_ITS ---
Shea Simon Age: 61 Gender: F : 1960 Exam Date: 11/16/2022 15:23 Ordering Phys: Karen Jewell MD Technologist: Fritz Goodman Exam Location: [facility] [place] Indication: HFpEF, , presenting s4 gallop, JVD, LE edema, SOB. Patient denies hx cardiac intervention. BP: 128 / 66 HR: 93 Rhythm: Sinus Technical Quality: Adequate MEASUREMENTS (Male / Female) Normal Values 2D ECHO LV Diastolic Diameter PLAX 3.9 cm 4.2 - 5.9 / 3.9 - 5.3 cm LV Systolic Diameter PLAX 2.8 cm IVS Diastolic Thickness 1.7 cm 0.6 - 1.0 / 0.6 - 0.9 cm IVS Systolic Thickness 1.9 cm LVPW Diastolic Thickness 1.5 cm 0.6 - 1.0 / 0.6 - 0.9 cm LVPW Systolic Thickness 1.8 cm LVOT Diameter 2.0 cm LV Ejection Fraction 2D Teich 53.2 % LV Ejection Fraction MOD 2C 55.9 % LV Ejection Fraction 2C AL 55.4 % LA Diameter 4.1 cm LA Width 3.8 cm LA Height 6.1 cm RA Width 4.6 cm RA Height 6.1 cm Aorta at Sinotubular Diameter 2.6 cm IVC Diameter 1.9 cm M-MODE Aortic Annulus Diameter 2.6 cm LA Ao Ratio MM 1.3 MV E Point Septal Separation 0.5 cm DOPPLER AV Peak Velocity 99.0 cm/s LVOT Peak Velocity 69.0 cm/s AV Area Cont Eq vti 2.5 cm squared AV Area Cont Eq pk 2.2 cm squared MV Peak Velocity 113.0 cm/s MV Area PHT 2.2 cm squared Mitral E to A Ratio 0.6 MV E' Velocity 32.0 cm/s Mitral E to MV E' Ratio 10.5 Mitral E to LV E' Lateral Ratio 8.3 Mitral E to LV E' Septal Ratio 14.2 TV Peak E Velocity 25.0 cm/s PV Peak Velocity 120.3 cm/s RV Acceleration Time 0.1 s RV Ejection Time 0.3 s RV AcT/ET 0.2 FINDINGS Left Ventricle Normal left ventricular cavity size. Mild left ventricular hypertrophy. Normal left ventricular systolic function. Left ventricular ejection fraction is estimated at 65 %. Grade II/IV diastolic dysfunction, moderately elevated filling pressures. Right Ventricle Normal right ventricular size and systolic function. Right Atrium Mildly increased right atrial size. Left Atrium Mildly increased left atrial size. Mitral Valve Structurally normal mitral valve. Trace mitral valve regurgitation. Aortic Valve Structurally normal trileaflet aortic valve. No aortic valve stenosis. Trace aortic valve regurgitation. Tricuspid Valve Structurally normal tricuspid valve without significant stenosis or regurgitation. Pulmonary artery systolic pressure is normal. Pulmonic Valve Pulmonic valve not well visualized. Pericardium Normal pericardium without effusion. Aorta Normal ascending aorta dimension. IVC Mildly dilated inferior vena cava. CONCLUSIONS Normal left ventricular cavity size. Mild left ventricular hypertrophy. Normal left ventricular systolic function. Left ventricular ejection fraction is estimated at 65 %. Grade II/IV diastolic dysfunction, moderately elevated filling pressures. Mildly increased right atrial size. Mildly increased left atrial size. Structurally normal mitral valve. Trace mitral valve regurgitation. Structurally normal trileaflet aortic valve. No aortic valve stenosis. Trace aortic valve regurgitation. Mildly dilated inferior vena cava. Previous study was done 08/31/2021. That study suggested moderate aortic valve stenosis which was not evident on today's study. Otherwise, there has been no significant change. Dr. Roe Sanders MD (Electronically Signed) Final Date: 16 Nov 2022 09:17 S
--- NOTE | 2022-11-16 14:57 | USCV_ITS ---
Shea Simon Age: 61 Gender: F : 1960 Exam Date: 11/16/2022 04:19 Ordering Phys: Karen Jewell MD Technologist: JAIME [place] [facility] [place]: asymmetrial LE edema. hx LLE DVT not taking her anticoags. HISTORY: asymmetrial LE edema. hx LLE DVT not taking her anticoags. PROCEDURES: Venous duplex imaging was performed in bilateral lower extremities. The following venous structures were evaluated: common femoral vein, profunda vein, proximal portion of the greater saphenous vein, superficial femoral vein, and the popliteal vein. In addition, the posterior tibial veins were evaluated. Serial compression, augmentation maneuvers, and spectral Doppler flow evaluation were performed, which were normal. Bilaterally, the common femoral, superficial femoral, profunda femoral, popliteal, posterior tibial, and greater saphenous veins were identified and interrogated in the standard fashion. These veins were found to be easily compressible with spontaneous blood flow. No evidence of thrombus noted. CONCLUSIONS No evidence of right lower extremity DVT. No evidence of left lower extremity DVT. Sampson Mcnulty MD (Electronically Signed) Final Date: 16 Nov 2022 12:18 S
--- NOTE | 2022-11-16 16:43 | P.PN_ITS ---
Subjective Subjective: H&P and labs appreciated. Examination patient lying comfortably in bed. Yesterday patient was no ncompliant to medications being given to her at the hospital but today she seems to be more compliant. Patient states she has not been taking her medications at home because she forgets. States she last took her medications around 2 or 3 months ago. Denies any suicidal homicidal ideations. States she lives by herself. States she does have a son though they are not in touch. Her friend helps her with medications for now. Vitals/I&O/Wt Last Vital Signs Temp 98 F 11/16/22 16:30 Pulse 69 11/16/22 16:30 Resp 18 11/16/22 16:30 BP 111/59 11/16/22 16:30 Pulse Ox 95 11/16/22 16:30 O2 Del Method Nasal Cannula 11/16/22 16:30 O2 Flow Rate 2 11/16/22 12:40 11/16/22 11/16/22 11/16/22 06:59 14:59 22:59 Intake Total 360 / 360 Output Total 500 / 2700 2350 / 2350 Balance -500 / -2400 -1989 / Weight last 48 hrs Weight 70.817 kg Weight 65.771 kg Weight 65.771 kg Physical Exam Narrative: General: No acute distress, AO x3, NC oxygen supplementation, pleasant, chronically sick appearing HEENT: PERRLA, pupils bilaterally equal and reactive Chest: Bronchial breath sounds b/l occasional rhonchi and coarse crackles present all over lung gilman CVS: S1-S2 regular, no murmurs, no tachycardia, no gallops, no rubs Abdomen: Soft, nontender, no organomegaly, bowel sounds present, morbidly obese Neuro: No focal deficits, no facial deformity, AO x 2-3, power 5/5 in all limbs. Skin:In the sacral area there are 3 blanchable areas with some skin breakdown grouped at the sacral region present on admission.? She has some dried scabs to both arms and other chronic skin changes.? No large areas of bruising though I did note some faint bruising to the top of the left foot.? Urinary Catheter Management: Gutierrez: Cath Placed During This Visit: yes Reason for Continuing Indwelling Catheter: Acute Urinary Retention or Obstruction Urinary Catheter Date of Insertion: 11/15/22 Urinary Catheter Time of Insertion: 16:47 Data 11/16/22 05:07 11/16/22 05:07 Micro: Microbiology 11/15/22 05:07 Blood Culture - Preliminary Blood SPECIMEN COLLECTED 11/15/22 05:07 Blood Culture - Preliminary Blood SPECIMEN COLLECTED A&P Assessment and plan (1) Weakness: Most likely in setting of uncontrolled diabetes mellitus and hypothyroidism. Patient has a history of vitamin B12 deficiency. Check B12 levels. PT evaluation. (2) Uncontrolled diabetes mellitus: Secondary to noncompliance. A1c more than 16. Increase Lantus to 10 mg BID, insulin sliding scale high dose protocol. No concerns for DKA for now. IV fluids normal saline at 75 cc/h. Also associated with peripheral neuropathy. Start on gabapentin 100 mg 3 times daily. (3) Hypothyroidism: High TSH, low free T3 and free T4. Start on levothyroxine 100 mcg oral daily. Check cortisol levels. (4) Chronic respiratory failure with hypoxia and hypercapnia: Most likely in setting of COPD exacerbation along with congestive heart failure. Patient with history of diastolic heart failure. Pulmicort twice daily, DuoNebs every 6 hours. Oxygen supplementation keeping saturation over 88%. Concerns for pneumonia on admission. Follow-up blood culture, check sputum culture. Check urine Legionella, bacterial antigen. CT chest with contrast for further evaluation. Start on IV ceftriaxone and azithromycin. (5) COPD (chronic obstructive pulmonary disease): Chronic related to cigarette use, does not clinically appear acutely exacerbated at the time of my examination having not had breathing treatments nor steroids. Not interested in smoking cessation Avoiding steroid therapy secondary to degree of hyperglycemia and present examination (6) Pneumonia: Left lower lobe, diagnosis from ER at admission though without report of increased cough or sputum production, fever Follow-up blood cultures. Check sputum culture, MRSA swab. Check urine Legionella and bacterial antigen. Antibiotics as above. (7) (HFpEF) heart failure with preserved ejection fraction: Echocardiogram shows EF of 65 with grade 2 diastolic dysfunction, no aortic valve stenosis, mildly increased LA and RA size. IV fluid as above. Strict and proper charting. Monitor for fluid overload. (8) HTN (hypertension): Goal blood pressure 140/90 mmHg. At home since take Cardizem 30 mg twice daily. Started on nitrate patch on admission. For now remove the patch. Blood pressure is at goal. For now continue to hold off on antihypertensives. Will restart antihypertensives as per goal blood pressures. (9) Diabetes mellitus with hyperglycemia: Qualifiers: Diabetes mellitus type: type 2 (10) Sacral decubitus ulcer, stage II: Present on admission. Wound care, regular turning and monitoring (11) H/O deep venous thrombosis: Deep vein thrombosis left lower extremity in 2019, has chronically been prescr ibed Xarelto at a prophylactic dose though has not been taking it. Venous ultrasound in August 2021 without evidence of DVT in the left leg. Repeat Doppler negative for DVT. Continue Lovenox at DVT prophylaxis dose. (12) Parkinsonian tremor: Has been prescribed primidone in the past though not taking it for the last few weeks Monitor need to consider resumption of home medication (13) Noncompliance with medication regimen: Contributing to current admission and diagnoses above Education and ongoing discussion regarding benefits of compliance and risk of noncompliance (14) Paresthesia and pain of extremity: (15) Polycythemia: Could be secondary dehydration versus hypoxia. Continue to monitor. (16) Aortic stenosis: Identified on echocardiogram in August 2021 with mean gradient of 5.5 mmHg and aortic valve area of 2.1 cm? but not on the echocardiogram done from this time. Confirm with cardiology. Plan Full code. Lovenox for DVT prophylaxis Protonix OPD prophylaxis Carb consistent diet. Discharge plan: Discussed in detail with patient regarding noncompliance and need for medications compliance going forward. Patient verbalized understanding. States she lives by herself and takes care of her medication and usually forgets to take the medications. Have a friend who helps her sporadically. Patient is agreeable to home health. Awaiting PT evaluation. Denies any suicidal or homicidal ideations. Attestations Medical Necessity Statement*: Requires further hospitalization for management of weakness in setting of new diagnosis of hypothyroidism, uncontrolled type 2 diabetes mellitus, noncompliance with concerns for pneumonia while safe discharge planning is sought. Diagnoses Weakness R53.1 Uncontrolled diabetes mellitus Hypothyroidism E03.9 Chronic respiratory failure with hypoxia and hypercapnia J96.11; J96.12 COPD (chronic obstructive pulmonary disease) J44.9 Pneumonia J18.9 (HFpEF) heart failure with preserved ejection fraction I50.30 HTN (hypertension) I10 Diabetes mellitus with hyperglycemia E11.65 Diabetes mellitus type: type 2 Sacral decubitus ulcer, stage II L89.152 H/O deep venous thrombosis Z86.718 Parkinsonian tremor G20 Noncompliance with medication regimen Z91.14 Paresthesia and pain of extremity R20.2; M79.609 Polycythemia D75.1 Aortic stenosis I35.0
--- NOTE | 2022-11-16 16:46 | CTR_ITS ---
PROCEDURE INFORMATION: Exam: CT Chest With Contrast; Diagnostic Exam date and time: 11/16/2022 11:48 PM Age: 61 years old Clinical indication: Patient HX: Lll pneumonia. Diarrhea. Glucose of 291 adn d dimer of 0.98; Additional info: Pna, diarrhea TECHNIQUE: Imaging protocol: Diagnostic computed tomography of the chest with contrast. Radiation optimization: All CT scans at this facility use at least one of these dose optimization techniques: automated exposure control; mA and/or kV adjustment per patient size (includes targeted exams where dose is matched to clinical indication); or iterative reconstruction. Contrast material: OMNI 350; Contrast volume: 100 ml; Contrast route: INTRAVENOUS (IV); REPORTING DATA: Count of CT and Cardiac NM exams in prior 12 months: This patient has received 3 known CTs and 0 known cardiac nuclear medicine studies in the 12 months prior to the current study. COMPARISON: CR XR chest 1V portable [id number] 11/15/2022 9:17 AM RADIATION DOSE METRICS: Total DLP (mGy-cm): 1103.52 FINDINGS: Lungs: A few minute calcified lung nodules are seen incidentally. No consolidation. A few minute nodularities doubtful significance. Mild COPD. Mild areas of lower lung atelectasis or scarring. No focal pneumonia. Pleural spaces: No pneumothorax. No pleural effusion. Heart: The heart is quite large. No pericardial effusion. Lymph nodes: No bulky mediastinal or hilar lymphadenopathy noted. Vasculature: Large pulmonary arteries. No PE. Advanced diffuse vascular calcification noted. Mild venous congestion. Bones/joints: No acute fracture. Soft tissues: Unremarkable. PROCEDURE INFORMATION: Exam: CT Abdomen And Pelvis With Contrast Exam date and time: 11/16/2022 11:48 PM Age: 61 years old Clinical indication: Patient HX: Lll pneumonia. Diarrhea. Glucose of 291 adn d dimer of 0.98; Additional info: Pna, diarrhea TECHNIQUE: Imaging protocol: Computed tomography of the abdomen and pelvis with contrast. Radiation optimization: All CT scans at this facility use at least one of these dose optimization techniques: automated exposure control; mA and/or kV adjustment per patient size (includes targeted exams where dose is matched to clinical indication); or iterative reconstruction. Contrast material: OMNI 350; Contrast volume: 100 ml; Contrast route: INTRAVENOUS (IV); REPORTING DATA: Count of CT and Cardiac NM exams in prior 12 months: This patient has received 3 known CTs and 0 known cardiac nuclear medicine studies in the 12 months prior to the current study. COMPARISON: CT abdomen pelvis wo con [id number] 04/12/2022 4:08 PM RADIATION DOSE METRICS: Total DLP (mGy-cm): 1103.52 FINDINGS: Tubes, catheters and devices: Gutierrez catheter present. Lungs: The visualized lung bases are clear. Diaphragm: Tiny hiatal hernia. Liver: Unremarkable. No enhancing mass. Gallbladder and bile ducts: Very contracted gallbladder. Pancreas: Unremarkable with no suspicious mass. No ductal dilation. Spleen: Numerous calcified splenic granuloma. Adrenal glands: Left adrenal adenoma measures 2.6 cm, unchanged. Kidneys and ureters: No solid renal mass or hydronephrosis. Stomach and bowel: No small bowel obstruction or free air. No overt mucosal thickening. Appendix: No evidence of appendicitis. Intraperitoneal space: Unremarkable. No free air. No suspicious fluid collection. Vasculature: Advanced diffuse vascular calcification noted. Lymph nodes: Multiple large bilateral groin venous collaterals and unchanged enlarged scattered likely reactive nodes. Urinary bladder: Thick-walled/collapsed bladder. Reproductive: Unremarkable as visualized. Bones/joints: [id number] spine degenerative change. Soft tissues: Mild diffuse anasarca. CT/CT chest abdpel w/*[id number] IMPRESSION: 1. Large heart with mild venous congestion and evidence of pulmonary hypertension. 2. Lung base atelectasis or scarring. No pneumothorax, consolidation, or effusion. IMPRESSION: 1. Mild diffuse 3rd spacing of fluid with mild anasarca. 2. Possible cystitis. 3. No small bowel obstruction, abscess or free air. 4. Numerous chronic findings above. Overall, the findings are similar to 04/12/2022.
[2022-11-16 17:08] LABS: Glucose Point of Care 246 mg/dL (70-110)
[2022-11-16] MEDS: azithromycin 250 mg Tablet 500 MG PO (17:33)
[2022-11-16] MEDS: cefTRIAXone 1,000 MG in sodium chloride 0.9% (plus) 50 ML 100 MG IV (17:34)
[2022-11-16 18:17] LABS: Vitamin B12 324 pg/mL (232-1245)
[2022-11-16] MEDS: gabapentin 100 mg Capsule PO (19:46)
--- NOTE | 2022-11-16 19:47 | PC.NURSE ---
Patient refused Vitamin b-12 IM.
[2022-11-16 20:58] LABS: Glucose Point of Care 188 mg/dL (70-110)
[2022-11-16] MEDS: trazodone 50 mg Tablet 75 MG PO (21:22)
--- NOTE | 2022-11-16 23:36 | PC.NURSE ---
Patient keeps taking nasal cannula off. Oxygen saturation currently 90 percent on room air.
[2022-11-16] MEDS: iohexol 350 mg/mL 500 mL Btl (per mL) IV (23:56)
[2022-11-17] VITALS (9 sets, daily range): BP systolic 114–164; BP diastolic 64–93; PULSE 65–77; RESP 15–22; TEMP 36.4–37.1; O2SAT 91–97
--- NOTE | 2022-11-17 00:04 | PC.NURSE ---
Attempt to get patient up to wheelchair. Unable to get patient up to wheelchair even with [address] assist[address] taken to [address] via bed.
--- NOTE | 2022-11-17 03:40 | PC.NURSE ---
Patient oxygen saturation in the 70s. Patient placed on 2 liters nasal cannula and oxygen saturation now 92 percent. Continuous pulse ox placed on patient due to patient frequently taking oxygen off.
[2022-11-17] MEDS: levothyroxine 100 mcg Tablet PO (05:34)
--- NOTE | 2022-11-17 05:36 | PC.NURSE ---
Patient's oxygen saturation 87 percent. Patient's nasal cannula increased from 2 to 4 liters. Oxygen saturation now 94 percent. Continuous pulse ox monitor in place.
[2022-11-17 06:01] LABS: Alanine Aminotransferase 6 U/L (0-33); Albumin Level 2.1 g/dL (3.5-5.2); Alkaline Phosphatase 71 U/L (35-105); Aspartate Amino Transferase 11 U/L (0-32); Blood Urea Nitrogen 30 mg/dL (8-23); Calcium 8.2 mg/dL (8.5-10.5); Carbon Dioxide 29 mmol/L (22-29); Chloride 101 mmol/L (98-107); Globulin 2.1 g/dL (1.3-4.6); Glomerular Filtration Rate 84.5 mL/min (90-130); Glucose 141 mg/dL (65-115); Magnesium 1.9 mg/dL (1.7-2.3); Osmolality Calculated 293 mOsm/kg (285-295); Phosphorus 4.7 mg/dL (2.5-4.5); Sodium 137 mmol/L (136-145); Total Bilirubin 0.2 mg/dL (0.15-1.2); Total Protein 4.2 g/dL (6.6-8.7)
[2022-11-17 06:06] LABS: Anion Gap 11.1 (5-19); Potassium 4.1 mmol/L (3.5-5.1)
[2022-11-17 06:37] LABS: Glucose Point of Care 145 mg/dL (70-110)
[2022-11-17 06:44] LABS: Basophils % 0.5 %; Eosinophils # 0.2 10^3/uL (0.0-0.8); Eosinophils % 2.2 %; Hematocrit 47.7 % (37.0-47.0); Hemoglobin 15.4 g/dL (11.5-15.3); Lymphocytes # 1.4 10^3/uL (0.8-4.8); Lymphocytes % 18.5 %; Mean Corpuscular HGB Conc 32.3 g/dL (30.0-36.0); Mean Corpuscular Hemoglobin 29.7 pg (28.0-34.0); Mean Corpuscular Volume 92.1 fl (81-99); Mean Platelet Volume 10.5 fL (7.4-10.4); Monocytes # 0.5 10^3/uL (0.2-0.9); Neutrophils # 5.49 10^3/uL (1.8-7.7); Neutrophils % 71.7 %; Nucleated Red Blood Cells % 0 %; Platelet Count 163 10^3/cmm (130-400); Red Blood Count 5.18 10^6/uL (4.1-5.3); Red Cell Distribution Width 13.7 % (12.1-15.1); White Blood Count 7.7 10^3/uL (4.0-10.0)
[2022-11-17 07:29] LABS: Folate Level 9.8 ng/mL (4.8-37.3)
[2022-11-17] MEDS: cyanocobalamin 1,000 mcg Tablet 1000 MCG PO (10:37)
[2022-11-17] MEDS: docusate sodium 100 mg Capsule PO ×2 (10:37→17:12)
[2022-11-17] MEDS: aspirin 81 mg EC Tablet PO (10:38)
[2022-11-17] MEDS: pantoprazole DR 40 mg Tablet PO (10:38)
[2022-11-17] MEDS: atorvastatin 40 mg Tablet 10 MG PO (10:39)
[2022-11-17] MEDS: gabapentin 100 mg Capsule PO ×3 (10:40→20:54)
[2022-11-17] MEDS: insulin lispro 100 unit/1 mL SUBCUT ×2 (10:40→12:10)
[2022-11-17] MEDS: insulin glargine 100 units/1 mL 10 UNIT SUBCUT ×2 (10:40→20:54)
[2022-11-17 11:27] LABS: Glucose Point of Care 272 mg/dL (70-110)
--- NOTE | 2022-11-17 12:58 | P.PN_ITS ---
Subjective Subjective: H&P and labs appreciated. Examination patient lying comfortably in bed. Yesterday patient was no ncompliant to medications being given to her at the hospital but today she seems to be more compliant. Patient states she has not been taking her medications at home because she forgets. States she last took her medications around 2 or 3 months ago. Denies any suicidal homicidal ideations. States she lives by herself. States she does have a son though they are not in touch. Her friend helps her with medications for now. Vitals/I&O/Wt Last Vital Signs Temp 98.6 F 11/17/22 08:00 Pulse 77 11/17/22 08:00 Resp 22 H 11/17/22 08:00 BP 131/72 11/17/22 08:00 Pulse Ox 92 11/17/22 08:00 O2 Del Method Nasal Cannula 11/17/22 08:00 O2 Flow Rate 4 11/17/22 08:00 11/16/22 11/17/22 11/17/22 22:59 06:59 14:59 Intake Total 715 / 1075 0 / 1075 480 / 480 Output Total 250 / 2600 300 / 2900 Balance 465 / -1525 -300 / -1825 480 / 480 Weight last 48 hrs Weight 77.139 kg Weight 70.817 kg Weight 65.771 kg Physical Exam Narrative: General: No acute distress, AO x3, NC oxygen supplementation, pleasant, chronically sick appearing HEENT: PERRLA, pupils bilaterally equal and reactive Chest: Bronchial breath sounds b/l occasional rhonchi and coarse crackles present all over lung gilman CVS: S1-S2 regular, no murmurs, no tachycardia, no gallops, no rubs Abdomen: Soft, nontender, no organomegaly, bowel sounds present, morbidly obese Neuro: No focal deficits, no facial deformity, AO x 2-3, power 5/5 in all limbs. Skin:In the sacral area there are 3 blanchable areas with some skin breakdown grouped at the sacral region present on admission.? She has some dried scabs to both arms and other chronic skin changes.? No large areas of bruising though I did note some faint bruising to the top of the left foot.? Urinary Catheter Management: Gutierrez: Cath Placed During This Visit: yes Reason for Continuing Indwelling Catheter: Assist Healing of Perineal & Sacral Wounds- Incontinent Patients Urinary Catheter Date of Insertion: 11/15/22 Urinary Catheter Time of Insertion: 16:47 Data 11/17/22 06:19 11/17/22 05:07 Micro: Microbiology 11/16/22 Unknown MRSA Culture - Final Nose 11/16/22 Unknown Bacterial Antigens - Final Urine Kidney 11/15/22 05:07 Blood Culture - Preliminary Blood NEGATIVE TO DATE 11/15/22 05:07 Blood Culture - Preliminary Blood NEGATIVE TO DATE 11/16/22 11:20 Legionella Urinary Antigen - Final Unknown Source A&P Assessment and plan (1) Weakness: Most likely in setting of uncontrolled diabetes mellitus, vitamin B12 deficiency and hypothyroidism. PT evaluation. Patient is severely deconditioned and most likely will need extensive rehab. Patient is finally agreeable to go to SNF. Case management alerted. (2) Uncontrolled diabetes mellitus: Secondary to noncompliance. A1c more than 16. Blood sugars better controlled. For now continue with Lantus 10 units twice da izabela and insulin sliding scale high-dose protocol. Depending on insulin requirement next 24 hours we will increase the Lantus dose. Stop IV fluids. Also associated with peripheral neuropathy. Start on gabapentin 100 mg 3 times daily. (3) Hypothyroidism: High TSH, low free T3 and free T4. Cortisol level normal Start on levothyroxine 100 mcg oral daily. Need a repeat thyroid panel in 4 weeks (4) Chronic respiratory failure with hypoxia and hypercapnia: Most likely in setting of COPD exacerbation along with congestive heart failure. Patient with history of diastolic heart failure. Pulmicort twice daily, DuoNebs every 6 hours. Oxygen supplementation keeping saturation over 88%. Concerns for pneumonia on admission. Cultures Pro-Dane negative. Patient has remained hemodynamically stable and afebrile. No leukocytosis. Appreciate CT chest results. We will hold off on antibiotics and monitor patient. (5) COPD (chronic obstructive pulmonary disease): Chronic related to cigarette use, does not clinically appear acutely exacerbated at the time of my examination having not had breathing treatments nor steroids. Not interested in smoking cessation Avoiding steroid therapy secondary to degree of hyperglycemia and present examination (6) (HFpEF) heart failure with preserved ejection fraction: Echocardiogram shows EF of 65 with grade 2 diastolic dysfunction, no aortic valve stenosis, mildly increased LA and RA size. Stop IV fluids. No diuresis for today. Strict and proper charting. Monitor for fluid overload. Qualifiers: Heart failure chronicity: acute on chronic Qualified Code(s): I50.33 - Acute on chronic diastolic (congestive) heart failure (7) HTN (hypertension): Goal blood pressure 140/90 mmHg. At home since take Cardizem 30 mg twice daily. Started on nitrate patch on admission. For now remove the patch. Blood pressure is at goal. Given uncontrolled diabetes mellitus with peripheral neuropathy and UA concerning for diabetic nephropathy we will start on low-dose lisinopril 2.5 mg oral daily. (8) Diabetes mellitus with hyperglycemia: Qualifiers: Diabetes mellitus type: type 2 (9) Sacral decubitus ulcer, stage II: Present on admission. Wound care, regular turning and monitoring (10) H/O deep venous thrombosis: Deep vein thrombosis left lower extremity in 2019, has chronically been pre scribed Xarelto at a prophylactic dose though has not been taking it. Venous ultrasound in August 2021 without evidence of DVT in the left leg. Repeat Doppler negative for DVT. Continue Lovenox at DVT prophylaxis dose. (11) Parkinsonian tremor: Has been prescribed primidone in the past though not taking it for the last few weeks Monitor need to consider resumption of home medication (12) Noncompliance with medication regimen: Contributing to current admission and diagnoses above Education and ongoing discussion regarding benefits of compliance and risk of noncompliance (13) Paresthesia and pain of extremity: (14) Polycythemia: Could be secondary dehydration versus hypoxia. Continue to monitor. (15) Aortic stenosis: Identified on echocardiogram in August 2021 with mean gradient of 5.5 mmHg and aortic valve area of 2.1 cm? but not on the echocardiogram done from this time. Confirmed with cardiology. (16) Pneumonia: Ruled out on CT chest no consolidation. Antibiotics as above. (17) Physical deconditioning: Plan Full code. Lovenox for DVT prophylaxis Protonix OPD prophylaxis Carb consistent diet. Discharge plan: Discussed in detail with patient regarding noncompliance and need for medications compliance going forward. Patient verbalized understanding. States she lives by herself and takes care of her medication and usually forgets to take the medications. Have a friend who helps her sporadically. Given significant deconditioning now patient is agreeable to go to SNF. Case management alerted. 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 Diagnoses Weakness R53.1 Uncontrolled diabetes mellitus Hypothyroidism E03.9 Chronic respiratory failure with hypoxia and hypercapnia J96.11; J96.12 COPD (chronic obstructive pulmonary disease) J44.9 (HFpEF) heart failure with preserved ejection fraction I50.33 Heart failure chronicity: acute on chronic HTN (hypertension) I10 Diabetes mellitus with hyperglycemia E11.65 Diabetes mellitus type: type 2 Sacral decubitus ulcer, stage II L89.152 H/O deep venous thrombosis Z86.718 Parkinsonian tremor G20 Noncompliance with medication regimen Z91.14 Paresthesia and pain of extremity R20.2; M79.609 Polycythemia D75.1 Aortic stenosis I35.0 Pneumonia J18.9 Physical deconditioning R53.81
[2022-11-17] MEDS: cyanocobalamin 1,000 mcg/mL SDV 1000 MCG IM (14:21)
[2022-11-17] MEDS: lisinopril 2.5 mg Tablet PO (14:21)
--- NOTE | 2022-11-17 16:08 | PHA.FALL ---
A Pharmacy Consult Was Conducted For Shea Simon Due To: CHF Introduced and sat bedside to complete consultation Patient profile and home meds reviewed for qualifying medications. Upon arrival, Patient had meal and appeared drowsy. Identified medications: aspirin, atorvastatin, furosemide, Rivaroxaban, lisinopril, diltiazem -not all meds were active at time of consult. Care notes printed and given to patient. Patient listened to Method of Action and reason/ importance of taking with heart condition. Patient had no questions. Some concern was relayed about patient compliance with home meds: discussed what pharmacy patient used, plan for increasing compliance discussed. Asked if [facility] could provide any tools or education, pt politely declined. Offered to revisit prior to discharge when she received her final list of medications.
[2022-11-17 16:50] LABS: Glucose Point of Care 130 mg/dL (70-110)
[2022-11-17 20:31] LABS: Glucose Point of Care 97 mg/dL (70-110)
[2022-11-18] VITALS (9 sets, daily range): BP systolic 118–171; BP diastolic 66–92; PULSE 56–65; RESP 15–18; TEMP 36.6–37; O2SAT 91–97
[2022-11-18 05:28] LABS: Basophils % 0.5 %; Eosinophils # 0.2 10^3/uL (0.0-0.8); Hematocrit 48.5 % (37.0-47.0); Hemoglobin 15.6 g/dL (11.5-15.3); Lymphocytes # 1.5 10^3/uL (0.8-4.8); Lymphocytes % 22.9 %; Mean Corpuscular HGB Conc 32.2 g/dL (30.0-36.0); Mean Corpuscular Hemoglobin 29.3 pg (28.0-34.0); Mean Corpuscular Volume 91.2 fl (81-99); Mean Platelet Volume 10.5 fL (7.4-10.4); Monocytes # 0.5 10^3/uL (0.2-0.9); Monocytes % 7.1 %; Neutrophils # 4.41 10^3/uL (1.8-7.7); Neutrophils % 66.2 %; Nucleated Red Blood Cells % 0 %; Platelet Count 144 10^3/cmm (130-400); Red Blood Count 5.32 10^6/uL (4.1-5.3); Red Cell Distribution Width 13.7 % (12.1-15.1); White Blood Count 6.7 10^3/uL (4.0-10.0)
[2022-11-18 05:50] LABS: Magnesium 1.9 mg/dL (1.7-2.3); Phosphorus 4.2 mg/dL (2.5-4.5)
[2022-11-18 05:55] LABS: Alanine Aminotransferase 7 U/L (0-33); Albumin Level 1.9 g/dL (3.5-5.2); Alkaline Phosphatase 70 U/L (35-105); Aspartate Amino Transferase 12 U/L (0-32); Blood Urea Nitrogen 24 mg/dL (8-23); Calcium 8.2 mg/dL (8.5-10.5); Carbon Dioxide 32 mmol/L (22-29); Chloride 103 mmol/L (98-107); Globulin 3.1 g/dL (1.3-4.6); Glucose 85 mg/dL (65-115); Osmolality Calculated 293 mOsm/kg (285-295); Sodium 140 mmol/L (136-145); Total Bilirubin 0.3 mg/dL (0.15-1.2)
[2022-11-18 05:57] LABS: Anion Gap 8.8 (5-19); Potassium 3.8 mmol/L (3.5-5.1)
[2022-11-18] MEDS: levothyroxine 100 mcg Tablet PO (06:15)
[2022-11-18 06:29] LABS: Glucose Point of Care 97 mg/dL (70-110)
--- NOTE | 2022-11-18 08:16 | PC.SOCIAL ---
IMM update IMM updated with patient. Copy Pg 2 provided. Verbalized an understanding. Initialled, dated, timed, and placed in chart.
[2022-11-18] MEDS: aspirin 81 mg EC Tablet PO (09:23)
[2022-11-18] MEDS: docusate sodium 100 mg Capsule PO ×2 (09:23→18:01)
[2022-11-18] MEDS: cyanocobalamin 1,000 mcg Tablet 1000 MCG PO (09:23)
[2022-11-18] MEDS: lisinopril 2.5 mg Tablet PO (09:23)
[2022-11-18] MEDS: gabapentin 100 mg Capsule PO ×3 (09:23→21:18)
[2022-11-18] MEDS: atorvastatin 40 mg Tablet 10 MG PO (09:23)
[2022-11-18] MEDS: pantoprazole DR 40 mg Tablet PO (09:24)
--- NOTE | 2022-11-18 10:15 | MR_ITS ---
WS: [id number] MRI HEAD WITH CONTRAST TECHNIQUE: Sagittal T1, T2 axial, T2 axial FLAIR, axial susceptibility weighted imaging, axial diffus ion weighted images, and coronal T2 images were obtained. Pre and post-T1 axial and post T1 coronal i mages. ADC and FSPGR images. CLINICAL INFORMATION: Possible wernicke COMPARISON: MRI 2016 FINDINGS: Multiple areas of restricted diffusion most prominent involving the RIGHT thalamus and LEFT posterior limb internal capsule. Largest area of ischemia measures 1.6 x 0.9 cm involving the RIGHT superior t halamus. Additional smaller foci of restricted diffusion involving the periventricular white matter a nd LEFT centrum semiovale. No significant mass effect or midline shift. Mild to moderate small vessel changes progressed compare d to 2016. Small vessel changes in the jenny. Mild parenchymal volume loss. Mild edema associated with the areas of ischemia. No hydrocephalus. Multiple tiny chronic lacunar infarcts in the cerebellum bi laterally. Normal vascular flow voids at the skull base. No extra-axial fluid collections. Paranasal sinuses are well aerated. Mild mucosal thickening in the mastoid air cells. Normal posterior nasophar ynx. Normal optic chiasm and pituitary infundibulum. Mild symmetric atrophy temporal lobes and hippocampal formations. Post gadolinium images degraded due to motion. No abnormal areas of enhancement visualiz ed. MR/MR head wo/w con [id number] IMPRESSION: Images moderately degraded by motion. 1. Multiple areas of restricted diffusion more prominent involving the RIGHT s uperior thalamus and LEFT dinh radiata extending into the posterior limb LEFT internal capsule. This is described above. 2. Additional smaller punctate areas of restricted diffusion in the periventri cular white matter bilaterally. 3. Mild edema associated with the areas of ischemia. 4. Small amount of increased signal in the mamillary bodies and periaqueductal junior can be seen with Wernickes encephalopathy in the appropriate clinical set ting. This is similar to 2016. Thalamic signal abnormalities can also be seen w ith Wernickes encephalopathy 5. Moderate small vessel changes. Mild parenchymal volume loss. Small vessel c hanges in the jenny. 6. Tiny chronic lacunar infarcts in the cerebellum. Notified Jorge Neal MD at 11/18/2022 12:39 PM.
--- NOTE | 2022-11-18 10:15 | PC.CHAP ---
Pastoral Care Encounter/Spiritual Assessment Type of Contact [] Declined automation application engineer visit [] Patient/Family/Request visit [] Outpatient visit [] Follow-up visit [] Physician referral [] Code/Alert [x] Routine visit [] Staff referral [] Actively dying [] Patient sleeping [] Family support [] [] Out of room [] Palliative care [] [] Receiving care in room [] Pre-surgical visit [] Trauma [] Long length of stay [] ICU visit [] Other: Relational/Emotional Strength [] Patient feels connected with others/family/visitors/staff [x] Distress [x] Loneliness/isolation [x] Abandonment Spirituality of Patient [x] Person of Anushka [] Attends Buddhism of their Anushka [x] Believes in Prayer [] Reads Bible or Hoahaoism materials [] There are Spiritual issues to be addressed Drapery Inspector Interventions [x] Prayer [] Active listening [] Non-anxious presence [] Spiritual/emotional support [] Crisis/trauma care [] Spiritual counseling [] Bereavement support [] Provided bereavement packet [] Provided Bible/devotional materials [] Provided toy/stuffed animal, coloring book to patient or family member [] Provided Communion [] Anointing/[place] [x] Salvation [x] Completed spiritual assessment [] Other: Impact on Illness or Injury [] Angry [x] Fearful [x] Anxious [] Often cries [] Exhaustion [] Unable to work [] Unable to attend anabaptism [] Unable to walk/stand [] Unable to read [] Unable to drive [] Unable to eat/drink [] Unable to sleep [x] Unable to be with family [] Patient intubated [] Other: Summary Time spent with patient 10 min
[2022-11-18 10:28] LABS: SARS Covid-2 Antigen negative (Negative)
[2022-11-18 11:39] LABS: Glucose Point of Care 296 mg/dL (70-110)
[2022-11-18] MEDS: insulin lispro 100 unit/1 mL SUBCUT ×3 (12:40→21:18)
--- NOTE | 2022-11-18 12:59 | ECG_ITS ---
[facility] Test Date: 2022-11-18 Pat Name: Shea Simon Department: Room: 279 Gender: Female Watch Dial Printer: : [id number] Requested By: Jorge Neal Order Number: [id number] Susan MD: Avery Peace M.D. Measurements Intervals [place] Rate: 62 P: 41 NJ: 156 QRS: 17 QRSD: 84 T: 61 QT: 403 QTc: 410 Interpretive Statements SINUS RHYTHM LEFT ATRIAL ENLARGEMENT [-0.15mV P-WAVE IN V1/V2] Non-specific ST-T wave changes Compared to ECG 11/15/2022 10:11:47 ST (T wave) deviation now present Myocardial infarct finding now present Electronically Signed On 11-18-2022 13:26:42 CDT by Avery Peace M.D. [email or web address]
--- NOTE | 2022-11-18 13:09 | PC.NURSE ---
Patient is refusing to wear her surveillance system monitor. Dr. Linares notified.
--- NOTE | 2022-11-18 13:28 | P.DS_ITS ---
Discharge Providers Date of Admission: 11/15/22 14:45 Date of Discharge: November 18, 2022 Attending Provider at Admission: Karen Jewell MD Attending Provider at Discharge: Jorge Neal MD Primary Care Provider: Marilou Bearden MD Diagnoses at Discharge Discharge Diagnosis (1) Weakness: Status: Acute (2) Uncontrolled diabetes mellitus: Status: Acute (3) Hypothyroidism: Status: Acute (4) Chronic respiratory failure with hypoxia and hypercapnia: Status: Acute (5) COPD (chronic obstructive pulmonary disease): Status: Chronic (6) (HFpEF) heart failure with preserved ejection fraction: Status: Chronic Qualifiers: Heart failure chronicity: acute on chronic Qualified Code(s): I50.33 - Acute on chronic diastolic (congestive) heart failure (7) HTN (hypertension): Status: Chronic (8) Diabetes mellitus with hyperglycemia: Status: Chronic Qualifiers: Diabetes mellitus type: type 2 (9) Sacral decubitus ulcer, stage II: Status: Acute (10) H/O deep venous thrombosis: Status: Chronic (11) Parkinsonian tremor: Status: Chronic (12) Noncompliance with medication regimen: Status: Chronic (13) Paresthesia and pain of extremity: Status: Chronic (14) Polycythemia: Status: Acute (15) Aortic stenosis: Status: Ruled-out Permanent problem details: Echocardiogram on 11/16 rules out aortic stenosis (16) Pneumonia: Status: Acute (17) Physical deconditioning: Status: Acute Reason for Visit Reason for Visit: generalized weakness/ unable to ambulate Physical Exam Urinary Catheter Management: Gutierrez: Cath Placed During This Visit: yes Reason for Continuing Indwelling Catheter: Acute Urinary Retention or Obstruction Urinary Catheter Date of Insertion: 11/15/22 Urinary Catheter Time of Insertion: 16:47 Discharge Data Studies Completed and Pending Completed Studies During Hospitalization Category Date Time Status CT cervical spin wo con* [id number] Stat Cat Scan 11/15/22 09:[address] chest abdomen pelvis [CT chest abdpel w/*[id number] Cat Scan 11/16/22 16:46 Completed ] Routine CT head wo con* [id number] Stat Cat Scan 11/15/22 09:16 Completed XR chest 1V portable [id number] Stat Exams 11/15/22 09:07 Completed MR head wo/w con [id number] Routine MRI 11/18/22 10:15 [place] [id number] Routine Ultrasound 11/16/22 14:57 Completed CV. echo complete* [id number] Routine Ultrasound 11/16/22 14:45 Completed Pending at discharge Category Date Time Status Blood Culture Stat Lab 11/15/22 05:07 Results Sputum Culture and Gram Stain Stat Lab 11/15/22 12:54 Uncollected Vitamin B1 (Thiamine),Blood Routine Lab 11/17/22 14:48 Received Radiology Impressions Chest X-Ray 11/15/22 09:07 IMPRESSION: Ground-glass consolidation in the left lung base concerning for possible pneumonia. Cervical Spine CT 11/15/22 09:16 IMPRESSION: 1. No cervical spine fracture. 2. No significant central or foraminal stenosis or large disc protrusions. Head CT 11/15/22 09:16 IMPRESSION: 1. No acute intracranial hemorrhage identified. Mild limitation due to motion artifact. 2. Mild cerebral atrophy and small vessel ischemic disease. New area of decreased attenuation in the LEFT basal ganglia. Does not appear acute. Chest/Abdomen/Pelvis CT 11/16/22 16:46 IMPRESSION: 1. Large heart with mild venous congestion and evidence of pulmonary hypertension. 2. Lung base atelectasis or scarring. No pneumothorax, consolidation, or effusion. IMPRESSION: 1. Mild diffuse 3rd spacing of fluid with mild anasarca. 2. Possible cystitis. 3. No small bowel obstruction, abscess or free air. 4. Numerous chronic findings above. Overall, the findings are similar to 04/12/2022. Head MRI 11/18/22 10:15 IMPRESSION: Images moderately degraded by motion. 1. Multiple areas of restricted diffusion more prominent involving the RIGHT superior thalamus and LEFT dinh radiata extending into the posterior limb LEFT internal capsule. This is described above. 2. Additional smaller punctate areas of restricted diffusion in the periventricular white matter bilaterally. 3. Mild edema associated with the areas of ischemia. 4. Small amount of increased signal in the mamillary bodies and periaqueductal junior can be seen with Wernickes encephalopathy in the appropriate clinical setting. This is similar to 2016. Thalamic signal abnormalities can also be seen with Wernickes encephalopathy 5. Moderate small vessel changes. Mild parenchymal volume loss. Small vessel changes in the jenny. 6. Tiny chronic lacunar infarcts in the cerebellum. Notified Jorge Neal MD at 11/18/2022 12:39 PM. Laboratory Results WBC 6.7 10^3/uL (4.0-10.0) 11/18/22 05:00 Corrected WBC Cancelled 11/17/22 05:23 RBC 5.32 10^6/uL (4.1-5.3) H 11/18/22 05:00 Hgb 15.6 g/dL (11.5-15.3) H 11/18/22 05:00 Hct 48.5 % (37.0-47.0) H 11/18/22 05:00 MCV 91.2 fl (81-99) 11/18/22 05:00 MCH 29.3 pg (28.0-34.0) 11/18/22 05:00 MCHC 32.2 g/dL (30.0-36.0) 11/18/22 05:00 RDW 13.7 % (12.1-15.1) 11/18/22 05:00 Plt Count 144 10^3/cmm (130-400) 11/18/22 05:00 MPV 10.5 fL (7.4-10.4) H 11/18/22 05:00 Gran % Cancelled 11/17/22 05: Neut % (Auto) 66.2 % 11/18/22 05:00 Lymph % (Auto) 22.9 % 11/18/22 05:00 [place] % (Auto) 7.1 % 11/18/22 05:00 Eos % (Auto) 3.0 % 11/18/22 05:00 Baso % (Auto) 0.5 % 11/18/22 05:00 Neut # (Auto) 4.41 10^3/uL (1.8-7.7) 11/18/22 05:00 Lymph # (Auto) 1.5 10^3/uL (0.8-4.8) 11/18/22 05:00 [place] # (Auto) 0.5 10^3/uL (0.2-0.9) 11/18/22 05:00 Eos # (Auto) 0.2 10^3/uL (0.0-0.8) 11/18/22 05:00 Baso # (Auto) 0.0 10^3/uL (0.0-0.1) 11/18/22 05:00 Absolute Gran (auto) Cancelled 11/17/22 05: Nucleated RBC % (auto) 0 % 11/18/22 05:00 Nucleated RBCs # 0.0 /100WBC 11/18/22 05:00 D-Dimer 0.98 ug/mIFEU (0-0.59) H 11/16/22 05:07 Specimen Type Arterial 11/15/22 09:28 Sample Site Brachial, right 11/15/22 09: ABG pH 7.39 (7.35-7.45) 11/15/22 09: ABG pCO2 56.4 mmHg (35-45) H 11/15/22: ABG pO2 67.3 mmHg (80.0-100.0) L 11/15/22 09: ABG HCO3 34.2 mmol/L (22-26) H 11/15/22: ABG O2 Saturation 93.6 11/15/22 09: ABG Base Excess 6.9 mmol/L (-2.0-2.0) H 11/15/22 09: Dilshad Test N/a 11/15/22 09: A-a O2 Gradient 8.2 mmHg (5-10) 11/15/22 09: Hematocrit 53.7 % (37-47) H 11/15/22 09: Hgb O2 Saturation 86.3 % (95-100) L 11/15/22 09: Carboxyhemoglobin 7.2 %THgb (0.4-20.1) 11/15/22 09: Methemoglobin 0.7 % (0.4-1.5) 11/15/22 09: Total Hemoglobin 17.5 g/dL (12-16) H 11/15/22 09: Sodium 139.0 mmol/L (131-143) 11/15/22 09: Potassium 3.9 mmol/L (3.5-5.0) 11/15/22 09: Glucose 417.0 mg/dL (70-115) H 11/15/22 09: Ionized Calcium 1.2 mmol/L (1.1-1.4) 11/15/22 09: O2 Delivery Device Nc 11/15/22 09:28 O2 Liters/Min 2.0 % 11/15/22 09:28 FiO2 28.0 % 11/15/22 09:28 Electromechanical Assembly Technician ID Gd 11/15/22 09:28 Sodium 140 mmol/L (136-145) 11/18/22 05:00 Potassium 3.8 mmol/L (3.5-5.1) 11/18/22 05:00 Chloride 103 mmol/L (98-107) 11/18/22 05:00 Carbon Dioxide 32 mmol/L (22-29) H 11/18/22 05:00 Anion Gap 8.8 (5-19) 11/18/22 05:00 BUN 24 mg/dL (8-23) H 11/18/22 05:00 Creatinine 0.6 mg/dL (0.5-0.9) 11/18/22 05:00 GFR Calculation 101.0 mL/min (90-130) 11/18/22 05:00 Glucose 85 mg/dL (65-115) 11/18/22 05:00 POC Glucose 296 mg/dL (70-110) H 11/18/22 11:35 Estimat Average Glucose Cancelled 11/17/22 06:19 Hemoglobin A1c Cancelled 11/17/22 06:19 Calculated Osmolality 293 mOsm/kg (285-295) 11/18/22 05:00 Lactic Acid 0.6 mmol/L (0.5-2.2) 11/15/22 09:34 Calcium 8.2 mg/dL (8.5-10.5) L 11/18/22 05:00 Phosphorus 4.2 mg/dL (2.5-4.5) 11/18/22 05:00 Magnesium 1.9 mg/dL (1.7-2.3) 11/18/22 05:00 Iron 62 ug/dL (37-145) 11/16/22 05:07 TIBC 187 mcg/dl 11/16/22 05:07 % Saturation 33.1 % (20-50) 11/16/22 05:07 Unsat Iron Binding 125 ug/dL (112-347) 11/16/22 05:07 Total Bilirubin 0.3 mg/dL (0.15-1.2) 11/18/22 05:00 AST 12 U/L (0-32) 11/18/22 05:00 ALT 7 U/L (0-33) 11/18/22 05:00 Alkaline Phosphatase 70 U/L (35-105) 11/18/22 05:00 Creatine Kinase 56 U/L (26-192) 11/15/22 08:20 NT-Pro-B Natriuret Pep 521 pg/mL (0-125) H 11/15/22 08:20 Total Protein 5.0 g/dL (6.6-8.7) L 11/18/22 05:00 Albumin 1.9 g/dL (3.5-5.2) L 11/18/22 05:00 Globulin 3.1 g/dL (1.3-4.6) 11/18/22 05:00 Lipase 22 U/L (13-60) 11/15/22 08:20 Vitamin B12 324 pg/mL (232-1245) 11/16/22 05:07 Folate 9.8 ng/mL (4.8-37.3) 11/15/22 08:20 Procalcitonin 0.07 ng/mL (0-0.5) 11/16/22 05:07 TSH 5.48 uIU/mL (0.27-4.20) H 11/15/22 08:20 Free T4 0.79 ng/dL (0.82-1.77) L 11/16/22 05:07 Free T3 1.4 PG/ML (2.0-4.4) L 11/16/22 05:07 Random Cortisol 12.77 ug/dL (2.47-19.5) 11/16/22 05:07 Urine Color Colorless (Yellow) 11/15/22 12:00 Urine Appearance Clear (CLEAR) 11/15/22 12:00 Urine pH 6.5 (5-7) 11/15/22 12:00 Ur Specific [place] 1.015 (1.005-1.030) 11/15/22 12:00 Urine Protein 3+ (Negative) H 11/15/22 12:00 Urine Glucose (UA) 4+ (Normal) H 11/15/22 12:00 Urine Ketones Negative (Negative) 11/15/22 12:00 Urine Blood 2+ (Negative) H 11/15/22 12:00 Urine Nitrate Negative (Negative) 11/15/22 12:00 Urine Bilirubin Neg (Negative) 11/15/22 12:00 Urine Urobilinogen Norm mg/dL (Negative) 11/15/22 12:00 Ur Leukocyte Esterase Negative (Negative) 11/15/22 12:00 Urine RBC 0-4 /hpf (0-2) H 11/15/22 12:00 Urine WBC 0-4 /hpf (0-5) H 11/15/22 12:00 Ur Squamous Epith Cells 0-4 /hpf (0-5) H 11/15/22 12:00 Amorphous Sediment Not Reportable 11/15/22 12:00 Urine Bacteria None /hpf (NONE) 11/15/22 12:00 Urine Opiates Screen Negative ng/mL (Negative) 11/15/22 11:20 Ur Barbiturates Screen Negative ng/mL (Negative) 11/15/22 11:20 Ur Phencyclidine Scrn Negative ng/mL (Negative) 11/15/22 11:20 Ur Amphetamines Screen Negative ng/mL (Negative) 11/15/22 11:20 U Benzodiazepines Scrn Negative ng/mL (Negative) 11/15/22 11:20 Urine Cocaine Screen Negative ng/mL (Negative) 11/15/22 11:20 U Marijuana (THC) Screen Negative ng/mL (Negative) 11/15/22 11:20 Serum Ketones Negative (Negative) 11/15/22 08:20 SARS-CoV-2 Ag (Rapid) negative (Negative) 11/18/22 09:27 Vitals Last Vital Signs Temp 97.8 F 11/18/22 08:00 Pulse 62 11/18/22 08:53 Resp 18 11/18/22 08:53 BP 166/83 11/18/22 08:00 Pulse Ox 92 11/18/22 08:53 O2 Del Method Nasal Cannula 11/18/22 08:53 O2 Flow Rate 4 11/18/22 08:53 Discharge Plan Discharge Patient Disposition: Home Condition: Stable Prescriptions: No Action aspirin 81 mg tablet,delayed release (DR/EC) 81 mg PO BID nitroglycerin 0.4 mg tablet, sublingual 0.4 mg sublingual Q5M PRN (Reason: Chest Pain) Rx Instructions: do not exceed 3 doses per episode (DME) walker See Rx Instructions .Route .MEDSUPPLY Qty: 1 0RF Rx Instructions: As directed 99 months walker with front wheels atorvastatin 10 mg tablet 10 mg PO DAILY Qty: 30 2RF Ozempic 0.25 mg or 0.5 mg(2 mg/1.5 mL) pen injector 0.5 mg SUBCUT Q7D Qty: 1.5 2RF Xarelto 2.5 mg tablet 2.5 mg PO BID Qty: 60 2RF metformin 500 mg tablet extended release 24 hr 1,000 mg PO BID Qty: 120 2RF fluticasone propion-salmeterol [Advair Diskus] 500-50 mcg/dose blister with device 1 inh INHALATION BID@08,20 Qty: 60 2RF escitalopram oxalate 20 mg tablet 20 mg PO DAILY@08 Qty: 30 2RF diltiazem HCl 30 mg tablet 30 mg PO BID Qty: 60 2RF insulin degludec [Tresiba FlexTouch U-200] 200 unit/mL (3 mL) insulin pen 20 unit SUBCUT DAILY Qty: 9 0RF (DME) pen needle, diabetic 33 gauge x 5/32 needle See Rx Instructions .ROUTE .MEDSUPPLY Qty: 100 5RF Rx Instructions: 1 time day MediHoney (honey) 100 % paste 1 applic topical BID Qty: 103 0RF nystatin 100,000 unit/gram cream 1 applic topical BID Qty: 30 2RF primidone 250 mg tablet 250 mg PO DAILY Qty: 30 2RF (DME) blood-glucose meter [OneTouch Ultra2 Meter] Kit See Rx Instructions .Route Qty: 1 0RF Rx Instructions: daily (DME) OneTouch Ultra Test Strip See Rx Instructions .Route Qty: 50 5RF Rx Instructions: daily use strip (DME) lancets [OneTouch Delica Plus Lancet] 33 gauge misc See Rx Instructions .Route Qty: 100 5RF Rx Instructions: use one daily furosemide 20 mg tablet 20 mg PO BID PRN (Reason: Edema) Qty: 60 2RF ergocalciferol (vitamin D2) 1,250 mcg (50,000 unit) capsule 1,250 mcg PO Q7D Referrals: Marilou Bearden MD [Primary Care Provider] - Patient Instructions: Opioid Safety Coding Level of Care Code Acute Code for Chg Fwd Diagnoses Weakness R53.1 Uncontrolled diabetes mellitus Hypothyroidism E03.9 Chronic respiratory failure with hypoxia and hypercapnia J96.11; J96.12 COPD (chronic obstructive pulmonary disease) J44.9 (HFpEF) heart failure with preserved ejection fraction I50.33 Heart failure chronicity: acute on chronic HTN (hypertension) I10 Diabetes mellitus with hyperglycemia E11.65 Diabetes mellitus type: type 2 Sacral decubitus ulcer, stage II L89.152 H/O deep venous thrombosis Z86.718 Parkinsonian tremor G20 Noncompliance with medication regimen Z91.14 Paresthesia and pain of extremity R20.2; M79.609 Polycythemia D75.1 Aortic stenosis I35.0 Pneumonia J18.9 Physical deconditioning R53.81
--- NOTE | 2022-11-18 13:29 | USCV_ITS ---
Shea Simon Age: 61 Gender: F : 1960 Exam Date: 11/18/2022 15:34 Ordering Phys: Jorge Neal MD Technologist: BEV Exam Location: [facility] [place] Indication: cva Risk Factors: Previous Vascular Surgery: Right Brachial BP: / Left Brachial BP: / Right Left Velocity (cm/s) Spectral Plaque Velocity (cm/s) Spectral Plaque Syst/Diast Broadening Syst/Diast Broadening 69.50/ 12.10 Prox CCA 110.30/ 13.20 62.80/ 11.00 Mid CCA 81.60 / 11.00 77.75/ 7.70 Prox ICA 59.00 / 15.50 51.80/ 10.70 Mid ICA 118.00/ 28.70 96.60/ 19.70 Distal ICA 108.10/ 26.50 ECA 78.30 1.56 ICA/CCA 1.07 Antegrade Vertebral Antegrade / cm/s 59.50/ 12.10 cm/s Bi Subclavian Tri 87.80 203.5 0 CONCLUSIONS Right ICA stenosis <50%. Moderate calcified atheromatous plaque right carotid bulb/ICA. Intimal thickening CCA Left ICA stenosis <50%. Mild calcified atheromatous plaque left carotid bulb/ICA. Intimal thickening CCA Normal antegrade Doppler flow noted in the right vertebral artery. Normal antegrade Doppler flow noted in the left vertebral artery. Sampson Mcnulty MD (Electronically Signed) Final Date: 18 Nov 2022 18:22 S
--- NOTE | 2022-11-18 13:30 | PC.NURSE ---
Patient refused to have her Gutierrez Catheter removed stating, I cant walk I need it.
--- NOTE | 2022-11-18 13:48 | PC.NURSE ---
Addendum entered by Michelle Mack RN 11/18/22 13:49: The EKG was completed at [address] Linares at 1300. Original Note: EKG completed and shown to Dr. Linares at this time.
--- NOTE | 2022-11-18 14:13 | PM.PN ---
Subjective Subjective: No acute events overnight. Patient has remained hemodynamically stable and afebrile. Compliant with medications. Working with physical therapy. Agreeable to go to SNF. Blood sugars better controlled. Vitals/I&O/Wt Last Vital Signs Temp 97.8 F 11/18/22 08:00 Pulse 62 11/18/22 08:53 Resp 18 11/18/22 08:53 BP 166/83 11/18/22 08:00 Pulse Ox 92 11/18/22 08:53 O2 Del Method Nasal Cannula 11/18/22 08:53 O2 Flow Rate 4 11/18/22 08:53 11/17/22 11/18/22 11/18/22 22:59 06:59 14:59 Intake Total 1240 / 2200 480 / 480 Output Total 1200 / 1200 500 / 1700 750 / 750 Balance 40 / 1000 -500 / 500 -270 / -270 Weight last 48 hrs Weight 80.331 kg Weight 77.139 kg Physical Exam Narrative: General: No acute distress, AO x3, NC oxygen supplementation, pleasant, chronically sick appearing HEENT: PERRLA, pupils bilaterally equal and reactive Chest: Bronchial breath sounds b/l occasional rhonchi and coarse crackles present all over lung gilman CVS: S1-S2 regular, no murmurs, no tachycardia, no gallops, no rubs Abdomen: Soft, nontender, no organomegaly, bowel sounds present, morbidly obese Neuro: No focal deficits, no facial deformity, AO x 2-3, power 5/5 in all limbs. Skin:In the sacral area there are 3 blanchable areas with some skin breakdown grouped at the sacral region present on admission.? She has some dried scabs to both arms and other chronic skin changes.? No large areas of bruising though I did note some faint bruising to the top of the left foot.? Urinary Catheter Management: Gutierrez: Cath Placed During This Visit: yes Reason for Continuing Indwelling Catheter: Acute Urinary Retention or Obstruction Urinary Catheter Date of Insertion: 11/15/22 Urinary Catheter Time of Insertion: 16:47 Data 11/18/22 05:00 11/18/22 05:00 Micro: Microbiology 11/16/22 Unknown MRSA Culture - Final Nose 11/16/22 Unknown Bacterial Antigens - Final Urine Kidney A&P Assessment and plan (1) Weakness: Most likely in setting of uncontrolled diabetes mellitus, vitamin B12 deficiency and hypothyroidism. PT evaluation. Patient is severely deconditioned and most likely will need extensive rehab. Patient is finally agreeable to go to SNF. Case management alerted. (2) Uncontrolled diabetes mellitus: Secondary to noncompliance. A1c more than 16. Blood sugars better controlled. For now continue with Lantus 10 units twice daily and insulin sliding scale high-dose protocol. Depending on insulin requirement next 24 hours we will increase the Lantus dose. Stop IV fluids. Also associated with peripheral neuropathy. Start on gabapentin 100 mg 3 times daily. (3) Hypothyroidism: High TSH, low free T3 and free T4. Cortisol level normal Start on levothyroxine 100 mcg oral daily. Need a repeat thyroid panel in 4 weeks (4) Wernicke encephalopathy: (5) Embolic stroke: (6) Chronic respiratory failure with hypoxia and hypercapnia: Most likely in setting of COPD exacerbation along with congestive heart failure. Patient with history of diastolic heart failure. Pulmicort twice daily, DuoNebs every 6 hours. Oxygen supplementation keeping saturation over 88%. Concerns for pneumonia on admission. Cultures Pro-Dane negative. Patient has remained hemodynamically stable and afebrile. No leukocytosis. Appreciate CT chest results. We will hold off on antibiotics and monitor patient. (7) COPD (chronic obstructive pulmonary disease): Chronic related to cigarette use, does not clinically appear acutely exacerbated at the time of my examination having not had breathing treatments nor steroids. Not interested in smoking cessation Avoiding steroid therapy secondary to degree of hyperglycemia and present examination (8) (HFpEF) heart failure with preserved ejection fraction: Echocardiogram shows EF of 65 with grade 2 diastolic dysfunction, no aortic valve stenosis, mildly increased LA and RA size. Stop IV fluids. No diuresis for today. Strict and proper charting. Monitor for fluid overload. Qualifiers: Heart failure chronicity: acute on chronic Qualified Code(s): I50.33 - Acute on chronic diastolic (congestive) heart failure (9) HTN (hypertension): Goal blood pressure 140/90 mmHg. At home since take Cardizem 30 mg twice daily. Started on nitrate patch on admission. For now remove the patch. Blood pressure is at goal. Given uncontrolled diabetes mellitus with peripheral neuropathy and UA concerning for diabetic nephropathy we will start on low-dose lisinopril 2.5 mg oral daily. (10) Diabetes mellitus with hyperglycemia: Qualifiers: Diabetes mellitus type: type 2 (11) Sacral decubitus ulcer, stage II: Present on admission. Wound care, regular turning and monitoring (12) H/O deep venous thrombosis: Deep vein thrombosis left lower extremity in 2019, has chronically been prescribed Xarelto at a prophylactic dose though has not been taking it. Venous ultrasound in August 2021 without evidence of DVT in the left leg. Repeat Doppler negative for DVT. Continue Lovenox at DVT prophylaxis dose. (13) Parkinsonian tremor: Has been prescribed primidone in the past though not taking it for the last few weeks Monitor need to consider resumption of home medication (14) Noncompliance with medication regimen: Contributing to current admission and diagnoses above Education and ongoing discussion regarding benefits of compliance and risk of noncompliance (15) Paresthesia and pain of extremity: (16) Polycythemia: Could be secondary dehydration versus hypoxia. Continue to monitor. (17) Aortic stenosis: Identified on echocardiogram in August 2021 with mean gradient of 5.5 mmHg and aortic valve area of 2.1 cm? but not on the echocardiogram done from this time. Confirmed with cardiology. (18) Pneumonia: Ruled out on CT chest no consolidation. Antibiotics as above. (19) Physical deconditioning: Plan Full code. Lovenox for DVT prophylaxis Protonix OPD prophylaxis Carb consistent diet. Plan for the day: Appreciate MRI results. Consistent with Wernicke's encephalopathy and possible multiple embolic bilateral strokes. IV thiamine 500 mg daily for 5 days. Carotid Dopplers. Change Xarelto to CVA prophylaxis dose to 15 mg daily. Continue with insulin sliding scale and Lantus 10 units twice daily. Increase lisinopril to 10 mg oral daily. Plan to transfer to SNF once accepted and medically able. Discharge plan: Discussed in detail with patient regarding noncompliance and need for medications compliance going forward. Patient verbalized understanding. States she lives by herself and takes care of her medication and usually forgets to take the medications. Have a friend who helps her sporadically. Given significant deconditioning now patient is agreeable to go to SNF. Patient has been accepted to [facility]. Plan to discharge the next day 4 hours. Case management alerted. Attestations Medical Necessity Statement*: Requires further hospitalization for management of weakness in setting of uncontrolled diabetes mellitus, new diagnosis of hypothyroidism, Wernicke's encephalopathy, multiple bilateral embolic strokes with severe physical deconditioning while safe discharge planning is sought. Diagnoses Weakness R53.1 Uncontrolled diabetes mellitus Hypothyroidism E03.9 Wernicke encephalopathy E51.2 Embolic stroke I63.9 Chronic respiratory failure with hypoxia and hypercapnia J96.11; J96.12 COPD (chronic obstructive pulmonary disease) J44.9 (HFpEF) heart failure with preserved ejection fraction I50.33 Heart failure chronicity: acute on chronic HTN (hypertension) I10 Diabetes mellitus with hyperglycemia E11.65 Diabetes mellitus type: type 2 Sacral decubitus ulcer, stage II L89.152 H/O deep venous thrombosis Z86.718 Parkinsonian tremor G20 Noncompliance with medication regimen Z91.14 Paresthesia and pain of extremity R20.2; M79.609 Polycythemia D75.1 Aortic stenosis I35.0 Pneumonia J18.9 Physical deconditioning R53.81
[2022-11-18 17:33] LABS: Glucose Point of Care 243 mg/dL (70-110)
[2022-11-18 20:52] LABS: Glucose Point of Care 207 mg/dL (70-110)
[2022-11-18] MEDS: insulin glargine 100 units/1 mL 10 UNIT SUBCUT (21:18)
[2022-11-19 03:11] VITALS: BP 149/81; PULSE 56; RESP 18; TEMP 36.4; O2SAT 97
[2022-11-19] MEDS: levothyroxine 100 mcg Tablet PO (06:33)
[2022-11-19 07:35] LABS: Glucose Point of Care 180 mg/dL (70-110)
--- NOTE | 2022-11-19 07:50 | PM.DCS ---
Discharge Providers Date of Admission: 11/15/22 14:45 Date of Discharge: November 19, 2022 Attending Provider at Admission: Karen Jewell MD Attending Provider at Discharge: Jorge Neal MD Primary Care Provider: Marilou Bearden MD Diagnoses at Discharge Discharge Diagnosis (1) Weakness: Status: Acute (2) Uncontrolled diabetes mellitus: Status: Acute (3) Hypothyroidism: Status: Acute (4) Wernicke encephalopathy: Status: Acute (5) Embolic stroke: Status: Acute (6) Chronic respiratory failure with hypoxia and hypercapnia: Status: Acute (7) COPD (chronic obstructive pulmonary disease): Status: Chronic (8) (HFpEF) heart failure with preserved ejection fraction: Status: Chronic Qualifiers: Heart failure chronicity: acute on chronic Qualified Code(s): I50.33 - Acute on chronic diastolic (congestive) heart failure (9) HTN (hypertension): Status: Chronic (10) Diabetes mellitus with hyperglycemia: Status: Chronic Qualifiers: Diabetes mellitus type: type 2 (11) Sacral decubitus ulcer, stage II: Status: Acute (12) H/O deep venous thrombosis: Status: Chronic (13) Parkinsonian tremor: Status: Chronic (14) Noncompliance with medication regimen: Status: Chronic (15) Paresthesia and pain of extremity: Status: Chronic (16) Polycythemia: Status: Acute (17) Aortic stenosis: Status: Ruled-out Permanent problem details: Echocardiogram on 11/16 rules out aortic stenosis (18) Pneumonia: Status: Acute (19) Physical deconditioning: Status: Acute Reason for Visit Reason for Visit: generalized weakness/ unable to ambulate Brief History: History as per HPI: Shea Simon is a 61 year old female who presented to the emergency room via EMS because of weakness.? From what she tells me, her arms and legs are so weak that she was having more difficulty getting up from her chair and walking around than usual.? She does have a chronic unsteady gait according to available records as well as a tremor.? There was a question of whether or not she fell but she denies it at this time.? CT of the head and cervical spine in the emergency room were unremarkable.? In talking with her she reports that she quit taking all of her medications a couple of weeks ago.? She stopped the Lasix prior to that because she felt like she was having to urinate too much.? She has not been taking her insulin nor her blood thinners.? She has had gradually increasing swelling of both lower extremities.? Left lower extremity is larger than right lower extremity but she indicates this is not new.? She does have a history of a DVT in the left lower extremity in 2019.? She reports pain in her arms and legs in addition to the weakness.? She also describes development of orthopnea, PND to the point that she is sleeping even worse than usual.? Denies significant increase in cough or change in sputum.? No report of any fever.? She has continued to smoke 2 to 2-1/2 packs of cigarettes per day.? She has had urinary frequency and incontinence but denies any dysuria.? In the emergency room oxygen saturation in the mid 80s on presentation and blood pressure 180s over 90s.? Not tachycardic.? She is not on oxygen at home.? She has known COPD as well as heart failure with preserved ejection fraction and moderate aortic stenosis by last echocardiogram in early 2021.? Oxygenation improved with 2 L by nasal cannula.? Breathing treatment and BiPAP were ordered but patient refused both.? She refused blood cultures and COVID testing.? She was given Rocephin and azithromycin for left lower lobe infiltrate suggesting pneumonia on chest x-ray.? She also received 10 units of regular insulin for blood sugars of greater than 500 at presentation.? She did not have serum ketones and anion gap was normal.? Hospitalist were contacted for admission. Hospital Course Hospital Course Patient was admitted to the hospital further evaluation and management. She underwent multiple work-up. Her insulins were adjusted after which her blood sugars are better controlled. She was found to be hypothyroid for which she was started on oral levothyroxine. She was found to be deficient with multi vitamins. Vitamin B12 was repleted. MRI brain was done which was consistent with Wernicke's encephalopathy along with possible bilateral embolic stroke. Patient during hospitalization was noncompliant with telemetry. Patient has an outpatient is supposed to be on Xarelto at DVT prophylaxis dose which is increased to anticoagulation dose now after discussing in detail with the patient. Patient was seen by physical therapy and was found to be extensively deconditioned. Lower limb Dopplers were negative for DVT. Echocardiogram was done which showed diastolic dysfunction but was negative for aortic stenosis. It is believed her symptoms on admission were most likely secondary to uncontrolled diabetes mellitus, undiagnosed hypothyroidism, possible Wernicke's encephalopathy along with embolic strokes. As per patient she lives by herself but has a friend who helps her with her medications on and off but a lot of times she forgets to take her medications. She has a son but is estranged. Safe discharge planning was discussed in detail with the patient and she was agreeable for going to SNF for further rehabitation for for long-term. She has been discharged to SNF in hemodynamically stable condition on Lantus 15 units daily along with insulin sliding scale, oral levothyroxine 100 mcg daily, lisinopril 10 mg oral daily. She is to be on oral vitamin B12 and thiamine supplements but additionally she needs to be on 250 mg of IM vitamin B1 for 5 days. Patient is agreeable for all of the above. She is to take Xarelto at anticoagulation dose of 15 mg daily. Physical Exam Narrative: General: No acute distress, AO x3, NC oxygen supplementation, pleasant, chronically sick appearing HEENT: PERRLA, pupils bilaterally equal and reactive Chest: Bronchial breath sounds b/l occasional rhonchi and coarse crackles present all over lung gilman CVS: S1-S2 regular, no murmurs, no tachycardia, no gallops, no rubs Abdomen: Soft, nontender, no organomegaly, bowel sounds present, morbidly obese Neuro: No focal deficits, no facial deformity, AO x 2-3, power 5/5 in all limbs. Skin:In the sacral area there are 3 blanchable areas with some skin breakdown grouped at the sacral region present on admission.? She has some dried scabs to both arms and other chronic skin changes.? No large areas of bruising though I did note some faint bruising to the top of the left foot.? Urinary Catheter Management: Gutierrez: Cath Placed During This Visit: yes Reason for Continuing Indwelling Catheter: Assist healing open wound Urinary Catheter Date of Insertion: 11/15/22 Urinary Catheter Time of Insertion: 16:47 Discharge Data Studies Completed and Pending Completed Studies During Hospitalization Category Date Time Status CT cervical spin wo con* [id number] Stat Cat Scan 11/15/22 09:[address] chest abdomen pelvis [CT chest abdpel w/*[id number] Cat Scan 11/16/22 16:46 Completed ] Routine CT head wo con* [id number] Stat Cat Scan 11/15/22 09:16 Completed XR chest 1V portable [id number] Stat Exams 11/15/22 09:07 Completed MR head wo/w con [id number] Routine MRI 11/18/22 10:15 Completed CV carotid duplex BI* [id number] Routine Ultrasound 11/18/22 13:29 [place] [id number] Routine Ultrasound 11/16/22 14:57 Completed CV. echo complete* [id number] Routine Ultrasound 11/16/22 14:45 Completed Pending at discharge Category Date Time Status Blood Culture Stat Lab 11/15/22 05:07 Results Complete Blood Count w/Auto AM LABS Lab 11/19/22 04:00 Ordered Comprehensive Metabolic Panel AM LABS Lab 11/19/22 04:00 Ordered Sputum Culture and Gram Stain Stat Lab 11/15/22 12:54 Uncollected Vitamin B1 (Thiamine),Blood Routine Lab 11/17/22 14:48 Received Radiology Impressions Chest X-Ray 11/15/22 09:07 IMPRESSION: Ground-glass consolidation in the left lung base concerning for possible pneumonia. Cervical Spine CT 11/15/22 09:16 IMPRESSION: 1. No cervical spine fracture. 2. No significant central or foraminal stenosis or large disc protrusions. Head CT 11/15/22 09:16 IMPRESSION: 1. No acute intracranial hemorrhage identified. Mild limitation due to motion artifact. 2. Mild cerebral atrophy and small vessel ischemic disease. New area of decreased attenuation in the LEFT basal ganglia. Does not appear acute. Chest/Abdomen/Pelvis CT 11/16/22 16:46 IMPRESSION: 1. Large heart with mild venous congestion and evidence of pulmonary hypertension. 2. Lung base atelectasis or scarring. No pneumothorax, consolidation, or effusion. IMPRESSION: 1. Mild diffuse 3rd spacing of fluid with mild anasarca. 2. Possible cystitis. 3. No small bowel obstruction, abscess or free air. 4. Numerous chronic findings above. Overall, the findings are similar to 04/12/2022. Head MRI 11/18/22 10:15 IMPRESSION: Images moderately degraded by motion. 1. Multiple areas of restricted diffusion more prominent involving the RIGHT superior thalamus and LEFT dinh radiata extending into the posterior limb LEFT internal capsule. This is described above. 2. Additional smaller punctate areas of restricted diffusion in the periventricular white matter bilaterally. 3. Mild edema associated with the areas of ischemia. 4. Small amount of increased signal in the mamillary bodies and periaqueductal junior can be seen with Wernickes encephalopathy in the appropriate clinical setting. This is similar to 2016. Thalamic signal abnormalities can also be seen with Wernickes encephalopathy 5. Moderate small vessel changes. Mild parenchymal volume loss. Small vessel changes in the jenny. 6. Tiny chronic lacunar infarcts in the cerebellum. Notified Jorge Neal MD at 11/18/2022 12:39 PM. Echocardiogram: CONCLUSIONS ?Normal left ventricular cavity size. Mild left ventricular ?hypertrophy. Normal left ventricular systolic function. Left ?ventricular ejection fraction is estimated at 65 %. Grade II/IV ?diastolic dysfunction, moderately elevated filling pressures. ?Mildly increased right atrial size. ?Mildly increased left atrial size. ?Structurally normal mitral valve. Trace mitral valve ?regurgitation. ?Structurally normal trileaflet aortic valve. No aortic valve ?stenosis. Trace aortic valve regurgitation. ?Mildly dilated inferior vena cava. ?Previous study was done 08/31/2021.? That study suggested ?moderate aortic valve stenosis which was not evident on today's ?study.? Otherwise, there has been no significant change. ?Dr. Roe Sanders MD ?(Electronically Signed) ?Final Date:? ? ? 16 Nov 2022 09:17 Laboratory Results WBC 6.7 10^3/uL (4.0-10.0) 11/18/22 05:00 Corrected WBC Cancelled 11/17/22 05:23 RBC 5.32 10^6/uL (4.1-5.3) H 11/18/22 05:00 Hgb 15.6 g/dL (11.5-15.3) H 11/18/22 05:00 Hct 48.5 % (37.0-47.0) H 11/18/22 05:00 MCV 91.2 fl (81-99) 11/18/22 05:00 MCH 29.3 pg (28.0-34.0) 11/18/22 05:00 MCHC 32.2 g/dL (30.0-36.0) 11/18/22 05:00 RDW 13.7 % (12.1-15.1) 11/18/22 05:00 Plt Count 144 10^3/cmm (130-400) 11/18/22 05:00 MPV 10.5 fL (7.4-10.4) H 11/18/22 05:00 Gran % Cancelled 11/17/22 05:23 Neut % (Auto) 66.2 % 11/18/22 05:00 Lymph % (Auto) 22.9 % 11/18/22 05:00 [place] % (Auto) 7.1 % 11/18/22 05:00 Eos % (Auto) 3.0 % 11/18/22 05:00 Baso % (Auto) 0.5 % 11/18/22 05:00 Neut # (Auto) 4.41 10^3/uL (1.8-7.7) 11/18/22 05:00 Lymph # (Auto) 1.5 10^3/uL (0.8-4.8) 11/18/22 05:00 [place] # (Auto) 0.5 10^3/uL (0.2-0.9) 11/18/22 05:00 Eos # (Auto) 0.2 10^3/uL (0.0-0.8) 11/18/22 05:00 Baso # (Auto) 0.0 10^3/uL (0.0-0.1) 11/18/22 05:00 Absolute Gran (auto) Cancelled 11/17/22 05:23 Nucleated RBC % (auto) 0 % 11/18/22 05:00 Nucleated RBCs # 0.0 /100WBC 11/18/22 05:00 D-Dimer 0.98 ug/mIFEU (0-0.59) H 11/16/22 05:07 Specimen Type Arterial 11/15/22 09:28 Sample Site Brachial, right 11/15/22 09:28 ABG pH 7.39 (7.35-7.45) 11/15/22 09:28 ABG pCO2 56.4 mmHg (35-45) H 11/15/22 09:28 ABG pO2 67.3 mmHg (80.0-100.0) L 11/15/22 09:28 ABG HCO3 34.2 mmol/L (22-26) H 11/15/22 09:28 ABG O2 Saturation 93.6 11/15/22 09:28 ABG Base Excess 6.9 mmol/L (-2.0-2.0) H 11/15/22 09:28 Dilshad Test N/a 11/15/22 09:28 A-a O2 Gradient 8.2 mmHg (5-10) 11/15/22 09:28 Hematocrit 53.7 % (37-47) H 11/15/22 09:28 Hgb O2 Saturation 86.3 % (95-100) L 11/15/22 09: Carboxyhemoglobin 7.2 %THgb (0.4-20.1) 11/15/22 09:28 Methemoglobin 0.7 % (0.4-1.5) 11/15/22 09:28 Total Hemoglobin 17.5 g/dL (12-16) H 11/15/22 09:28 Sodium 139.0 mmol/L (131-143) 11/15/22 09:28 Potassium 3.9 mmol/L (3.5-5.0) 11/15/22 09:28 Glucose 417.0 mg/dL (70-115) H 11/15/22 09:28 Ionized Calcium 1.2 mmol/L (1.1-1.4) 11/15/22 09:28 O2 Delivery Device Nc 11/15/22 09:28 O2 Liters/Min 2.0 % 11/15/22 09:28 FiO2 28.0 % 11/15/22 09:28 Lawn Sprinkler Servicer ID Gd 11/15/22 09:28 Sodium 140 mmol/L (136-145) 11/18/22 05:00 Potassium 3.8 mmol/L (3.5-5.1) 11/18/22 05:00 Chloride 103 mmol/L (98-107) 11/18/22 05:00 Carbon Dioxide 32 mmol/L (22-29) H 11/18/22 05:00 Anion Gap 8.8 (5-19) 11/18/22 05:00 BUN 24 mg/dL (8-23) H 11/18/22 05:00 Creatinine 0.6 mg/dL (0.5-0.9) 11/18/22 05:00 GFR Calculation 101.0 mL/min (90-130) 11/18/22 05:00 Glucose 85 mg/dL (65-115) 11/18/22 05:00 POC Glucose 180 mg/dL (70-110) H 11/19/22 07:32 Estimat Average Glucose Cancelled 11/17/22 06:19 Hemoglobin A1c Cancelled 11/17/22 06:19 Calculated Osmolality 293 mOsm/kg (285-295) 11/18/22 05:00 Lactic Acid 0.6 mmol/L (0.5-2.2) 11/15/22 09:34 Calcium 8.2 mg/dL (8.5-10.5) L 11/18/22 05:00 Phosphorus 4.2 mg/dL (2.5-4.5) 11/18/22 05:00 Magnesium 1.9 mg/dL (1.7-2.3) 11/18/22 05:00 Iron 62 ug/dL (37-145) 11/16/22 05:07 TIBC 187 mcg/dl 11/16/22 05:07 % Saturation 33.1 % (20-50) 11/16/22 05:07 Unsat Iron Binding 125 ug/dL (112-347) 11/16/22 05:07 Total Bilirubin 0.3 mg/dL (0.15-1.2) 11/18/22 05:00 AST 12 U/L (0-32) 11/18/22 05:00 ALT 7 U/L (0-33) 11/18/22 05:00 Alkaline Phosphatase 70 U/L (35-105) 11/18/22 05:00 Creatine Kinase 56 U/L (26-192) 11/15/22 08:20 NT-Pro-B Natriuret Pep 521 pg/mL (0-125) H 11/15/22 08:20 Total Protein 5.0 g/dL (6.6-8.7) L 11/18/22 05:00 Albumin 1.9 g/dL (3.5-5.2) L 11/18/22 05:00 Globulin 3.1 g/dL (1.3-4.6) 11/18/22 05:00 Lipase 22 U/L (13-60) 11/15/22 08:20 Vitamin B12 324 pg/mL (232-1245) 11/16/22 05:07 Folate 9.8 ng/mL (4.8-37.3) 11/15/22 08:20 Procalcitonin 0.07 ng/mL (0-0.5) 11/16/22 05:07 TSH 5.48 uIU/mL (0.27-4.20) H 11/15/22 08:20 Free T4 0.79 ng/dL (0.82-1.77) L 11/16/22 05:07 Free T3 1.4 PG/ML (2.0-4.4) L 11/16/22 05:07 Random Cortisol 12.77 ug/dL (2.47-19.5) 11/16/22 05:07 Urine Color Colorless (Yellow) 11/15/22 12:00 Urine Appearance Clear (CLEAR) 11/15/22 12:00 Urine pH 6.5 (5-7) 11/15/22 12:00 Ur Specific [place] 1.015 (1.005-1.030) 11/15/22 12:00 Urine Protein 3+ (Negative) H 11/15/22 12:00 Urine Glucose (UA) 4+ (Normal) H 11/15/22 12:00 Urine Ketones Negative (Negative) 11/15/22 12:00 Urine Blood 2+ (Negative) H 11/15/22 12:00 Urine Nitrate Negative (Negative) 11/15/22 12:00 Urine Bilirubin Neg (Negative) 11/15/22 12:00 Urine Urobilinogen Norm mg/dL (Negative) 11/15/22 12:00 Ur Leukocyte Esterase Negative (Negative) 11/15/22 12:00 Urine RBC 0-4 /hpf (0-2) H 11/15/22 12:00 Urine WBC 0-4 /hpf (0-5) H 11/15/22 12:00 Ur Squamous Epith Cells 0-4 /hpf (0-5) H 11/15/22 12:00 Amorphous Sediment Not Reportable 11/15/22 12:00 Urine Bacteria None /hpf (NONE) 11/15/22 12:00 Urine Opiates Screen Negative ng/mL (Negative) 11/15/22 11:20 Ur Barbiturates Screen Negative ng/mL (Negative) 11/15/22 11:20 Ur Phencyclidine Scrn Negative ng/mL (Negative) 11/15/22 11:20 Ur Amphetamines Screen Negative ng/mL (Negative) 11/15/22 11:20 U Benzodiazepines Scrn Negative ng/mL (Negative) 11/15/22 11:20 Urine Cocaine Screen Negative ng/mL (Negative) 11/15/22 11:20 U Marijuana (THC) Screen Negative ng/mL (Negative) 11/15/22 11:20 Serum Ketones Negative (Negative) 11/15/22 08:20 SARS-CoV-2 Ag (Rapid) negative (Negative) 11/18/22 09:27 Vitals Last Vital Signs Temp 97.6 F 11/19/22 03:11 Pulse 56 L 11/19/22 03:11 Resp 18 11/19/22 03:11 BP 149/81 11/19/22 03:11 Pulse Ox 97 11/19/22 03:11 O2 Del Method Nasal Cannula 11/19/22 03:11 O2 Flow Rate 3 11/18/22 21:21 Discharge Plan Discharge Patient Disposition: Xfer SNF Condition: Stable Prescriptions: New aspirin 81 mg Tablet,Delayed Release (Dr/Ec) 81 mg PO DAILY Qty: 30 0RF Vitamin B-12 1,000 mcg Tablet 1,000 mcg PO DAILY Qty: 30 0RF Levoxyl 100 mcg Tablet 100 mcg PO QAM Qty: 30 0RF lisinopril 10 mg Tablet 10 mg PO DAILY Qty: 30 0RF gabapentin 100 mg Capsule 100 mg PO TID Qty: 90 0RF Lantus Solostar U-100 Insulin 100 unit/mL (3 mL) insulin pen 15 unit SUBCUT DAILY Qty: 15 0RF Humalog KwikPen Insulin 100 unit/mL insulin pen 5 unit SUBCUT TID Qty: 15 0RF Xarelto 15 mg tablet 15 mg PO QPM Qty: 30 0RF Rx Instructions: must administer with evening meal thiamine HCl (vitamin B1) 100 mg tablet 100 mg PO DAILY Qty: 30 0RF thiamine HCl (vitamin B1) 100 mg/mL solution 250 mg IM DAILY 5 Days Qty: 12.5 0RF Continued nitroglycerin 0.4 mg tablet, sublingual 0.4 mg sublingual Q5M PRN (Reason: Chest Pain) Rx Instructions: do not exceed 3 doses per episode (DME) walker See Rx Instructions .Route .MEDSUPPLY Qty: 1 0RF Rx Instructions: As directed 99 months walker with front wheels atorvastatin 10 mg tablet 10 mg PO DAILY Qty: 30 2RF fluticasone propion-salmeterol [Advair Diskus] 500-50 mcg/dose blister with device 1 inh INHALATION BID@08,20 Qty: 60 2RF escitalopram oxalate 20 mg tablet 20 mg PO DAILY@08 Qty: 30 2RF (DME) pen needle, diabetic 33 gauge x 5/32 needle See Rx Instructions .ROUTE .MEDSUPPLY Qty: 100 5RF Rx Instructions: 1 time day MediHoney (honey) 100 % paste 1 applic topical BID Qty: 103 0RF nystatin 100,000 unit/gram cream 1 applic topical BID Qty: 30 2RF primidone 250 mg tablet 250 mg PO DAILY Qty: 30 2RF (DME) blood-glucose meter [JetaportTouch Ultra2 Meter] Kit See Rx Instructions .Route Qty: 1 0RF Rx Instructions: daily (DME) OneTouch Ultra Test Strip See Rx Instructions .Route Qty: 50 5RF Rx Instructions: daily use strip (DME) lancets [JetaportTouch Delica Plus Lancet] 33 gauge misc See Rx Instructions .Route Qty: 100 5RF Rx Instructions: use one daily furosemide 20 mg tablet 20 mg PO BID PRN (Reason: Edema) Qty: 60 2RF ergocalciferol (vitamin D2) 1,250 mcg (50,000 unit) capsule 1,250 mcg PO Q7D Discontinued aspirin 81 mg tablet,delayed release (DR/EC) 81 mg PO BID Ozempic 0.25 mg or 0.5 mg(2 mg/1.5 mL) pen injector 0.5 mg SUBCUT Q7D Qty: 1.5 2RF Xarelto 2.5 mg tablet 2.5 mg PO BID Qty: 60 2RF metformin 500 mg tablet extended release 24 hr 1,000 mg PO BID Qty: 120 2RF diltiazem HCl 30 mg tablet 30 mg PO BID Qty: 60 2RF insulin degludec [Tresiba FlexTouch U-200] 200 unit/mL (3 mL) insulin pen 20 unit SUBCUT DAILY Qty: 9 0RF Discharge Orders: Discharge Order (Routine); Ordered 11/19/22 Ordered By: Jorge Neal Referrals: Marilou Bearden MD [Primary Care Provider] - (Clinic will call with appointment) Discharge Diet: Cardiac and Diabetic Discharge Activity: Increase activity as tolerated Patient Instructions: Opioid Safety Activity Restrictions/Additional Instructions: She will recheck thyroid panel in the next 4 weeks. Take levothyroxine 100 mcg daily. Take Lantus 15 units daily, insulin sliding scale as per protocol. Repeat A1c in 3 months. Take vitamin B12 and B1 supplements. Additionally take vitamin D 1 IM shots to 50 mg for next 5 days. Increase physical activities with physical therapy. Dose of Xarelto has been increased to 15 mg oral daily. Discharge Attestations Time Spent in Discharge Care*: greater than 30 min Specific Discharge Activities: educating patient, discussing with pcp/other providers, discussing with mental health case manager/social workers/dc planners, documenting/other paperwork and evaluating patient/reviewing data Status at Discharge: Cognitive status at discharge: cognitively intact, Behavioral status at discharge: can be uncooperative, Functional status at discharge: uses cane/walker, Overall status at discharge: patient is progressing back to baseline Quality Metrics Clinical Quality Measures [ No reported AMI, CVA or VTE this stay] Coding Level of Care Code 45462 Total time (in minutes) for Discharge: 60 Diagnoses Weakness R53.1 Uncontrolled diabetes mellitus Hypothyroidism E03.9 Wernicke encephalopathy E51.2 Embolic stroke I63.9 Chronic respiratory failure with hypoxia and hypercapnia J96.11; J96.12 COPD (chronic obstructive pulmonary disease) J44.9 (HFpEF) heart failure with preserved ejection fraction I50.33 Heart failure chronicity: acute on chronic HTN (hypertension) I10 Diabetes mellitus with hyperglycemia E11.65 Diabetes mellitus type: type 2 Sacral decubitus ulcer, stage II L89.152 H/O deep venous thrombosis Z86.718 Parkinsonian tremor G20 Noncompliance with medication regimen Z91.14 Paresthesia and pain of extremity R20.2; M79.609 Polycythemia D75.1 Aortic stenosis I35.0 Pneumonia J18.9 Physical deconditioning R53.81
[2022-11-19 08:00] VITALS: BP 149/76; PULSE 59; RESP 17; TEMP 36.6; O2SAT 93
--- NOTE | 2022-11-19 08:30 | PC.NURSE ---
Gutierrez Catheter removed at this time. Patient tolerated well.
[2022-11-19 08:33] VITALS: PULSE 59; RESP 18; O2SAT 90
[2022-11-19] MEDS: aspirin 81 mg EC Tablet PO (09:55)
[2022-11-19] MEDS: insulin glargine 100 units/1 mL 10 UNIT SUBCUT (09:55)
[2022-11-19] MEDS: gabapentin 100 mg Capsule PO (09:55)
[2022-11-19] MEDS: cyanocobalamin 1,000 mcg Tablet 1000 MCG PO (09:55)
[2022-11-19] MEDS: rivaroxaban 10 mg Tablet 15 MG PO (09:55)
[2022-11-19] MEDS: pantoprazole DR 40 mg Tablet PO (09:56)
[2022-11-19] MEDS: docusate sodium 100 mg Capsule PO (09:56)
[2022-11-19] MEDS: atorvastatin 40 mg Tablet 10 MG PO (09:56)
[2022-11-19] MEDS: lisinopril 10 mg Tablet PO (09:57)
[2022-11-19] MEDS: insulin lispro 100 unit/1 mL SUBCUT ×2 (10:07→12:53)
[2022-11-19 11:19] LABS: Basophils % 0.6 %; Eosinophils # 0.2 10^3/uL (0.0-0.8); Eosinophils % 3.3 %; Hematocrit 48.9 % (37.0-47.0); Hemoglobin 15.6 g/dL (11.5-15.3); Lymphocytes % 15.5 %; Mean Corpuscular HGB Conc 31.9 g/dL (30.0-36.0); Mean Corpuscular Hemoglobin 29.6 pg (28.0-34.0); Mean Corpuscular Volume 92.8 fl (81-99); Mean Platelet Volume 10.7 fL (7.4-10.4); Monocytes # 0.3 10^3/uL (0.2-0.9); Monocytes % 5.3 %; Neutrophils # 4.84 10^3/uL (1.8-7.7); Nucleated Red Blood Cells % 0 %; Platelet Count 144 10^3/cmm (130-400); Red Blood Count 5.27 10^6/uL (4.1-5.3); Red Cell Distribution Width 13.5 % (12.1-15.1); White Blood Count 6.5 10^3/uL (4.0-10.0)
[2022-11-19 11:28] LABS: Glucose Point of Care 242 mg/dL (70-110)
[2022-11-19 11:40] LABS: Alanine Aminotransferase 8 U/L (0-33); Albumin Level 1.7 g/dL (3.5-5.2); Alkaline Phosphatase 69 U/L (35-105); Anion Gap 11.2 (5-19); Aspartate Amino Transferase 13 U/L (0-32); Blood Urea Nitrogen 22 mg/dL (8-23); Carbon Dioxide 27 mmol/L (22-29); Chloride 99 mmol/L (98-107); Globulin 3.2 g/dL (1.3-4.6); Glucose 209 mg/dL (65-115); Osmolality Calculated 285 mOsm/kg (285-295); Potassium 4.2 mmol/L (3.5-5.1); Sodium 133 mmol/L (136-145); Total Bilirubin 0.3 mg/dL (0.15-1.2); Total Protein 4.9 g/dL (6.6-8.7)
[2022-11-19 13:53] VITALS: PULSE 60; RESP 18; TEMP 36.7; O2SAT 90
--- NOTE | 2022-11-19 13:54 | PC.NURSE ---
IV removed intact. Patient tolerated well. Patient is A&Ox2. Respirations even and non-labored on 2 liters NC. Patient assisted to cot and will be transferred to [place].
--- NOTE | 2022-11-19 14:10 | PC.NURSE ---
Report to Carmen at [facility] at this time.
[2022-11-25 01:21] LABS: Vitamin B1 (Thiamine),Blood >1200 nmol/L (78-185)
== END 2022-11-19 13:45 | disposition skilled nursing facility (03) | DRG 190 ==
LOC: ER 13:05 → MEDSURG 16:40
PROVIDERS: Admitting Provider Hospitalist; Emergency Provider Family Medicine; PCP Family Medicine; Visit Provider Student in an Organized Health Care Education/Training Program
DX: J44.0 Chronic obstructive pulmonary disease with (acute) lower respiratory infection (principal); I50.33 Acute on chronic diastolic (congestive) heart failure; J18.9 Pneumonia, unspecified organism; E51.2 Wernicke's encephalopathy; J96.12 Chronic respiratory failure with hypercapnia; J96.11 Chronic respiratory failure with hypoxia; I11.0 Hypertensive heart disease with heart failure; I35.0 Nonrheumatic aortic (valve) stenosis; Z91.148 Patient's other noncompliance with medication regimen for other reason; Z91.199 Patient's noncompliance with other medical treatment and regimen due to unspecified reason; E03.9 Hypothyroidism, unspecified; E53.8 Deficiency of other specified B group vitamins; E11.65 Type 2 diabetes mellitus with hyperglycemia; Z86.73 Personal history of transient ischemic attack (TIA), and cerebral infarction without residual deficits; G20 Parkinson's disease; Z86.718 Personal history of other venous thrombosis and embolism; F17.210 Nicotine dependence, cigarettes, uncomplicated; G89.29 Other chronic pain; M54.2 Cervicalgia; E86.0 Dehydration; L89.152 Pressure ulcer of sacral region, stage 2; D75.1 Secondary polycythemia; Z85.828 Personal history of other malignant neoplasm of skin; K21.9 Gastro-esophageal reflux disease without esophagitis; F41.1 Generalized anxiety disorder; Z86.16 Personal history of COVID-19
CPT/HCPCS: 36415; 36416; 36600; 51702; 70450; 70553; 71045; 71260; 72125; 74177; 80048; 80051; 80053; 80306; 81001; 82009; 82330; 82533; 82550; 82607; 82746; 82805; 82962; 83036; 83540; 83550; 83605; 83690; 83735; 83880; 84100; 84145; 84425; 84439; 84443; 84481; 85025; 85378; 86403; 87040; 87426; 87449; 87641; 93005; 93306; 93880; 93970; 94762; 96365; 96367; 96372; 96375; 97110; 97161; 97167; 97530; 97535; 99285; A9577; J0456; J0696; J1650; J1815; J1940; J3411; J3420; J7030; J7050; Q0144; Q9967